=== PATIENT | male | born 1955 | race Caucasian/White ===

== ENCOUNTER 2020-09-06 03:36 | Emergency (ER) | payer OTHER, SELFPAY ==
[2020-09-06 03:37] VITALS: BP 188/88; PULSE 72; RESP 18; TEMP 36.3; O2SAT 100; BMI 34.6
[2020-09-06 03:45] VITALS: BP 188/88; PULSE 64; RESP 15; TEMP 36.3; O2SAT 100
--- NOTE | 2020-09-06 04:11 | ED.DCSUM_ITS ---
- ER Visit Summary Date of Service: 09/06/20 Chief Complaint: Pain and swelling to right index finger History of Present Illness: The patient is a 65 M who presents with pain and swelling to his right index finger that is been getting worse over the past 6 days. Patient was seen at the [facility] urgent care and was given a prescription for Keflex and mupirocin. Patient states that it has gotten worse since he applied the mupirocin. Patient states he has been taking Tylenol and ibuprofen with some improvement. Patient denies any paresthesias or weakness. Patient describes his pain is aching. Patient is unsure of his last tetanus. Physical Examination: Vital signs are stable. Patient is afebrile. Patient is in no acute distress. Skin is warm dry. There is a large vesicle noted over the radial aspect of the distal phalanx of the right index finger along the nail margin. This also extends towards the eponychium. There is no active discharge or drainage. There is tenderness to palpation over the area. Sensation was intact to light touch in all digits. Capillary refill is less than 2 seconds in all digits. Strength is 5/5 in flexion and extension of the DIP, PIP, and MP joints. Emergency Department Course and Treatment: The area was cleaned with chlorhexidine prep. The area was opened with the tip of an 18-gauge needle. Large amount of purulent and bloody drainage was expressed. Patient tolerated the procedure well. Patient was instructed to continue his Keflex and mupirocin. Patient was instructed to follow-up with his primary care physician in 3 to 5 days. Patient understood and was agreeable with the plan. All questions were answered. Disposition: Discharge home Impression: Paronychia right index finger This note was generated with GreenPal dictation software. It may contain incorrect words, spelling, and punctuation that were not noted in review of the chart prior to signing ED Disposition - Plan for ED Patient: Disposition: Home or Assisted Living Diagnosis: Paronychia of right index finger Instructions: ED Paronychia of the Finger or Toe Referrals: Maykel Bee MD [Primary Care Provider] - 3-5 Days
== END 2020-09-06 04:47 | disposition home or self-care (01) ==
LOC: ED 04:41
PROVIDERS: Emergency Provider Emergency Medicine; PCP Internal Medicine
DX: L03.011 Cellulitis of right finger (principal); E11.9 Type 2 diabetes mellitus without complications; I10 Essential (primary) hypertension; Z72.0 Tobacco use
CPT/HCPCS: 10140; 10060; 99282

== ENCOUNTER → 2021-11-09 | Outpatient (CLI) | payer MEDICARE, SELFPAY ==
--- NOTE | 2021-11-09 15:16 | STRESSREP_ITS ---
Stress Test Report Exercise myocardial perfusion stress test. 66-year-old man with a history of chest pain. Stress protocol: Resting KG demonstrates normal sinus rhythm with a rate of 65 bpm T wave inversions noted in lead III and aVF. The patient exercised according to the regular Leroy protocol for total duration of 6 minutes and 30 seconds. The maximum heart rate attained was 133 bpm which was 85% of max impacted heart rate the maximum workload was 8.5 metabolic equivalents. At rest there were no ST or T wave changes noted to suggest ischemia and at peak exercise there was downsloping ST depression noted in leads III and aVF suggestive but not diagnostic of ischemia. The test was terminated due to the target heart rate being achieved. The peak blood pressure was 200/68 mmHg. No clinical angina was noted. Myocardial perfusion protocol. 14.6 mCi of technetium 99m sestamibi was injected at rest. The patient exercised according to regular Leroy protocol for total duration of 6-1/2 minutes and at peak exercise 44.8 mCi of technetium 99m sestamibi was injected stress images were obtained stress and rest images were reconstructed and charmaine red in the short axis vertical long and horizontal long axis. Gated images were also obtained to Perfusion SPECT analysis: Review of the stress images demonstrate normal uptake of tracer noted in all areas of the myocardium. The resting images similarly demonstrate normal uptake of tracer noted in all areas of the myocardium. No reversibility is noted suggest ischemia and no previous infarct is noted. Gated SPECT analysis: The gated ejection fraction is 55%. Conclusion: Normal exercise myocardial perfusion stress test at a high workload. Preserved ejection fraction.
== END | disposition home or self-care (01) ==
PROVIDERS: PCP Internal Medicine; Referring Provider Internal Medicine; Visit Provider Internal Medicine
DX: R94.31 Abnormal electrocardiogram [ECG] [EKG] (principal)
CPT/HCPCS: 78452; 93017; A9500; A4216

== ENCOUNTER 2024-04-16 01:09 | Emergency (ER) | payer MEDICARE, SELFPAY ==
[2024-04-16 01:10] VITALS: BP 166/73; PULSE 73; RESP 18; TEMP 36.5; O2SAT 98; BMI 31.8
--- NOTE | 2024-04-16 01:26 | RAD_ITS ---
STUDY: X-RAY - ABDOMEN/PELVIS REASON FOR EXAM: Male, 68 years old patient with right-sided flank pain. History of kidney stones. TECHNIQUE: Two AP supine views of the abdomen and pelvis. COMPARISON: None. FINDINGS: Normal visualized lung bases. There is an unremarkable bowel gas pattern. There is no obvious organomegaly, mass, dilated bowel or pathologic calcifications. Normal soft tissue structures. There appear to be degenerative changes of the left sacroiliac joint. RAD/Abdomen Single View IMPRESSION: No large radiopaque calculi are visualized. Electronically Signed: Diana Fuchs MD at 2:33 EST ,
--- NOTE | 2024-04-16 01:29 | ED.VIS.GI ---
HPI HPI - GI History of Present Illness Chief Complaint: Flank Pain Informant: patient and spouse/S.O. Narrative Narrative: 68-year-old male started suddenly having moderate-severe pain in his suprapubic area or just to the right of it about an hour or so ago along with some nausea and indigestion. No pain in his back or side. These of the same symptoms that he had a month ago or so when he was in [place] and [place] [facility] [place] and diagnosed with a 4 mm ureteral kidney stone. He was discharged with urine strainers and advised to take Tylenol and ibuprofen as needed for the pain, by the time he got home, he never had the pain again until an hour ago. He states it is the same. He urinated through the strainers but never passed the stone. No history of any abdominal surgeries. No other symptoms recently. [facility] Medical History (Updated 04/16/24 @ 02:[address] Edmund Hsieh MD) Hyperlipidemia Hypertension Type 2 diabetes mellitus Prostate cancer Home Medications ?Medication ?Instructions ?Recorded ?Last Taken ?Type Lisinopril 09/08/13 Unknown History aspirin 81 mg chewable tablet 81 mg PO DAILY@0800 09/08/13 Unknown History atorvastatin 40 mg tablet 40 mg PO QHS 09/08/13 Unknown History metformin 500 mg tablet,extended 1,000 mg PO BID 09/08/13 Unknown History release 24 hr sitagliptin phosphate 25 mg tablet 25 mg PO DAILY 09/08/13 Unknown History (Januvia) ondansetron 8 mg disintegrating 8 mg PO Q8H PRN nausea and 04/16/24 Unknown Rx tablet vomiting #20 tabs oxycodone-acetaminophen 5 mg-325 1 tab PO Q4H PRN Pain 3 days #18 04/16/24 Unknown Rx mg tablet TABLETS Allergy/AdvReac Type Severity Reaction Status Date / Time No Known Allergies Allergy Verified 04/16/24 01:15 Social History Smoking Status: Current some day smoker tobacco type: cigarettes ROS ROS ED Constitutional Constitutional ED: Denies chills or fever(s) Eyes Eyes: Denies change in vision or diplopia ENT ENT ED: Denies rhinorrhea or sore throat Cardiovascular Cardiovascular: Denies chest pain or palpitations Respiratory/Chest Respiratory/Chest: Denies cough or dyspnea Gastrointestinal Gastrointestinal: Reports abdominal pain and nausea; Denies diarrhea or vomiting Genitourinary Genitourinary ED: Denies dysuria or hematuria Musculoskeletal Musculoskeletal: Denies back pain or neck pain Integumentary Denies abscess or rash Neurologic Neurologic: Denies headache(s), paresthesias or weakness Psychiatric Psychiatric: Denies anxiety or suicidal thoughts EXAM Physical Exam Const Vital Signs: 04/16/24 01:10 Temperature 97.7 F L Temperature Source Oral Pulse Rate 73 Respiratory Rate 18 Blood Pressure 166/73 H Blood Pressure Mean 104 Pulse Ox 98 Oxygen Delivery Method Room Air Positive well nourished, well developed and obese General Appearance ED: well developed and NAD Nutritional Appearance: obese HEENT Reports moist mucous membranes normocephalic and atraumatic Eyes PERRL and EOMs intact bilaterally Neck full ROM and supple Resp normal respiratory effort and clear to auscultation bilaterally Cardio regular rate, regular rhythm and no murmurs GI non-tender and non-distended Auscultation: normoactive bowel sounds Palpation: soft Back/Spine no CVA tenderness General Back: other FROM Extremity normal to inspection General Extremety ED: Negative for edema, pulses abnormal or tenderness General Extremity: Negative for edema or pulses abnormal Neuro oriented x3, CN's II-XII intact bilaterally and no sensory deficits noted Sensorium / Orientation: awake and alert Motor Exam: strength 5/5 throughout Skin no rashes or lesions noted and no wounds MDM MDM MDM Narrative Medical decision making narrative: Given the patient's history I do not think we need to repeat a CT scan for this, since he was diagnosed with a kidney stone and he has exact same symptoms. He does not have a pulsatile mass, unequal leg pulses, or Kyler sign to suggest an aortic catastrophe. Furthermore his abdomen is nontender, correlating with a kidney stone and not necessarily appendicitis, he has no pain or tenderness in in or around McBurney's point. Patient was able to produce the results of his CT from the [place] ER visit using [employer] on his phone from [employer], and I reviewed the results as below. He had a nonobstructing right renal 4 mm stone which is probably causing an obstructive uropathy and his symptoms now. He was given symptom control medications and a urinalysis was ordered as well as a KUB. 1 view on my interpretation shows no obvious radiopaque stones, radiology was in agreement. His urinalysis in my opinion/interpretation shows no acute infection. He does have some trace hematuria, he states he has had that before due to his diabetes and the medication he is on. After Toradol 10 mg and morphine and Zofran he is feeling much better. His pain is well-controlled. Given that this is a likely 4 mm UVJ stone, he already has Flomax he is advised to start taking it once a day, but I think expectant management is indicated and reasonable here. Prescribed oxycodone and Zofran to use as needed we discussed reasons to return and reasons to follow-up with urology. Discharged with urine strainers. History & Record Review Additional record(s) reviewed:: Prior outpatient record (CT abdomen/pelvis from [place] in February: 3-4 mm left UVJ stone with hydro, and nonobstructing right renal 4 mm stone) and Other (Clinisync: No records from [place] visit available) Lab Data Attestation: I reviewed the patient's lab results. Labs: Laboratory Results - last 24 hr 04/16/24 01:39 Urine Color Yellow Urine Clarity Clear Urine pH 6.5 Ur Specific [place] 1.015 Urine Protein 15 H Urine Glucose (UA) 1000 H Urine Ketones Negative Urine Occult Blood 25 H Urine Nitrite Negative Urine Bilirubin Negative Urine Urobilinogen 1 H Ur Leukocyte Esterase 25 H Urine RBC 5-10 SEEN Urine WBC 5-10 SEEN Ur Squamous Epith Cells 0-5 SEEN Urine Bacteria 2+ Urine Mucus 0 SEEN Radiography Diagnostic Testing: Clinical Impression(s) from Imaging Studies KUB X-Ray 04/16/24 01:26 IMPRESSION: No large radiopaque calculi are visualized. Electronically Signed: Diana Fuchs MD at 2:33 EST Reading Location ID and State: [facility] / [place] , Service support , Discharge Plan Triage Chief Complaint: Flank Pain ED Provider: Edmund Hsieh Dx/Rx/DC Orders Clinical Impression: Ureteral colic, Urolithiasis Instructions: ED Kidney Stone with Pain Prescriptions: New oxycodone-acetaminophen 5-325 mg tablet 1 tab PO Q4H PRN (Reason: Pain) 3 Days Qty: 18 0RF ondansetron 8 mg tablet,disintegrating 8 mg PO Q8H PRN (Reason: nausea and vomiting) Qty: 20 0RF No Action atorvastatin 40 MG tablet 40 mg PO QHS aspirin 81 MG tablet,chewable 81 mg PO DAILY@0800 metformin 500 MG tablet 1,000 mg PO BID sitagliptin phosphate [Januvia] 25 MG tablet 25 mg PO DAILY Lisinopril Primary Care Provider: Maykel Bee Referrals: Marquise Rivers MD [Med Staff - Active Staff] - 1 Week if not improving Maykel Bee MD [Primary Care Provider] - Activity Restrictions/Additional Instructions: Take your Flomax 1 tablet daily in addition to the prescriptions as needed for pain/nausea, you may add ibuprofen on occasion no more than twice a day to this if you need for pain. Strain all of your urine. If you pass a stone and see it in the strainer, then you may stop taking the Flomax. Print Language: Khmer Disposition Disposition: Home, Self Care
[2024-04-16] MEDS: Ondansetron 4 MG/2 ML Vial IV (01:40)
[2024-04-16] MEDS: Morphine 4 MG/ML Syringe IV (01:41)
[2024-04-16 01:47] LABS: Mucous, Urine 0 SEEN /hpf (<or=2+)
[2024-04-16 01:48] LABS: Color, Urine Yellow (Yellow); Glucose, Dipstick 1000 mg/dl (Normal); Ketone-Dipstick Negative (Negative); Leukocyte Esterase-Dipstick 25 /ul (Negative); Nitrite-Dipstick Negative (Negative); Occult Blood-Urine 25 /ul (Negative); Protein-Dipstick 15 mg/dl (Negative); Specific Gravity, Urine 1.015 (1.002-1.030); Urine Bilirubin Dipstick Negative (Negative); Urine Clarity Clear (Clear); Urine Urobilinogen 1 mg/dl (Normal); Urine pH 6.5 (5.0 - 8.0)
[2024-04-16 01:56] LABS: Bacteria 2+ /hpf (None Seen); Red Blood Cells-Urine 5-10 SEEN /hpf (0-5); Squamous Epithelial Cells - UA 0-5 SEEN /hpf (0-5); White Blood Cells 5-10 SEEN /hpf (0-5)
[2024-04-16 02:49] VITALS: BP 146/75; PULSE 66; RESP 16; TEMP 36.5; O2SAT 97
[2024-04-16] MEDS: HYDROcodone Bitartrate/Apap 5/325 Tablet PO (02:49)
== END 2024-04-16 02:53 | disposition home or self-care (01) ==
PROVIDERS: Emergency Provider Emergency Medicine; PCP Internal Medicine; Visit Provider Emergency Medicine
DX: N20.0 Calculus of kidney (principal); E11.9 Type 2 diabetes mellitus without complications; I10 Essential (primary) hypertension; E78.5 Hyperlipidemia, unspecified; E66.9 Obesity, unspecified; F17.210 Nicotine dependence, cigarettes, uncomplicated; Z85.46 Personal history of malignant neoplasm of prostate; Z79.82 Long term (current) use of aspirin; Z79.84 Long term (current) use of oral hypoglycemic drugs; Z79.899 Other long term (current) drug therapy
CPT/HCPCS: 74018; 81001; 96374; 96375; 99283; A4216; J2405

== ENCOUNTER 2024-04-17 23:35 | Emergency (ER) | payer MEDICARE, SELFPAY ==
[2024-04-17 23:35] VITALS: BP 163/67; PULSE 87; RESP 16; TEMP 36.8; O2SAT 98; BMI 32.1
--- NOTE | 2024-04-18 00:24 | CT_ITS ---
INDICATION: Kidney Stone EXAMINATION: CT Abdomen And Pelvis W/O Contrast Injection TECHNIQUE: Helically acquired images were obtained of the abdomen and pelvis with sagittal and coronal reconstructed images. Individualized dose optimization techniques were used for this CT. IV contrast dosage and agent: None. Oral contrast: None. COMPARISON: None. FINDINGS: VESSELS: No abdominal aortic aneurysm. LIVER: No intrahepatic or extrahepatic biliary duct dilation. GALLBLADDER: No calcified stones. No evidence of cholecystitis. PANCREAS: No evidence of a mass. No evidence of pancreatitis. SPLEEN: Normal. ADRENAL GLANDS: Normal. KIDNEYS AND URETERS: Hyperdense and simple left renal cysts with no follow-up recommended. 1 mm right renal stone. Large amount of right perinephric stranding. Mild left perinephric stranding. Mild right hydronephrosis. 3 mm stone in the distal right ureter. No left ureteral stone. URINARY BLADDER: Unremarkable. BOWEL: Mild diverticulosis with no evidence of diverticulitis. Appendix appears normal. No evidence of bowel obstruction. REPRODUCTIVE ORGANS: Unremarkable. PERITONEUM: No intraabdominal free fluid or free air. LYMPH NODES: No pathologically enlarged mesenteric or retroperitoneal lymph nodes. ABDOMINAL WALL: No abdominal or pelvic wall hernia. BONES: No acute abnormality. LOWER CHEST: Bibasilar atelectasis. CT/Abdomen/Pelvis without Cont IMPRESSION: 3 mm stone in the distal right ureter with mild right hydronephrosis. Electronically Signed: Bobby Ashby DO at 1:20 EST ,
--- NOTE | 2024-04-18 00:36 | EX.ED.DYSGE1 ---
HPI History of Present Illness Chief Complaint: Abd Pain Narrative Narrative: 68-year-old male who denies significant past medical history, no past abdominal surgeries presents with abdominal pain. He relates history that about a month ago he was seen in [place] and was diagnosed by CT with bilateral kidney stones. He was doing well, until Sunday, 4 days ago when he started having pain. He was seen in the emergency department 2 days ago where he states they performed an x-ray, and he was given medication for an assumed kidney stone. He states that he took Tylenol, ibuprofen, and Percocet without relief. He denies any fever or chills, no nausea or vomiting, no bloating feeling but he has not had a bowel movement since Sunday which is unusual for him. He presents with continued lower abdominal pain. [facility] Medical History Hyperlipidemia Hypertension Type 2 diabetes mellitus Prostate cancer Home Medications ?Medication ?Instructions ?Recorded ?Last Taken ?Type aspirin 81 mg chewable tablet 81 mg PO DAILY@0800 09/08/13 Unknown History atorvastatin 40 mg tablet 40 mg PO QHS 09/08/13 Unknown History metformin 500 mg tablet,extended 1,000 mg PO BID 09/08/13 Unknown History release 24 hr ondansetron 8 mg disintegrating 8 mg PO Q8H PRN nausea and 04/16/24 Unknown Rx tablet vomiting #20 tabs oxycodone-acetaminophen 5 mg-325 1 tab PO Q4H PRN Pain 3 days #18 04/16/24 Unknown Rx mg tablet TABLETS dulaglutide 3 mg/0.5 mL 3 mg subcut NIELSEN 04/17/24 Unknown History subcutaneous pen injector (Trulicity) glipizide 5 mg tablet 5 mg PO BID 04/17/24 Unknown History insulin glargine 100 unit/mL (3 45 unit subcut QHS 04/17/24 Unknown History mL) subcutaneous pen (Basaglar KwikPen U-100 Insulin) lisinopril 40 mg tablet 40 mg PO DAILY 04/17/24 Unknown History tamsulosin 0.4 mg capsule 0.4 mg PO DAILY 04/17/24 Unknown History ketorolac 10 mg tablet 10 mg PO TID PRN pain 5 days #15 04/18/24 Unknown Rx tabs Allergy/AdvReac Type Severity Reaction Status Date / Time No Known Allergies Allergy Verified 04/17/24 23:35 Social History Smoking Status: Current some day smoker tobacco type: cigarettes ROS ROS ED ROS Narrative Constitutional: No fever, no chills. HEENT: No sore throat. No neck pain. No loss of vision. No rhinorrhea. Cardiovascular: No chest pain. No palpitations. No pedal edema. Respiratory: No cough, no shortness of breath. Abdominal: Positive lower bilateral abdominal pain. No nausea. No vomiting. No diarrhea. Positive constipation. Genitourinary: No dysuria. No hematuria. Musculoskeletal: No myalgias. No arthralgias. Neurologic: No headaches. No dizziness. No lightheadedness. Skin: No rash. No change in color. EXAM Physical Exam Narrative Exam Narrative: Afebrile. Vital signs noted. Regular rate and rhythm. Lungs clear to auscultation bilaterally. Abdomen soft with questionable distention, hypoactive bowel sounds. No guarding or rebound. Neurological examination nonfocal and nonlateralizing. Ambulatory in emergency department. Const Vital Signs: 04/17/24 23:35 04/18/24 01:35 Temperature 98.2 F Temperature Source Oral Pulse Rate 87 81 Respiratory Rate 16 18 Blood Pressure 163/67 H 130/69 H Blood Pressure Mean 99 89 Pulse Ox 98 97 Oxygen Delivery Method Room Air Room Air MDM MDM MDM Narrative Medical decision making narrative: I reviewed the patient's prior ED visit. He had a urinalysis and x-ray which did not show any ureterolithiasis. In the history and physical at that time, in review of his CT scan in [place], he did have a left UVJ stone that was 3 to 4 mm and a right renal stone. Comprehensive workup will be pursued today including laboratory work in the form of CBC and BMP and repeat urinalysis. I do feel CT imaging without contrast is indicated given his continued pain. I reviewed his laboratory work and he does have a leukocytosis of 15.1 which I think is nonspecific, hemoglobin 14.6, hematocrit 41.7, platelet count normal at 224. Sodium is slightly low at 135 with a BUN of 22 and a creatinine of 1.48, no prior with which to compare. Glucose elevated at 120 with a normal anion gap of 6. Urinalysis is negative for infection. I reviewed the radiology report of the CT of the abdomen and pelvis without contrast. There is a 3 mm stone in the distal ureter causing hydronephrosis. Upon repeat examination, he remains resting comfortably on the cot. He states he has Flomax at home that he takes on a daily basis. Additionally, he has leftover Percocet. I will add Toradol to his pain regimen. He sees Dr. Patricio Leon as his urologist in [place]. At this point in time, I feel he be discharged to follow-up. He is to return with fever, intractable pain, new or worsening symptoms. I do not feel that he requires emergent transfer for procedure as he has an 80% chance of passing this 3 mm stone in the distal ureter on the right. Disposition is discharged home in stable condition. History & Record Review Discussion w/independent historian: Patient Additional record(s) reviewed:: Prior ED visit Lab Data Attestation: I reviewed the patient's lab results. Labs: Laboratory Results - last 24 hr 04/18/24 04/18/24 00:43 01:13 WBC 15.1 H RBC 4.44 L Hgb 14.6 Hct 41.7 MCV 93.9 MCH 32.9 H MCHC 35.0 RDW Std Deviation 42.9 RDW Coeff of Jessica 12.4 Plt Count 224 MPV 7.9 Immature Gran % (Auto) 0.500 Neut % (Auto) 83.8 H Lymph % (Auto) 7.4 L [place] % (Auto) 7.8 Eos % (Auto) 0.2 Baso % (Auto) 0.3 Absolute Neuts (auto) 12.6 H Absolute Lymphs (auto) 1.12 Nucleated RBC % 0 Sodium 135 L Potassium 4.1 Chloride 104 Carbon Dioxide 25.0 Anion Gap 6 BUN 22 H Creatinine 1.48 H Estim Creat Clear Calc 54.39 Est GFR (MDRD) Af Amer 61 Est GFR (MDRD) Non-Af 50 L BUN/Creatinine Ratio 14.9 Glucose 120 H Calcium 8.8 Urine Color Yellow Urine Clarity Clear Urine pH 6.0 Ur Specific [place] 1.020 Urine Protein 15 H Urine Glucose (UA) 1000 H Urine Ketones Negative Urine Occult Blood 150 H Urine Nitrite Negative Urine Bilirubin Negative Urine Urobilinogen Normal Ur Leukocyte Esterase Negative Urine RBC 0 SEEN Urine WBC 0 SEEN Ur Squamous Epith Cells 0 SEEN Urine Bacteria 0 SEEN Urine Mucus 0 SEEN Radiography Diagnostic Testing: Clinical Impression(s) from Imaging Studies Abdomen/Pelvis CT 04/18/24 00:24 IMPRESSION: 3 mm stone in the distal right ureter with mild right hydronephrosis. Electronically Signed: Bobby Ashby DO at 1:20 EST Reading Location ID and State: [facility] / [place] Tel , Service support , Discharge Plan Triage Chief Complaint: Abd Pain ED Provider: Patrick Lester Dx/Rx/DC Orders Clinical Impression: Urolithiasis, Ureteral colic Instructions: ED Kidney Stone with Pain Prescriptions: New ketorolac 10 mg tablet 10 mg PO TID PRN (Reason: pain) 5 Days Qty: 15 0RF No Action atorvastatin 40 MG tablet 40 mg PO QHS aspirin 81 MG tablet,chewable 81 mg PO DAILY@0800 metformin 500 MG tablet 1,000 mg PO BID oxycodone-acetaminophen 5-325 mg tablet 1 tab PO Q4H PRN (Reason: Pain) 3 Days Qty: 18 0RF ondansetron 8 mg tablet,disintegrating 8 mg PO Q8H PRN (Reason: nausea and vomiting) Qty: 20 0RF tamsulosin 0.4 mg capsule 0.4 mg PO DAILY glipizide 5 mg tablet 5 mg PO BID insulin glargine [Basaglar KwikPen U-100 Insulin] 100 unit/mL (3 mL) insulin pen 45 unit subcut QHS Trulicity 3 mg/0.5 mL pen injector 3 mg subcut NIELSEN lisinopril 40 mg tablet 40 mg PO DAILY Primary Care Provider: Maykel Bee Referrals: Patricio Leon MD [Non-Staff] - 3-5 Days Maykel Bee MD [Primary Care Provider] - Activity Restrictions/Additional Instructions: Continue your daily Flomax. Take Toradol as needed for pain. You can continue the Percocet that you have left for breakthrough pain. Follow-up with your urologist in the next 3 to 5 days. Return to the emergency department with fever, intractable pain, new or worsening symptoms. Drink plenty of oral fluids. Print Language: Eritrean Disposition Disposition: Home, Self Care
[2024-04-18 00:49] LABS: Absolute Lymphocyte Count 1.12 X10^3/uL (0.83-4.51); Absolute Neutrophil Count 12.6 X10^3/uL (2.0-7.7); Basophil# 0.04 X10^3/uL; Basophil% 0.3 % (0-1); Eosinophil# 0.03 X10^3/uL; Eosinophils% 0.2 % (0-5); Hematocrit 41.7 % (40-54); Hemoglobin 14.6 g/dL (13.0-16.5); Lymphocyte # 1.12 X10^3/ul (0.83-4.51); Lymphocyte % 7.4 % (19-41); Mean Corpuscular Hgb 32.9 pg (27.0-32.0); Mean Corpuscular Volume 93.9 fL (80-94); Mean Platelet Vol. 7.9 fl (6.2-12.0); Monocyte# 1.17 X10^3/uL; Monocyte% 7.8 % (0-10); NRBC Flagged by Analyzer 0 % (0-5); Neutrophil # 12.64 X10^3/uL (2.7-7.7); Neutrophil % 83.8 % (47-70); Platelet Count 224 K/mm3 (150-450); RBC Distribution Width CV 12.4 % (11.6-14.6); RBC Distribution Width SD 42.9 fl (35.1-43.9); Red Blood Count 4.44 M/mm3 (4.6-6.2); White Blood Count 15.1 K/mm3 (4.4-11.0)
[2024-04-18 01:03] LABS: Anion Gap 6 (5-15); BUN 22 mg/dL (7-18); BUN/Creat Ratio 14.9 RATIO (10-20); Calcium,Total 8.8 mg/dL (8.5-10.1); Chloride 104 mmol/L (98-107); Creatinine, Serum 1.48 mg/dL (0.70-1.30); EST Glomerular Filtration Rate 50 mL/min (>60); Est Glom Filt Rate - Afr Amer 61 mL/min (>60); Estimated Creatinine Clearance 54.39 ml/min; Glucose 120 mg/dL (74-106); Potassium 4.1 mmol/L (3.5-5.1); Sodium Level 135 mmol/L (136-145)
[2024-04-18] MEDS: Ketorolac 30 MG/ML Syringe IV (01:07)
[2024-04-18 01:18] LABS: Bacteria 0 SEEN /hpf (None Seen); Mucous, Urine 0 SEEN /hpf (<or=2+); Red Blood Cells-Urine 0 SEEN /hpf (0-5); Squamous Epithelial Cells - UA 0 SEEN /hpf (0-5); White Blood Cells 0 SEEN /hpf (0-5)
[2024-04-18 01:24] LABS: Color, Urine Yellow (Yellow); Glucose, Dipstick 1000 mg/dl (Normal); Ketone-Dipstick Negative (Negative); Leukocyte Esterase-Dipstick Negative /ul (Negative); Nitrite-Dipstick Negative (Negative); Occult Blood-Urine 150 /ul (Negative); Protein-Dipstick 15 mg/dl (Negative); Urine Bilirubin Dipstick Negative (Negative); Urine Clarity Clear (Clear); Urine Urobilinogen Normal (Normal)
[2024-04-18 01:35] VITALS: BP 130/69; PULSE 81; RESP 18; O2SAT 97
[2024-04-18 01:59] VITALS: BP 119/61; PULSE 82; RESP 14; TEMP 36.7; O2SAT 97
== END 2024-04-18 02:07 | disposition home or self-care (01) ==
LOC: ED 04-18 01:58
PROVIDERS: Emergency Provider Emergency Medicine; PCP Internal Medicine; Visit Provider Emergency Medicine
DX: N13.2 Hydronephrosis with renal and ureteral calculous obstruction (principal); E11.9 Type 2 diabetes mellitus without complications; Z79.4 Long term (current) use of insulin; I10 Essential (primary) hypertension; E78.5 Hyperlipidemia, unspecified; F17.210 Nicotine dependence, cigarettes, uncomplicated; Z85.46 Personal history of malignant neoplasm of prostate; Z79.82 Long term (current) use of aspirin; Z79.84 Long term (current) use of oral hypoglycemic drugs; Z79.899 Other long term (current) drug therapy
CPT/HCPCS: 74176; 80048; 81001; 85025; 87086; 96374; 99283; A4216

== ENCOUNTER 2024-04-20 19:39 | Emergency (ER) | payer MEDICARE, SELFPAY ==
[2024-04-20 19:44] VITALS: BP 148/73; PULSE 89; RESP 18; TEMP 37.1; O2SAT 98; BMI 31.7
[2024-04-20 19:59] VITALS: TEMP 37.7
--- NOTE | 2024-04-20 20:25 | EX.ED.DYSGE1 ---
HPI <SACHA Garcia - Last Filed: 04/20/24 22:03> History of Present Illness Chief Complaint: Fever Narrative Narrative: Patient presenting today with concerns for a fever. He was diagnosed with a right-sided ureteral stone about a month ago in a different state, he did not think that he ever passed the stone and came in on 04/16/2024 due to pain in his right groin, it was presumed he likely had a kidney stone and he was treated with pain medication and Flomax. He then returned on 04/17/2024 due to pain in his abdomen, CT scan of the abdomen and pelvis was obtained and showed a 3 mm right-sided ureteral stone. No acute infection was seen at that time, he was treated with analgesia and Flomax and was encouraged to follow-up with his urologist. He was told to return if he developed a fever. He reports that this evening he began to feel warm, his took his temperature and it was 100.4 ?F. He otherwise feels well. He does report mild right-sided lower abdominal pain/groin pain but reports that his pain is under control. He denies dysuria, nausea, and vomiting. [facility] <SACHA Garcia - Last Filed: 04/20/24 22:03> [facility] Medical History Hyperlipidemia Hypertension Type 2 diabetes mellitus Prostate cancer Home Medications ?Medication ?Instructions ?Recorded ?Last Taken ?Type aspirin 81 mg chewable tablet 81 mg PO DAILY@0800 09/08/13 Unknown History atorvastatin 40 mg tablet 40 mg PO QHS 09/08/13 Unknown History metformin 500 mg tablet,extended 1,000 mg PO BID 09/08/13 Unknown History release 24 hr ondansetron 8 mg disintegrating 8 mg PO Q8H PRN nausea and 04/16/24 Unknown Rx tablet vomiting #20 tabs oxycodone-acetaminophen 5 mg-325 1 tab PO Q4H PRN Pain 3 days #18 04/16/24 Unknown Rx mg tablet TABLETS dulaglutide 3 mg/0.5 mL 3 mg subcut NIELSEN 04/17/24 Unknown History subcutaneous pen injector (Trulicity) glipizide 5 mg tablet 5 mg PO BID 04/17/24 Unknown History insulin glargine 100 unit/mL (3 45 unit subcut QHS 04/17/24 Unknown History mL) subcutaneous pen (Basaglar KwikPen U-100 Insulin) lisinopril 40 mg tablet 40 mg PO DAILY 04/17/24 Unknown History tamsulosin 0.4 mg capsule 0.4 mg PO DAILY 04/17/24 Unknown History ketorolac 10 mg tablet 10 mg PO TID PRN pain 5 days #15 04/18/24 Unknown Rx tabs Allergy/AdvReac Type Severity Reaction Status Date / Time No Known Allergies Allergy Verified 04/20/24 19:44 Social History Smoking Status: Current some day smoker tobacco type: cigarettes ROS <SACHA Garcia - Last Filed: 04/20/24 22:03> ROS ED Constitutional Constitutional ED: Reports fever(s); Denies chills Cardiovascular Cardiovascular: Denies chest pain Respiratory/Chest Respiratory/Chest: Denies cough or dyspnea Gastrointestinal Gastrointestinal: Reports abdominal pain; Denies nausea or vomiting Genitourinary Genitourinary ED: Denies dysuria, hematuria or urinary urgency Musculoskeletal Musculoskeletal: Reports other Details: Mild right-sided flank pain Integumentary Denies rash Neurologic Neurologic: Denies weakness EXAM <SACHA Garcia - Last Filed: 04/20/24 22:03> Physical Exam Const Vital Signs: 04/20/24 19:44 04/20/24 19:58 04/20/24 19:59 Temperature 98.7 F 100 F H Temperature Source Oral Oral Pulse Rate 89 Respiratory Rate 18 Respiratory Effort Normal Non-Labored Respiratory Pattern Normal Blood Pressure 148/73 H Blood Pressure Mean 98 Pulse Ox 98 Oxygen Delivery Method Room Air 04/20/24 21:17 Temperature 100 F H Temperature Source Pulse Rate 78 Respiratory Rate 18 Respiratory Effort Respiratory Pattern Blood Pressure 135/89 H Blood Pressure Mean 104 Pulse Ox 98 Oxygen Delivery Method Positive well nourished, well developed and no apparent distress General Appearance ED: well developed HEENT Reports normocephalic and head/scalp atraumatic Mouth ED: Yes moist mucous membranes normal Eyes PERRL and EOMs intact bilaterally Neck full ROM and supple Chest Wall inspection of chest normal Resp normal respiratory effort and clear to auscultation bilaterally Cardio regular rate and regular rhythm GI soft to palpation, non-tender, non-distended and no masses Back/Spine normal ROM and normal to inspection General Back: Negative for CVA tenderness Extremity normal to inspection and full ROM Neuro oriented x3, CN's II-XII intact bilaterally, moves all extremities, no focal motor deficits and no sensory deficits noted Sensorium / Orientation: awake and alert Psych mental status grossly normal and thought process normal Skin no rashes or lesions noted and no wounds <Dr. Romario Berumen MD - Last Filed: 04/22/24 15:01> Physical Exam Const Vital Signs: 04/20/24 19:44 04/20/24 19:58 04/20/24 19:59 Temperature 98.7 F 100 F H Temperature Source Oral Oral Pulse Rate 89 Respiratory Rate 18 Respiratory Effort Normal Non-Labored Respiratory Pattern Normal Blood Pressure 148/73 H Blood Pressure Mean 98 Pulse Ox 98 Oxygen Delivery Method Room Air 04/20/24 21:17 Temperature 100 F H Temperature Source Pulse Rate 78 Respiratory Rate 18 Respiratory Effort Respiratory Pattern Blood Pressure 135/89 H Blood Pressure Mean 104 Pulse Ox 98 Oxygen Delivery Method MDM <SACHA Garcia - Last Filed: 04/20/24 22:03> [facility] Narrative Medical decision making narrative: Patient presenting today with concerns for fever that started today. He was just here 04/18/2024 and he was diagnosed with a 3 mm stone in the right distal ureter. He has had this ureteral stone for about a month. He was told to return for any fevers. He is nontoxic-appearing and in no acute distress, his temperature here is 100 ?F. He did just take Toradol prior to arrival, I suspect that this will go down. CBC shows a WBC of 12, this is downtrending in comparison to the when it was 15.1. Sodium 133, creatinine 1.54, BUN 29, kidney function is consistent with previous labs. UA is negative for UTI. He did report that he has had nasal congestion and bilateral ear congestion over the last several days. No signs of otitis media or externa on exam. I suspect he could have a viral illness causing his fever. Recommended that he alternate Tylenol and NSAIDs for fever control. I have recommended he follow-up closely with his urologist and PCP. He will be discharged home in stable condition. Return instructions were discussed. Unfortunately, temperature was not rechecked prior to discharge. However, he did administer Toradol just prior to arrival. Suspect his temperature did go down. I have personally performed a face to face assessment of the patient and have reviewed the LIEN Note. I performed a substantive portion of the visit including all aspects of the following. My herring findings include: History is Remarkable for right flank pain. He was seen on April 16. KUB was obtained. There was no large radiopaque calculus visualized. Patient was treated for ureteral stone. He had a CAT scan at outside facility February 2024. At that time he was found to have a left ureteral calculi. Patient returned on April 18 and was noted to have a 3 mm stone distal right ureter with mild right hydronephrosis. He reports temperature of 100.41 to 2 hours prior to presentation. He did take a Toradol. He did not take any antipyretic 6 hours prior to elevated temperature. states he looked pale he was diaphoretic and reason that she took his temperature. He was told to return if he developed a fever. His urologist is Dr. Valle who practices primarily out of the [facility]. His last dose of Percocet was Sunday. Patient complains of intermittent pain right side. He does have history of type 2 diabetes on metformin, hypertension. He also is on Trulicity, glipizide and insulin for his diabetes. Based on medication he also has history of cholesterol elevation Exam is patient's vitals are marked for temperature of 100.0 ?F. He does not appear uncomfortable. HEENT exam is remarkable for injected sclera, which and patient states is normal. He is diaphoretic. Lungs are clear to auscultation. Heart is regular. Rate is normal. Abdomen is slightly prominent with no tenderness. There is no CVA tenderness noted. Medical Decision Making patient's 2 prior visits were reviewed. In light of him having a fever with obstructing stone causing hydronephrosis on the right will obtain urine to assess for infection and appropriate blood work. If there is evidence of infection will call his urologist since he will need an urgent/emergent ureteral stent. Also will treat with antibiotics. Will obtain electrolyte panel to assess glucose, renal function and anion gap. CBC to assess white count differential. There is no indication for reimaging. Other additions or changes: [None] Lab Data Attestation: I reviewed the patient's lab results. Labs: Laboratory Results - last 24 hr 04/20/24 04/20/24 20:19 20:30 WBC 12.0 H RBC 4.11 L Hgb 13.6 Hct 39.3 L MCV 95.6 H MCH 33.1 H MCHC 34.6 RDW Std Deviation 42.4 RDW Coeff of Jessica 12.1 Plt Count 257 MPV 8.0 Immature Gran % (Auto) 0.400 Neut % (Auto) 76.5 H Lymph % (Auto) 12.5 L [place] % (Auto) 9.9 Eos % (Auto) 0.4 Baso % (Auto) 0.3 Absolute Neuts (auto) 9.2 H Absolute Lymphs (auto) 1.50 Nucleated RBC % 0 Sodium 133 L Potassium 4.4 Chloride 101 Carbon Dioxide 28.0 Anion Gap 4 L BUN 29 H Creatinine 1.54 H Estim Creat Clear Calc 51.95 Est GFR (MDRD) Af Amer 58 L Est GFR (MDRD) Non-Af 48 L BUN/Creatinine Ratio 18.8 Glucose 183 H Calcium 8.6 Urine Color Yellow Urine Clarity Clear Urine pH 6.0 Ur Specific [place] 1.010 Urine Protein 15 H Urine Glucose (UA) 1000 H Urine Ketones Negative Urine Occult Blood 150 H Urine Nitrite Negative Urine Bilirubin Negative Urine Urobilinogen 1 H Ur Leukocyte Esterase Negative Urine RBC 0-5 SEEN Urine WBC 0 SEEN Ur Squamous Epith Cells 0-5 SEEN Urine Bacteria 0 SEEN Urine Mucus 0 SEEN <Dr. Romario Berumen MD - Last Filed: 04/22/24 15:01> [facility] Narrative Medical decision making narrative: I have personally performed a face to face assessment of the patient and have reviewed the LIEN Note. I performed a substantive portion of the visit including all aspects of the following. My herring findings include: History is Remarkable for right flank pain. He was seen on April 16. KUB was obtained. There was no large radiopaque calculus visualized. Patient was treated for ureteral stone. He had a CAT scan at outside facility February 2024. At that time he was found to have a left ureteral calculi. Patient returned on April 18 and was noted to have a 3 mm stone distal right ureter with mild right hydronephrosis. He reports temperature of 100.41 to 2 hours prior to presentation. He did take a Toradol. He did not take any antipyretic 6 hours prior to elevated temperature. states he looked pale he was diaphoretic and reason that she took his temperature. He was told to return if he developed a fever. His urologist is Dr. Valle who practices primarily out of the [facility]. His last dose of Percocet was Sunday. Patient complains of intermittent pain right side. He does have history of type 2 diabetes on metformin, hypertension. He also is on Trulicity, glipizide and insulin for his diabetes. Based on medication he also has history of cholesterol elevation Exam is patient's vitals are marked for temperature of 100.0 ?F. He does not appear uncomfortable. HEENT exam is remarkable for injected sclera, which and patient states is normal. He is diaphoretic. Lungs are clear to auscultation. Heart is regular. Rate is normal. Abdomen is slightly prominent with no tenderness. There is no CVA tenderness noted. Medical Decision Making patient's 2 prior visits were reviewed. In light of him having a fever with obstructing stone causing hydronephrosis on the right will obtain urine to assess for infection and appropriate blood work. If there is evidence of infection will call his urologist since he will need an urgent/emergent ureteral stent. Also will treat with antibiotics. Will obtain electrolyte panel to assess glucose, renal function and anion gap. CBC to assess white count differential. There is no indication for reimaging. Other additions or changes: [None] History & Record Review Additional record(s) reviewed:: Prior ED visit (Documented in the MDM narrative.) and Prior labs Lab Data Labs: Laboratory Results - last 24 hr 04/20/24 04/20/24 20:19 20:30 WBC 12.0 H RBC 4.11 L Hgb 13.6 Hct 39.3 L MCV 95.6 H MCH 33.1 H MCHC 34.6 RDW Std Deviation 42.4 RDW Coeff of Jessica 12.1 Plt Count 257 MPV 8.0 Immature Gran % (Auto) 0.400 Neut % (Auto) 76.5 H Lymph % (Auto) 12.5 L [place] % (Auto) 9.9 Eos % (Auto) 0.4 Baso % (Auto) 0.3 Absolute Neuts (auto) 9.2 H Absolute Lymphs (auto) 1.50 Nucleated RBC % 0 Sodium 133 L Potassium 4.4 Chloride 101 Carbon Dioxide 28.0 Anion Gap 4 L BUN 29 H Creatinine 1.54 H Estim Creat Clear Calc 51.95 Est GFR (MDRD) Af Amer 58 L Est GFR (MDRD) Non-Af 48 L BUN/Creatinine Ratio 18.8 Glucose 183 H Calcium 8.6 Urine Color Yellow Urine Clarity Clear Urine pH 6.0 Ur Specific [place] 1.010 Urine Protein 15 H Urine Glucose (UA) 1000 H Urine Ketones Negative Urine Occult Blood 150 H Urine Nitrite Negative Urine Bilirubin Negative Urine Urobilinogen 1 H Ur Leukocyte Esterase Negative Urine RBC 0-5 SEEN Urine WBC 0 SEEN Ur Squamous Epith Cells 0-5 SEEN Urine Bacteria 0 SEEN Urine Mucus 0 SEEN Discharge Plan Triage Chief Complaint: Fever ED Midlevel Provider: Erika Antonio ED Provider: Romario Berumen Dx/Rx/DC Orders Clinical Impression: Urolithiasis, Ureteral colic, Fever Instructions: ED FUO Adult, ED Kidney Stone with Pain Prescriptions: No Action atorvastatin 40 MG tablet 40 mg PO QHS aspirin 81 MG tablet,chewable 81 mg PO DAILY@0800 metformin 500 MG tablet 1,000 mg PO BID oxycodone-acetaminophen 5-325 mg tablet 1 tab PO Q4H PRN (Reason: Pain) 3 Days Qty: 18 0RF ondansetron 8 mg tablet,disintegrating 8 mg PO Q8H PRN (Reason: nausea and vomiting) Qty: 20 0RF tamsulosin 0.4 mg capsule 0.4 mg PO DAILY glipizide 5 mg tablet 5 mg PO BID insulin glargine [Basaglar KwikPen U-100 Insulin] 100 unit/mL (3 mL) insulin pen 45 unit subcut QHS Trulicity 3 mg/0.5 mL pen injector 3 mg subcut NIELSEN lisinopril 40 mg tablet 40 mg PO DAILY ketorolac 10 mg tablet 10 mg PO TID PRN (Reason: pain) 5 Days Qty: 15 0RF Primary Care Provider: Maykel Bee Referrals: Maykel Bee MD [Primary Care Provider] - Activity Restrictions/Additional Instructions: Follow-up with urology, return for any worsening symptoms or other concerns. You can alternate Tylenol and NSAIDs such as Toradol or ibuprofen for your pain as needed. Print Language: Mongolian Disposition Disposition: Home, Self Care Discharge Date/Time: 04/20/24 21:22
[2024-04-20 20:38] LABS: Bacteria 0 SEEN /hpf (None Seen); Mucous, Urine 0 SEEN /hpf (<or=2+); White Blood Cells 0 SEEN /hpf (0-5)
[2024-04-20 20:39] LABS: Color, Urine Yellow (Yellow); Glucose, Dipstick 1000 mg/dl (Normal); Ketone-Dipstick Negative (Negative); Leukocyte Esterase-Dipstick Negative /ul (Negative); Nitrite-Dipstick Negative (Negative); Occult Blood-Urine 150 /ul (Negative); Protein-Dipstick 15 mg/dl (Negative); Urine Bilirubin Dipstick Negative (Negative); Urine Clarity Clear (Clear); Urine Urobilinogen 1 mg/dl (Normal)
[2024-04-20 20:50] LABS: Absolute Neutrophil Count 9.2 X10^3/uL (2.0-7.7); Basophil# 0.03 X10^3/uL; Basophil% 0.3 % (0-1); Eosinophil# 0.05 X10^3/uL; Eosinophils% 0.4 % (0-5); Hematocrit 39.3 % (40-54); Hemoglobin 13.6 g/dL (13.0-16.5); Lymphocyte % 12.5 % (19-41); Mean Corp Hgb Conc 34.6 g/dL (32-36); Mean Corpuscular Hgb 33.1 pg (27.0-32.0); Mean Corpuscular Volume 95.6 fL (80-94); Monocyte# 1.19 X10^3/uL; Monocyte% 9.9 % (0-10); NRBC Flagged by Analyzer 0 % (0-5); Neutrophil # 9.18 X10^3/uL (2.7-7.7); Neutrophil % 76.5 % (47-70); Platelet Count 257 K/mm3 (150-450); RBC Distribution Width CV 12.1 % (11.6-14.6); RBC Distribution Width SD 42.4 fl (35.1-43.9); Red Blood Count 4.11 M/mm3 (4.6-6.2)
[2024-04-20 20:57] LABS: Red Blood Cells-Urine 0-5 SEEN /hpf (0-5); Squamous Epithelial Cells - UA 0-5 SEEN /hpf (0-5)
[2024-04-20 20:58] LABS: Anion Gap 4 (5-15); BUN 29 mg/dL (7-18); BUN/Creat Ratio 18.8 RATIO (10-20); Calcium,Total 8.6 mg/dL (8.5-10.1); Chloride 101 mmol/L (98-107); Creatinine, Serum 1.54 mg/dL (0.70-1.30); EST Glomerular Filtration Rate 48 mL/min (>60); Est Glom Filt Rate - Afr Amer 58 mL/min (>60); Estimated Creatinine Clearance 51.95 ml/min; Glucose 183 mg/dL (74-106); Potassium 4.4 mmol/L (3.5-5.1); Sodium Level 133 mmol/L (136-145)
[2024-04-20 21:17] VITALS: BP 135/89; PULSE 78; RESP 18; TEMP 37.7; O2SAT 98
== END 2024-04-20 21:22 | disposition home or self-care (01) ==
PROVIDERS: Physician Assistant; Emergency Provider Emergency Medicine; PCP Internal Medicine; Referring Provider Emergency Medicine; Visit Provider Emergency Medicine
DX: N13.2 Hydronephrosis with renal and ureteral calculous obstruction (principal); E11.9 Type 2 diabetes mellitus without complications; Z79.4 Long term (current) use of insulin; R50.9 Fever, unspecified; I10 Essential (primary) hypertension; E78.5 Hyperlipidemia, unspecified; F17.210 Nicotine dependence, cigarettes, uncomplicated; Z85.46 Personal history of malignant neoplasm of prostate; Z79.82 Long term (current) use of aspirin; Z79.84 Long term (current) use of oral hypoglycemic drugs; Z79.85 Long-term (current) use of injectable non-insulin antidiabetic drugs; Z79.899 Other long term (current) drug therapy
CPT/HCPCS: 80048; 81001; 85025; 99282; A4216

== ENCOUNTER 2024-07-02 21:29 | Emergency (ER) | payer MEDICARE, SELFPAY ==
[2024-07-02] VITALS (10 sets, daily range): BP systolic 120–147; BP diastolic 56–77; PULSE 80–109; RESP 18–25; TEMP 37.6–39.2; O2SAT 94–96; BMI 31.6
--- NOTE | 2024-07-02 22:00 | EKG12_ITS ---
Test Reason : DYSRHYTHMIA Blood Pressure : */* mmHG Vent. Rate : 94 BPM Atrial Rate : 94 BPM P-R Int : 156 ms QRS Dur : 90 ms QT Int : 362 ms P-R-T Axes : 58 84 33 degrees QTcB Int : 452 ms Normal sinus rhythm Possible Left atrial enlargement Septal infarct , age undetermined Abnormal ECG Confirmed by PAT DICK, DERRICK ([id number]), business editor VARSHA ROJO [id number]) on 07/04/2024 12:59:23 PM Referred By: Shorty Abbott Confirmed By: DERRICK STEWART MD
--- NOTE | 2024-07-02 22:06 | EX.ED.DYSGE1 ---
HPI History of Present Illness Chief Complaint: Fever Informant: patient and spouse/S.O. Onset/Context/Timing Onset: Days Context: Gradual Onset Timing: Continuous Current Severity: Mild Maximum Severity: Mild Narrative Narrative: 68-year-old male history of hypertension, diabetes and prostate cancer. Patiently says he has not felt well since Sunday morning he has had fevers. Denies vomiting or diarrhea. No dysuria but urinary frequency. No hematuria. No back, chest or abdominal pain. No cough. No rash. Says he was tested for he believes COVID and flu and that was negative. Prior similar symptoms: Yes Recent Illness/Hospitalization: No PFSH PFS Medical History Hyperlipidemia Hypertension Type 2 diabetes mellitus Prostate cancer no medical history Home Medications ?Medication ?Instructions ?Recorded ?Last Taken ?Type aspirin 81 mg chewable tablet 81 mg PO DAILY@0800 09/08/13 Unknown History atorvastatin 40 mg tablet 40 mg PO QHS 09/08/13 Unknown History metformin 500 mg tablet,extended 1,000 mg PO BID 09/08/13 Unknown History release 24 hr ondansetron 8 mg disintegrating 8 mg PO Q8H PRN nausea and 04/16/24 Unknown Rx tablet vomiting #20 tabs oxycodone-acetaminophen 5 mg-325 1 tab PO Q4H PRN Pain 3 days #18 04/16/24 Unknown Rx mg tablet TABLETS dulaglutide 3 mg/0.5 mL 3 mg subcut NIELSEN 04/17/24 Unknown History subcutaneous pen injector (Trulicity) glipizide 5 mg tablet 5 mg PO BID 04/17/24 Unknown History insulin glargine 100 unit/mL (3 45 unit subcut QHS 04/17/24 Unknown History mL) subcutaneous pen (Basaglar KwikPen U-100 Insulin) lisinopril 40 mg tablet 40 mg PO DAILY 04/17/24 Unknown History tamsulosin 0.4 mg capsule 0.4 mg PO DAILY 04/17/24 Unknown History ketorolac 10 mg tablet 10 mg PO TID PRN pain 5 days #15 04/18/24 Unknown Rx tabs Allergy/AdvReac Type Severity Reaction Status Date / Time No Known Allergies Allergy Verified 07/02/24 21:34 Social History Smoking Status: Light Smoker (<10/day) ROS ROS ED ROS Narrative Fever. Body aches. Constitutional Constitutional ED: Reports fever(s); Denies chills Eyes Eyes: Denies blurry vision ENT ENT ED: Denies ear pain Cardiovascular Cardiovascular: Denies chest pain Respiratory/Chest Respiratory/Chest: Denies cough, dyspnea or dyspnea on exertion Gastrointestinal Gastrointestinal: Reports nausea; Denies abdominal pain, constipation, diarrhea, melena or vomiting Genitourinary Genitourinary ED: Denies dysuria or hematuria Musculoskeletal Musculoskeletal: Denies arthralgias or back pain Integumentary Denies abscess or Abrasions Neurologic Neurologic: Denies headache(s) Endocrine Endocrinology: Denies cold intolerance Hematologic/Lymphatic Hematologic/Lymphatic: Reports none Allergic/Immunologic Allergic/Immunologic ED: Denies mouth swelling, tongue swelling or urticaria EXAM Physical Exam Narrative Exam Narrative: Well-appearing 68-year-old male. Accompanied by his I believe. Vital signs are stable he does have a fever of 102.5. He does not look septic or toxic. He sitting upright in bed. He is interactive. H EENT exam pupils are round reactive light. Extra motions are intact. Moist mucous membranes. Posterior pharynx unremarkable. Neck nontender no lymphadenopathy. No meningismus. Lungs clear to auscultation bilaterally. Heart tachycardic rate of 105 no murmur. Chest wall ribs nontender. Abdomen soft nontender. No peritoneal signs. Back nontender. Moving all 4 extremities. Nontender. No edema. No rashes. Normal strength. Neurologically is awake and alert no focal motor deficits. Answering questions following commands. Const Vital Signs: 07/02/24 21:31 07/02/24 22:01 07/02/24 22:11 Temperature 102.5 F H Temperature Source Oral Pulse Rate 109 H Respiratory Rate 18 Respiratory Effort Normal Non-Labored Respiratory Pattern Normal Blood Pressure 147/77 H Blood Pressure Mean 100 Pulse Ox 96 Oxygen Delivery Method Room Air Room Air 07/02/24 22:45 Temperature 99.7 F H Temperature Source Oral Pulse Rate 89 Respiratory Rate 25 H Respiratory Effort Respiratory Pattern Blood Pressure 124/66 H Blood Pressure Mean 85 Pulse Ox 95 Oxygen Delivery Method Room Air Positive well nourished and well developed; Negative for cachectic, contractures or unkempt General Appearance ED: well developed and NAD; Negative for unkempt, cachectic, contractures, cyanotic, diaphoretic or pallor Nutritional Appearance: Negative for cachectic HEENT Reports moist mucous membranes Negative for trauma or tenderness Eyes PERRL and EOMs intact bilaterally Neck no lymphadenopathy, supple and no JVD Chest Wall inspection of chest normal and palpation of chest normal Resp normal respiratory effort and clear to auscultation bilaterally Effort and Inspection: Negative for retractions Auscultation: Negative for rales, rhonchi, wheezes or diminished lung sounds Cardio regular rhythm, S1 normal heart sound, S2 normal heart sound and no murmurs; Negative for regular rate Rate: tachycardic GI normal to inspection, nondistended, normoactive bowel sounds, non-tender, non-distended and no masses Auscultation: normoactive bowel sounds Palpation: soft; Negative for tender, guarding or rebound tenderness present Back/Spine no CVA tenderness General Back: Negative for CVA tenderness or other Cervical Spine: Negative for cervical spine tenderness Thoracic Spine / Upper Back: Negative for thoracic spinal tenderness or paraspinal muscle tenderness Lumbar Spine / Lower Back: Negative for lumbar spinal tenderness Extremity normal to inspection General Extremety ED: Negative for edema or tenderness General Extremity: Negative for edema Neuro oriented x3 and CN's II-XII intact bilaterally Sensorium / Orientation: alert; Negative for orientation impaired, lethargic or stuporous Motor Exam: strength 5/5 throughout; Negative for general weakness or strength abnormal Psych mental status grossly normal Appearance: Negative for unkempt Attitude: No agitated Mood & Affect: Negative for depressed, anxious or tearful Skin no rashes or lesions noted and no wounds General Skin Exam: Negative for jaundice or pallor Lesions: No lesion noted Rashes: No rashes noted Trauma: Negative for abrasion Wounds: Negative for wounds noted MDM MDM MDM Narrative Medical decision making narrative: 68-year-old male with fever and bodyaches but no other specific symptoms. He is not coughing or short of breath. He has no abdominal pain or rashes. He will undergo a septic workup because he is had a recent COVID and flu test that was negative but I explained he and his could still be that or another virus. Because he does not look incredibly ill. To be given Tylenol. Labs cultures and x-ray will be obtained. Repeat exam patient is doing well at 10:55 PM. I went over the test results that have returned already with both he and his . Explained him I believe he has a left perihilar upper lobe pneumonia. He will be started on Zithromax Z-Isaac. First dose given here. They are comfortable with him being discharged to home. We are just waiting for a few of his lab test to return. Patient doing well at 11:32 PM. To be discharged to home. History & Record Review Discussion w/independent historian: Patient Additional record(s) reviewed:: Prior outpatient record, Prior ED visit and Prior labs Lab Data Attestation: I reviewed the patient's lab results. Lab results narrative: CBC normal. White count of 10. H&H 14 and 43. Platelets 231. UA shows 250 occult blood. 50-100 red cells. No white cells. 2+ bacteria. No nitrates. PT/INR 13 and 1. PTT 26. Lactic acid is 1.0. Electrolytes show sodium 135. Gap 6. BUN 19 creatinine 0.8. Glucose 161. Liver enzymes unremarkable. Labs: Laboratory Results - last 24 hr 07/02/24 07/02/24 22:05 22:10 WBC 10.5 RBC 4.63 Hgb 14.8 Hct 43.1 MCV 93.1 MCH 32.0 MCHC 34.3 RDW Std Deviation 44.4 H RDW Coeff of Jessica 12.9 Plt Count 231 MPV 8.2 Immature Gran % (Auto) 0.500 Neut % (Auto) 79.9 H Lymph % (Auto) 8.9 L [place] % (Auto) 9.9 Eos % (Auto) 0.3 Baso % (Auto) 0.5 Absolute Neuts (auto) 8.4 H Absolute Lymphs (auto) 0.94 Nucleated RBC % 0 PT 13.3 INR 1.0 APTT 26.1 Sodium 135 L Potassium 3.9 Chloride 101 Carbon Dioxide 28.0 Anion Gap 6 BUN 19 H Creatinine 0.88 Estim Creat Clear Calc 90.76 Est GFR (MDRD) Af Amer 110 Est GFR (MDRD) Non-Af 91 BUN/Creatinine Ratio 21.5 H Glucose 161 H Calcium 9.1 Total Bilirubin 0.80 AST 6 L ALT 16 Alkaline Phosphatase 74 Total Protein 7.6 Albumin 3.3 Globulin 4.3 H Albumin/Globulin Ratio 0.8 L Urine Color Yellow Urine Clarity Clear Urine pH 6.0 Ur Specific Oil Trough 1.010 Urine Protein 30 H Urine Glucose (UA) 1000 H Urine Ketones Negative Urine Occult Blood 250 H Urine Nitrite Negative Urine Bilirubin Negative Urine Urobilinogen 4 H Ur Leukocyte Esterase Negative Urine RBC 50-100 SEEN Urine WBC 0 SEEN Ur Squamous Epith Cells 0-5 SEEN Urine Bacteria 2+ Urine Mucus 0 SEEN Urine Yeast RARE Radiography Chest X-Ray - ED: 2 View Diagnostic Testing: Clinical Impression(s) from Imaging Studies Chest X-Ray 07/02/24 22:23 IMPRESSION: Left suprahilar airspace opacity which may relate to pneumonia. However, continued follow-up is recommended to ensure resolution and to exclude malignancy. Alternatively, CT could be obtained for better evaluation. Reading Location: [facility] Chest x-ray, 2 views, AP and lateral, interpreted both by myself and the radiologist patient looks like the left upper lobe, perihilar infiltrate consistent with a pneumonia. Rhythm Strip Rhythm Strip: Sinus Rhythm Rate: 94 Ectopy: None EKG Initial EKG: Attestation: I personally reviewed and interpreted this EKG as follows: Interpretation: Sinus Rhythm and No Acute Injury Pattern Comments: Sinus rhythm rate of 94 no acute signs of ID nor ischemia nor dysrhythmia. Discharge Plan Triage Chief Complaint: Fever ED Provider: Shorty Abbott Dx/Rx/DC Orders Clinical Impression: Pneumonia, Fever, History of diabetes mellitus Instructions: ED Pneumonia (Adult) Prescriptions: No Action atorvastatin 40 MG tablet 40 mg PO QHS aspirin 81 MG tablet,chewable 81 mg PO DAILY@0800 metformin 500 MG tablet 1,000 mg PO BID oxycodone-acetaminophen 5-325 mg tablet 1 tab PO Q4H PRN (Reason: Pain) 3 Days Qty: 18 0RF ondansetron 8 mg tablet,disintegrating 8 mg PO Q8H PRN (Reason: nausea and vomiting) Qty: 20 0RF tamsulosin 0.4 mg capsule 0.4 mg PO DAILY glipizide 5 mg tablet 5 mg PO BID insulin glargine [Basaglar KwikPen U-100 Insulin] 100 unit/mL (3 mL) insulin pen 45 unit subcut QHS Trulicity 3 mg/0.5 mL pen injector 3 mg subcut NIELSEN lisinopril 40 mg tablet 40 mg PO DAILY ketorolac 10 mg tablet 10 mg PO TID PRN (Reason: pain) 5 Days Qty: 15 0RF Primary Care Provider: Maykel Bee Referrals: Maykel Bee MD [Primary Care Provider] - 3-5 Days Activity Restrictions/Additional Instructions: You have a left upper lobe pneumonia. You will be treated with the antibiotic Zithromax. He will take 1 pill a day starting at lunch tomorrow for the next 4 days. It usually works well. Take it with food on your stomach. Plenty of fluids and rest. Tylenol for the fever. Follow-up with your primary care doctor to ensure you are improving. Return if you feel a lot worse to the emergency department. At this time you do not need to be admitted to the hospital. Print Language: [place] Disposition Disposition: Home, Self Care
--- NOTE | 2024-07-02 22:09 | ED.RN ---
NO OLD EKG
[2024-07-02] MEDS: Acetaminophen 500 MG Tablet 1000 MG PO (22:18)
[2024-07-02 22:20] LABS: Mucous, Urine 0 SEEN /hpf (<or=2+); White Blood Cells 0 SEEN /hpf (0-5)
--- NOTE | 2024-07-02 22:23 | RAD_ITS ---
PROCEDURE: CHEST PA AND LATERAL REASON FOR EXAM: Fever, cough. TECHNIQUE: Frontal and lateral views of the chest. COMPARISON: None. FINDINGS: Cardiac size and pulmonary vasculature are within normal limits. There is a left suprahilar airspace opacity. No pleural effusion or pneumothorax is identified. RAD/Chest PA and Lateral IMPRESSION: Left suprahilar airspace opacity which may relate to pneumonia. However, ruddy nued follow-up is recommended to ensure resolution and to exclude malignancy. Alternatively, CT could be obtained for better eval uation. Reading Location: [facility]
[2024-07-02 22:35] LABS: Color, Urine Yellow (Yellow); Glucose, Dipstick 1000 mg/dl (Normal); Ketone-Dipstick Negative (Negative); Leukocyte Esterase-Dipstick Negative /ul (Negative); Nitrite-Dipstick Negative (Negative); Occult Blood-Urine 250 /ul (Negative); Protein-Dipstick 30 mg/dl (Negative); Urine Bilirubin Dipstick Negative (Negative); Urine Clarity Clear (Clear); Urine Urobilinogen 4 mg/dl (Normal)
[2024-07-02 22:36] LABS: Absolute Lymphocyte Count 0.94 X10^3/uL (0.83-4.51); Absolute Neutrophil Count 8.4 X10^3/uL (2.0-7.7); Basophil# 0.05 X10^3/uL; Basophil% 0.5 % (0-1); Eosinophil# 0.03 X10^3/uL; Eosinophils% 0.3 % (0-5); Hematocrit 43.1 % (40-54); Hemoglobin 14.8 g/dL (13.0-16.5); Lymphocyte # 0.94 X10^3/ul (0.83-4.51); Lymphocyte % 8.9 % (19-41); Mean Corp Hgb Conc 34.3 g/dL (32-36); Mean Corpuscular Volume 93.1 fL (80-94); Mean Platelet Vol. 8.2 fl (6.2-12.0); Monocyte# 1.04 X10^3/uL; Monocyte% 9.9 % (0-10); NRBC Flagged by Analyzer 0 % (0-5); Neutrophil # 8.43 X10^3/uL (2.7-7.7); Neutrophil % 79.9 % (47-70); Platelet Count 231 K/mm3 (150-450); RBC Distribution Width CV 12.9 % (11.6-14.6); RBC Distribution Width SD 44.4 fl (35.1-43.9); Red Blood Count 4.63 M/mm3 (4.6-6.2); White Blood Count 10.5 K/mm3 (4.4-11.0)
[2024-07-02 22:38] LABS: Partial Thromboplast Time 26.1 Seconds (24.1-36.2)
[2024-07-02 22:42] LABS: Prothrombin Time (Protime)PT. 13.3 SECONDS (11.7-14.9)
[2024-07-02 22:48] LABS: Red Blood Cells-Urine 50-100 SEEN /hpf (0-5)
[2024-07-02 22:49] LABS: Bacteria 2+ /hpf (None Seen); Squamous Epithelial Cells - UA 0-5 SEEN /hpf (0-5); Yeast-Urine RARE /hpf (None Seen)
[2024-07-02 22:59] LABS: ALB/GLOB Ratio 0.8 RATIO (0.9-2.4); AST(SGOT) 6 U/L (15-37); Alanine Aminotransfer ALT/SGPT 16 U/L (16-61); Albumin, Serum 3.3 g/dL (3.2-5.0); Alkaline Phosphatase 74 U/L (45-117); Anion Gap 6 (5-15); BUN 19 mg/dL (7-18); BUN/Creat Ratio 21.5 RATIO (10-20); Calcium,Total 9.1 mg/dL (8.5-10.1); Chloride 101 mmol/L (98-107); Creatinine, Serum 0.88 mg/dL (0.70-1.30); EST Glomerular Filtration Rate 91 mL/min (>60); Est Glom Filt Rate - Afr Amer 110 mL/min (>60); Estimated Creatinine Clearance 90.76 ml/min; Globulin 4.3 g/dL (2.2-4.2); Glucose 161 mg/dL (74-106); Potassium 3.9 mmol/L (3.5-5.1); Protein, Total 7.6 g/dL (6.4-8.2); Sodium Level 135 mmol/L (136-145)
[2024-07-02] MEDS: Azithromycin 250 MG Tablet 500 MG PO (23:09)
== END 2024-07-02 23:41 | disposition home or self-care (01) ==
PROVIDERS: Emergency Provider Emergency Medicine; PCP Internal Medicine; Referring Provider Emergency Medicine; Visit Provider Emergency Medicine
DX: J18.9 Pneumonia, unspecified organism (principal); E11.9 Type 2 diabetes mellitus without complications; Z79.4 Long term (current) use of insulin; R50.9 Fever, unspecified; I10 Essential (primary) hypertension; E78.5 Hyperlipidemia, unspecified; F17.200 Nicotine dependence, unspecified, uncomplicated; Z85.46 Personal history of malignant neoplasm of prostate; Z79.82 Long term (current) use of aspirin; Z79.899 Other long term (current) drug therapy; Z79.85 Long-term (current) use of injectable non-insulin antidiabetic drugs; Z79.84 Long term (current) use of oral hypoglycemic drugs
CPT/HCPCS: 71046; 80053; 81001; 83605; 85025; 85610; 85730; 87040; 87086; 87631; 93005; 99285; A4216

== ENCOUNTER 2025-05-16 01:31 | Emergency (ER) | payer MEDICARE, SELFPAY ==
[2025-05-16 01:35] VITALS: BP 170/66; PULSE 89; RESP 16; TEMP 36.6; O2SAT 99; BMI 31.6
[2025-05-16] MEDS: Ketorolac 30 MG/ML Syringe IM (01:57)
--- OUTSIDE RECORDS SUMMARY | 2025-05-16 02:00 | XMS RPT_ITS | CCD ---
Author Organization [facility] Care Team Providers Care Control Clerk Repairs Name Role Phone Rohit DICK, Maykel Anaya Primary Care Provider [phone] APRIL LEON Attending Unavailable ROHIT, MAYKEL Anaya Primary Care Unavailable Rohit DICK, Maykel Anaya Primary Care Provider [phone] Mindy Dean APRN.CNP Unavailable Romario Berumen Referring Unavailable Romario Berumen Attending Unavailable Rohit, Maykel Primary Care Unavailable Patrick Lester Attending Unavailable Rohit, Maykel Primary Care Unavailable Rohit, Maykel Primary Care Unavailable Edmund Hsieh Attending Unavailable Shorty Abbott Referring Unavailable Shorty Abbott Attending Unavailable Maykel Bee Primary Care Unavailable ROHIT, MAYKEL Anaya Referring Unavailable ROHIT, MAYKEL Anaya Primary Care Unavailable APRIL LEON JR Referring Unavaila APRIL Sparrow JR Attending Unavaila ble ROHIT, MAYKEL Anaya Primary Care Unavailable BEE, MAYKEL Anaya Primary Care Unavailable APRIL LEON JR Referring Unavaila ble BEE, MAYKEL Anaya Primary Care Unavailable BEE, MAYKEL Anaya Primary Care Unavailable BEE, MAYKEL Anaya Referring Unavailable APRIL LEON JR Attending Unavaila ble BEE, MAYKEL Anaya Primary Care Unavailable BEE, MAYKEL Anaya Attending Unavailable BEE, MAYKEL Anaya Primary Care Unavailable APRIL LEON JR Referring Unavaila ble BEE, MAYKEL Anaya Primary Care Unavailable APRIL LEON JR Referring Unavaila ble BEE, MAYKEL Anaya Primary Care Unavailable BEE, MAYKEL Anaya Primary Care Unavailable BEE, MAYKEL Anaya Referring Unavailable BEE, MAYKEL Anaya Attending Unavailable BEE, MAYKEL Anaya Primary Care Unavailable BEE, MAYKEL Anaya Primary Care Unavailable APRIL LEON JR Attending Unavaila ble BEE, MAYKEL Anaya Primary Care Unavailable JASVIR THURMAN Attending Unavailable MAYKEL BEE Primary Care Unavailable APRIL LEON JR Referring Unavaila MAYKEL Davis Primary Care Unavailable Allergies Allergy Classification Reported Allergen(s) Allergy Type Date of Onset Reaction(s) Facility (20 sources) enviromental [Other] Propensity to adverse reactions 7 [facility] Work Phone: (20 sources) Seasonal allergy; Translations: [SEASONAL ALLERGIES] Propensity to adverse reactions 4 Intolerance [facility] Medications Current Medications Medication Drug Class(es) Dates Sig (Normalized) Sig (Original) amLODIPine 2.5 mg oral tablet (20 sources) Dihydropyridine Calcium Channel Justine Start: 11-17-2024 take 1 tablet by mouth once daily amLODIPine (NORVASC) 2.5 mg tablet Indications: Essential hypertension Take 1 tablet by mouth once daily. 90 tablet 3 11/17/2024 Active Start: 05-19-2024 End: 11-15-2024 take 1 tablet by mouth once daily amLODIPine (NORVASC) 2.5 mg tablet Indications: Essential hypertension Take 1 tablet by mouth once daily. 90 tablet 1 05/19/2024 11/15/2024 Discontinued Start: 11-16-2023 End: 05-12-2024 take 1 tablet by mouth once daily amLODIPine (NORVASC) 2.5 mg tablet Indications: Essential hypertension Take 1 tablet by mouth once daily. 90 tablet 1 11/16/2023 05/12/2024 Discontinued amoxicillin 875 mg oral tablet (2 sources) Penicillin-class Antibacterial Start: 01-30-2022 End: 02-06-2022 take 1 tablet by mouth twice daily amoxicillin (AMOXIL) 875 mg tablet Take 1 tablet by mouth twice daily for 7 days. 14 tablet 0 01/30/2022 02/06/2022 Active Comment on above: Take 1 tablet by aline th twice daily for 7 days. aspirin 81 mg oral tablet (20 sources) Platelet Aggregation Inhibitor, Nonsteroidal Anti-inflammatory Drug Start: 07-17-2006 ASPIRIN 81 MG TAB Take one(1) tablet daily. 0 07/17/2006 Active Comment on above: Take one(1) tablet d aily. atorvastatin 20 mg oral tablet (20 sources) HMG-CoA Reductase Inhibitor Start: 10-23-2022 End: 10-31-2024 take 1 tablet by mouth once daily atorvastatin (LIPITOR) 20 mg tablet Indications: Hyperlipidemia, unspecified hyperlipidemia type Take 1 tablet by mouth once daily. 90 tablet 3 11/01/2024 Active Start: 10-20-2020 End: 10-20-2022 take 1 tablet by mouth once daily atorvastatin (LIPITOR) 20 mg tablet Indications: Hyperlipidemia, unspecified hyperlipidemia type Take 1 tablet by mouth once daily. 90 tablet 3 10/21/2021 10/20/2022 Discontinued Comment on above: Take 1 tablet by aline once daily. benoxinate hydrochloride 4 mg/ml / fluorescein sodium 2.5 mg/ml ophthalmic solution (2 sources) Diagnostic Dye Start: 02-14-2024 End: 02-14-2024 fluorescein-benoxi marco 0.25-0.4 % 1 Drop (FLURESS) Start: 02-01-2022 End: 02-01-2022 fluorescein-benoxinate 0.25- 0.4 % 1 Drop (FLURESS) Blood-Glucose Meter (FREESTY LE LITE METER) monitoring kit (20 sources) Start: 11-07-2017 Blood-Glucose Meter (FREESTYLE LITE METER) monitoring kit Freestyle LITE Meter Kit - Dx: Type 2 DM - uncontrolled E11.65. Insulin: Yes. 1 Each 11/07/2017 Active Start: 11-07-2017 Blood-Glucose Meter (FREESTYLE LITE METER) monitoring kit Freestyle LITE Meter Kit - Dx: Type 2 DM - uncontrolled E11.65. Insulin: Yes. 1 Each 0 11/07/2017 Active Comment on above: Freestyle LITE Meter Kit - Dx: Type 2 DM - uncontrolled E11.65. Insulin: Yes. clotrimazole 10 mg/ml topical cream (20 sources) Azole Antifungal Start: 024 End: clotrimazole (LOTRIMIN) 1 % cream Apply thin layer to rash on armpits twice a day. Continue for two weeks after rash has resolved 60 g 1 11/24/2024 Active dapagliflozin 10 mg oral tablet (20 sources) Sodium-Glucose Cotransporter 2 Inhibitor Start: 023 End: take 1 tablet by mouth once daily at breakfast dapagliflozin propanediol (FARXIGA) 10 mg tablet Indications: Controlled type 2 diabetes mellitus without complication, with long-term current use of insulin (HCC) Take 1 tablet by mouth daily with breakfast. 90 tablet 3 11/24/2024 Active Start: 01-03-2021 End: 03-03-2023 take 1 tablet by mouth once daily at breakfast dapagliflozin (FARXIGA) 10 mg tablet Indications: Controlled type 2 diabetes mellitus without complication, with long-term current use of insulin (HCC) Take 1 tablet by mouth daily with breakfast. 90 tablet 3 01/13/2022 03/03/2023 Discontinued Comment on above: Take 1 tablet by aline th daily with breakfast. doxycycline monohydrate 100 mg oral tablet (1 source) Tetracycline-class Drug Start: 02-26-20 End: 03-04-20 take 1 tablet by mouth twice daily doxycycline monohydrate 100 mg tablet Indications: Lower resp. tract infection Take 1 tablet by mouth two times a day for 7 days. 14 tablet 02/26/2024 03/04/2024 Active dulaglutide (TRULICITY) 3 mg/0.5 mL pen injector (20 sources) Start: 09-02-19 inject 3 mg by subcutaneous injection every week dulaglutide (TRULICITY) 3 mg/0.5 mL pen injector Indications: Controlled type 2 diabetes mellitus without complication, with long-term current use of insulin (HCC) Inject 3 mg subcutaneously one time a week. 6 mL 3 09/01/2024 Active Start: 07-24-2023 End: 08-31-2024 inject 3 mg by subcutaneous injection every week dulaglutide (TRULICITY) 3 mg/0.5 mL pen injector Indications: Controlled type 2 diabetes mellitus without complication, with long-term current use of insulin (HCC) Inject 3 mg subcutaneously one time a week. 6 mL 3 07/24/2023 08/31/2024 Discontinued Start: 07-24-2023 inject 3 mg by subcu taneous injection every week dulaglutide (TRULICITY) 3 mg/0.5 mL pen injector Indications: Controlled type 2 diabetes mellitus without complication, with long-term current use of insulin (HCC) Inject 3 mg subcutaneously one time a week. 6 mL 3 07/24/2023 Active Start: 12-21-2023 inject 3 mg by subcu taneous injection every week dulaglutide (TRULICITY) 3 mg/0.5 mL pen injector Indications: Controlled type 2 diabetes mellitus without complication, with long-term current use of insulin ([facility]) Inject 3 mg subcutaneously one time a week. 0 05/10/2023 Active Comment on above: Inject 3 mg subcutan eously one time a week. fluconazole 150 mg oral tablet (6 sources) Azole Antifungal Start: 12-06-19 End: 12-28-19 24 take 1 tablet by mouth every week fluconazole (DIFLUCAN) 150 mg tablet Indications: Dermatitis Take 1 tablet by mouth one time a week for 4 doses. 4 tablet 0 12/06/2023 12/28/2023 Active glipiZIDE 5 mg oral tablet (20 sources) Sulfonylurea Start: 01-03-20 End: 11-01-19 25 take 1 tablet by mouth twice daily before mealtime glipiZIDE (GLUCOTROL) 5 mg tablet Indications: Controlled type 2 diabetes mellitus without complication, with long-term current use of insulin ([facility]) Take 1 tablet by mouth two times a day before meals. 180 tablet 3 11/01/2024 Active Start: 02-21-2021 End: 12-29-2022 take 1 tablet by mouth twice daily before mealtime glipiZIDE (GLUCOTROL) 5 mg tablet Indications: Controlled type 2 diabetes mellitus without complication, with long-term current use of insulin ([facility]) Take 1 tablet by mouth twice daily before meals. 180 tablet 3 02/07/2022 12/29/2022 Discontinued Comment on above: Take 1 tablet by aline twice daily before meals. 3 ml insulin glargine 100 unt/ml pen injector (20 sources) Insulin Analog Start: 01-28-2024 End: 09-24-2024 insulin glargine (BASAGLAR KWIKPEN U-100 INSULIN) 100 unit/mL (3 mL) Inject 45 Units subcutaneously daily at bedtime. 15 mL 5 09/24/2024 Active Start: 05-10-2023 End: 01-26-2024 insulin glargine (LANTUS PATRICIA OSTAR U-100 INSULIN) 100 unit/mL (3 mL) Indications: Controlled type 2 diabetes mellitus without complication, with long-term current use of insulin ([facility]) Inject 45 Units subcutaneously daily at bedtime. 45 mL 11/12/2023 01/26/2024 Discontinued Start: 02-07-2022 insulin glargi ne (LANTUS SOLOSTAR U-100 INSULIN) 100 unit/mL (3 mL) Indications: Controlled type 2 diabetes mellitus without complication, with long-term current use of insulin (HCC) Inject 45 Units subcutaneously daily at bedtime. 45 mL 3 02/07/2022 Active Start: 12-01-2020 End: 02-07-2022 insulin glargine (LANTUS PATRICIA OSTAR U-100 INSULIN) 100 unit/mL (3 mL) Indications: Controlled type 2 diabetes mellitus without complication, with long-term current use of insulin (HCC) Inject 45 Units subcutaneously daily at bedtime. 45 mL 3 02/07/2022 Active Comment on above: Inject 45 Units subc utaneously daily at bedtime. iv contrast (will be provided with radiology test) (2 sources) Start: 12-02-2024 End: 12-03-2024 iv contrast (will be provided with radiology test) MRI Prostate Inject, intravenously, once for 1 dose. No IV access, insert saline lock prior to the beginning of sedation, infusion, injection of imaging exam. Discontinue saline lock post exam. If Pt. has a central line or IVAD, may access for administration according to line specific nursing protocol. Once exam is complete flush line and de-access according to line specific nursing protocol in the MR contrast administration guidelines link. 1 each 12/02/2024 12/03/2024 Active Start: 03-30-2022 End: 03-31-2022 iv contrast (will be provide d with radiology test) MRI Prostate Inject, intravenously, once for 1 dose. No IV access, insert saline lock prior to the beginning of sedation, infusion, injection of imaging exam. Discontinue saline lock post exam. If Pt. has a central line or IVAD, may access for administration according to line specific nursing protocol. Once exam is complete flush line and de-access according to line specific nursing protocol in the MR contrast administration guidelines link. 1 Each 0 03/30/2022 03/31/2022 Active Comment on above: MRI Prostate Inject, intravenously, once for 1 dose. No IV access, insert saline lock prior to the beginning of sedation, infusion, injection of imaging exam. Discontinue saline lock post exam. If Pt. has a central line or IVAD, may access for administration according to line specific nursing protocol. Once exam is complete flush line and de-access according to line specific nursing protocol in the MR contrast administration guidelines link. lisinopril 40 mg oral tablet (20 sources) Angiotensin Converting Enzyme Inhibitor Start: take 1 tablet by mouth once daily lisinopril (ZESTRIL) 40 mg tablet Indications: Essential hypertension Take 1 tablet by mouth once daily. 90 tablet 3 09/24/2024 Active Start: 01-02-2023 End: 09-22-2024 take 1 tablet by mouth once daily lisinopril (ZESTRIL) 40 mg tablet Indications: Essential hypertension Take 1 tablet by mouth once daily. 90 tablet 3 09/24/2023 09/22/2024 Discontinued Start: 12-27-2022 End: 12-29-2022 take 1 tablet by mouth once daily lisinopril (ZESTRIL) 40 mg tablet Indications: Essential hypertension Take 1 tablet by mouth once daily. 0 12/27/2022 12/29/2022 Discontinued Start: 10-31-2022 End: 12-27-2022 take 1 tablet by mouth once daily lisinopril (ZESTRIL) 20 mg tablet Indications: Essential hypertension Take 1 tablet by mouth once daily. 90 tablet 3 10/31/2022 12/27/2022 Discontinued Start: 07-25-2021 take 1 tablet by aline th once daily lisinopril (ZESTRIL, PRINIVIL) 20 mg tablet Indications: Essential hypertension Take 1 tablet by mouth once daily. 90 tablet 3 07/25/2021 Active Comment on above: Take 1 tablet by aline th once daily. loratadine 10 mg oral tablet (20 sources) Start: 021 End: 024 take 1 tablet by mouth once daily loratadine (CLARITIN) 10 mg tablet Indications: Allergic rhinoconjunctivitis of both eyes Take 1 tablet by mouth once daily. For allergies. 90 tablet 3 01/20/2021 11/16/2023 Discontinued Comment on above: Take 1 tablet by aline th once daily. For allergies. metFORMIN hydrochloride 500 mg oral tablet (20 sources) Biguanide Start: 023 End: 025 take 2 tablets by mouth twice daily at mealtime metFORMIN (GLUCOPHAGE) 500 mg tablet Indications: Controlled type 2 diabetes mellitus without complication, with long-term current use of insulin (HCC) Take 2 tablets by mouth two times a day with meals. 360 tablet 3 09/01/2024 Active Start: 02-21-2021 End: 02-07-2022 take 2 tablets by mouth twice daily at mealtime metFORMIN (GLUCOPHAGE) 500 mg tablet Indications: Controlled type 2 diabetes mellitus without complication, with long-term current use of insulin (HCC) Take 2 tablets by mouth twice daily with meals. 360 tablet 3 02/07/2022 Active Comment on above: Take 2 tablets by mo [facility] twice daily with meals. nystatin 100 unt/mg topical powder (5 sources) Polyene Antifungal Start: 12-06-2023 End: 12-13-2023 nystatin (MYCOSTATIN) powder Indications: Dermatitis Apply 1 application to affected area four times daily for 7 days. 30 g 0 12/06/2023 12/13/2023 Active phenylephrine hydrochloride 25 mg/ml ophthalmic solution (2 sources) alpha-1 Adrenergic Agonist Start: 02-14-2024 End: 02-14-2024 PHENYLephrine 2.5 % 1 Drop (AK-DILATE, VÍCTOR-SYNEPHRINE) Start: 02-01-2022 End: 02-01-2022 PHENYLephrine 2.5 % 1 Drop ( AK-DILATE, VÍCTOR-SYNEPHRINE) proparacaine hydrochloride 5 mg/ml ophthalmic solution (1 source) Local Anesthetic Start: 02-01-2022 End: 02-01-2022 proparacaine 0.5 % 1 Drop (ALCAINE) sildenafil 50 mg oral tablet (20 sources) Phosphodiesterase 5 Inhibitor Start: 10-30-2022 sildenafil (VIAGRA) 50 mg tablet Indications: Erectile dysfunction, unspecified erectile dysfunction type Take 1 tablet by mouth as needed. 30 tablet 5 10/30/2022 Active Start: 08-12-2020 End: 03-30-2022 sildenafil (VIAGRA) 50 mg ta blet Indications: Erectile dysfunction, unspecified erectile dysfunction type Take 1 tablet by mouth as needed. 30 tablet 5 03/30/2022 Active Comment on above: [facility] triamcinolone acetonide 0.055 mg/actuat metered dose nasal spray (20 sources) Corticosteroid Start: End: take 2 spray(s) by inhalation once daily triamcinolone acetonide (NASACORT) 55 mcg nasal inhaler Indications: Eustachian tube dysfunction, right , Seasonal allergies Use 2 Sprays in the nose once daily. 0 08/07/2022 11/16/2023 Discontinued Comment on above: Use 2 Sprays in the nose once daily. tropicamide 10 mg/ml ophthalmic solution (2 sources) Anticholinergic Start: End: tropicamide 1 % 1 Drop (MYDRIACYL) Start: 02-01-2022 End: 02-01-2022 tropicamide 1 % 1 Drop (MYDR IACYL) Completed/Discontinued Medications Medication Drug Class(es) Dates Sig (Normalized) Sig (Original) 0.5 ml dulaglutide 3 mg/ml auto-injector (20 sources) GLP-1 Receptor Agonist Start: 11-27-2022 dulaglutide (TRULICITY) 1.5 mg/0.5 mL pen injector Indications: Controlled type 2 diabetes mellitus without complication, with long-term current use of insulin (HCC) Inject 1.5 mg subcutaneously one time a week. Inject once per week. Discard Pen After 12 Each 3 11/27/2022 Active Start: 11-27-2022 dulaglutide (T RULICITY) 1.5 mg/0.5 mL pen injector Indications: Controlled type 2 diabetes mellitus without complication, with long-term current use of insulin (HCC) Inject 1.5 mg subcutaneously one time a week. Inject once per week. Discard Pen After 12 Each 3 11/27/2022 Active Start: 07-25-2021 End: 11-08-2022 inject 0.75 mg by subcutaneous injection every week dulaglutide (TRULICITY) 0.75 mg/0.5 mL pen injector Indications: Controlled type 2 diabetes mellitus without complication, with long-term current use of insulin (HCC) Inject 0.75 mg subcutaneously one time a week. Inject dose once per week. Discard Pen After 12 Each 1 08/15/2022 11/08/2022 Discontinued (Dosage adjustment) Comment on above: Inject 0.75 mg subcu taneously one time a week. Inject dose once per week. Discard Pen After Inject 1.5 mg subcut aneously one time a week. Inject once per week. Discard Pen After mometasone furoate 1 mg/ml topical cream (20 sources) Corticosteroid Start: 07-25-2021 End: 01-21-2022 mometasone (ELOCON) 0.1 % cream Indications: Dermatitis Apply to affected area once daily. For 2 weeks, as needed. Leg rash 45 g 1 07/25/2021 Active Comment on above: Apply to affected ar ea once daily. For 2 weeks, as needed. Leg rash sodium fluoride 0.011 mg/mg toothpaste (20 sources) Start: 10-25-2022 End: 10-01-2024 Sodium Fluoride 1.1 % 10/25/2022 10/01/2024 Discontinued Start: 10-25-2022 Sodium Fluorid e 1.1 % BRUSH once daily every evening 10/25/2022 Active Comment on above: BRUSH once daily mukesh ry evening tamsulosin hydrochloride 0.4 mg oral capsule (20 sources) alpha-Adrenergic Justine Start: 04-30-2024 End: 01-28-2026 tamsulosin (FLOMAX) 0.4 mg Take 1 capsule by mouth once daily. 30 minutes after the same meal each day. 90 capsule 3 12/02/2024 01/31/2025 Discontinued Problems Active Problems Problem Classification Problem Date Documented Da te Episodic/Chronic Abdominal pain (1 source) Unspecified abdominal pain; Translations: [Unspecified abdominal pain] Onset: 05-19-2024 Episodic Allergic reactions (1 source) Inflammatory dermatosis; Translations: [Dermatitis, unspecified] 12-06-2023 Episodic Cancer of prostate (20 sources) Malignant tumor of prostate; Translations: [Malignant neoplasm of prostate] Onset: 10-22-2018 10-22-2018 Chronic Cardiac dysrhythmias (1 source) Irregular heart beat; Translations: [Cardiac arrhythmia, unspecified] Chronic Cataract (4 sources) Pseudophakia; Translations: [Presence of intraocular lens] Onset: 02-16-2025 Chronic Diabetes mellitus without complication (20 sources) Type 2 diabetes mellitus without complication; Translations: [Type 2 diabetes mellitus without complications] Onset: 12-04-2012 01-25-2016 Chronic Disorders of lipid metabolism (20 sources) Hyperlipidemia; Translations: [Hyperlipidemia, unspecified] Onset: 09-27-2005 04-08-2015 Chronic Essential hypertension (20 sources) Essential hypertension; Translations: [Essential (primary) hypertension] Onset: 09-27-2005 04-08-2015 Chronic Fever of unknown origin (2 sources) Fever; Translations: [Fever, unspecified] Onset: 07-17-2024 07-03-2024 Episodic Genitourinary symptoms and ill-defined conditions (1 source) Increased frequency of urination; Translations: [Frequency of micturition] 07-03-2024 Episodic Glaucoma (2 sources) Ocular hypertension; Translations: [Ocular hypertension, 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 Hyperplasia of prostate (3 sources) Benign prostatic hypertrophy with outflow obstruction; Translations: [Benign prostatic hyperplasia with lower urinary tract symptoms] Onset: 12-02-2024 12-02-2024 Chronic Mycoses (2 sources) Candidal intertrigo; Translations: [Candidiasis of skin and nail] 12-11-2023 Episodic Other ear and sense organ disorders (1 source) Hearing loss of left ear; Translations: [Impacted cerumen, left ear] Episodic Other ear and sense organ disorders (1 source) Impacted cerumen in left ear; Translations: [Impacted cerumen, left ear] 04-03-2024 Episodic Other eye disorders (1 source) Disorder of lacrimal gland; Translations: [Dry eye syndrome of bilateral lacrimal glands] 02-14-2024 Episodic Other eye disorders (1 source) Dry eye syndrome of bilateral lacrimal glands; Translations: [Dry eye syndrome of bilateral lacrimal glands] Onset: 02-16-2025 Episodic Other lower respiratory disease (1 source) Cough; Translations: [Subacute cough] 02-26-2024 Episodic Other lower respiratory disease (1 source) Lower respiratory tract infection; Translations: [Unspecified acute lower respiratory infection] 02-26-2024 Episodic Other male genital disorders (20 sources) Male erectile dysfunction, unspecified; Translations: [Impotence of organic origin] Onset: 01-14-2018 01-14-2018 Chronic Other nutritional; endocrine; and metabolic disorders (20 sources) Obese class I; Translations: [Obesity, unspecified] Onset: 07-25-2021 07-25-2021 Chronic Other upper respiratory disease (20 sources) Seasonal allergy; Translations: [Other seasonal allergic rhinitis] Onset: 10-12-2020 10-12-2020 Chronic Other upper respiratory infections (1 source) Acute upper respiratory infection; Translations: [Acute upper respiratory infection, unspecified] 06-30-2024 Episodic Otitis media and related conditions (20 sources) Bilateral chronic serous otitis; Translations: [Chronic serous otitis media, bilateral] Onset: 04-22-2024 05-27-2024 Chronic Otitis media and related conditions (3 sources) Acute right otitis media; Translations: [Otitis media, unspecified, right ear] Episodic Unclassified (1 source) Obesity, Class I, BMI 30-34.9; Translations: [Obesity, Class I, BMI 30-34.9] Onset: 07-25-2021 Past or Other Problems Problem Classification Problem Date Documented Date Episodic/Chronic Calculus of urinary tract (20 sources) Ureteric stone; Translations: [Calculus of ureter] Onset: 03-02-2024 03-04-2024 Episodic Diabetes mellitus without complication (20 sources) Impaired fasting glycemia; Translations: [Impaired fasting glucose] Onset: 09-27-2005 Resolved: 06-29-2006 06-29-2006 Episodic Heart valve disorders (5 sources) Heart murmur; Translations: [Cardiac murmur, unspecified] Onset: 11-24-2024 11-24-2024 Episodic Immunizations and screening for infectious disease (5 sources) Needs influenza immunization; Translations: [Encounter for immunization] Onset: 11-24-2024 Episodic Other aftercare (1 source) client partner (current) use of insulin; Translations: [Controlled type 2 diabetes mellitus without complication, with long-term current use of insulin (HCC)] Onset: 01-25-2016 Episodic Other diseases of kidney and ureters (1 source) Other obstructive and reflux uropathy; Translations: [BPH with obstruction/lower urinary tract symptoms] Onset: 12-02-2024 Episodic Other non-traumatic joint disorders (20 sources) Soft tissue lesion of shoulder region; Translations: [Other specified joint disorders, unspecified shoulder] Onset: 12-06-2012 Resolved: 12-03-2014 12-03-2014 Episodic Other screening for suspected conditions (not mental disorders or infectious disease) (20 sources) Patient encounter status; Translations: [Encounter for screening for cardiovascular disorders] Onset: 07-24-2017 Resolved: 11-16-2023 Episodic Other skin disorders (20 sources) History of actinic keratosis; Translations: [Personal history of diseases of the skin and subcutaneous tissue] Onset: 01-24-2017 01-24-2017 Episodic Screening and history of mental health and substance abuse codes (2 sources) Encounter for screening examination for other mental health and behavioral disorders; Translations: [Encounter for screening for depression] Onset: 11-24-2024 Episodic Skin and subcutaneous tissue infections (20 sources) Paronychia of finger; Translations: [Cellulitis of unspecified finger] Onset: 02-01-2022 Resolved: 02-07-2022 02-01-2022 Episodic Results Test Name Value Interpretation [facility] Office Visit (UROCECYD ) LEANDRA EL ([id number]) 1955 M Date Time Provider Department 12/02/24 11:00 AM APRIL LEON JR During your visit today, we recorded the following information about you: Weight Height 93 kg 1.727 m April Leon Jr., MD 12/02/2024 10:46 AM Signed ESTABLISHED PATIENT OFFICE VISIT HPI Leandra El is a 69 year old male who presents for follow up of prostate cancer. Patient had Alamed[place] 6 prostate cancer diagnosed in 2019. PSA has been stable on active surveillance. PSA most recently 5.68 on 01/23/24. Patient was diagnosed with a 4mm L UVJ calculus in 02/2024 in [place]. States that left flank pain has resolved. KUB performed on 04/16 revealed no large radio-opaque calculi. CT imaging on 04/18 at [facility] demonstrated a 3mm right distal ureteral stone. States that he had a temperature of 100.4F. Creatinine was 1.54. No fevers or chills since then. Patient states that pain resolved 4-5 days ago. Denies fevers and chills. 05/27/24 - since last seen no symptoms. Renal us no hydro. Has 4mm r renal calc remaining. No fever. No uti. Luts ok. Stone prevention discussed 07/29/24 Prostate Cancer Consultation Note Mr Leandra El was diagnosed with Clinical Stage(1c) Avril's score 6 (3+3) adenocarcinoma of the prostate with an associated PSA of 9.67 and an estimated prostatic volume of 46. He had 2 of 12 cores positive with disease identified in the 2 portion(s) of the prostate. The patient presents alone and I have discussed his apparent localized prostate cancer at length. Specifically we discussed the Al[place] score, number and percent of cores involved with disease, the wilmer tables risk stratification criteria which are based upon the Avril score, PSA, and clinical T stage. Based upon the clinical features the patient falls into low risk category for 10 year biochemical disease free survival regardless of which therapeutic modality he chooses. He understands that there is a small, but real, chance of occult metastatic disease and the logic of when metastatic workup is appropriate. We discussed various options for management of his disease including watchful waiting, active surveillance, radiation modality and surgical extirpation. The options of watchful waiting or active surveillence were gone over and what these would entail, with selective delayed intervention, hormonal therapy in its various forms. The protocol for periodic PSA tests and repeating his transrectal prostate ultrasound, without or with prostate biopsy was covered. With respect to surgical intervention we compared and contrasted open, laparoscopic and robotic prostatectomy with or without bilateral pelvic lymphadenectomy. We compared these with respect to cancer control, urinary control, and erectile dysfunction. I explained that any patient undergoing treatment for prostate cancer may need additional therapy. The possibility of severe or total loss of urinary control, possibly needed surgery to implant an artificial urinary sphincter is possible after prostate cancer surgery. The possibility of loss of erections, and the possible treatment options was discussed. The other potential downside, including but not limited to urethral stricture, bladder neck contracture. I explained to him that robotic prostatectomy is a major surgical procedure and has possible major complications including, but not limited to bleeding requiring transfusion, rectal injury requiring a temporary colostomy, damage to abdominal structure, infection, myocardial infarction, stroke, deep vein thrombosis/ pulmonary embolism, or open conversion. We discussed the procedure related morbidity, hospitalization, and convalescence period. We have reviewed the recent data, which would show that at least one out of ten patients undergoing radical prostatectomy will have at least one complication whether minor or major, and this could be as high as 25% (one in four). We have discussed that with surgical intervention. We also discussed radiation therapy; external beam, and out-patient brachytherapy as well as the attendant procedure related morbidity as it relates to the low but known risk of long-term urinary frequency, urgency, urgency with bowel movements and risk of urethral radiation injury. We also discussed time commitment for the external beam therapy being once a day, five days a week for 5-7 weeks during which most people can continue normal daily activities. I described the likelihood of flare up of hemorrhoids, and mild decrease in physical stamina during the later portion of the treatments. We discussed the time frame for PSA response that would indicate efficacy of the radiation therapy. A referral to radiation oncology was offered. Additionally, we discussed cryo (more content not included)... Normal [facility] CNOVon 11-24-2024 CNOV Office Visit (INTMWS ) LEANDRA EL ([id number]) 1955 M Date Time Provider Department 11/24/24 12:00 PM AMYKEL BEE INTMWS During your visit today, we recorded the following information about you: Temperature Pulse Respiration Blood pressure 97.7 degrees 80/minute 20/minute 120/62 Weight Height 92.2 kg 1.727 m Maykel Bee MD 11/24/2024 12:52 PM Signed Leandra Mckeonjuandarcie is a 69 year old male here for a Medicare wellness visit. Medicare Health Risk Assessment General Health Very good Exercise: Minutes/Day 20 min Exercise: Days/Week 3 days Alcohol: Daily Use 2-4 times a month Alcohol: Drinks/Day 1 or 2 Alcohol: 6 or more drinks Never Feel off balance No Concerns: Teeth/Dentures Yes Concerns: Sexual function No Troubled by feelings None of the above Frequency: Eating healthy diet Most days. ADLs requiring help None of the above Safety precautions in home/vehicle Yes Smoke, vape, chews tobacco No Difficulty hearing No Difficulty seeing No Current Providers Specialists: I have reviewed specialist-related care of the patient in the medical record. Current care team: Patient Care Team: Maykel Bee MD as PCP - General Mindy Dean APRN.MACHINING MANAGER as Medical Oncologist (Internal Medicine) April Leon Jr. Urology. Jasvir Thurman OD, Ophthalmology. Outside specialists seen: Gera Whitley MD ([facility]) Medical/Family history review Reviewed and updated problem list, medical/surgical/family/soc ial history, medications, and allergies. Opioid use review Opioid Medications (last 90 days) No data to display Anxiety/Depression screening SERVANDO-7 Score: 0. Recommendation: no further intervention at this time Cognitive screening Mini Cog Score: 5 Cognitive screening reviewed and No further action needed (score 3-5). Functional Observation Was the patient's Timed Up AND Go test unsteady or >= 12 seconds? No Advance Care Planning Patient did not wish or was not able to name a surrogate decision maker or provide an advance care plan Measurements BP 120/62 (BP Site: Left Arm, BP Position: Sitting, BP Cuff Size: Large Adult) Pulse 80 Temp 36.5 ?C (97.7 ?F) (Temporal) Resp 20 Ht 172.7 cm (5' 8) Wt 92.2 kg (203 lb 4.2 oz) BMI 30.91 kg/m? Vision Screening: Follows with optometry/ophthalmology Right: 20/40 Left: 20/ 30 Both: 20/40 Assessment/Plan Medicare annual wellness visit, subsequent (Z00.00) - Counseled on healthy diet and regular exercise - Fall avoidance information provided - Personalized prevention plan provided - Vaccines reviewed. - He was encouraged to revisit with [facility] for skin surveillance. Maykel Bee MD 11/24/2024 12:52 PM Signed This note was created using [employer]. Subjective Leandra El is a 69 year old male. His tympanostomy tubes came off spontaneously recently. His hearing was back to normal. His diabetes mellitus, hypertension, and lipids were controlled. Prostate cancer was under surveillance by urology. Review of Systems Constitutional: Negative for fatigue and unexpected weight change. Respiratory: Negative for cough, shortness of breath and wheezing. Cardiovascular: Negative for chest pain, palpitations and leg swelling. Gastrointestinal: Negative for abdominal pain, constipation, diarrhea, nausea and vomiting. Genitourinary: Negative for dysuria. Neurological: Negative for dizziness, numbness and headaches. ACTIVE PROBLEM LIST Essential Hypertension Hyperlipemia Controlled Type 2 Diabetes Mellitus Without Complication, With Long-Term Current Use of Insulin (Hcc) History of Actinic Keratosis Erectile Dysfunction Prostate Cancer (Hcc) Seasonal Allergies Obesity, Class I, Bmi 30-34.9 Ureterolithiasis Chronic Serous Otitis Media of Both Ears Social History Tobacco Use Smoking status: Some Days Types: Cigarettes Smokeless tobacco: Never Tobacco comments: periodic Vaping Use Vaping status: Never Used Substance Use Topics Alcohol use: Yes Alcohol/week: 2.0 standard drinks of alcohol Types: 2 Shots of liquor per week Comment: occasionally Drug use: No Current Outpatient Medications Medication Sig amLODIPine (NORVASC) 2.5 mg tablet Take 1 tablet by mouth once daily. glipiZIDE (GLUCOTROL) 5 mg tablet Take 1 tablet by mouth two times a day before meals. atorvastatin (LIPITOR) 20 mg tablet Take 1 tablet by mouth once daily. lisinopril (ZESTRIL) 40 mg tablet Take 1 tablet by mouth once daily. insulin glargine (BASAGLAR KWIKPEN U-100 INSULIN) 100 unit/mL (3 mL) Inject 45 Units subcutaneously daily at bedtime. metFORMIN (GLUCOPHAGE) 500 mg tablet Take 2 tablets by mouth two times a day with meals. dulaglutide (TRULICITY) 3 mg/0.5 mL pen injector Inject 3 mg subcutaneously one time a week. tamsulosin (FLOMAX) 0.4 (more content not included)... Normal [facility] CBC panel Auto (Bld)on 11-22 Erythrocyte distribution width (RBC) [Ratio] 13.0 % Normal 11.5-15.0 [facility] Comment on above: Order Comment: Speci men Type: BLOOD SPECIMENOrdering Facility: [facility] Address: [address] [place], [place] [address] Performed By: #### 5 8410-2 ####[facility] LABCLIA [id number] [address] [place] Hematocrit (Bld) [Volume fraction] 48.6 % Normal 39.0-51.0 [facility] Comment on above: Order Comment: Speci men Type: BLOOD SPECIMENOrdering Facility: [facility] Address: [address] [place] [address] Performed By: #### 5 8410-2 ####[facility] LABIA [id number] [place] [address] [place] Hemoglobin (Bld) [Mass/Vol] 16.1 g/dL Normal 13.0-17.0 [facility] Comment on above: Order Comment: Speci men Type: BLOOD SPECIMENOrdering Facility: [facility] Address: [address] [place] [address] Performed By: #### 5 8410-2 ####[facility] LABCLIA [id number] [place] [address] [place] MCH (RBC) [Entitic mass] 32.5 pg Normal 26.0-34.0 [facility] Comment on above: Order Comment: Speci men Type: BLOOD SPECIMENOrdering Facility: [facility] Address: [address] [place] [address] Performed By: #### 5 8410-2 ####[facility] LABIA [id number] [place] [address] [place] MCHC (RBC) [Mass/Vol] 33.1 g/dL Normal 30.5-36.0 [facility] Comment on above: Order Comment: Speci men Type: BLOOD SPECIMENOrdering Facility: [facility] Address: [address] [place] [address] Performed By: #### 5 8410-2 ####[facility] LABCLIA [id number] [place] [address] [place] MCV (RBC) [Entitic vol] 98.2 fL Normal 80.0-100.0 [facility] Comment on above: Order Comment: Speci men Type: BLOOD SPECIMENOrdering Facility: [facility] Address: [address] [place] [address] Performed By: #### 5 8410-2 ####[facility] LABCLIA [id number] [place] [address] [place] Nucleated RBC (Bld) [#/Vol] 10*3/uL Normal <0.01 [facility] Comment on above: Order Comment: Speci men Type: BLOOD SPECIMENOrdering Facility: [facility] Address: [address] [place] [address] Performed By: #### 5 8410-2 ####[facility] LABIA [id number] [place] [address] [place] Platelet mean volume (Bld) [Entitic vol] 8.6 fL Low 9.0-12.7 [facility] Comment on above: Order Comment: Speci men Type: BLOOD SPECIMENOrdering Facility: [facility] Address: [address] [place] [address] Performed By: #### 5 8410-2 ####[facility] LABIA [id number] [place] [address] [place] Platelets (Bld) [#/Vol] 252 10*3/uL Normal 150-400 [facility] Comment on above: Order Comment: Speci men Type: BLOOD SPECIMENOrdering Facility: [facility] Address: [address] [place] [address] Performed By: #### 5 8410-2 ####[facility] LABIA [id number] [place] [address] [place] RBC (Bld) [#/Vol] 4.95 10*6/uL Normal 4.20-6.00 [facility] Comment on above: Order Comment: Speci men Type: BLOOD SPECIMENOrdering Facility: [facility] Address: [address] [place] [address] Performed By: #### 5 8410-2 ####[facility] LABCLIA [id number] [facility] [address] [place] [address] [place] WBC (Bld) [#/Vol] 7.78 10*3/uL Normal 3.70-11.00 [facility] Comment on above: Order Comment: Speci men Type: BLOOD SPECIMENOrdering Facility: [facility] Address: [address] [place] [address] Performed By: #### 5 8410-2 ####[facility] LABCLIA [id number] [place] [id number] [place] [facility] Comprehensive metabolic 2000 panelon 11-22-2024 Albumin [Mass/Vol] 4.2 g/dL Normal 3.9-4.9 [facility] Comment on above: Order Comment: Speci men Type: BLOOD SPECIMENOrdering Facility: [facility] Address: [address] [place] [address] Performed By: #### 2 4323-8, 38587-9 ####[facility] LABCLIA [id number] [place] [address] [place] ALP [Catalytic activity/Vol] 69 U/L Normal 38-113 [facility] Comment on above: Order Comment: Speci men Type: BLOOD SPECIMENOrdering Facility: [facility] Address: [address] [place] [address] Performed By: #### 2 4323-8, 35193-6 ####[facility] LABCLIA [id number] [facility] [address] [place] [address] [place] ALT [Catalytic activity/Vol] 13 U/L Normal 10-54 [facility] Comment on above: Order Comment: Speci men Type: BLOOD SPECIMENOrdering Facility: [facility] Address: [address] [place] [address] Performed By: #### 2 4323-8, 37898-9 ####[facility] LABCLIA [id number] [address] [place] [address] [place] Anion gap [Moles/Vol] 13 mmol/L Normal 8-15 [facility] Comment on above: Order Comment: Speci men Type: BLOOD SPECIMENOrdering Facility: [facility] Address: [address] [place] [address] Performed By: #### 2 4323-8, 81304-4 ####[facility] LABCLIA [id number] [address], [place] [address] [place] AST [Catalytic activity/Vol] 12 U/L Low 14-40 [facility] Comment on above: Order Comment: Speci men Type: BLOOD SPECIMENOrdering Facility: [facility] Address: [address] [place] [address] Performed By: #### 2 4323-8, 40722-7 ####[facility] LABCLIA [id number] [place] [address] [place] Bilirubin [Mass/Vol] 0.5 mg/dL Normal 0.2-1.3 [facility] Comment on above: Order Comment: Speci men Type: BLOOD SPECIMENOrdering Facility: [facility] Address: [address] [place] [address] Performed By: #### 2 4323-8, 05483-4 ####[facility] LABCLIA [id number] [address], [place] [address] [place] Calcium [Mass/Vol] 9.9 mg/dL Normal 8.5-10.2 [facility] Comment on above: Order Comment: Speci men Type: BLOOD SPECIMENOrdering Facility: [facility] Address: [address] [place] [address] Performed By: #### 2 4323-8, 30368-8 ####[facility] LABCLIA [id number] [place] [id number] [place] Chloride [Moles/Vol] 102 mmol/L Normal 98-107 [facility] Comment on above: Order Comment: Speci men Type: BLOOD SPECIMENOrdering Facility: [facility] Address: [address] [place] [address] Performed By: #### 2 4323-8, 58719-3 ####[facility] LABCLIA [id number] [place] [id number] [place] CO2 [Moles/Vol] 25 mmol/L Normal 22-30 [facility] Comment on above: Order Comment: Speci men Type: BLOOD SPECIMENOrdering Facility: [facility] Address: [address] [place] [address] Performed By: #### 2 4323-8, 22535-3 ####[facility] LABIA [id number] [address] [place] [facility] Creatinine [Mass/Vol] 0.91 mg/dL Normal 0.73-1.22 [facility] Comment on above: Order Comment: Speci men Type: BLOOD SPECIMENOrdering Facility: [facility] Address: [address] [place] [address] Performed By: #### 2 4323-8, 89161-6 ####[facility] LABIA [id number] [address] Creatinine and Glomerular filtration rate.predicted panel (S/P/Bld) 92 mL/min/1.73m??? Normal >=60 [facility] Comment on above: Order Comment: Speci men Type: BLOOD SPECIMENOrdering Facility: [facility] Address: [address] [place] [address] Result Comment: Racheal mated Glomerular Filtration Rate (eGFR) is calculated using the 2020 CKD-EPI creatinine equation. This equation utilizes serum creatinine, sex, and age as parameters. The creatinine assay has traceable calibration to isotope dilution-mass spectrometry. Refer to KDIGO guidelines for clinical interpretation. In patients with unstable renal function, e.g. those with acute kidney injury, the eGFR may not accurately reflect actual GFR. Performed By: #### 2 4323-8, 98689-0 ####[facility] LABCLIA [id number] [address] [address] [place] Glucose [Mass/Vol] 112 mg/dL High 74-99 [facility] Comment on above: Order Comment: Speci men Type: BLOOD SPECIMENOrdering Facility: [facility] Address: [address] [place] [address] Result Comment: The [place] Diabetes Association (ADA) provides guidance for cutoff values for fasting glucose and random glucose. The ADA defines fasting as no caloric intake for at least 8 hours. Fasting plasma glucose results between 100 to 125 mg/dL indicate increased risk for diabetes (prediabetes). Fasting plasma glucose results greater than or equal to 126 mg/dL meet the criteria for diagnosis of diabetes. In the absence of unequivocal hyperglycemia, results should be confirmed by repeat testing. In a patient with classic symptoms of hyperglycemia or hyperglycemic crisis, random plasma glucose results greater than or equal to 200 mg/dL meet the criteria for diagnosis of diabetes. Reference: Standards of Medical Care in Diabetes 2016, [place] Diabetes Association. Diabetes Care. 2016.39(Suppl 1). Performed By: #### 2 4323-8, 00540-0 ####[facility] LABIA [id number] [place] [id number] [place] Potassium [Moles/Vol] 4.3 mmol/L Normal 3.7-5.1 [facility] Comment on above: Order Comment: Speci men Type: BLOOD SPECIMENOrdering Facility: [facility] Address: [address] [place] [address] Performed By: #### 2 4323-8, 11038-2 ####[facility] LABIA [id number] [address] [address] [place] Protein [Mass/Vol] 6.7 g/dL Normal 6.3-8.0 [facility] Comment on above: Order Comment: Speci men Type: BLOOD SPECIMENOrdering Facility: [facility] Address: [address] [place], [place] [address] Performed By: #### 2 4323-8, 53456-2 ####[facility] LABCLIA [id number] [address] [place] [address] [place] Sodium [Moles/Vol] 140 mmol/L Normal 136-144 [facility] Comment on above: Order Comment: Speci men Type: BLOOD SPECIMENOrdering Facility: [facility] Address: [address] [place] [address] Performed By: #### 2 4323-8, 29330-8 ####[facility] LABIA [id number] [address] [address] [place] Urea nitrogen [Mass/Vol] 19 mg/dL Normal 9-24 [facility] Comment on above: Order Comment: Speci men Type: BLOOD SPECIMENOrdering Facility: [facility] Address: [address] [place] [address] Performed By: #### 2 4323-8, 30440-1 ####[facility] LABIA [id number] [place] [address] [place] HbA1c (Bld)on 11-22-2024 Average glucose Estimated from glycated hemoglobin (Bld) [Mass/Vol] 131 mg/dL Normal [facility] Comment on above: Order Comment: Speci men Type: BLOOD SPECIMENOrdering Facility: [facility] Address: [address] [place] [address] Result Comment: eAG: (Estimated average glucose) is a calculated value from HgbA1c and is key account representative of the average blood glucose level in the last 2-3 month period. Performed By: #### 5 5454-3 ####[facility] LABIA [id number] [address] [address] [place] HbA1c (Bld) [Mass fraction] 6.2 % High 4.3-5.6 [facility] Comment on above: Order Comment: Speci men Type: BLOOD SPECIMENOrdering Facility: [facility] Address: [address] [place] [address] Result Comment: [place] Diabetes Association guidelines indicate that patients with HgbA1c in the range 5.7-6.4% are at increased risk for development of diabetes, and intervention by lifestyle modification may be beneficial. HgbA1c greater or equal to 6.5% is considered diagnostic of diabetes. Performed By: #### 5 5454-3 ####[facility] LABCLIA [id number] [facility] [address] [address] [place] Lipid 1996 panelon 5 Cholesterol [Mass/Vol] 138 mg/dL Normal <200 [facility] Comment on above: Order Comment: Speci men Type: BLOOD SPECIMENOrdering Facility: [facility] Address: [address] [place] [address] Result Comment: <200 mg/dL, Desirable 200-239 mg/dL, Borderline high >239 mg/dL, High Performed By: #### 2 4323-8, 12195-3 ####[facility] LABCLIA [id number] [place] [id number] [place] Cholesterol in HDL [Mass/Vol] 35 mg/dL Low >39 [facility] Comment on above: Order Comment: Speci men Type: BLOOD SPECIMENOrdering Facility: [facility] Address: [address] [place] [address] Result Comment: 40-5 9 mg/dL, Acceptable >59 mg/dL, High: Negative risk factor for coronary heart disease <40 mg/dL, Low: Positive risk factor for coronary heart disease Performed By: #### 2 4323-8, 94223-0 ####[facility] LABCLIA [id number] [address] [address] [place] Cholesterol in LDL [Mass/Vol] 79 mg/dL Normal <100 [facility] Comment on above: Order Comment: Speci men Type: BLOOD SPECIMENOrdering Facility: [facility] Address: [address] [place] [address] Result Comment: <100 mg/dL, Optimal 100-129 mg/dL, Near optimal/above optimal 130-159 mg/dL, Borderline high 160-189 mg/dL, High >189 mg/dL, Very high Secondary prevention optimal LDL Cholesterol levels are recommended to be <70 mg/dL LDL cholesterol is calculated using the Fitzgerald-NIH equation. Performed By: #### 2 4323-8, 50604-3 ####[facility] LABIA [id number] [address] [address] [place] [place] Cholesterol in LDL/Cholesterol in HDL [Mass ratio] 2.26 {ratio} Normal <2.54 [facility] Comment on above: Order Comment: Speci men Type: BLOOD SPECIMENOrdering Facility: [facility] Address: [address] [place] [address] Result Comment: Refe rence: 1. National Cholesterol Education Program ATP III Guideline At-A-Glance Quick Desk Reference: National Heart, Lung, and Blood [place]. National Institutes of Health. 2001: NIH Publication No. 01-3305. 2. An International Atherosclerosis Society position paper: global recommendations for the management of dyslipidemia: executive summary, Atherosclerosis. 2014: 232(2):410-413. Performed By: #### 2 4323-8, 59683-7 ####[facility] [id number] [address] [address] [place] Cholesterol in VLDL [Mass/Vol] 20 mg/dL Normal <30 [facility] Comment on above: Order Comment: Karlos lacy Type: BLOOD SPECIMENOrdering Facility: [facility] Address: [address] [place] [address] Performed By: #### 2 4323-8, 66644-9 ####[facility] LABIA [id number] [address] [address] [place] Cholesterol non HDL [Mass/Vol] 103 mg/dL Normal <130 [facility] Comment on above: Order Comment: Nathaliei men Type: BLOOD SPECIMENOrdering Facility: [facility] Address: [address] [place] [address] Result Comment: <130 mg/dL, Optimal 130-159 mg/dL, Near optimal/above optimal 160-189 mg/dL, Borderline high 190-219 mg/dL, High >219 mg/dL, Very high Secondary prevention optimal non HDL Cholesterol levels are recommended to be <100 mg/dL Performed By: #### 2 4323-8, 18238-6 ####[facility] LABCLIA [id number] [address] [address] [place] Cholesterol.total/C holesterol in HDL [Mass ratio] 3.94 {ratio} Normal <5.10 [facility] Comment on above: Order Comment: Speci men Type: BLOOD SPECIMENOrdering Facility: [facility] Address: [address] [place] [address] Performed By: #### 2 4323-8, 95114-9 ####[facility] LABCLIA [id number] [place] [address] [place] FASTING TIME 10 hrs Normal [facility] Comment on above: Order Comment: Speci men Type: BLOOD SPECIMENOrdering Facility: [facility] Address: [address] [place] [address] Performed By: #### 2 4323-8, 57617-3 ####[facility] LABCLIA [id number] [place] [address] [place] Triglyceride [Mass/Vol] 132 mg/dL Normal <150 [facility] Comment on above: Order Comment: Speci men Type: BLOOD SPECIMENOrdering Facility: [facility] Address: [address] [place] [address] Result Comment: <150 mg/dL, Normal 150-199 mg/dL, Borderline high 200-499 mg/dL, High >499 mg/dL, Very high Performed By: #### 2 4323-8, 53845-0 ####[facility] LABCL[facility] [id number] [address] [address] [place] [facility] Prostate specific Ag [Mass/Vol] 7.03 ng/mL High <2.60 [facility] Comment on above: Order Comment: Speci men Type: BLOOD SPECIMENOrdering Facility: [facility] Address: [address] [place] [address] Result Comment: Tota l PSA test methodology used is the Electrochemiluminescence Immunoassay by [employer]. Total PSA values by differing methodologies cannot be interchanged. For an individual patient, the significance of a PSA level should be interpreted in a broad clinical context, including age, race, family history, digital rectal exam, prostate size, results of prior testing (prostate biopsy, free PSA, PCA3), and use of 5-alpha reductase inhibitors. Considering the high incidence of asymptomatic cancer in the general population that may not pose an ultimate risk to a patient, the decision to recommend urological evaluation or prostate biopsy should be individualized after consideration of all these factors. REFERENCE: Rama Carl M.D., M.P.H., Sameer Núñez M.D., Ph.D., Jeramy Vyas M.D., Delfina Ruiz, M.P.H., Thuy Gonzalez, Sc.D. Effect of Verification Bias on Screening for Prostate Cancer by Measurement of Prostatic Specific Antigen. N Engl J Med 2003,349:335-42. Performed By: #### 2 857-1 ####[facility]CL[facility] [id number] [place] [address] [place] PSA SerPl-mCncon 10-30-2024 Prostate specific Ag [Mass/Vol] 6.41 ng/mL High <2.60 [facility] Comment on above: Order Comment: Speci men Type: BLOOD SPECIMENOrdering Facility: [facility] Address: [address] [place] [address] Result Comment: Tota l PSA test methodology used is the Electrochemiluminescence Immunoassay by [employer]. Total PSA values by differing methodologies cannot be interchanged. For an individual patient, the significance of a PSA level should be interpreted in a broad clinical context, including age, race, family history, digital rectal exam, prostate size, results of prior testing (prostate biopsy, free PSA, PCA3), and use of 5-alpha reductase inhibitors. Considering the high incidence of asymptomatic cancer in the general population that may not pose an ultimate risk to a patient, the decision to recommend urological evaluation or prostate biopsy should be individualized after consideration of all these factors. REFERENCE: Rama Carl M.D., M.P.H., Sameer Núñez M.D., Ph.D., Jeramy Vyas M.D., Delfina Ruiz M.P.H., Thuy Gonzalez Sc.D. Effect of Verification Bias on Screening for Prostate Cancer by Measurement of Prostatic Specific Antigen. N Engl J Med 2003,349:335-42. Performed By: #### 2 857-1 ####[facility] [id number] [address] CNOVon 07-29-2024 CNOV Office Visit (UROLMD ) LEANDRA EL ([id number]) 1955 M Date Time Provider Department 07/29/24 9:00 AM APRIL LEON JR During your visit today, we recorded the following information about you: Weight Height 90.7 kg 1.727 m April Leon Jr., MD 07/29/2024 9:02 AM Signed ESTABLISHED PATIENT OFFICE VISIT HPI Leandra El is a 69 year old male who presents for follow up of prostate cancer. Patient had Alameda 6 prostate cancer diagnosed in 2019. PSA has been stable on active surveillance. PSA most recently 5.68 on 01/23/24. Patient was diagnosed with a 4mm L UVJ calculus in 02/2024 in [place]. States that left flank pain has resolved. KUB performed on 04/16 revealed no large radio-opaque calculi. CT imaging on 04/18 at [facility] demonstrated a 3mm right distal ureteral stone. States that he had a temperature of 100.4F. Creatinine was 1.54. No fevers or chills since then. Patient states that pain resolved 4-5 days ago. Denies fevers and chills. 05/27/24 - since last seen no symptoms. Renal us no hydro. Has 4mm r renal calc remaining. No fever. No uti. Luts ok. Stone prevention discussed 07/29/24 Prostate Cancer Consultation Note Mr Leandra El was diagnosed with Clinical Stage(1c) Alameda's score 6 (3+3) adenocarcinoma of the prostate with an associated PSA of 9.67 and an estimated prostatic volume of 46. He had 2 of 12 cores positive with disease identified in the 2 portion(s) of the prostate. The patient presents alone and I have discussed his apparent localized prostate cancer at length. Specifically we discussed the Avril score, number and percent of cores involved with disease, the wilmer tables risk stratification criteria which are based upon the Alameda score, PSA, and clinical T stage. Based upon the clinical features the patient falls into low risk category for 10 year biochemical disease free survival regardless of which therapeutic modality he chooses. He understands that there is a small, but real, chance of occult metastatic disease and the logic of when metastatic workup is appropriate. We discussed various options for management of his disease including watchful waiting, active surveillance, radiation modality and surgical extirpation. The options of watchful waiting or active surveillence were gone over and what these would entail, with selective delayed intervention, hormonal therapy in its various forms. The protocol for periodic PSA tests and repeating his transrectal prostate ultrasound, without or with prostate biopsy was covered. With respect to surgical intervention we compared and contrasted open, laparoscopic and robotic prostatectomy with or without bilateral pelvic lymphadenectomy. We compared these with respect to cancer control, urinary control, and erectile dysfunction. I explained that any patient undergoing treatment for prostate cancer may need additional therapy. The possibility of severe or total loss of urinary control, possibly needed surgery to implant an artificial urinary sphincter is possible after prostate cancer surgery. The possibility of loss of erections, and the possible treatment options was discussed. The other potential downside, including but not limited to urethral stricture, bladder neck contracture. I explained to him that robotic prostatectomy is a major surgical procedure and has possible major complications including, but not limited to bleeding requiring transfusion, rectal injury requiring a temporary colostomy, damage to abdominal structure, infection, myocardial infarction, stroke, deep vein thrombosis/ pulmonary embolism, or open conversion. We discussed the procedure related morbidity, hospitalization, and convalescence period. We have reviewed the recent data, which would show that at least one out of ten patients undergoing radical prostatectomy will have at least one complication whether minor or major, and this could be as high as 25% (one in four). We have discussed that with surgical intervention. We also discussed radiation therapy; external beam, and out-patient brachytherapy as well as the attendant procedure related morbidity as it relates to the low but known risk of health informatics specialist urinary frequency, urgency, urgency with bowel movements and risk of urethral radiation injury. We also discussed time commitment for the external beam therapy being once a day, five days a week for 5-7 weeks during which most people can continue normal daily activities. I described the likelihood of flare up of hemorrhoids, and mild decrease in physical stamina during the later portion of the treatments. We discussed the time frame for PSA response that would indicate efficacy of the radiation therapy. A referral to radiation oncology was offered. Additionally, we discussed cryo (more content not included)... Normal [facility] PSA SerPl-mCncon 07-29-2024 Prostate specific Ag [Mass/Vol] 7.94 ng/mL High <2.60 [facility] Comment on above: Order Comment: Speci men Type: BLOOD SPECIMENOrdering Facility: [facility] Address: [facility] [place] [address] Result Comment: Hernando olivier PSA test methodology used is the Electrochemiluminescence Immunoassay by [employer]. Total PSA values by differing methodologies cannot be interchanged. For an individual patient, the significance of a PSA level should be interpreted in a broad clinical context, including age, race, family history, digital rectal exam, prostate size, results of prior testing (prostate biopsy, free PSA, PCA3), and use of 5-alpha reductase inhibitors. Considering the high incidence of asymptomatic cancer in the general population that may not pose an ultimate risk to a patient, the decision to recommend urological evaluation or prostate biopsy should be individualized after consideration of all these factors. REFERENCE: Rama Carl M.D., M.P.H., Sameer Núñez M.D., Ph.D., Jeramy Vyas M.D., Delfina Ruiz, M.P.H., Thuy Gonzalez Sc.D. Effect of Verification Bias on Screening for Prostate Cancer by Measurement of Prostatic Specific Antigen. N Engl J Med 2003,349:335-42. Performed By: #### 2 857-1 ####[facility] LABCL[facility] [id number] [place] [address] [place] UA DIP, URINE (POC)on 2024 BILIRUBIN UA (POCT) Negative Negative [facility] CLARITY UA (POCT) Clear [facility] COLOR UA (POCT) Yellow [facility] GLUCOSE UA (POCT) >=1000 Abnormal Negative mg/dL [facility] Hemoglobin Ql (U) Trace-intact Abnormal Negative [facility] Interpretation and review of laboratory results Abnormal [facility] KETONE UA (POCT) Negative Negative mg/dL [facility] LEUKOCYTES UA (POCT) Negative Negative [facility] NITRITE UA (POCT) Negative Negative [facility] PH UA (POCT) 6 4.5 - 8.0 [facility] Protein Ql (U) Negative Negative mg/dL [facility] SPECIFIC GRAVITY UA (POCT) 1.02 1.005 - 1.030 [facility] UROBILINOGEN UA (POCT) 0.2 Normal E.U./dL [facility] Location:[address], [id number] [place] [address] POINT OF CARE [facility] PSA/PROSTATE SPECIFIC ANTIGE N SCREENINGon 07-18-2024 Prostate specific Ag [Mass/Vol] 9.67 ng/mL High <2.60 [facility] Comment on above: Order Comment: Speci men Type: BLOOD SPECIMENOrdering Facility: [facility] Address: [address] [place] [address] Result Comment: Hernando olivier PSA test methodology used is the Electrochemiluminescence Immunoassay by [employer]. Total PSA values by differing methodologies cannot be interchanged. For an individual patient, the significance of a PSA level should be interpreted in a broad clinical context, including age, race, family history, digital rectal exam, prostate size, results of prior testing (prostate biopsy, free PSA, PCA3), and use of 5-alpha reductase inhibitors. Considering the high incidence of asymptomatic cancer in the general population that may not pose an ultimate risk to a patient, the decision to recommend urological evaluation or prostate biopsy should be individualized after consideration of all these factors. REFERENCE: Rama Carl M.D., M.P.H., Sameer Núñez M.D., Ph.D., Jeramy Vyas M.D., Delfina Ruiz M.P.H., Thuy Gonzalez Sc.D. Effect of Verification Bias on Screening for Prostate Cancer by Measurement of Prostatic Specific Antigen. N Engl J Med 2003,349:335-42. Performed By: #### P SAS1 ####[facility] LABORATORYCLIA [id number] [place] [address] [place] Culture, Blood (WB)on 2024 CUB Blood cultures x2, f rom two different sites No growth in 5 days. Normal [facility] Comment on above: Performed By: #### L 500.4050, M200.1000, L300.3900, L503.6005, L300.4310, L100.0100 ####[facility] [address] [place], [address] Urine Cultureon 07-03-2024 URC Culture exhibits no growth. Normal [facility] Comment on above: Performed By: #### M 100.678, M100.2200, L400.0001 ####[facility] [address] [facility] [place], [address] 12 Lead EKGon 07-02-2024 12 Lead EKG [facility] Cardi[facility] Services [address] [place] [address] 12 Lead EKG 07/02/24 2212 MR#: [id number] Acct: [id number] Name: LEANDRA EL Rep #: [id number] : 1955 68 From: Karri Cabrera MD Attending Dr: Status: DEP ER Ordering Dr: Shorty Abbott MD Date: 07/02/24 Location: ED Sex: M C Admitted: Test Reason : DYSRHYTHMIA Blood Pressure : */* mmHG Vent. Rate : 94 BPM Atrial Rate : 94 BPM P-R Int : 156 ms QRS Dur : 90 ms QT Int : 362 ms P-R-T Axes : 58 84 33 degrees QTcB Int : 452 ms Normal sinus rhythm Possible Left atrial enlargement Septal infarct , age undetermined Abnormal ECG Confirmed by PAT DICK, DERRICK ([id number]), editorial specialist LEDY ROJO ([id number]) on 07/04/2024 12:59:23 PM Referred By: Shorty Abbott Confirmed By: DERRICK CABRERA MD 07/04/24 1259 Date Karri Cabrera MD CC: Dr. Shorty Abbott MD; Dr. Maykel Bee MD Signed Normal [facility] CBC W/Diff, Automatedon 06-21 Absolute Lymph 0.94 X10 3/uL Normal 0.83-4.51 [facility] Comment on above: Performed By: #### L 500.4050, M200.1000, L300.3900, L503.6005, L300.4310, L100.0100 #### [facility] [address] [place], [address] Absolute Neut 8.4 X10 3/uL High 2.0-7.7 [facility] Comment on above: Performed By: #### L 500.4050, M200.1000, L300.3900, L503.6005, L300.4310, L100.0100 #### [facility] [address] [place], [address] Basophils/100 WBC (Bld) 0.5 % Normal 0- [facility] Comment on above: Performed By: #### L 500.4050, M200.1000, L300.3900, L503.6005, L300.4310, L100.0100 #### [facility] [address] [place], [address] Eosinophils/100 WBC (Bld) 0.3 % Normal 0-5 [facility] Comment on above: Performed By: #### L 500.4050, M200.1000, L300.3900, L503.6005, L300.4310, L100.0100 #### [facility] [address] [facility] [place], [address] Erythrocyte distribution width (RBC) [Ratio] 12.9 % Normal 11.6-14.6 [facility] Comment on above: Performed By: #### L 500.4050, M200.1000, L300.3900, L503.6005, L300.4310, L100.0100 #### [facility] [address] [place], [address] Hematocrit (Bld) [Volume fraction] 43.1 % Normal 40-54 [facility] Comment on above: Performed By: #### L 500.4050, M200.1000, L300.3900, L503.6005, L300.4310, L100.0100 #### [facility] [address] [facility] [place], [address] Hemoglobin (Bld) [Mass/Vol] 14.8 g/dL Normal 13.0-16.5 [facility] Comment on above: Performed By: #### L 500.4050, M200.1000, L300.3900, L503.6005, L300.4310, L100.0100 #### [facility] [address] [place], [address] IG% 0.500 Normal 0.0-0.9 [facility] Comment on above: Result Comment: IG% - Immature Granulocytes (promyelocytes, myelocytes and metamyelocytes) > 1% indicates that a LEFT SHIFT is Present. Performed By: #### L 500.4050, M200.1000, L300.3900, L503.6005, L300.4310, L100.0100 #### [facility] [address] [place], [address] Lymphocytes/100 WBC (Bld) 8.9 % Low 19-41 [facility] Comment on above: Performed By: #### L 500.4050, M200.1000, L300.3900, L503.6005, L300.4310, L100.0100 #### [facility] [address] [place], [address] MCH (RBC) [Entitic mass] 32.0 pg Normal 27.0-32.0 [facility] Comment on above: Performed By: #### L 500.4050, M200.1000, L300.3900, L503.6005, L300.4310, L100.0100 #### [facility] [address] [place], [address] MCHC (RBC) [Mass/Vol] 34.3 g/dL Normal 32-36 [facility] Comment on above: Performed By: #### L 500.4050, M200.1000, L300.3900, L503.6005, L300.4310, L100.0100 #### [facility] [address] [place], [address] MCV (RBC) [Entitic vol] 93.1 fL Normal 80-94 [facility] Comment on above: Performed By: #### L 500.4050, M200.1000, L300.3900, L503.6005, L300.4310, L100.0100 #### [facility] [address] [place], [address] Monocytes/100 WBC (Bld) 9.9 % Normal 0-10 [facility] Comment on above: Performed By: #### L 500.4050, M200.1000, L300.3900, L503.6005, L300.4310, L100.0100 #### [facility] [address] [place], [address] Neutrophils/100 WBC (Bld) 79.9 % High 47-70 [facility] Comment on above: Performed By: #### L 500.4050, M200.1000, L300.3900, L503.6005, L300.4310, L100.0100 #### [facility] [address] [place], [address] Nucleated RBC (Bld) [#/Vol] 0 10*3/uL Normal 0-5 [facility] Comment on above: Performed By: #### L 500.4050, M200.1000, L300.3900, L503.6005, L300.4310, L100.0100 #### [facility] [address] [place], [address] Platelet mean volume (Bld) [Entitic vol] 8.2 fL Normal 6.2-12.0 [facility] Comment on above: Performed By: #### L 500.4050, M200.1000, L300.3900, L503.6005, L300.4310, L100.0100 #### [facility] [address] [place], [address] Platelets (Bld) [#/Vol] 231 10*3/uL Normal 150-450 [facility] Comment on above: Performed By: #### L 500.4050, M200.1000, L300.3900, L503.6005, L300.4310, L100.0100 #### [facility] [address] [place], [address] RBC (Bld) [#/Vol] 4.63 10*6/uL Normal 4.6-6.2 [facility] Comment on above: Performed By: #### L 500.4050, M200.1000, L300.3900, L503.6005, L300.4310, L100.0100 #### [facility] [address] [place], [address] RDW SD 44.4 fl High 35.1-43.9 [facility] Comment on above: Performed By: #### L 500.4050, M200.1000, L300.3900, L503.6005, L300.4310, L100.0100 #### [facility] [address] [place], [address] WBC (Bld) [#/Vol] 10.5 10*3/uL Normal 4.4-11.0 [facility] Comment on above: Performed By: #### L 500.4050, M200.1000, L300.3900, L503.6005, L300.4310, L100.0100 #### [facility] [address] [facility] [place], [address] Chest PA and Lateralon 07-02 Chest PA and Lateral [facility] Imaging Services [address] [address] [place] [address] Chest PA and Lateral MR#: [id number] Acct: [id number] Name: LEANDRA EL Rep #: [id number] : 1955 M 68 From: [facility] PCP: Dr. Maykel Bee MD Status: [facility] ER Study: Chest PA and Lateral Date of Exam: 07/02/24 Exam# [id number] Ordering Dr: Shorty Abbott MD PROCEDURE: CHEST PA AND LATERAL REASON FOR EXAM: Fever, cough. TECHNIQUE: Frontal and lateral views of the chest. COMPARISON: None. FINDINGS: Cardiac size and pulmonary vasculature are within normal limits. There is a left suprahilar airspace opacity. No pleural effusion or pneumothorax is identified. RAD/Chest PA and Lateral IMPRESSION: Left suprahilar airspace opacity which may relate to pneumonia. However, continued follow-up is recommended to ensure resolution and to exclude malignancy. Alternatively, CT could be obtained for better evaluation. Reading Location: [facility] CC: Dr. Shorty Abbott MD; Dr. Maykel Bee MD Drug Discovery Informatics Specialist: Signed Normal [facility] Comprehensive Metabolic Prof ilon 07-02-2024 Albumin [Mass/Vol] 3.3 g/dL Normal 3.2-5.0 [facility] Comment on above: Performed By: #### L 500.4050, M200.1000, L300.3900, L503.6005, L300.4310, L100.0100 #### [facility] [address] [place], [address] Albumin/Globulin [Mass ratio] 0.8 {ratio} Low 0.9-2.4 [facility] Comment on above: Performed By: #### L 500.4050, M200.1000, L300.3900, L503.6005, L300.4310, L100.0100 #### [facility] [address] [place], [address] ALK P 74 U/L Normal 45-117 [facility] Comment on above: Performed By: #### L 500.4050, M200.1000, L300.3900, L503.6005, L300.4310, L100.0100 #### [facility] [address] [place], [address] ALT [Catalytic activity/Vol] 16 U/L Normal 16-61 [facility] Comment on above: Performed By: #### L 500.4050, M200.1000, L300.3900, L503.6005, L300.4310, L100.0100 #### [facility] [address] [place], [address] AST [Catalytic activity/Vol] 6 U/L Low 15-37 [facility] Comment on above: Performed By: #### L 500.4050, M200.1000, L300.3900, L503.6005, L300.4310, L100.0100 #### [facility] [address] [place], [address] Bilirubin [Mass/Vol] 0.80 mg/dL Normal 0.20-1.00 [facility] Comment on above: Result Comment: For patients on eltrombopag therapy, use of Dimension [place] TBIL is not recommended. Performed By: #### L 500.4050, M200.1000, L300.3900, L503.6005, L300.4310, L100.0100 #### [facility] [address] [place], [address] BUN/CRE 21.5 RATIO High 10-20 [facility] Comment on above: Performed By: #### L 500.4050, M200.1000, L300.3900, L503.6005, L300.4310, L100.0100 #### [facility] [address] [place], [address] CA,Total 9.1 mg/dL Normal 8.5-10.1 [facility] Comment on above: Performed By: #### L 500.4050, M200.1000, L300.3900, L503.6005, L300.4310, L100.0100 #### [facility] [address] [place], [address] Chloride [Moles/Vol] 101 mmol/L Normal 98-107 [facility] Comment on above: Performed By: #### L 500.4050, M200.1000, L300.3900, L503.6005, L300.4310, L100.0100 #### [facility] [address] [place], [address] CO2 [Moles/Vol] 28.0 mmol/L Normal 21.0-32.0 [facility] Comment on above: Performed By: #### L 500.4050, M200.1000, L300.3900, L503.6005, L300.4310, L100.0100 #### [facility] [address] [place], [address] Creatinine [Mass/Vol] 0.88 mg/dL Normal 0.70-1.30 [facility] Comment on above: Result Comment: The validity of the calculated GFR GFRAA in patients over 70 years has not been determined. Clinical correlation is essential. Performed By: #### L 500.4050, M200.1000, L300.3900, L503.6005, L300.4310, L100.0100 #### [facility] [address] [place], [address] ECRCL 90.76 ml/min Normal [facility] Comment on above: Performed By: #### L 500.4050, M200.1000, L300.3900, L503.6005, L300.4310, L100.0100 #### [facility] [address] [place], [address] EST GFR - AA 110 mL/min Normal >60 [facility] Comment on above: Result Comment: Afri can Bahraini GFR Calc Performed By: #### L 500.4050, M200.1000, L300.3900, L503.6005, L300.4310, L100.0100 #### [facility] [address] [place], [address] GAP 6 Normal 5-15 [facility] Comment on above: Performed By: #### L 500.4050, M200.1000, L300.3900, L503.6005, L300.4310, L100.0100 #### [facility] [address] [place], [address] GFR/1.73 sq M.predicted among non-blacks MDRD (S/P/Bld) [Vol rate/Area] 91 mL/min/{1.73_m2} Normal >60 [facility] Comment on above: Result Comment: Non- GFR Calc Performed By: #### L 500.4050, M200.1000, L300.3900, L503.6005, L300.4310, L100.0100 #### [facility] [address] [place], [address] Globulin (S) [Mass/Vol] 4.3 g/dL High 2.2-4.2 [facility] Comment on above: Performed By: #### L 500.4050, M200.1000, L300.3900, L503.6005, L300.4310, L100.0100 #### [facility] [address] [place], [address] Glucose [Mass/Vol] 161 mg/dL High 74-106 [facility] Comment on above: Result Comment: Fast ing Glucose result greater than or equal to 126 mg/dL suggests DIABETES MELLITUS per A.D.A. criteria. Performed By: #### L 500.4050, M200.1000, L300.3900, L503.6005, L300.4310, L100.0100 #### [facility] [address] [place], [address] Potassium [Moles/Vol] 3.9 mmol/L Normal 3.5-5.1 [facility] Comment on above: Performed By: #### L 500.4050, M200.1000, L300.3900, L503.6005, L300.4310, L100.0100 #### [facility] [address] [place], [address] Sodium [Moles/Vol] 135 mmol/L Low 136-145 [facility] Comment on above: Performed By: #### L 500.4050, M200.1000, L300.3900, L503.6005, L300.4310, L100.0100 #### [facility] [address] [place], [address] T PROT 7.6 g/dL Normal 6.4-8.2 [facility] Comment on above: Performed By: #### L 500.4050, M200.1000, L300.3900, L503.6005, L300.4310, L100.0100 #### [facility] [address] [place], [address] Urea nitrogen [Mass/Vol] 19 mg/dL High 7-18 [facility] Comment on above: Performed By: #### L 500.4050, M200.1000, L300.3900, L503.6005, L300.4310, L100.0100 #### [facility] [address] [place], [address] Emergency Department Summary on 07-02-2024 Emergency Department Summary [facility] Medical Records Department [address] [place] [address] Emergency Department Summary 07/02/24 MR#: [id number] Acct: [id number] Name: LEANDRA EL Rep #: [id number] : 1955 68 From: Shorty Abbott MD PCP: Dr. Maykel Bee MD Status:[facility] ER Location: ED ADDENDUM by Dr. Shorty Abbott MD on 07/03/24 at 0128 Patient was discharged treated as pneumonia. His COVID, flu and RSV returned and were all negative. 07/03/24 0128 Cosigner Signature (if applicable): cc: Dr. Maykel Bee MD * Signed HPI History of Present Illness Chief Complaint: Fever Informant: patient and spouse/S.O. Onset/Context/Timing Onset: Days Context: Gradual Onset Timing: Continuous Current Severity: Mild Maximum Severity: Mild Narrative Narrative: 68-year-old male history of hypertension, diabetes and prostate cancer. Patiently says he has not felt well since Sunday morning he has had fevers. Denies vomiting or diarrhea. No dysuria but urinary frequency. No hematuria. No back, chest or abdominal pain. No cough. No rash. Says he was tested for he believes COVID and flu and that was negative. Prior similar symptoms: Yes Recent Illness/Hospitalization: No PFSH [facility] Medical History Hyperlipidemia Hypertension Type 2 diabetes mellitus Prostate cancer no medical history Home Medications ???Medication ???Instructions ???Recorded ???Last Taken ???Type aspirin 81 mg chewable tablet 81 mg PO DAILY@0800 09/08/13 Unkno wn History atorvastatin 40 mg tablet 40 mg PO QHS 09/08/13 Unknown Hist ory metformin 500 mg tablet,extended 1,000 mg PO BID 09/08/13 Unknown H istory release 24 hr ondansetron 8 mg disintegrating 8 mg PO Q8H PRN nausea and 4 Unknown Rx tablet vomiting #20 tabs oxycodone-acetaminophen 5 mg-325 1 tab PO Q4H PRN Pain 3 days #18 1 06/16/23 Unknown Rx mg tablet TABLETS dulaglutide 3 mg/0.5 mL 3 mg subcut NIELSEN 04/17/24 Unknown Hi story subcutaneous pen injector (Trulicity) glipizide 5 mg tablet 5 mg PO BID 04/17/24 Unknown Histo ry insulin glargine 100 unit/mL (3 45 unit subcut QHS 04/17/24 Unknow n History mL) subcutaneous pen (Basaglar KwikPen U-100 Insulin) lisinopril 40 mg tablet 40 mg PO DAILY 04/17/24 Unknown Hi story tamsulosin 0.4 mg capsule 0.4 mg PO DAILY 04/17/24 Unknown H istory ketorolac 10 mg tablet 10 mg PO TID PRN pain 5 days #15 1 06/18/23 Unknown Rx tabs Allergy/AdvReac Type Severity Reaction Status Date / Time No Known Allergies Allergy Verified 07/02/24 21:34 Social History Smoking Status: Light Smoker (<10/day) ROS ROS ED ROS Narrative Fever. Body aches. Constitutional Constitutional ED: Reports fever(s); Denies chills Eyes Eyes: Denies blurry vision ENT ENT ED: Denies ear pain Cardiovascular Cardiovascular: Denies chest pain Respiratory/Chest Respiratory/Chest: Denies cough, dyspnea or dyspnea on exertion Gastrointestinal Gastrointestinal: Reports nausea; Denies abdominal pain, constipation, diarrhea, melena or vomiting Genitourinary Genitourinary ED: Denies dysuria or hematuria Musculoskeletal Musculoskeletal: Denies arthralgias or back pain Integumentary Denies abscess or Abrasions Neurologic Neurologic: Denies headache(s) Endocrine Endocrinology: Denies cold intolerance Hematologic/Lymphatic Hematologic/Lymphatic: Reports none Allergic/Immunologic Allergic/Immunologic ED: Denies mouth swelling, tongue swelling or urticaria EXAM Physical Exam Narrative Exam Narrative: Well-appearing 68-year-old male. Accompanied by his I believe. Vital signs are stable he does have a fever of 102.5. He does not look septic or toxic. He sitting upright in bed. He is interactive. H EENT exam pupils are round reactive light. Extra motions are intact. Moist mucous membranes. Posterior pharynx unremarkable. Neck nontender no lymphadenopathy. No meningismus. Lungs clear to auscultation bilaterally. Heart tachycardic rate of 105 no murmur. Chest wall ribs nontender. Abdomen soft nontender. No peritoneal signs. Back nontender. Moving all 4 extremities. Nontender. No edema. No rashes. Normal strength. Neurologically is awake and alert no focal motor deficits. Answering questions following commands. Const Vital Signs: 07/02/24 21:31 07/02/24 22:01 07/02/24 22:11 Temperature 102.5 F H Temperature Source Oral Pulse Rate 109 H Respiratory Rate 18 Respiratory Effort Normal Non-Labored Respiratory Pattern Normal Blood Pressure 147/77 H Blood Pressure Mean 100 Pulse Ox 96 Oxygen Delivery Method Room Air Room Air 07/02/24 22:45 Temperature 99.7 F H (more content not included)... Normal [facility] Lactic Acidon 07-02-2024 Lactate [Moles/Vol] 1.0 mmol/L Normal 0.4-1.9 [facility] Comment on above: Order Comment: Y Performed By: #### L 500.4050, M200.1000, L300.3900, L503.6005, L300.4310, L100.0100 ####[facility] [address] [place], [address] M100.678on 07-02-2024 M100.678 SARS-CoV-2 (COVID 19 ) Negative INFLUENZA A Negative INFLUENZA B Negative RSV PCR Negative Normal [facility] Comment on above: Performed By: #### M 100.678, M100.2200, L400.0001 ####[facility] [address] [place], [address] Partial Thromboplast Timeon 07-02-2024 aPTT Coag (Bld) [Time] 26.1 s Normal 24.1-36.2 [facility] Comment on above: Performed By: #### L 500.4050, M200.1000, L300.3900, L503.6005, L300.4310, L100.0100 #### [facility] [address] [place], [address] Prothrombin Time w/INRon INR Coag (PPP) [Relative time] 1.0 {INR} Normal [facility] Comment on above: Performed By: #### L 500.4050, M200.1000, L300.3900, L503.6005, L300.4310, L100.0100 #### [facility] [address] [place], [address] PT Coag (PPP) [Time] 13.3 s Normal 11.7-14.9 [facility] Comment on above: Performed By: #### L 500.4050, M200.1000, L300.3900, L503.6005, L300.4310, L100.0100 #### [facility] [address] [place], [address] Urinalysis, Completeon 07-02 BACTERIA 2+ /hpf Normal None Seen [facility] Comment on above: Order Comment: CLEAN CATCH Performed By: #### M 100.678, M100.2200, L400.0001 ####[facility] [address] [place], [address] EPI,SQUAMOUS 0-5 SEEN Normal 0-5 [facility] Comment on above: Order Comment: CLEAN CATCH Performed By: #### M 100.678, M100.2200, L400.0001 ####[facility] [address] [place], [address] YEAST RARE Normal None Seen [facility] Comment on above: Order Comment: CLEAN CATCH Performed By: #### M 100.678, M100.2200, L400.0001 ####[facility] [address] [place], [address] RBC 50-100 SEEN Normal 0-5 [facility] Comment on above: Order Comment: CLEAN CATCH Performed By: #### M 100.678, M100.2200, L400.0001 ####[facility] [address] [place], [address] BILIRUBIN URINE Negative Normal Negative [facility] Comment on above: Order Comment: CLEAN CATCH Performed By: #### M 100.678, M100.2200, L400.0001 ####[facility] [address] [place], [address] Clarity (U) Clear Normal Clear [facility] Comment on above: Order Comment: CLEAN CATCH Performed By: #### M 100.678, M100.2200, L400.0001 ####[facility] [address] [place], [address] Color (U) Yellow Normal Yellow [facility] Comment on above: Order Comment: CLEAN CATCH Performed By: #### M 100.678, M100.2200, L400.0001 ####[facility] [address] [place], [address] GLUCOSE, UR 1000 mg/dl Abnormal Normal [facility] Comment on above: Order Comment: CLEAN CATCH Performed By: #### M 100.678, M100.2200, L400.0001 ####[facility] [address] [place], [address] KETONE UR Negative Normal Negative [facility] Comment on above: Order Comment: CLEAN CATCH Performed By: #### M 100.678, M100.2200, L400.0001 ####[facility] [address] [place], [address] LEUK ESTERASE Negative Normal Negative [facility] Comment on above: Order Comment: CLEAN CATCH Performed By: #### M 100.678, M100.2200, L400.0001 ####[facility] [address] [place], [address] Nitrite Ql (U) Negative Normal Negative [facility] Comment on above: Order Comment: CLEAN CATCH Performed By: #### M 100.678, M100.2200, L400.0001 ####[facility] [address] [place], [address] OCCULT BLOOD-UR 250 /ul Abnormal Negative [facility] Comment on above: Order Comment: CLEAN CATCH Performed By: #### M 100.678, M100.2200, L400.0001 ####[facility] [address] [place], [address] pH UR 6.0 Normal 5.0 - 8.0 [facility] Comment on above: Order Comment: CLEAN CATCH Performed By: #### M 100.678, M100.2200, L400.0001 ####[facility] [address] [place], [address] PROT DIPSTX 30 mg/dl Abnormal Negative [facility] Comment on above: Order Comment: CLEAN CATCH Performed By: #### M 100.678, M100.2200, L400.0001 ####[facility] [address] [place], [address] SP.GR. DIPSTX 1.010 Normal 1.002-1.030 [facility] Comment on above: Order Comment: CLEAN CATCH Performed By: #### M 100.678, M100.2200, L400.0001 ####[facility] [address] [place], [address] UROBILI 4 mg/dl Abnormal Normal [facility] Comment on above: Order Comment: CLEAN CATCH Performed By: #### M 100.678, M100.2200, L400.0001 ####[facility] [address] [place], [address] Mucus Ql (Urine sed) 0 SEEN Normal [facility] Comment on above: Order Comment: CLEAN CATCH Performed By: #### M 100.678, M100.2200, L400.0001 ####[facility] [address] [place], [address] WBC 0 SEEN Normal 0-5 [facility] Comment on above: Order Comment: CLEAN CATCH Performed By: #### M 100.678, M100.2200, L400.0001 ####[facility] [address] [place], [address] CNOVon 06-30-2024 [facility] LEANDRA EL ([id number]) 1955 M Date Time Provider Department 06/30/24 5:00 PM [facility] During your visit today, we recorded the following information about you: Temperature Pulse Respiration Blood pressure 99.6 degrees 103/minute 21/minute 110/70 Weight 94.4 kg Kaleigh Kimball PA 06/30/2024 4:21 PM Signed This note was created using NoteWriter. Subjective Leandra El is a 68 year old male. HPI 68-year-old male presents for congestion, fever, sinus pressure x 2 days. Patient states Sunday afternoon started getting a fever. He has had bodyaches, chills, sinus pressure. No cough. No vomiting or diarrhea. He has taken Tylenol/Motrin for fever. No other complaint. PAST MEDICAL HISTORY Diagnosis Date Benign neoplasm of colon 2009 HYPERPLASTIC Chronic serous otitis media of both ears 04/22/2024 Dr. Kylie Whitley, ENT DIABETES MELLITUS TYPE II-UNCOMPL 06/27/2006 Elevated prostate specific antigen (PSA) 07/24/2017 History of actinic keratosis 01/24/[address] [facility]ryn [facility]. HYPERLIPIDEMIA NEC/NOS 09/27/2005 HYPERTENSION NOS 09/27/2005 Impaired fasting glucose 09/27/2005 Internal hemorrhoids without mention of complication Paronychia of finger 02/01/2022 Prostate cancer (HCC) 10/22/2018 PSA elevation 07/24/2017 Type II or unspecified type diabetes mellitus without mention of complication, uncontrolled 12/04/2012 Ureterolithiasis 03/02/2024 Left UVJ 3-4 mm PAST SURGICAL HISTORY Procedure Laterality Date CATARACT EXTRACTION W/ INTRAOCULAR LENS IMPLANT HX 2014 COLONOSCOPY FLX DX W/COLLJ SPEC WHEN PFRMD 03/08/2015 Colonoscopy COLONOSCOPY FLX DX W/COLLJ SPEC WHEN PFRMD 04/19/2020 Colonoscopy repeat in 5 years COLONOSCOPY W/BIOPSY SINGLE/MULTIPLE 05/31/2009 PROSTATE BIOPSY W/TRANSRECTAL US 10/09/2018 PROSTATE BIOPSY WITH MR FUSION 07/19/2022 SKIN BIOPSY HX TONSILLECTOMY HX 1967 ALLERGIES Seasonal Allergies MEDICATIONS insulin glargine (LANTUS SOLOSTAR U-100 INSULIN) 100 unit/mL (3 mL) Inject 45 Units subcutaneously daily at bedtime. Note for next refill: Plan changed to BASAGLAR FAINA. amLODIPine (NORVASC) 2.5 mg tablet Take 1 tablet by mouth once daily. tamsulosin (FLOMAX) 0.4 mg Take 1 capsule by mouth once daily for 14 days. 30 minutes after the same meal each day. dapagliflozin propanediol (FARXIGA) 10 mg tablet Take 1 tablet by mouth daily with breakfast. clotrimazole (LOTRIMIN) 1 % cream Apply thin layer to rash on armpits twice a day. Continue for two weeks after rash has resolved metFORMIN (GLUCOPHAGE) 500 mg tablet Take 2 tablets by mouth two times a day with meals. atorvastatin (LIPITOR) 20 mg tablet Take 1 tablet by mouth once daily. insulin needles, DISPOSABLE, (PEN NEEDLE) 31 gauge x 5/16 Use 1 pen needle once daily for insulin injection. Dx: E11.65 glipiZIDE (GLUCOTROL) 5 mg tablet Take 1 tablet (5 mg) by mouth two times a day before meals. lisinopril (ZESTRIL) 40 mg tablet Take 1 tablet by mouth once daily. dulaglutide (TRULICITY) 3 mg/0.5 mL pen injector Inject 3 mg subcutaneously one time a week. Sodium Fluoride 1.1 % sildenafil (VIAGRA) 50 mg tablet Take 1 tablet by mouth as needed. Blood-Glucose Meter (FREESTYLE LITE METER) monitoring kit Freestyle LITE Meter Kit - Dx: Type 2 DM - uncontrolled .. Insulin: Yes. blood sugar diagnostic test strip Test blood sugar(s) 3 times daily. Dx: Type 2 DM - unontrolled . Insulin: Yes. [employer]. ASPIRIN 81 MG TAB Take one(1) tablet daily. FAMILY HISTORY Problem Relation Age of Onset Diabetes Father Hypertension Father Prostate Cancer Father Blood Disease Father Immune thrombocytopenia, splenectomy Cervical Cancer Mother Vulvar SCCa with mets other (Obesity) Sister Gastric bypass Colon Cancer Paternal Uncle Macular Degen No Family History Glaucoma No Family History Social History Tobacco Use Smoking status: Some Days Types: Cigarettes Smokeless tobacco: Never Tobacco comments: periodic Vaping Use Vaping status: Never Used Substance Use Topics Alcohol use: Yes Alcohol/week: 2.0 standard drinks of alcohol Types: 2 Shots of liquor per week Comment: occasionally Drug use: No Review of Systems Constitutional: Positive for chills, fatigue and fever. HENT: Positive for congestion. Negative for sore throat. Respiratory: Negative for cough and shortness of breath. Gastrointestinal: Negative for diarrhea and vomiting. Objective BP 110/70 Pulse 103 Temp 37.6 ?C (99.6 ?F) Resp 21 Wt 94.4 kg (208 lb 1.8 oz) SpO2 98% BMI 31.64 kg/m? Physical Exam Vitals and nursing note reviewed. Constitutional: General: He is not in acute distress. Appearance: Normal appearance. He is not toxic-appearing. HENT: Right Ear: Tympanic membrane and ear canal (more content not included)... Normal [facility] CNOVon 05-27-2024 CNOV Office Visit ([facility] ) LEANDRA EL ([id number]) 1955 M Date Time Provider Department 05/27/24 1:15 PM APRIL LEON [facility] During your visit today, we recorded the following information about you: Weight Height 92.5 kg 1.727 m April Leon Jr., MD 05/27/2024 12:57 PM Signed ESTABLISHED PATIENT OFFICE VISIT HPI Leandra El is a 68 year old male who presents for follow up of prostate cancer. Patient had [place] 6 prostate cancer diagnosed in 2019. PSA has been stable on active surveillance. PSA most recently 5.68 on 01/23/24. Patient was diagnosed with a 4mm L UVJ calculus in 02/2024 in [place]. States that left flank pain has resolved. KUB performed on 04/16 revealed no large radio-opaque calculi. CT imaging on 04/18 at [facility] demonstrated a 3mm right distal ureteral stone. States that he had a temperature of 100.4F. Creatinine was 1.54. No fevers or chills since then. Patient states that pain resolved 4-5 days ago. Denies fevers and chills. 05/27/24 - since last seen no symptoms. Renal us no hydro. Has 4mm r renal calc remaining. No fever. No uti. Luts ok. Stone prevention discussed LAB: Creatinine Date Value Ref Range Status 05/19/2024 0.82 0.73 - 1.22 mg/dL Final PSA (ng/mL) Date Value 01/23/2024 5.68 07/16/2023 5.93 01/18/2023 5.74 03/30/2022 5.54 12/27/2021 4.70 06/30/2021 4.92 02/09/2021 4.12 11/27/2020 4.47 07/31/2020 3.92 05/18/2020 4.01 01/29/2020 4.22 10/22/2019 4.64 07/24/2019 3.65 01/03/2019 3.02 10/04/2018 3.36 PSA Screening (ng/mL) Date Value 07/14/2022 5.81 Glucose, Urine (mg/dL) Date Value 07/24/2017 >=500 Bilirubin, Urine (no units) Date Value 07/24/2017 Negative Ketones, Urine (no units) Date Value 07/24/2017 Negative Specific [place], Ur (no units) Date Value 07/24/2017 1.033 Hemoglobin/Blood,Ur ( ) Date Value 07/24/2017 Negative pH, Urine (no units) Date Value 07/24/2017 5.0 Protein, Urine (mg/dL) Date Value 07/24/2017 Negative Nitrites (no units) Date Value 07/24/2017 Negative WBC, Urine (/HPF) Date Value 07/24/2017 0-5 MEDICATIONS: insulin glargine (LANTUS SOLOSTAR U-100 INSULIN) 100 unit/mL (3 mL) Inject 45 Units subcutaneously daily at bedtime. Note for next refill: Plan changed to ANYI EISENBERG. amLODIPine (NORVASC) 2.5 mg tablet Take 1 tablet by mouth once daily. tamsulosin (FLOMAX) 0.4 mg Take 1 capsule by mouth once daily for 14 days. 30 minutes after the same meal each day. dapagliflozin propanediol (FARXIGA) 10 mg tablet Take 1 tablet by mouth daily with breakfast. clotrimazole (LOTRIMIN) 1 % cream Apply thin layer to rash on armpits twice a day. Continue for two weeks after rash has resolved metFORMIN (GLUCOPHAGE) 500 mg tablet Take 2 tablets by mouth two times a day with meals. atorvastatin (LIPITOR) 20 mg tablet Take 1 tablet by mouth once daily. insulin needles, DISPOSABLE, (PEN NEEDLE) 31 gauge x 5/16 Use 1 pen needle once daily for insulin injection. Dx: E11.65 glipiZIDE (GLUCOTROL) 5 mg tablet Take 1 tablet (5 mg) by mouth two times a day before meals. lisinopril (ZESTRIL) 40 mg tablet Take 1 tablet by mouth once daily. dulaglutide (TRULICITY) 3 mg/0.5 mL pen injector Inject 3 mg subcutaneously one time a week. Sodium Fluoride 1.1 % sildenafil (VIAGRA) 50 mg tablet Take 1 tablet by mouth as needed. Blood-Glucose Meter (FREESTYLE LITE METER) monitoring kit Freestyle LITE Meter Kit - Dx: Type 2 DM - uncontrolled E11.65. Insulin: Yes. blood sugar diagnostic test strip Test blood sugar(s) 3 times daily. Dx: Type 2 DM - unontrolled E11.65. Insulin: Yes. [employer]. ASPIRIN 81 MG TAB Take one(1) tablet daily. REVIEW OF SYSTEMS Review of Systems Constitutional: Negative. Respiratory: Negative. Cardiovascular: Negative. Gastrointestinal: Negative. Genitourinary: Negative. Skin: Negative. Neurological: Negative. Psychiatric/Behavioral: Negative. HISTORIES PAST MEDICAL HISTORY Diagnosis Date Benign neoplasm of colon 2009 HYPERPLASTIC Chronic serous otitis media of both ears 04/22/2024 Dr. Kylie Whitley, ENT DIABETES MELLITUS TYPE II-UNCOMPL 06/27/2006 Elevated prostate specific antigen (PSA) 07/24/2017 History of actinic keratosis 01/24/[address] [facility] Dermatology annually. HYPERLIPIDEMIA NEC/NOS 09/27/2005 HYPERTENSION NOS 09/27/2005 Impaired fasting glucose 09/27/2005 Internal hemorrhoids without mention of complication Paronychia of finger 02/01/2022 Prostate cancer (HCC) 10/22/2018 PSA elevation 07/24/2017 Type II or unspecified type diabetes mellitus without mention of complication, uncontrolled 12/04/2012 Ureterolithiasis 03/02/2024 Left UVJ 3-4 mm FAMILY HISTORY Problem Relation Age of Onset Diabetes Father Hypertension Father Prostate Cancer Fathe (more content not included)... Normal [facility] CNOV Office Visit (INTMWS ) LEANDRA EL ([id number]) 1955 Date Time Provider Department 05/27/24 8:40 AM MAYKEL BEE INTMWS During your visit today, we recorded the following information about you: Temperature Pulse Respiration Blood pressure 97.5 degrees 92/minute 18/minute 128/74 Weight 90.9 kg Maykel Bee MD 05/27/2024 9:55 AM Signed This note was created using [employer]. Subjective Leandra El is a 68 year old male. He had a history of kidney stones that have passed. He sees urology for follow up regularly for prostate cancer. He had hearing loss from eustachian tube dysfunction and bilateral serous otitis media that improved with tympanostomy tubes by Dr. Whitley. His hypertension, diabetes mellitus, and lipids were controlled. He was losing weight with lifestyle changes and medications. Insurance switched his Lantus to Basaglar few months ago. Review of Systems Constitutional: Negative for fatigue and fever. HENT: Negative for congestion. Respiratory: Negative for cough and shortness of breath. Cardiovascular: Negative for chest pain, palpitations and leg swelling. Gastrointestinal: Negative for diarrhea, nausea and vomiting. ACTIVE PROBLEM LIST Essential Hypertension Hyperlipemia Controlled Type 2 Diabetes Mellitus Without Complication, With Long-Term Current Use of Insulin (Hcc) History of Actinic Keratosis Erectile Dysfunction Prostate Cancer ([facility]ly [facility]) Seasonal Allergies Obesity, Class I, Bmi 30-34.9 Ureterolithiasis Chronic Serous Otitis Media of Both Ears Social History Tobacco Use Smoking status: Some Days Types: Cigarettes Smokeless tobacco: Never Tobacco comments: periodic Vaping Use Vaping status: Never Used Substance Use Topics Alcohol use: Yes Alcohol/week: 2.0 standard drinks of alcohol Types: 2 Shots of liquor per week Comment: occasionally Drug use: No Current Outpatient Medications Medication Sig amLODIPine (NORVASC) 2.5 mg tablet Take 1 tablet by mouth once daily. tamsulosin (FLOMAX) 0.4 mg Take 1 capsule by mouth once daily for 14 days. 30 minutes after the same meal each day. dapagliflozin propanediol (FARXIGA) 10 mg tablet Take 1 tablet by mouth daily with breakfast. insulin glargine (LANTUS SOLOSTAR U-100 INSULIN) 100 unit/mL (3 mL) Inject 45 Units subcutaneously daily at bedtime. clotrimazole (LOTRIMIN) 1 % cream Apply thin layer to rash on armpits twice a day. Continue for two weeks after rash has resolved metFORMIN (GLUCOPHAGE) 500 mg tablet Take 2 tablets by mouth two times a day with meals. atorvastatin (LIPITOR) 20 mg tablet Take 1 tablet by mouth once daily. insulin needles, DISPOSABLE, (PEN NEEDLE) 31 gauge x 5/16 Use 1 pen needle once daily for insulin injection. Dx: E11.65 glipiZIDE (GLUCOTROL) 5 mg tablet Take 1 tablet (5 mg) by mouth two times a day before meals. lisinopril (ZESTRIL) 40 mg tablet Take 1 tablet by mouth once daily. dulaglutide (TRULICITY) 3 mg/0.5 mL pen injector Inject 3 mg subcutaneously one time a week. sildenafil (VIAGRA) 50 mg tablet Take 1 tablet by mouth as needed. Blood-Glucose Meter (FREESTYLE LITE METER) monitoring kit Freestyle LITE Meter Kit - Dx: Type 2 DM - uncontrolled E11.65. Insulin: Yes. blood sugar diagnostic test strip Test blood sugar(s) 3 times daily. Dx: Type 2 DM - unontrolled E11.65. Insulin: Yes. [employer]. ASPIRIN 81 MG TAB Take one(1) tablet daily. Sodium Fluoride 1.1 % BRUSH once daily every evening (Patient not taking: Reported on 02/26/2024) No current facility-administered medications for this visit. Objective BP 128/74 (BP Site: Left Arm, BP Position: Sitting, BP Cuff Size: Large Adult) Pulse 92 Temp 36.4 ?C (97.5 ?F) (Temporal) Resp 18 Wt 90.9 kg (200 lb 6.4 oz) BMI 30.47 kg/m? Physical Exam Constitutional: General: He is not in acute distress. HENT: Right Ear: No drainage. Tympanic membrane is not erythematous. Left Ear: No drainage. Tympanic membrane is not erythematous. Ears: Comments: TM with tubes bilaterally. Cardiovascular: Rate and Rhythm: Normal rate and regular rhythm. Heart sounds: S1 normal and S2 normal. No murmur heard. No gallop. Pulmonary: Breath sounds: Normal breath sounds. Abdominal: Tenderness: There is no abdominal tenderness. Musculoskeletal: Right lower leg: No edema. Left lower leg: No edema. Neurological: Mental Status: He is alert. Feet:Shoes and socks removed, No deformities, ulcers, calluses, normal distal pulses, and sensitive to 10 gm monofilament Latest Ref Rng 05/19/2024 Glucose 74 - 99 mg/dL 70 (L) BUN 9 - 24 mg/dL 15 Creatinine 0.73 - 1.22 mg/dL 0.82 Sodium 136 - 144 mmol/L 140 Potassium 3.7 - 5.1 mmol/L 3.4 (L) Chloride 98 - 107 mmol/L 102 CO2 22 - 30 mmol/L 29 Anion Gap 8 - 15 mmol/L 9 Calcium 8.5 - 10.2 mg/dL 9.5 eGFR >=60 mL/min (more content not included)... Normal [facility] ALBUMIN/CREATININE RATIO, UR INEon 05-19-2024 Albumin DL <= 20 mg/L (U) [Mass/Vol] 38.4 mg/L Normal [facility] Comment on above: Order Comment: Speci men Type: URINE SPECIMENOrdering Facility: [facility] Address: [address] [place] [address] Performed By: #### U ACR ####[facility] LABCLIA [id number] [place] [address] [place] Albumin/Creatinine (U) [Mass ratio] 29 mg/g Normal <30 [facility] Comment on above: Order Comment: Speci men Type: URINE SPECIMENOrdering Facility: [facility] Address: [address] [place] [address] Result Comment: Adul t Male and Female Nephrotic Criteria: <30 mg/g is considered normal to mildly increased 30-300 mg/g is considered moderately increased >300 mg/g is considered severely increased KDIGO. (2013). KDIGO 2012 Clinical Practice Guideline for the Evaluation and Management of Chronic Kidney Disease. Official Journal of the International Society of Nephrology, 3(1), 1-150. Performed By: #### U ACR ####[facility] LABCLIA [id number] [place] [address] [place] Creatinine (U) [Mass/Vol] 134.4 mg/dL Normal 20.0-300.0 [facility] Comment on above: Order Comment: Speci men Type: URINE SPECIMENOrdering Facility: [facility] Address: [address] [place] [address] Performed By: #### U ACR ####[facility] LABCLIA [id number] [facility] [id number] [address] [place] Basic metabolic 2000 panelon 05-19-2024 Anion gap [Moles/Vol] 9 mmol/L Normal 8-15 [facility] Comment on above: Order Comment: Speci men Type: BLOOD SPECIMENOrdering Facility: [facility] Address: [address] [place] [address] Performed By: #### 2 4321-2 ####[facility] [id number] [place] [address] [place] Calcium [Mass/Vol] 9.5 mg/dL Normal 8.5-10.2 [facility] Comment on above: Order Comment: Speci men Type: BLOOD SPECIMENOrdering Facility: [facility] Address: [address] [place] [address] Performed By: #### 2 4321-2 ####[facility] [id number] [place] [address] [place] Chloride [Moles/Vol] 102 mmol/L Normal 98-107 [facility] Comment on above: Order Comment: Speci men Type: BLOOD SPECIMENOrdering Facility: [facility] Address: [address] [place] [address] Performed By: #### 2 4321-2 ####[facility] [id number] [place] [address] [place] CO2 [Moles/Vol] 29 mmol/L Normal 22-30 [facility] Comment on above: Order Comment: Speci men Type: BLOOD SPECIMENOrdering Facility: [facility] Address: [address] [place] [address] Performed By: #### 2 4321-2 ####[facility] [id number] [place] [address] [place] Creatinine [Mass/Vol] 0.82 mg/dL Normal 0.73-1.22 [facility] Comment on above: Order Comment: Karlos lacy Type: BLOOD SPECIMENOrdering Facility: [facility] Address: [address] [place] [address] Performed By: #### 2 4321-2 ####[facility] [id number] [address] [place] Creatinine and Glomerular filtration rate.predicted panel (S/P/Bld) 96 mL/min/1.73m??? Normal >=60 [facility] Comment on above: Order Comment: Karlos lacy Type: BLOOD SPECIMENOrdering Facility: [facility] Address: [address] [place] [address] Result Comment: Racheal mated Glomerular Filtration Rate (eGFR) is calculated using the 2020 CKD-EPI creatinine equation. This equation utilizes serum creatinine, sex, and age as parameters. The creatinine assay has traceable calibration to isotope dilution-mass spectrometry. Refer to KDIGO guidelines for clinical interpretation. In patients with unstable renal function, e.g. those with acute kidney injury, the eGFR may not accurately reflect actual GFR. Performed By: #### 2 4321-2 ####[facility] [id number] [place] [address] [place] Glucose [Mass/Vol] 70 mg/dL Low 74-99 [facility] Comment on above: Order Comment: Karlos lacy Type: BLOOD SPECIMENOrdering Facility: [facility] Address: [address] [place] [address] Result Comment: The [place] Diabetes Association (ADA) provides guidance for cutoff values for fasting glucose and random glucose. The ADA defines fasting as no caloric intake for at least 8 hours. Fasting plasma glucose results between 100 to 125 mg/dL indicate increased risk for diabetes (prediabetes). Fasting plasma glucose results greater than or equal to 126 mg/dL meet the criteria for diagnosis of diabetes. In the absence of unequivocal hyperglycemia, results should be confirmed by repeat testing. In a patient with classic symptoms of hyperglycemia or hyperglycemic crisis, random plasma glucose results greater than or equal to 200 mg/dL meet the criteria for diagnosis of diabetes. Reference: Standards of Medical Care in Diabetes 2016, [place] Diabetes Association. Diabetes Care. 2016.39(Suppl 1). Performed By: #### 2 4321-2 ####[facility] [id number] [place] [address] [place] Potassium [Moles/Vol] 3.4 mmol/L Low 3.7-5.1 [facility] Comment on above: Order Comment: Karlos lacy Type: BLOOD SPECIMENOrdering Facility: [facility] Address: [address] [place] [address] Performed By: #### 2 4321-2 ####[facility] [id number] [place] [address] [place] Sodium [Moles/Vol] 140 mmol/L Normal 136-144 [facility] Comment on above: Order Comment: Karlos lacy Type: BLOOD SPECIMENOrdering Facility: [facility] Address: [address] [place] [address] Performed By: #### 2 4321-2 ####[facility] [id number] [place] [address] [place] Urea nitrogen [Mass/Vol] 15 mg/dL Normal 9-24 [facility] Comment on above: Order Comment: Karlos lacy Type: BLOOD SPECIMENOrdering Facility: [facility] Address: [address] [place] [address] Performed By: #### 2 4321-2 ####[facility] [id number] [place] [address] [place] HbA1c (Bld)on 05-19-2024 Average glucose Estimated from glycated hemoglobin (Bld) [Mass/Vol] 123 mg/dL Normal [facility] Comment on above: Order Comment: Speci men Type: BLOOD SPECIMENOrdering Facility: [facility] Address: [address] [place] [address] Result Comment: eAG: (Estimated average glucose) is a calculated value from HgbA1c and is key account representative of the average blood glucose level in the last 2-3 month period. Performed By: #### 5 5454-3 ####[facility] LABCLIA [id number] [place] [address] [place] HbA1c (Bld) [Mass fraction] 5.9 % High 4.3-5.6 [facility] Comment on above: Order Comment: Speci men Type: BLOOD SPECIMENOrdering Facility: [facility] Address: [address] [place] [address] Result Comment: [place] Diabetes Association guidelines indicate that patients with HgbA1c in the range 5.7-6.4% are at increased risk for development of diabetes, and intervention by lifestyle modification may be beneficial. HgbA1c greater or equal to 6.5% is considered diagnostic of diabetes. Performed By: #### 5 5454-3 ####[facility] LABCLIA [id number] [place] [address] [place] US KIDNEY/BLADDERon 05-19-20 US KIDNEY/BLADDER * * *Final Report* * * DATE OF EXAM: May 19 2024 9:10AM U 1055 - US KIDNEY/BLADDER / PROCEDURE REASON: Kidney stone * * * * Physician Interpretation * * * * EXAMINATION: RENAL ULTRASOUND CLINICAL HISTORY: Kidney stone TECHNIQUE: Sonography of the kidneys and urinary bladder was performed. Images were obtained and stored in a permanent archive. MQ: UR_1 COMPARISON: None RESULT: Right Kidney: -Renal length: 12.7 -Parenchyma: Normal parenchymal echogenicity. Normal parenchymal thickness. -Collecting system: No hydronephrosis. -Calculus: No echogenic, shadowing calculus. -Lesion: Multiseptated, avascular 1.8 x 2.3 x 2.4 cm upper pole renal sinus cyst. 1.8 cm lower pole simple renal cortical cyst.. Left Kidney: -Renal length: 13.0 cm -Parenchyma: Normal parenchymal echogenicity. Normal parenchymal thickness. -Collecting system: No hydronephrosis. -Calculus: No echogenic, shadowing calculus. -Lesion: Several simple renal cortical cysts largest measuring 1.9 cm.. Bladder: Normal contour. Incompletely distended: Volume = 40 mL. IMPRESSION: No hydronephrosis. No sonographic findings for urolithiasis. Bilateral renal cysts. Drug Discovery Informatics Specialist: PSCB Transcribe Date/Time: May 21 2024 12:30P Dictated by : BALDEMAR MASSEY MD This examination was interpreted and the report reviewed and electronically signed by: BALDEMAR MASSEY MD on May 21 2024 12:32PM EST [id number] Normal [facility] CNOVon 04-30-2024 CNOV Office Visit (AKURFL ) LEANDRA EL ([id number]) 1955 M Date Time Provider Department 04/30/24 12:45 PM APRIL LEON JR During your visit today, we recorded the following information about you: Pulse Blood pressure 90/minute 136/80 April Leon Jr., MD 04/30/2024 1:12 PM Signed ESTABLISHED PATIENT OFFICE VISIT HPI Leandra El is a 68 year old male who presents for follow up of prostate cancer. Patient had Avril 6 prostate cancer diagnosed in 2019. PSA has been stable on active surveillance. PSA most recently 5.68 on 01/23/24. Patient was diagnosed with a 4mm L UVJ calculus in 02/2024 in [place]. States that left flank pain has resolved. KUB performed on 04/16 revealed no large radio-opaque calculi. CT imaging on 04/18 at [facility] demonstrated a 3mm right distal ureteral stone. States that he had a temperature of 100.4F. Creatinine was 1.54. No fevers or chills since then. Patient states that pain resolved 4-5 days ago. Denies fevers and chills. MEDICATIONS: tamsulosin (FLOMAX) 0.4 mg take 1 capsule by mouth 30 MINUTES after THE SAME MEAL EACH DAY dapagliflozin propanediol (FARXIGA) 10 mg tablet Take 1 tablet by mouth daily with breakfast. insulin glargine (LANTUS SOLOSTAR U-100 INSULIN) 100 unit/mL (3 mL) Inject 45 Units subcutaneously daily at bedtime. metFORMIN (GLUCOPHAGE) 500 mg tablet Take 2 tablets by mouth two times a day with meals. amLODIPine (NORVASC) 2.5 mg tablet Take 1 tablet by mouth once daily. atorvastatin (LIPITOR) 20 mg tablet Take 1 tablet by mouth once daily. insulin needles, DISPOSABLE, (PEN NEEDLE) 31 gauge x 5/16 Use 1 pen needle once daily for insulin injection. Dx: E11.65 glipiZIDE (GLUCOTROL) 5 mg tablet Take 1 tablet (5 mg) by mouth two times a day before meals. lisinopril (ZESTRIL) 40 mg tablet Take 1 tablet by mouth once daily. dulaglutide (TRULICITY) 3 mg/0.5 mL pen injector Inject 3 mg subcutaneously one time a week. sildenafil (VIAGRA) 50 mg tablet Take 1 tablet by mouth as needed. Blood-Glucose Meter (FREESTYLE LITE METER) monitoring kit Freestyle LITE Meter Kit - Dx: Type 2 DM - uncontrolled E11.65. Insulin: Yes. blood sugar diagnostic test strip Test blood sugar(s) 3 times daily. Dx: Type 2 DM - unontrolled E11.65. Insulin: Yes. [employer]. ASPIRIN 81 MG TAB Take one(1) tablet daily. clotrimazole (LOTRIMIN) 1 % cream Apply thin layer to rash on armpits twice a day. Continue for two weeks after rash has resolved (Patient not taking: Reported on 02/26/2024) Sodium Fluoride 1.1 % BRUSH once daily every evening (Patient not taking: Reported on 02/26/2024) Review of Systems Constitutional: Negative. Respiratory: Negative. Cardiovascular: Negative. Gastrointestinal: Negative. Genitourinary: Negative. Skin: Negative. Neurological: Negative. Psychiatric/Behavioral: Negative. HISTORIES PAST MEDICAL HISTORY Diagnosis Date Benign neoplasm of colon 2009 HYPERPLASTIC DIABETES MELLITUS TYPE II-UNCOMPL 06/27/2006 Elevated prostate specific antigen (PSA) 07/24/2017 History of actinic keratosis 01/24/[address] [facility]ryn [facility]. HYPERLIPIDEMIA NEC/NOS 09/27/2005 HYPERTENSION NOS 09/27/2005 Impaired fasting glucose 09/27/2005 Internal hemorrhoids without mention of complication Paronychia of finger 02/01/2022 Prostate cancer (HCC) 10/22/2018 PSA elevation 07/24/2017 Type II or unspecified type diabetes mellitus without mention of complication, uncontrolled 12/04/2012 Ureterolithiasis 03/02/2024 Left UVJ 3-4 mm FAMILY HISTORY Problem Relation Age of Onset Diabetes Father Hypertension Father Prostate Cancer Father Blood Disease Father Immune thrombocytopenia, splenectomy Cervical Cancer Mother Vulvar SCCa with mets other (Obesity) Sister Gastric bypass Colon Cancer Paternal Uncle Macular Degen No Family History Glaucoma No Family History SOCIAL HISTORY Social History Tobacco Use Smoking status: Some Days Types: Cigarettes Smokeless tobacco: Never Tobacco comments: periodic Vaping Use Vaping status: Never Used Substance Use Topics Alcohol use: Yes Alcohol/week: 2.0 standard drinks of alcohol Types: 2 Shots of liquor per week Comment: occasionally Drug use: No PHYSICAL EXAMINATION There were no vitals taken for this visit. General appearance: well appearing CV: no cyanosis Respiratory: no increased work of breathing : no flank TTP bilaterally Physical Exam ASSESSMENT 68 year old gentleman with prostate cancer on active surveillance who presents for follow up of 3mm distal right ureteral calculus. PLAN UA demonstrates trace blood. Recommend 2 weeks Flomax. Check SHOLA prior to follow up. Discussed repeat CT A/P and possible surgical intervention if SHOLA concerning for persistent u (more content not included)... Normal [facility] UA DIP, URINE (POC)on 2023 BILIRUBIN UA (POCT) Negative Negative [facility]ev[facility] CLARITY UA (POCT) Clear [facility] COLOR UA (POCT) Yellow [facility] GLUCOSE UA (POCT) >=1000 Abnormal Negative mg/dL [facility] Hemoglobin Ql (U) Trace-intact Abnormal Negative Jev[facility] Interpretation and review of laboratory results Abnormal [facility] KETONE UA (POCT) Negative Negative mg/dL [facility] LEUKOCYTES UA (POCT) Negative Negative [facility] NITRITE UA (POCT) Negative Negative [facility] PH UA (POCT) 5.5 4.5 - 8.0 [facility] Protein Ql (U) Negative Negative mg/dL [facility] SPECIFIC GRAVITY UA (POCT) 1.020 1.005 - 1.030 [facility] UROBILINOGEN UA (POCT) 0.2 Normal E.U./dL [facility] Location:[facility], [address] [place] [address], [address] [place] [address] POINT OF CARE [facility] Basic Metabolic Profile (BMP )on 04-20-2024 BUN/CRE 18.8 RATIO Normal 10-20 [facility] Comment on above: Performed By: #### L 500.2500, L100.0100 ####[facility] [address] [place], [address] CA,Total 8.6 mg/dL Normal 8.5-10.1 [facility] Comment on above: Performed By: #### L 500.2500, L100.0100 ####[facility] [address] [place], [address] Chloride [Moles/Vol] 101 mmol/L Normal 98-107 [facility] Comment on above: Performed By: #### L 500.2500, L100.0100 ####[facility] [address] [place], [address] CO2 [Moles/Vol] 28.0 mmol/L Normal 21.0-32.0 [facility] Comment on above: Performed By: #### L 500.2500, L100.0100 ####[facility] [address] [place], [address] Creatinine [Mass/Vol] 1.54 mg/dL High 0.70-1.30 [facility] Comment on above: Result Comment: The validity of the calculated GFR GFRAA in patients over 70 years has not been determined. Clinical correlation is essential. Performed By: #### L 500.2500, L100.0100 ####[facility] [address] [place], [address] ECRCL 51.95 ml/min Normal [facility] Comment on above: Performed By: #### L 500.2500, L100.0100 ####[facility] [address] [place], [address] EST GFR - AA 58 mL/min Low >60 [facility] Comment on above: Result Comment: Afri can [place] GFR Calc Performed By: #### L 500.2500, L100.0100 ####[facility] [address] [place], [address] GAP 4 Low 5-15 [facility] Comment on above: Performed By: #### L 500.2500, L100.0100 ####[facility] [address] [place], [address] GFR/1.73 sq M.predicted among non-blacks MDRD (S/P/Bld) [Vol rate/Area] 48 mL/min/{1.73_m2} Low >60 [facility] Comment on above: Result Comment: Non- GFR Calc Performed By: #### L 500.2500, L100.0100 ####[facility] [address] [place], [address] Glucose [Mass/Vol] 183 mg/dL High 74-106 [facility] Comment on above: Result Comment: Fast ing Glucose result greater than or equal to 126 mg/dL suggests DIABETES MELLITUS per A.D.A. criteria. Performed By: #### L 500.2500, L100.0100 ####[facility] [address] [place], [address] Potassium [Moles/Vol] 4.4 mmol/L Normal 3.5-5.1 [facility] Comment on above: Performed By: #### L 500.2500, L100.0100 ####[facility] [address] [place], [address] Sodium [Moles/Vol] 133 mmol/L Low 136-145 [facility] Comment on above: Performed By: #### L 500.2500, L100.0100 ####[facility] [address] [place], [address] Urea nitrogen [Mass/Vol] 29 mg/dL High 7-18 [facility] Comment on above: Performed By: #### L 500.2500, L100.0100 ####[facility] [address] [place], [address] CBC W/Diff, Automatedon 12-0 -2023 Absolute Lymph 1.50 X10 3/uL Normal 0.83-4.51 [facility] Comment on above: Performed By: #### L 500.2500, L100.0100 ####[facility] [address] [place], [address] Absolute Neut 9.2 X10 3/uL High 2.0-7.7 [facility] Comment on above: Performed By: #### L 500.2500, L100.0100 ####[facility] [address] [place], [address] Basophils/100 WBC (Bld) 0.3 % Normal 0-1 [facility] Comment on above: Performed By: #### L 500.2500, L100.0100 ####[facility] [address] [place], [address] Eosinophils/100 WBC (Bld) 0.4 % Normal 0-5 [facility] Comment on above: Performed By: #### L 500.2500, L100.0100 ####[facility] [address] [place], [address] Erythrocyte distribution width (RBC) [Ratio] 12.1 % Normal 11.6-14.6 [facility] Comment on above: Performed By: #### L 500.2500, L100.0100 ####[facility] [address] [place], [address] Hematocrit (Bld) [Volume fraction] 39.3 % Low 40-54 [facility] Comment on above: Performed By: #### L 500.2500, L100.0100 ####[facility] [address] [place], [address] Hemoglobin (Bld) [Mass/Vol] 13.6 g/dL Normal 13.0-16.5 [facility] Comment on above: Performed By: #### L 500.2500, L100.0100 ####[facility] [address] [place], [address] IG% 0.400 Normal 0.0-0.9 [facility] Comment on above: Result Comment: IG% - Immature Granulocytes (promyelocytes, myelocytes and metamyelocytes) > 1% indicates that a LEFT SHIFT is Present. Performed By: #### L 500.2500, L100.0100 ####[facility] [address] [place], [address] Lymphocytes/100 WBC (Bld) 12.5 % Low 19-41 [facility] Comment on above: Performed By: #### L 500.2500, L100.0100 ####[facility] [address] [place], [address] MCH (RBC) [Entitic mass] 33.1 pg High 27.0-32.0 [facility] Comment on above: Performed By: #### L 500.2500, L100.0100 ####[facility] [address] [place], [address] MCHC (RBC) [Mass/Vol] 34.6 g/dL Normal 32-36 [facility] Comment on above: Performed By: #### L 500.2500, L100.0100 ####[facility] [address] [place], [address] MCV (RBC) [Entitic vol] 95.6 fL High 80-94 [facility] Comment on above: Performed By: #### L 500.2500, L100.0100 ####[facility] [address] [place], [address] Monocytes/100 WBC (Bld) 9.9 % Normal 0-10 [facility] Comment on above: Performed By: #### L 500.2500, L100.0100 ####[facility] [address] [place], [address] Neutrophils/100 WBC (Bld) 76.5 % High 47-70 [facility] Comment on above: Performed By: #### L 500.2500, L100.0100 ####[facility] [address] [place], [address] Nucleated RBC (Bld) [#/Vol] 0 10*3/uL Normal 0-5 [facility] Comment on above: Performed By: #### L 500.2500, L100.0100 ####[facility] [address] [place], [address] Platelet mean volume (Bld) [Entitic vol] 8.0 fL Normal 6.2-12.0 [facility] Comment on above: Performed By: #### L 500.2500, L100.0100 ####[facility] [address] [place], [address] Platelets (Bld) [#/Vol] 257 10*3/uL Normal 150-450 [facility] Comment on above: Performed By: #### L 500.2500, L100.0100 ####[facility] [address] [place], [address] RBC (Bld) [#/Vol] 4.11 10*6/uL Low 4.6-6.2 [facility] Comment on above: Performed By: #### L 500.2500, L100.0100 ####[facility] [address] [place], [address] RDW SD 42.4 fl Normal 35.1-43.9 [facility] Comment on above: Performed By: #### L 500.2500, L100.0100 ####[facility] [address] [place], [address] WBC (Bld) [#/Vol] 12.0 10*3/uL High 4.4-11.0 [facility] Comment on above: Performed By: #### L 500.2500, L100.0100 ####[facility] [address] [place], [address] Emergency Department Summary on 04-20-2024 Emergency Department Summary [facility] Medical Records Department [address] [place] [address] Emergency Department Summary 04/20/24 MR#: [id number] Acct: [id number] Name: LEANDRA EL Rep #: [id number] : 1955 68 From: Erika GONCALVES PCP: Dr. Maykel Bee MD Status:DEP ER Location: ED HPI History of Present Illness Chief Complaint: Fever Narrative Narrative: Patient presenting today with concerns for a fever. He was diagnosed with a right-sided ureteral stone about a month ago [place] a [place] state, he did not think that he ever passed the stone and came in on 04/16/2024 due to pain in his right groin, it was presumed he likely had a kidney stone and he was treated with pain medication and Flomax. He then returned on 04/17/2024 due to pain in his abdomen, CT scan of the abdomen and pelvis was obtained and showed a 3 mm right-sided ureteral stone. No acute infection was seen at that time, he was treated with analgesia and Flomax and was encouraged to follow-up with his urologist. He was told to return if he developed a fever. He reports that this evening he began to feel warm, his took his temperature and it was 100.4 ???F. He otherwise feels well. He does report mild right-sided lower abdominal pain/groin pain but reports that his pain is under control. He denies dysuria, nausea, and vomiting. [facility] Medical History Hyperlipidemia Hypertension Type 2 diabetes mellitus Prostate cancer Home Medications ???Medication ???Instructions ???Recorded ???Last Taken ???Type aspirin 81 mg chewable tablet 81 mg PO DAILY@0800 09/08/13 Unknown History atorvastatin 40 mg tablet 40 mg PO QHS 09/08/13 Unknown History metformin 500 mg tablet,extended 1,000 mg PO BID 09/08/13 Unknown History release 24 hr ondansetron 8 mg disintegrating 8 mg PO Q8H PRN nausea and 04/16/24 Unknown Rx tablet vomiting #20 tabs oxycodone-acetaminophen 5 mg-325 1 tab PO Q4H PRN Pain 3 days #18 04/16/24 Unknown Rx mg tablet TABLETS dulaglutide 3 mg/0.5 mL 3 mg subcut NIELSEN 04/17/24 Unknown History subcutaneous pen injector (Trulicity) glipizide 5 mg tablet 5 mg PO BID 04/17/24 Unknown History insulin glargine 100 unit/mL (3 45 unit subcut QHS 04/17/24 Unknown History mL) subcutaneous pen (Basaglar KwikPen U-100 Insulin) lisinopril 40 mg tablet 40 mg PO DAILY 04/17/24 Unknown History tamsulosin 0.4 mg capsule 0.4 mg PO DAILY 04/17/24 Unknown History ketorolac 10 mg tablet 10 mg PO TID PRN pain 5 days #15 04/18/24 Unknown Rx tabs Allergy/AdvReac Type Severity Reaction Status Date / Time No Known Allergies Allergy Verified 04/20/24 19:44 Social History Smoking Status: Current some day smoker tobacco type: cigarettes ROS ROS ED Constitutional Constitutional ED: Reports fever(s); Denies chills Cardiovascular Cardiovascular: Denies chest pain Respiratory/Chest Respiratory/Chest: Denies cough or dyspnea Gastrointestinal Gastrointestinal: Reports abdominal pain; Denies nausea or vomiting Genitourinary Genitourinary ED: Denies dysuria, hematuria or urinary urgency Musculoskeletal Musculoskeletal: Reports other Details: Mild right-sided flank pain Integumentary Denies rash Neurologic Neurologic: Denies weakness EXAM Physical Exam Const Vital Signs: 04/20/24 19:44 04/20/24 19:58 04/20/24 19:59 Temperature 98.7 F 100 F H Temperature Source Oral Oral Pulse Rate 89 Respiratory Rate 18 Respiratory Effort Normal Non-Labored Respiratory Pattern Normal Blood Pressure 148/73 H Blood Pressure Mean 98 Pulse Ox 98 Oxygen Delivery Method Room Air 04/20/24 21:17 Temperature 100 F H Temperature Source Pulse Rate 78 Respiratory Rate 18 Respiratory Effort Respiratory Pattern Blood Pressure 135/89 H Blood Pressure Mean 104 Pulse Ox 98 Oxygen Delivery Method Positive well nourished, well developed and no apparent distress General Appearance ED: well developed HEENT Reports normocephalic and head/scalp atraumatic Mouth ED: Yes moist mucous membranes normal Eyes PERRL and EOMs intact bilaterally Neck full ROM and supple Chest Wall inspection of chest normal Resp normal respiratory effort and clear to auscultation bilaterally Cardio regular rate and regular rhythm GI soft to palpation, non-tender, non-distended and no masses Back/Spine normal ROM and normal to inspection General Back: Negative for CVA tenderness Extremity normal to inspection and full ROM Neuro oriented x3, CN's II-XII intact bilaterally, moves all extremities, no focal motor deficits and no sensory deficits noted Sensorium / Orientati (more content not included)... Normal [facility] Urinalysis, Completeon 04-20 EPI,SQUAMOUS 0-5 SEEN Normal 0-5 [facility] Comment on above: Order Comment: NACHO CTOR TO SPECIFY Performed By: #### L 400.0001 #### [facility] [address] [facility] [place], [place], [id number] RBC 0-5 SEEN Normal 0-5 [facility] Comment on above: Order Comment: NACHO CTOR TO SPECIFY Performed By: #### L 400.0001 #### [facility] [address] [place], [place], [id number] BACTERIA 0 SEEN Normal None Seen [facility] Comment on above: Order Comment: NACHO CTOR TO SPECIFY Performed By: #### L 400.0001 #### [facility] [address] [facility] [facility] [address] Mucus Ql (Urine sed) 0 SEEN Normal [facility] Comment on above: Order Comment: COLLE CTOR TO SPECIFY Performed By: #### L 400.0001 #### [facility] [address] [place], [address] WBC 0 SEEN Normal 0-5 [facility] Comment on above: Order Comment: COLLE CTOR TO SPECIFY Performed By: #### L 400.0001 #### [facility] [address] [place], [address] Urine Cultureon 04-19-2024 URC Culture exhibits no growth. Normal [facility] Comment on above: Performed By: #### L 400.0001 #### [facility] [address] [place], [address] Abdomen/Pelvis without Conto n 04-18-2024 Abdomen/Pelvis without Cont [facility] [address] [place] [address] Abdomen/Pelvis without Cont MR#: [id number] Acct: [id number] Name: LEANDRA EL Rep #: [id number] : 1955 M 68 From: Bobby Ashby MD PCP: Dr. Maykel Bee MD Status: PRE ER Study: Abdomen/Pelvis without Cont Date of Exam: 03/22 02/11 Exam# [id number] Ordering Dr: Patrick Lester MD [id number] INDICATION: Kidney Stone EXAMINATION: CT Abdomen And Pelvis W/O Contrast Injection TECHNIQUE: Helically acquired images were obtained of the abdomen and pelvis with sagittal and coronal reconstructed images. Individualized dose optimization techniques were used for this CT. IV contrast dosage and agent: None. Oral contrast: None. COMPARISON: None. FINDINGS: VESSELS: No abdominal aortic aneurysm. LIVER: No intrahepatic or extrahepatic biliary duct dilation. GALLBLADDER: No calcified stones. No evidence of cholecystitis. PANCREAS: No evidence of a mass. No evidence of pancreatitis. SPLEEN: Normal. ADRENAL GLANDS: Normal. KIDNEYS AND URETERS: Hyperdense and simple left renal cysts with no follow-up recommended. 1 mm right renal stone. Large amount of right perinephric stranding. Mild left perinephric stranding. Mild right hydronephrosis. 3 mm stone in the distal right ureter. No left ureteral stone. URINARY BLADDER: Unremarkable. BOWEL: Mild diverticulosis with no evidence of diverticulitis. Appendix appears normal. No evidence of bowel obstruction. REPRODUCTIVE ORGANS: Unremarkable. PERITONEUM: No intraabdominal free fluid or free air. LYMPH NODES: No pathologically enlarged mesenteric or retroperitoneal lymph nodes. ABDOMINAL WALL: No abdominal or pelvic wall hernia. BONES: No acute abnormality. LOWER CHEST: Bibasilar atelectasis. CT/Abdomen/Pelvis without Cont IMPRESSION: 3 mm stone in the distal right ureter with mild right hydronephrosis. Electronically Signed: Bobby Ashby DO at 1:20 EST , CC: Dr. Patrick Lester MD; Dr. Maykel Bee MD Drug [employer] Informatics Specialist: Signed Normal [facility] Basic Metabolic Profile (BMP )on 04-18-2024 BUN/CRE 14.9 RATIO Normal - [facility] Comment on above: Performed By: #### L 500.2500, L100.0100 #### [facility] [address] [place], [address] CA,Total 8.8 mg/dL Normal 8.5-10.1 [facility] Comment on above: Performed By: #### L 500.2500, L100.0100 #### [facility] [address] [place], [address] Chloride [Moles/Vol] 104 mmol/L Normal 98-107 [facility] Comment on above: Performed By: #### L 500.2500, L100.0100 #### [facility] [address] [place], [address] CO2 [Moles/Vol] 25.0 mmol/L Normal 21.0-32.0 [facility] Comment on above: Performed By: #### L 500.2500, L100.0100 #### [facility] [address] [place], [address] Creatinine [Mass/Vol] 1.48 mg/dL High 0.70-1.30 [facility] Comment on above: Result Comment: The validity of the calculated GFR GFRAA in patients over 70 years has not been determined. Clinical correlation is essential. Performed By: #### L 500.2500, L100.0100 #### [facility] [address] [place], [address] ECRCL 54.39 ml/min Normal [facility] Comment on above: Performed By: #### L 500.2500, L100.0100 #### [facility] [address] [place], [address] EST GFR - AA 61 mL/min Normal >60 [facility] Comment on above: Result Comment: Afri can Bahraini GFR Calc Performed By: #### L 500.2500, L100.0100 #### [facility] [address] [place], [address] GAP 6 Normal 5-15 [facility] Comment on above: Performed By: #### L 500.2500, L100.0100 #### [facility] [address] [place], [address] GFR/1.73 sq M.predicted among non-blacks MDRD (S/P/Bld) [Vol rate/Area] 50 mL/min/{1.73_m2} Low >60 [facility] Comment on above: Result Comment: Non- GFR Calc Performed By: #### L 500.2500, L100.0100 #### [facility] [address] [place], [address] Glucose [Mass/Vol] 120 mg/dL High 74-106 [facility] Comment on above: Result Comment: Fast ing Glucose result from 100 to 125 mg/dL suggests IMPAIRED HOMEOSTASIS per A.D.A. criteria. Performed By: #### L 500.2500, L100.0100 #### [facility] [address] [place], [address] Potassium [Moles/Vol] 4.1 mmol/L Normal 3.5-5.1 [facility] Comment on above: Performed By: #### L 500.2500, L100.0100 #### [facility] [address] [place], [address] Sodium [Moles/Vol] 135 mmol/L Low 136-145 [facility] Comment on above: Performed By: #### L 500.2500, L100.0100 #### [facility] [address] [place], [address] Urea nitrogen [Mass/Vol] 22 mg/dL High 7-18 [facility] Comment on above: Performed By: #### L 500.2500, L100.0100 #### [facility] [address] [place], [address] CBC W/Diff, Automatedon 11-2 Absolute Lymph 1.12 X10 3/uL Normal 0.83-4.51 [facility] Comment on above: Performed By: #### L 500.2500, L100.0100 #### [facility] [address] [place], [address] Absolute Neut 12.6 X10 3/uL High 2.0-7.7 [facility] Comment on above: Performed By: #### L 500.2500, L100.0100 #### [facility] [address] [place], [address] Basophils/100 WBC (Bld) 0.3 % Normal 0-1 [facility] Comment on above: Performed By: #### L 500.2500, L100.0100 #### [facility] [address] [place], [address] Eosinophils/100 WBC (Bld) 0.2 % Normal 0-5 [facility] Comment on above: Performed By: #### L 500.2500, L100.0100 #### [facility] [address], [address] Erythrocyte distribution width (RBC) [Ratio] 12.4 % Normal 11.6-14.6 [facility] Comment on above: Performed By: #### L 500.2500, L100.0100 #### [facility] [address] [place], [address] Hematocrit (Bld) [Volume fraction] 41.7 % Normal 40-54 [facility] Comment on above: Performed By: #### L 500.2500, L100.0100 #### [facility] [address] [place], [address] Hemoglobin (Bld) [Mass/Vol] 14.6 g/dL Normal 13.0-16.5 [facility] Comment on above: Performed By: #### L 500.2500, L100.0100 #### [facility] [address] [place], [address] IG% 0.500 Normal 0.0-0.9 [facility] Comment on above: Result Comment: IG% - Immature Granulocytes (promyelocytes, myelocytes and metamyelocytes) > 1% indicates that a LEFT SHIFT is Present. Performed By: #### L 500.2500, L100.0100 #### [facility] [address] [place], [address] Lymphocytes/100 WBC (Bld) 7.4 % Low 19-41 [facility] Comment on above: Performed By: #### L 500.2500, L100.0100 #### [facility] [address] [place], [address] MCH (RBC) [Entitic mass] 32.9 pg High 27.0-32.0 [facility] Comment on above: Performed By: #### L 500.2500, L100.0100 #### [facility] [address] [place], [address] MCHC (RBC) [Mass/Vol] 35.0 g/dL Normal 32-36 [facility] Comment on above: Performed By: #### L 500.2500, L100.0100 #### [facility] [address] [place], [address] MCV (RBC) [Entitic vol] 93.9 fL Normal 80-94 [facility] Comment on above: Performed By: #### L 500.2500, L100.0100 #### [facility] [address] [place], [address] Monocytes/100 WBC (Bld) 7.8 % Normal 0-10 [facility] Comment on above: Performed By: #### L 500.2500, L100.0100 #### [facility] [address] [place], [address] Neutrophils/100 WBC (Bld) 83.8 % High 47-70 [facility] Comment on above: Performed By: #### L 500.2500, L100.0100 #### [facility] [address] [place], [address] Nucleated RBC (Bld) [#/Vol] 0 10*3/uL Normal 0-5 [facility] Comment on above: Performed By: #### L 500.2500, L100.0100 #### [facility] [address] [place], [address] Platelet mean volume (Bld) [Entitic vol] 7.9 fL Normal 6.2-12.0 [facility] Comment on above: Performed By: #### L 500.2500, L100.0100 #### [facility] [address] [place], [address] Platelets (Bld) [#/Vol] 224 10*3/uL Normal 150-450 [facility] Comment on above: Performed By: #### L 500.2500, L100.0100 #### [facility] [address] [place], [address] RBC (Bld) [#/Vol] 4.44 10*6/uL Low 4.6-6.2 [facility] Comment on above: Performed By: #### L 500.2500, L100.0100 #### [facility] [address] [place], [address] RDW SD 42.9 fl Normal 35.1-43.9 [facility] Comment on above: Performed By: #### L 500.2500, L100.0100 #### [facility] [address] [place], [address] WBC (Bld) [#/Vol] 15.1 10*3/uL High 4.4-11.0 [facility] Comment on above: Performed By: #### L 500.2500, L100.0100 #### [facility] [address] [place], [address] Emergency Department Summary on 04-18-2024 Emergency Department Summary [facility] Medical Records Department [address] [place] [address] Emergency Department Summary 04/18/24 MR#: [id number] Acct: [id number] Name: LEANDRA EL Rep #: [id number] : 1955 68 From: Patrick Lester MD PCP: Dr. Maykel Bee MD Status:REG ER Location: ED HPI History of Present Illness Chief Complaint: Abd Pain Narrative Narrative: 68-year-old male who denies significant past medical history, no past abdominal surgeries presents with abdominal pain. He relates history that about a month ago he was seen in [place] and was diagnosed by CT with bilateral kidney stones. He was doing well, until Sunday, 4 days ago when he started having pain. He was seen in the emergency department 2 days ago where he states they performed an x-ray, and he was given medication for an assumed kidney stone. He states that he took Tylenol, ibuprofen, and Percocet without relief. He denies any fever or chills, no nausea or vomiting, no bloating feeling but he has not had a bowel movement since Sunday which is unusual for him. He presents with continued lower abdominal pain. [facility] Medical History Hyperlipidemia Hypertension Type 2 diabetes mellitus Prostate cancer Home Medications ???Medication ???Instructions ???Recorded ???Last Taken ???Type aspirin 81 mg chewable tablet 81 mg PO DAILY@0800 09/08/13 Unknown History atorvastatin 40 mg tablet 40 mg PO QHS 09/08/13 Unknown History metformin 500 mg tablet,extended 1,000 mg PO BID 09/08/13 Unknown History release 24 hr ondansetron 8 mg disintegrating 8 mg PO Q8H PRN nausea and 04/16/24 Unknown Rx tablet vomiting #20 tabs oxycodone-acetaminophen 5 mg-325 1 tab PO Q4H PRN Pain 3 days #18 04/16/24 Unknown Rx mg tablet TABLETS dulaglutide 3 mg/0.5 mL 3 mg subcut NIELSEN 04/17/24 Unknown History subcutaneous pen injector (Trulicity) glipizide 5 mg tablet 5 mg PO BID 04/17/24 Unknown History insulin glargine 100 unit/mL (3 45 unit subcut QHS 04/17/24 Unknown History mL) subcutaneous pen (Basaglar KwikPen U-100 Insulin) lisinopril 40 mg tablet 40 mg PO DAILY 04/17/24 Unknown History tamsulosin 0.4 mg capsule 0.4 mg PO DAILY 04/17/24 Unknown History ketorolac 10 mg tablet 10 mg PO TID PRN pain 5 days #15 04/18/24 Unknown Rx tabs Allergy/AdvReac Type Severity Reaction Status Date / Time No Known Allergies Allergy Verified 04/17/24 23:35 Social History Smoking Status: Current some day smoker tobacco type: cigarettes ROS ROS ED ROS Narrative Constitutional: No fever, no chills. HEENT: No sore throat. No neck pain. No loss of vision. No rhinorrhea. Cardiovascular: No chest pain. No palpitations. No pedal edema. Respiratory: No cough, no shortness of breath. Abdominal: Positive lower bilateral abdominal pain. No nausea. No vomiting. No diarrhea. Positive constipation. Genitourinary: No dysuria. No hematuria. Musculoskeletal: No myalgias. No arthralgias. Neurologic: No headaches. No dizziness. No lightheadedness. Skin: No rash. No change in color. EXAM Physical Exam Narrative Exam Narrative: Afebrile. Vital signs noted. Regular rate and rhythm. Lungs clear to auscultation bilaterally. Abdomen soft with questionable distention, hypoactive bowel sounds. No guarding or rebound. Neurological examination nonfocal and nonlateralizing. Ambulatory in emergency department. Const Vital Signs: 04/17/24 23:35 04/18/24 01:35 Temperature 98.2 F Temperature Source Oral Pulse Rate 87 81 Respiratory Rate 16 18 Blood Pressure 163/67 H 130/69 H Blood Pressure Mean 99 89 Pulse Ox 98 97 Oxygen Delivery Method Room Air Room Air MDM MDM MDM Narrative Medical decision making narrative: I reviewed the patient's prior ED visit. He had a urinalysis and x-ray which did not show any ureterolithiasis. In the history and physical at that time, in review of his CT scan in [place], he did have a left UVJ stone that was 3 to 4 mm and a right renal stone. Comprehensive workup will be pursued today including laboratory work in the form of CBC and BMP and repeat urinalysis. I do feel CT imaging without contrast is indicated given his continued pain. I reviewed his laboratory work and he does have a leukocytosis of 15.1 which I think is nonspecific, hemoglobin 14.6, hematocrit 41.7, platelet count normal at 224. Sodium is slightly low at 135 with a BUN of 22 and a creatinine of 1.48, no prior with which to compare. Glucose elevated at 120 with a normal anion gap of 6. Urinalysis is negative for infection. I reviewed the radiology report of the CT of the abdomen and pelvis without contrast. There is a 3 mm stone in the distal uret (more content not included)... Normal [facility] Urinalysis, Completeon 04-18 BACTERIA 0 SEEN Normal None Seen [facility] Comment on above: Order Comment: CLEAN CATCH Performed By: #### L [id number] ####[facility] [address] [place], [address] EPI,SQUAMOUS 0 SEEN Normal 0-5 [facility] Comment on above: Order Comment: CLEAN CATCH Performed By: #### L [id number] ####[facility] [address] [place], [address] Mucus Ql (Urine sed) 0 SEEN Normal [facility] Comment on above: Order Comment: CLEAN CATCH Performed By: #### L [id number] ####[facility] [address] [place], [address] RBC 0 SEEN Normal 0-5 [facility] Comment on above: Order Comment: CLEAN CATCH Performed By: #### L [id number] ####[facility] [address] [place], [address] WBC 0 SEEN Normal 0-5 [facility] Comment on above: Order Comment: CLEAN CATCH Performed By: #### L [id number] ####[facility] [address] [place], [address] Abdomen Single Viewon 2023 Abdomen Single View [facility] Imaging Services [address] [place] [address] Abdomen Single View MR#: [id number] Acct: [id number] Name: GOODRIGHTLEANDRA Rep #: [id number] : 1955 M 68 From: Diana Fuchs MD PCP: Dr. Maykel Bee MD Status: REG ER Study: Abdomen Single View Date of Exam: 04/16/24 Exam# [id number] Ordering Dr: Edmund Hsieh MD [id number] STUDY: X-RAY - ABDOMEN/PELVIS REASON FOR EXAM: Male, 68 years old patient with right-sided flank pain. History of kidney stones. TECHNIQUE: Two AP supine views of the abdomen and pelvis. COMPARISON: None. FINDINGS: Normal visualized lung bases. There is an unremarkable bowel gas pattern. There is no obvious organomegaly, mass, dilated bowel or pathologic calcifications. Normal soft tissue structures. There appear to be degenerative changes of the left sacroiliac joint. RAD/Abdomen Single View IMPRESSION: No large radiopaque calculi are visualized. Electronically Signed: Diana Fuchs MD at 2:33 EST , CC: Dr. Edmund Hsieh MD; Dr. Maykel Bee MD Drug Discovery Informatics Specialist: Signed Normal [facility] Emergency Department Summary on 04-16-2024 Emergency Department Summary [facility] Medical Records Department [address] [place] [id number] Emergency Department Summary 04/16/24 MR#: [id number] Acct: [id number] Name: LEANDRA EL Rep #: [id number] : 1955 68 From: Edmund Hsieh MD PCP: Dr. Maykel Bee MD Status:REG ER Location: ED HPI HPI - GI History of Present Illness Chief Complaint: Flank Pain Informant: patient and spouse/S.O. Narrative Narrative: 68-year-old male started suddenly having moderate-severe pain in his suprapubic area or just to the right of it about an hour or so ago along with some nausea and indigestion. No pain in his back or side. These of the same symptoms that he had a month ago or so when he was in [place] and was seen in [place] [facility] [place] and diagnosed with a 4 mm ureteral kidney stone. He was discharged with urine strainers and advised to take Tylenol and ibuprofen as needed for the pain, by the time he got home, he never had the pain again until an hour ago. He states it is the same. He urinated through the strainers but never passed the stone. No history of any abdominal surgeries. No other symptoms recently. [facility] Medical History (Updated 04/16/24 @ 02:[address] Edmund Hsieh MD) Hyperlipidemia Hypertension Type 2 diabetes mellitus Prostate cancer Home Medications ???Medication ???Instructions ???Recorded ???Last Taken ???Type Lisinopril 09/08/13 Unknown History aspirin 81 mg chewable tablet 81 mg PO DAILY@0800 09/08/13 Unknown History atorvastatin 40 mg tablet 40 mg PO QHS 09/08/13 Unknown History metformin 500 mg tablet,extended 1,000 mg PO BID 09/08/13 Unknown History release 24 hr sitagliptin phosphate 25 mg tablet 25 mg PO DAILY 09/08/13 Unknown History (Juan Carlosuvcaden) ondansetron 8 mg disintegrating 8 mg PO Q8H PRN nausea and 04/16/24 Unknown Rx tablet vomiting #20 tabs oxycodone-acetaminophen 5 mg-325 1 tab PO Q4H PRN Pain 3 days #18 04/16/24 Unknown Rx mg tablet TABLETS Allergy/AdvReac Type Severity Reaction Status Date / Time No Known Allergies Allergy Verified 04/16/24 01:15 Social History Smoking Status: Current some day smoker tobacco type: cigarettes ROS ROS ED Constitutional Constitutional ED: Denies chills or fever(s) Eyes Eyes: Denies change in vision or diplopia ENT ENT ED: Denies rhinorrhea or sore throat Cardiovascular Cardiovascular: Denies chest pain or palpitations Respiratory/Chest Respiratory/Chest: Denies cough or dyspnea Gastrointestinal Gastrointestinal: Reports abdominal pain and nausea; Denies diarrhea or vomiting Genitourinary Genitourinary ED: Denies dysuria or hematuria Musculoskeletal Musculoskeletal: Denies back pain or neck pain Integumentary Denies abscess or rash Neurologic Neurologic: Denies headache(s), paresthesias or weakness Psychiatric Psychiatric: Denies anxiety or suicidal thoughts EXAM Physical Exam Const Vital Signs: 04/16/24 01:10 Temperature 97.7 F L Temperature Source Oral Pulse Rate 73 Respiratory Rate 18 Blood Pressure 166/73 H Blood Pressure Mean 104 Pulse Ox 98 Oxygen Delivery Method Room Air Positive well nourished, well developed and obese General Appearance ED: well developed and NAD Nutritional Appearance: obese HEENT Reports moist mucous membranes normocephalic and atraumatic Eyes PERRL and EOMs intact bilaterally Neck full ROM and supple Resp normal respiratory effort and clear to auscultation bilaterally Cardio regular rate, regular rhythm and no murmurs GI non-tender and non-distended Auscultation: normoactive bowel sounds Palpation: soft Back/Spine no CVA tenderness General Back: other FROM Extremity normal to inspection General Extremety ED: Negative for edema, pulses abnormal or tenderness General Extremity: Negative for edema or pulses abnormal Neuro oriented x3, CN's II-XII intact bilaterally and no sensory deficits noted Sensorium / Orientation: awake and alert Motor Exam: strength 5/5 throughout Skin no rashes or lesions noted and no wounds MDM MDM MDM Narrative Medical decision making narrative: Given the patient's history I do not think we need to repeat a CT scan for this, since he was diagnosed with a kidney stone and he has exact same symptoms. He does not have a pulsatile mass, unequal leg pulses, or Kyler sign to suggest an aortic catastrophe. Furthermore his abdomen is nontender, correlating with a kidney stone and not necessarily appendicitis, he has no pain or tenderness in in or around McBurney's point. Patient was able to produce the results of his CT from the [place] ER visit using [employer] on his phone from [employer], and I reviewed the results as below. He had a nono (more content not included)... Normal [facility] Urinalysis, Completeon 04-16 BACTERIA 2+ /hpf Normal None Seen [facility] Comment on above: Order Comment: CLEAN CATCH Performed By: #### L [id number] #### [facility] [address] [place], [address] EPI,SQUAMOUS 0-5 SEEN Normal 0-5 [facility] Comment on above: Order Comment: CLEAN CATCH Performed By: #### L [id number] #### [facility] [address] [place], [address] RBC 5-10 SEEN Normal 0-5 [facility] Comment on above: Order Comment: CLEAN CATCH Performed By: #### L [id number] #### [facility] [address] [place], [address] WBC 5-10 SEEN Normal 0-5 [facility] Comment on above: Order Comment: CLEAN CATCH Performed By: #### L [id number] #### [facility] [address] [place], [address] Mucus Ql (Urine sed) 0 SEEN Normal [facility] Comment on above: Order Comment: CLEAN CATCH Performed By: #### L [id number] #### [facility] [address] [place], [address] CNOVon 04-03-2024 CNOV Office Visit (WSTR ) LEANDRA EL ([id number]) 1955 M Date Time Provider Department 04/03/24 3:30 PM [facility] During your visit today, we recorded the following information about you: Temperature Pulse Respiration Blood pressure 98.1 degrees 101/minute 18/minute 159/82 Weight 94.9 kg Kaleigh Kimball PA 04/03/2024 3:53 PM Signed This note was created using NoteWriter. Subjective Leandra El is a 68 year old male. HPI 68-year-old male presents for bilateral ears feeling clogged. Patient states he has had cough and congestion a few weeks ago. He states that his ears feel clogged and he has muffled hearing. No pain in the ears. No fevers. Cough and congestion has improved. He has not taken anything for his ears. No other complaint. PAST MEDICAL HISTORY Diagnosis Date Benign neoplasm of colon 2009 HYPERPLASTIC DIABETES MELLITUS TYPE II-UNCOMPL 06/27/2006 Elevated prostate specific antigen (PSA) 07/24/2017 History of actinic keratosis 01/24/[address] Cathryn [facility]. HYPERLIPIDEMIA NEC/NOS 09/27/2005 HYPERTENSION NOS 09/27/2005 Impaired fasting glucose 09/27/2005 Internal hemorrhoids without mention of complication Paronychia of finger 02/01/2022 Prostate cancer (HCC) 10/22/2018 PSA elevation 07/24/2017 Type II or unspecified type diabetes mellitus without mention of complication, uncontrolled 12/04/2012 Ureterolithiasis 03/02/2024 Left UVJ 3-4 mm PAST SURGICAL HISTORY Procedure Laterality Date CATARACT EXTRACTION W/ INTRAOCULAR LENS IMPLANT HX 2014 COLONOSCOPY FLX DX W/COLLJ SPEC WHEN PFRMD 03/08/2015 Colonoscopy COLONOSCOPY FLX DX W/COLLJ SPEC WHEN PFRMD 04/19/2020 Colonoscopy repeat in 5 years COLONOSCOPY W/BIOPSY SINGLE/MULTIPLE 05/31/2009 PROSTATE BIOPSY W/TRANSRECTAL US 10/09/2018 PROSTATE BIOPSY WITH MR FUSION 07/19/2022 SKIN BIOPSY HX TONSILLECTOMY HX 1968 ALLERGIES Seasonal Allergies MEDICATIONS tamsulosin (FLOMAX) 0.4 mg take 1 capsule by mouth 30 MINUTES after THE SAME MEAL EACH DAY dapagliflozin propanediol (FARXIGA) 10 mg tablet Take 1 tablet by mouth daily with breakfast. insulin glargine (LANTUS SOLOSTAR U-100 INSULIN) 100 unit/mL (3 mL) Inject 45 Units subcutaneously daily at bedtime. metFORMIN (GLUCOPHAGE) 500 mg tablet Take 2 tablets by mouth two times a day with meals. amLODIPine (NORVASC) 2.5 mg tablet Take 1 tablet by mouth once daily. atorvastatin (LIPITOR) 20 mg tablet Take 1 tablet by mouth once daily. insulin needles, DISPOSABLE, (PEN NEEDLE) 31 gauge x 5/16 Use 1 pen needle once daily for insulin injection. Dx: E11.65 glipiZIDE (GLUCOTROL) 5 mg tablet Take 1 tablet (5 mg) by mouth two times a day before meals. lisinopril (ZESTRIL) 40 mg tablet Take 1 tablet by mouth once daily. dulaglutide (TRULICITY) 3 mg/0.5 mL pen injector Inject 3 mg subcutaneously one time a week. sildenafil (VIAGRA) 50 mg tablet Take 1 tablet by mouth as needed. Blood-Glucose Meter (FREESTYLE LITE METER) monitoring kit Freestyle LITE Meter Kit - Dx: Type 2 DM - uncontrolled E11.65. Insulin: Yes. blood sugar diagnostic test strip Test blood sugar(s) 3 times daily. Dx: Type 2 DM - unontrolled E11.65. Insulin: Yes. [employer]. ASPIRIN 81 MG TAB Take one(1) tablet daily. clotrimazole (LOTRIMIN) 1 % cream Apply thin layer to rash on armpits twice a day. Continue for two weeks after rash has resolved (Patient not taking: Reported on 02/26/2024) Sodium Fluoride 1.1 % BRUSH once daily every evening (Patient not taking: Reported on 02/26/2024) FAMILY HISTORY Problem Relation Age of Onset Diabetes Father Hypertension Father Prostate Cancer Father Blood Disease Father Immune thrombocytopenia, splenectomy Cervical Cancer Mother Vulvar SCCa with mets other (Obesity) Sister Gastric bypass Colon Cancer Paternal Uncle Macular Degen No Family History Glaucoma No Family History Social History Tobacco Use Smoking status: Some Days Types: Cigarettes Smokeless tobacco: Never Tobacco comments: periodic Vaping Use Vaping status: Never Used Substance Use Topics Alcohol use: Yes Alcohol/week: 2.0 standard drinks of alcohol Types: 2 Shots of liquor per week Comment: occasionally Drug use: No Review of Systems Constitutional: Negative for chills and fever. HENT: Positive for hearing loss. Negative for congestion, ear discharge, ear pain and sore throat. Respiratory: Negative for cough and shortness of breath. Gastrointestinal: Negative for diarrhea and vomiting. Objective BP 159/82 Pulse 101 Temp 36.7 ?C (98.1 ?F) Resp 18 Wt 94.9 kg (209 lb 3.5 oz) SpO2 98% BMI 31.81 kg/m? Physical Exam Vitals and nursing note reviewed. Constitutional: General: He is not in acute distress. Appearance: Normal appearance. He is not toxic-appearing. H (more content not included)... Normal [facility] XR Chest PA and Lateralon IMPRESSION: Right infrahilar parenchymal changes suggestive of bronchitis. A follow-up exam is recommended. Drug Discovery Informatics Specialist: VIRIDIANA Transcribe Date/Time: Feb 26 2024 11:59A Dictated by : PATRICE CANADA MD This examination was interpreted and the report reviewed and electronically signed by: PATRICE CANADA MD on Feb 26 2024 12:00PM [facility] * * *Final Report* * * DATE OF EXAM: Feb 26 2024 11:49AM WOX [id number] - XR CHEST 2V FRONTAL/LAT / PROCEDURE REASON: Subacute cough * * * * Physician Interpretation * * * * EXAMINATION: CHEST RADIOGRAPH (2 VIEW FRONTAL & LATERAL) CLINICAL HISTORY: Subacute cough MQ: XC2_6 EXAM DATE/TIME: 02/26/2024 11:49 AM COMPARISON: 06/01/2014. RESULT: Lines, tubes, and devices: None. Lungs and pleura: There are increased bronchovascular markings in the right infrahilar region suggestive of bronchitis. No consolidation. No lung mass. No pleural effusion. No pneumothorax. Cardiomediastinal silhouette: Normal cardiomediastinal silhouette. Bones and soft tissues: Unremarkable. DIVISION OF RADIOLOGY Provider, [facility] - 02/26/2024 * * *Final Report* * * DATE OF EXAM: Feb 26 2024 11:49AM WOX [id number] - XR CHEST 2V FRONTAL/LAT / PROCEDURE REASON: Subacute cough * * * * Physician Interpretation * * * * EXAMINATION: CHEST RADIOGRAPH (2 VIEW FRONTAL & LATERAL) CLINICAL HISTORY: Subacute cough MQ: XC2_6 EXAM DATE/TIME: 02/26/2024 11:49 AM COMPARISON: 06/01/2014. RESULT: Lines, tubes, and devices: None. Lungs and pleura: There are increased bronchovascular markings in the right infrahilar region suggestive of bronchitis. No consolidation. No lung mass. No pleural effusion. No pneumothorax. Cardiomediastinal silhouette: Normal cardiomediastinal silhouette. Bones and soft tissues: Unremarkable. IMPRESSION IMPRESSION: Right infrahilar parenchymal changes suggestive of bronchitis. A follow-up exam is recommended. Drug Discovery Informatics Specialist: PSCB Transcribe Date/Time: Feb 26 2024 11:59A Dictated by : PATRICE CANADA MD This examination was interpreted and the report reviewed and electronically signed by: PATRICE CANADA MD on Feb 26 2024 12:00PM EST [facility] Radiology Study observation (narrative) [facility] XR Chest PA and LateralOrder ed By: [facility] Provider on 02-26-2024 [facility] OCT OPTIC NERVE CIRRUS OU (B OTH EYES)on 02-14-2024 [facility] Radiology Study observation (narrative) [facility] CNPNon 01-24-2024 LUKEN Telephone (AKURFL) LEANDRA EL ([id number]) 1955 M Date Time Provider Department 01/24/24 APRIL LEON JR During your visit today, we recorded the following information about you: Ledy Yusuf MA 01/24/2024 9:36 AM Signed Phoned patient and notified of message below regarding results per provider. Patient acknowledged understanding of instructions and has no further questions. Ledy Yusuf MA Per April Leon Jr., MD Psa is 5.68 Allergies As of Date: 01/24/2024 (No Known Allergies) Date Reviewed: 01/18/2024 Reviewed by: Mindy Dean, TEAM FACILITATOR.MACHINING MANAGER - Fully Assessed Reason for Visit: Results [95] Prescriptions as of 01/24/2024 - clotrimazole (LOTRIMIN) 1 % cream Apply thin layer to rash on armpits twice a day. Continue for two weeks after rash has resolved - metFORMIN (GLUCOPHAGE) 500 mg tablet Take 2 tablets by mouth two times a day with meals. - amLODIPine (NORVASC) 2.5 mg tablet Take 1 tablet by mouth once daily. - insulin glargine (LANTUS SOLOSTAR U-100 INSULIN) 100 unit/mL (3 mL) Inject 45 Units subcutaneously daily at bedtime. - atorvastatin (LIPITOR) 20 mg tablet Take 1 tablet by mouth once daily. - insulin needles, DISPOSABLE, (PEN NEEDLE) 31 gauge x 16 Use 1 pen needle once daily for insulin injection. Dx: E11.65 - glipiZIDE (GLUCOTROL) 5 mg tablet Take 1 tablet (5 mg) by mouth two times a day before meals. - lisinopril (ZESTRIL) 40 mg tablet Take 1 tablet by mouth once daily. - dulaglutide (TRULICITY) 3 mg/0.5 mL pen injector Inject 3 mg subcutaneously one time a week. - dapagliflozin propanediol (FARXIGA) 10 mg tablet Take 1 tablet by mouth daily with breakfast. - Sodium Fluoride 1.1 % BRUSH once daily every evening - sildenafil (VIAGRA) 50 mg tablet Take 1 tablet by mouth as needed. - Blood-Glucose Meter (FREESTYLE LITE METER) monitoring kit Freestyle LITE Meter Kit - Dx: Type 2 DM - uncontrolled E11.65. Insulin: Yes. - blood sugar diagnostic test strip Test blood sugar(s) 3 times daily. Dx: Type 2 DM - unontrolled E11.65. Insulin: Yes. [employer]. - ASPIRIN 81 MG TAB Take one(1) tablet daily. Problem List As Of Date 01/24/2024 Noted Resolved Essential hypertension [I10] 09/27/2005 Hyperlipemia [E78.5] 09/27/2005 IMPAIRED FASTING GLUCOSE [R73.01] 09/27/2005 06/29/2006 Controlled type 2 diabetes mellitus without com*12/04/2012 Other affections of shoulder region, not elsewh*12/06/2012 12/03/2014 History of actinic keratosis [Z87.2] 01/24/2017 Elevated prostate specific antigen (PSA) [R97.2*07/24/2017 11/16/2023 Erectile dysfunction [N52.9] 01/14/2018 Prostate cancer (HCC) [C61] 10/22/2018 Seasonal allergies [J30.2] 10/12/2020 Obesity, Class I, BMI 30-34.9 [E66.9] 07/25/2021 Paronychia of finger [L03.019] 02/01/2022 02/07/2022 Encounter Status:Closed by LEDY YUSUF on 01/24/24 Normal [facility] US SCREENING FOR AAAon 01-02 [facility] ECG COMPLETEon 10-26-2021 Atrial Rate 94 BPM [facility] Calculated P Forsan 66 degrees [facility] Calculated R Forsan 83 degrees [facility] Calculated T Forsan 22 degrees [facility] P-R Interval 174 ms [facility] QRS Duration 90 ms [facility] QT Interval 388 ms [facility] QTC Calculation (Bazett) 485 ms [facility] Ventricular Rate 94 BPM [facility] HEMOGLOBIN A1C (POC)on 10-26 HbA1c (Bld) [Mass fraction] 7.1 % Abnormal 4.2 - 5.6 % [facility] Pathology Miscellaneouson Pathology Miscellaneous Test performed at [place] [address] NAME: LEANDRA EL REQUESTING: WILFRID HOLLIDAY DO DIAGNOSIS: OncoType: See complete report from [facility] [employer] SPECIMEN: TISSUE FOR SEND-OUT, Oncotype EXTERNAL CONSULT, PATHOLOGIST (Electronic signature on file) Signed out: 11/01/2018 08:39 PRINTED: 11/01/2018 Page 1 of 1 Normal [facility] Comment on above: Performed By: #### M ISC #### [place] [address] Surgical Tissue Examon 10-09 Surgical Tissue Exam Test performed at [place] [address] NAME: LEANDRA EL REQUESTING: WILFRID HOLLIDAY DO COPY TO: TUMOR REGISTRY; 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 B) PROSTATE, RIGHT MID, CORE BIOPSY - Benign prostatic tissue. C) PROSTATE, RIGHT APEX, CORE BIOPSY - Benign prostatic tissue. D) PROSTATE, RIGHT BASE LATERAL, CORE BIOPSY - Benign prostatic tissue. E) PROSTATE, RIGHT MID LATERAL, CORE BIOPSY - Benign prostatic tissue. F) PROSTATE, RIGHT APEX LATERAL, CORE BIOPSY - Benign prostatic tissue. G) PROSTATE, LEFT BASE, CORE BIOPSY - Benign prostatic tissue. H) PROSTATE, LEFT MID, CORE BIOPSY - PROSTATIC ACINAR ADENOCARCINOMA, AVRIL GRADE 3+3= SCORE OF 6 (GRADE GROUP 1) INVOLVING 10% OF ONE TISSUE CORE (SEE NOTE). I) PROSTATE, LEFT APEX, CORE BIOPSY - Benign prostatic tissue. J) PROSTATE, LEFT BASE LATERAL, CORE BIOPSY - Benign prostatic tissue. K) PROSTATE, LEFT MID LATERAL, CORE BIOPSY - Benign prostatic tissue. L) PROSTATE, LEFT APEX LATERAL, CORE BIOPSY - Benign prostatic tissue. 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 Dr. Cody Treviño has reviewed part H of the case and agrees with the diagnosis for that part. Laboratory Developed Test (LDT) Disclaimer: Positive and negative controls stain appropriately. Performance characteristics of immunohistochemical tests have been determined by [facility]'s Department of Pathology and Laboratory Medicine in a manner consistent with CLIA requirements. One or more of these tests have not been cleared or approved by the FDA. [facility] is regulated under CLIA as qualified to perform high-complexity testing. These tests are useful for clinical purposes. They should not be regarded as investigational or for research. OPERATIVE PROCEDURE: Prostate biopsy CLINICAL INFORMATION: Elevated PSA GROSS DESCRIPTION: A) Right base Received in formalin labeled right base is a cylindrical white soft segment of tissue measuring 1.8 x 0.1 x 0.1 cm. The specimen is totally submitted in formalin in one cassette. B) Right mid Received in formalin labeled right mid is a cylindrical white soft segment of tissue measuring 1.6 x 0.1 x 0.1 cm. The specimen is totally submitted in formalin in one cassette. C) Right apex Received in formalin labeled right apex is a cylindrical white soft segment of tissue measuring 1.3 x 0.1 x 0.1 cm. The specimen is totally submitted in formalin in one cassette. D) Right lateral base Received in formalin labeled right lateral base is a cylindrical white soft segment of tissue measuring 1.4 x 0.1 x 0.1 cm. The specimen is totally submitted in formalin in one cassette. E) Right lateral mid Received in formalin labeled right lateral mid is a cylindrical white soft segment of tissue measuring 1.7 x 0.1 x 0.1 cm. The specimen is totally submitted in formalin in one cassette. F) Right lateral apex Received in formalin labeled right lateral apex is a cylindrical white soft segment of tissue measuring 1.8 x 0.1 x 0.1 cm. The specimen is totally submitted in formalin in one cassette. G) Left base Received in formalin labeled left base is a cylindrical white soft segment of tissue measuring 2.0 x 0.1 x 0.1 cm. The specimen is totally submitted in formalin in one cassette. H) Left mid Received in formalin labeled left mid is a cylindrical white soft segment of tissue measuring 1.4 x 0.1 x 0.1 cm. The specimen is totally submitted in formalin in one cassette. I) Left apex Received in formalin labeled left apex is a cylindrical white soft segment of tissue measuring 1.7 x 0.1 x 0.1 cm. The specimen is totally submitted in formalin in one cassette. J) Left lateral base Received in formalin labeled left lateral base is a cylindrical white soft segment of tissue measuring 2.0 x 0.1 x 0.1 cm. The specimen is totally submitted in formalin in one cassette. K) Left lateral mid Received in formalin labeled left lateral mid is a cylindrical white soft segment of tissue measuring 1.6 x 0.1 x 0.1 cm. The specimen is totally submitted in formalin in one cassette. L) Left lateral apex Received in formalin labeled left lateral apex is a cylindrical white soft segment of tissue measuring 1.8 x 0.1 x 0.1 cm. The specimen is totally submitted in formalin in one cassette. KVB:yaritza KAMARA M.D.,PATHOLOGIST (Electronic signature on file) Signed out: 10/15/2018 12:05 PRINTED: 10/15/2018 Page 1 of 1 Normal [facility] Comment on above: Performed By: #### S URG #### [place] [address] OCT OPTIC NERVE CIRRUS OU (B OTH EYES) [facility] Vital Signs Date Time Vital Sign Value Performing Clinician Facility 12-02-2024 10:32-0400 Body height 172.7 cm April Leon Jr., MD Work Phone: [facility] 12-02-2024 10:32-0400 Body mass index (BMI) [Ratio] 31.17 kg/m2 April Leon Jr., MD Work Phone: [facility] 12-02-2024 10:32-0400 Body weight 92.99 kg April Leon Jr., MD Work Phone: [facility] 11-24-2024 12:03-0400 Body height 172.7 cm Maykel Bee MD Work Phone: [facility] 11-24-2024 12:03-0400 Body mass index (BMI) [Ratio] 30.91 kg/m2 Maykel Bee MD Work Phone: [facility] 11-24-2024 12:03-0400 Body temperature 97.7 [degF] Maykel Bee MD Work Phone: [facility] 11-24-2024 12:03-0400 Body weight 92.2 kg Maykel Bee MD Work Phone: [facility] 11-24-2024 12:03-0400 Diastolic blood pressure 62 mm[Hg] Maykel Bee MD Work Phone: [facility] 11-24-2024 12:03-0400 Heart rate 80 /min Maykel Bee MD Work Phone: [facility] 11-24-2024 12:03-0400 Respiratory rate 20 /min Maykel Bee MD Work Phone: [facility] 11-24-2024 12:03-0400 Systolic blood pressure 120 mm[Hg] Maykel Bee MD Work Phone: [facility] 07-29-2024 08:34-0400 Body height 172.7 cm April Leon Jr., MD Work Phone: [facility] 07-29-2024 08:34-0400 Body mass index (BMI) [Ratio] 30.41 kg/m2 April Leon Jr., MD Work Phone: [facility] 07-29-2024 08:34-0400 Body weight 90.72 kg April Leon Jr., MD Work Phone: [facility] 06-30-2024 16:13-0500 Body mass index (BMI) [Ratio] 31.64 kg/m2 Krislyn Aberegg PA Work Phone: [facility] 06-30-2024 16:13-0500 Body temperature 99.61 [degF] Krislyn Aberegg PA Work Phone: [facility] 06-30-2024 16:13-0500 Body weight 94.4 kg Krislyn Aberegg PA Work Phone: [facility] 06-30-2024 16:13-0500 Diastolic blood pressure 70 mm[Hg] Krislyn Aberegg PA Work Phone: [facility] 06-30-2024 16:13-0500 Heart rate 103 /min Krislyn Aberegg PA Work Phone: [facility] 06-30-2024 16:13-0500 Respiratory rate 21 /min Krislyn Aberegg PA Work Phone: [facility] 06-30-2024 16:13-0500 SaO2% (BldA) [Mass fraction] 98 % Krislyn Aberegg PA Work Phone: [facility] 06-30-2024 16:13-0500 Systolic blood pressure 110 mm[Hg] Krislyn Aberegg PA Work Phone: [facility] 05-27-2024 12:49-0500 Body height 172.7 cm April Leon Jr., MD Work Phone: [facility] 05-27-2024 12:49-0500 Body mass index (BMI) [Ratio] 31.02 kg/m2 April Leon Jr., MD Work Phone: [facility] 05-27-2024 12:49-0500 Body weight 92.53 kg April Leon Jr., MD Work Phone: [facility] 05-27-2024 08:52-0500 Body mass index (BMI) [Ratio] 30.47 kg/m2 Maykel Bee MD Work Phone: [facility] 05-27-2024 08:52-0500 Body temperature 97.5 [degF] Maykel Bee MD Work Phone: [facility] 05-27-2024 08:52-0500 Body weight 90.9 kg Maykel Bee MD Work Phone: [facility] 05-27-2024 08:52-0500 Diastolic blood pressure 74 mm[Hg] Maykel Bee MD Work Phone: [facility] 05-27-2024 08:52-0500 Heart rate 92 /min Maykel Bee MD Work Phone: [facility] 05-27-2024 08:52-0500 Respiratory rate 18 /min Maykel Bee MD Work Phone: [facility] 05-27-2024 08:52-0500 Systolic blood pressure 128 mm[Hg] Maykel Bee MD Work Phone: [facility] 04-30-2024 12:31-0500 Diastolic blood pressure 80 mm[Hg] April Leon Jr., MD Work Phone: [facility] 04-30-2024 12:31-0500 Heart rate 90 /min April Leon Jr., MD Work Phone: [facility] 04-30-2024 12:31-0500 SaO2% (BldA) [Mass fraction] 99 % April Leon Jr., MD Work Phone: [facility] 04-30-2024 12:31-0500 Systolic blood pressure 136 mm[Hg] April Leon Jr., MD Work Phone: [facility] 04-03-2024 15:32-0500 Body mass index (BMI) [Ratio] 31.81 kg/m2 Kaleigh GONCALVES Work Phone: [facility] 04-03-2024 15:32-0500 Body temperature 98.1 [degF] Krislyn Aberegg PA Work Phone: [facility] 04-03-2024 15:32-0500 Body weight 94.9 kg Krislyn Aberegg PA Work Phone: [facility] 04-03-2024 15:32-0500 Diastolic blood pressure 82 mm[Hg] Krislyn Aberegg PA Work Phone: [facility] 04-03-2024 15:32-0500 Heart rate 101 /min Krislyn Aberegg PA Work Phone: [facility] 04-03-2024 15:32-0500 Respiratory rate 18 /min Krislyn Aberegg PA Work Phone: [facility] 04-03-2024 15:32-0500 SaO2% (BldA) [Mass fraction] 98 % Krislyn Aberegg PA Work Phone: [facility] 04-03-2024 15:32-0500 Systolic blood pressure 159 mm[Hg] Krislyn Aberegg PA Work Phone: [facility] 02-26-2024 11:25-0400 Body mass index (BMI) [Ratio] 31.84 kg/m2 Lev Menchaca TEAM FACILITATOR.MACHINING MANAGER Work Phone: [facility] 02-26-2024 11:25-0400 Body temperature 97.7 [degF] Lev Menchaca TEAM FACILITATOR.MACHINING MANAGER Work Phone: [facility] 02-26-2024 11:25-0400 Body weight 95 kg Lev Menchaca TEAM FACILITATOR.MACHINING MANAGER Work Phone: [facility] 02-26-2024 11:25-0400 Diastolic blood pressure 80 mm[Hg] Lev Menchaca TEAM FACILITATOR.MACHINING MANAGER Work Phone: [facility] 02-26-2024 11:25-0400 Heart rate 102 /min Lev Menchaca TEAM FACILITATOR.MACHINING MANAGER Work Phone: [facility] 02-26-2024 11:25-0400 Respiratory rate 16 /min Lev Nikolai TEAM FACILITATOR.MACHINING MANAGER Work Phone: [facility] 02-26-2024 11:25-0400 SaO2% (BldA) [Mass fraction] 97 % Lev Menchaca TEAM FACILITATOR.MACHINING MANAGER Work Phone: [facility] 02-26-2024 11:25-0400 Systolic blood pressure 122 mm[Hg] Lev Nikolai TEAM FACILITATOR.MACHINING MANAGER Work Phone: [facility] 01-18-2024 07:47-0400 Diastolic blood pressure 78 mm[Hg] Mindy Dianne TEAM FACILITATOR.MACHINING MANAGER Work Phone: [facility] 01-18-2024 07:47-0400 Systolic blood pressure 130 mm[Hg] Mindy Dianne TEAM FACILITATOR.MACHINING MANAGER Work Phone: [facility] 01-18-2024 07:31-0400 Body mass index (BMI) [Ratio] 31.95 kg/m2 Mindy Dianne TEAM FACILITATOR.MACHINING MANAGER Work Phone: [facility] 01-18-2024 07:31-0400 Body weight 95.3 kg Mindy Dianne TEAM FACILITATOR.MACHINING MANAGER Work Phone: [facility] 01-18-2024 07:31-0400 Heart rate 80 /min Mindy Dianne TEAM FACILITATOR.MACHINING MANAGER Work Phone: [facility] 01-18-2024 07:31-0400 Respiratory rate 18 /min Mindy Dianne TEAM FACILITATOR.MACHINING MANAGER Work Phone: [facility] 01-18-2024 07:31-0400 SaO2% (BldA) [Mass fraction] 97 % Mindy Dianne TEAM FACILITATOR.MACHINING MANAGER Work Phone: [facility] 12-11-2023 10:31-0400 Body mass index (BMI) [Ratio] 32.23 kg/m2 Mindy Dianne TEAM FACILITATOR.MACHINING MANAGER Work Phone: [facility] 12-11-2023 10:31-0400 Body weight 96.16 kg Mindy Dianne TEAM FACILITATOR.MACHINING MANAGER Work Phone: [facility] 12-11-2023 10:31-0400 Diastolic blood pressure 86 mm[Hg] Mindy Dianne TEAM FACILITATOR.MACHINING MANAGER Work Phone: [facility] 12-11-2023 10:31-0400 Heart rate 95 /min Mindy Dianne TEAM FACILITATOR.MACHINING MANAGER Work Phone: [facility] 12-11-2023 10:31-0400 Respiratory rate 18 /min Mindy Dianne TEAM FACILITATOR.MACHINING MANAGER Work Phone: [facility] 12-11-2023 10:31-0400 SaO2% (BldA) [Mass fraction] 96 % Mindy Dianne TEAM FACILITATOR.MACHINING MANAGER Work Phone: [facility] 12-11-2023 10:31-0400 Systolic blood pressure 164 mm[Hg] Mindy Dianne TEAM FACILITATOR.MACHINING MANAGER Work Phone: [facility] 12-06-2023 17:03-0400 Body mass index (BMI) [Ratio] 32.72 kg/m2 Magaly Sherman TEAM FACILITATOR.MACHINING MANAGER Work Phone: [facility] 12-06-2023 17:03-0400 Body temperature 97.5 [degF] Magaly Sherman TEAM FACILITATOR.MACHINING MANAGER Work Phone: [facility] 12-06-2023 17:03-0400 Body weight 97.6 kg Magaly Sherman TEAM FACILITATOR.MACHINING MANAGER Work Phone: [facility] 12-06-2023 17:03-0400 Diastolic blood pressure 74 mm[Hg] Magaly Sherman TEAM FACILITATOR.MACHINING MANAGER Work Phone: [facility] 12-06-2023 17:03-0400 Heart rate 85 /min Magaly Sherman TEAM FACILITATOR.MACHINING MANAGER Work Phone: [facility] 12-06-2023 17:03-0400 Respiratory rate 21 /min Magaly Sherman TEAM FACILITATOR.MACHINING MANAGER Work Phone: [facility] 12-06-2023 17:03-0400 SaO2% (BldA) [Mass fraction] 98 % Magaly Sherman TEAM FACILITATOR.MACHINING MANAGER Work Phone: [facility] 12-06-2023 17:03-0400 Systolic blood pressure 138 mm[Hg] Magaly Sherman TEAM FACILITATOR.MACHINING MANAGER Work Phone: [facility] 11-16-2023 08:37-0400 Diastolic blood pressure 77 mm[Hg] Maykel Bee MD Work Phone: [facility] Comment on above: BP true 11-16-2023 08:37-0400 Heart rate 62 /min Maykel Bee MD Work Phone: [facility] 11-16-2023 08:37-0400 Systolic blood pressure 142 mm[Hg] Maykel Bee MD Work Phone: [facility] Comment on above: BP true 11-16-2023 07:51-0400 Body height 172.7 cm Maykel Bee MD Work Phone: [facility] 11-16-2023 07:51-0400 Body mass index (BMI) [Ratio] 31.93 kg/m2 Maykel Bee MD Work Phone: [facility] 11-16-2023 07:51-0400 Body weight 95.25 kg Maykel Bee MD Work Phone: [facility] 11-16-2023 07:51-0400 Respiratory rate 16 /min Maykel Bee MD Work Phone: [facility] 02-07-2023 08:09-0400 Diastolic blood pressure 79 mm[Hg] Mindy Older TEAM FACILITATOR.MACHINING MANAGER Work Phone: [facility] 02-07-2023 08:09-0400 Heart rate 78 /min Mindy Older TEAM FACILITATOR.MACHINING MANAGER Work Phone: [facility] 02-07-2023 08:09-0400 Systolic blood pressure 141 mm[Hg] Mindy Older TEAM FACILITATOR.MACHINING MANAGER Work Phone: [facility] 01-16-2023 15:09-0400 Body height 172.7 cm April Leon Jr., MD Work Phone: [facility] 01-16-2023 15:09-0400 Body weight 97.98 kg April Leon Jr., MD Work Phone: [facility] 01-16-2023 15:09-0400 Respiratory rate 20 /min April Leon Jr., MD Work Phone: [facility] 11-08-2022 13:47-0400 Diastolic blood pressure 82 mm[Hg] Maykel Bee MD Work Phone: [facility] 11-08-2022 13:47-0400 Heart rate 77 /min Maykel Bee MD Work Phone: [facility] 11-08-2022 13:47-0400 Systolic blood pressure 148 mm[Hg] Maykel Bee MD Work Phone: [facility] 11-08-2022 13:38-0400 Body height 172.7 cm Maykel Bee MD Work Phone: [facility] 11-08-2022 13:38-0400 Body weight 97.07 kg Maykel Bee MD Work Phone: [facility] 11-08-2022 13:38-0400 Respiratory rate 18 /min Maykel Bee MD Work Phone: [facility] 08-07-2022 13:43-0400 Diastolic blood pressure 79 mm[Hg] Maykel Bee MD Work Phone: [facility] 08-07-2022 13:43-0400 Heart rate 97 /min Maykel Bee MD Work Phone: [facility] 08-07-2022 13:43-0400 Systolic blood pressure 133 mm[Hg] Maykel Bee MD Work Phone: [facility] 08-07-2022 13:34-0400 Body weight 98.43 kg Maykel Bee MD Work Phone: [facility] 08-07-2022 13:34-0400 Respiratory rate 16 /min Maykel Bee MD Work Phone: [facility] 08-02-2022 16:31-0400 Body height 172.7 cm Jayram Mg DO Work Phone: [facility] 08-02-2022 16:31-0400 Body weight 95.71 kg Jayram Mg DO Work Phone: [facility] 08-02-2022 16:31-0400 Diastolic blood pressure 76 mm[Hg] Jayram Mg DO Work Phone: [facility] 08-02-2022 16:31-0400 Systolic blood pressure 132 mm[Hg] Jayram Mg DO Work Phone: [facility] 06-19-2022 09:43-0500 Body height 172.7 cm Jeb Gutierrez MD Work Phone: [facility] 06-19-2022 09:43-0500 Body weight 99.79 kg Jeb Gutierrez MD Work Phone: [facility] 06-19-2022 09:43-0500 Diastolic blood pressure 80 mm[Hg] Jeb Gutierrez MD Work Phone: [facility] 06-19-2022 09:43-0500 Systolic blood pressure 132 mm[Hg] Jeb Gutierrez MD Work Phone: [facility] 03-30-2022 13:17-0500 Body height 172.7 cm Jayram Mg DO Work Phone: [facility] 03-30-2022 13:17-0500 Body weight 99.79 kg Jayram Mg DO Work Phone: [facility] 02-07-2022 13:01-0400 Body temperature 97.11 [degF] Mindy Older TEAM FACILITATOR.MACHINING MANAGER Work Phone: [facility] 02-07-2022 13:01-0400 Body weight 99.79 kg Mindy Older TEAM FACILITATOR.MACHINING MANAGER Work Phone: [facility] 02-07-2022 13:01-0400 Diastolic blood pressure 78 mm[Hg] Mindy Older TEAM FACILITATOR.MACHINING MANAGER Work Phone: [facility] 02-07-2022 13:01-0400 Heart rate 96 /min Mindy Older TEAM FACILITATOR.MACHINING MANAGER Work Phone: [facility] 02-07-2022 13:01-0400 Respiratory rate 16 /min Mindy Older TEAM FACILITATOR.MACHINING MANAGER Work Phone: [facility] 02-07-2022 13:01-0400 Systolic blood pressure 130 mm[Hg] Mindy Older TEAM FACILITATOR.MACHINING MANAGER Work Phone: [facility] 01-30-2022 16:12-0400 Body temperature 98.2 [degF] [facility] TEAM FACILITATOR.MACHINING MANAGER Work Phone: [facility] 01-30-2022 16:12-0400 Body weight 100.25 kg [facility] TEAM FACILITATOR.MACHINING MANAGER Work Phone: [facility] 01-30-2022 16:12-0400 Diastolic blood pressure 64 mm[Hg] [facility] TEAM FACILITATOR.MACHINING MANAGER Work Phone: [facility] 01-30-2022 16:12-0400 Heart rate 102 /min [facility] TEAM FACILITATOR.MACHINING MANAGER Work Phone: [facility] 01-30-2022 16:12-0400 Respiratory rate 16 /min [facility] TEAM FACILITATOR.MACHINING MANAGER Work Phone: [facility] 01-30-2022 16:12-0400 SaO2% (BldA) [Mass fraction] 98 % [facility] TEAM FACILITATOR.MACHINING MANAGER Work Phone: [facility] 01-30-2022 16:12-0400 Systolic blood pressure 112 mm[Hg] [facility] TEAM FACILITATOR.MACHINING MANAGER Work Phone: [facility] 10-26-2021 13:58-0400 Diastolic blood pressure 76 mm[Hg] Maykel Bee MD Work Phone: [facility] 10-26-2021 13:58-0400 Heart rate 101 /min Maykel Bee MD Work Phone: [facility] 10-26-2021 13:58-0400 Systolic blood pressure 130 mm[Hg] Maykel Bee MD Work Phone: [facility] 10-26-2021 13:46-0400 Body height 172.1 cm Maykel Bee MD Work Phone: [facility] 10-26-2021 13:46-0400 Body temperature 97.39 [degF] Maykel Bee MD Work Phone: [facility] 10-26-2021 13:46-0400 Body weight 97.07 kg Maykel Bee MD Work Phone: [facility] 10-26-2021 13:46-0400 Respiratory rate 18 /min Maykel Bee MD Work Phone: [facility] Encounters Encounter Date Encounter Type Care Provider Facility Start: 02-16-2025 End: 02-16-2025 ambulatory MAYKEL BEE Facility:[facility] Start: 01-31-2025 End: 02-02-2025 Refill April Leon MD Work Phone: Urology Comment on above: Refill Request Start: 12-02-2024 End: 12-02-2024 Patient encounter procedure April Leon MD Work Phone: Urology Comment on above: Prostate cancer (HCC ) (Primary Dx); BPH with obstruction/lower urinary tract symptoms Start: 12-02-2024 End: 12-02-2024 ambulatory MAYKEL BEE Facility:[facility] Start: 11-24-2024 End: 11-24-2024 ambulatory MAYKEL BEE Facility:[facility] Start: 11-24-2024 End: 11-24-2024 Patient encounter procedure Maykel Bee MD Work Phone: [facility] [place] Comment on above: Medicare annual well ness visit, initial (Primary Dx); Encounter for immunization; Encounter for screening examination for other mental health and behavioral disorders; Screening for depression; Controlled type 2 diabetes mellitus without complication, with long-term current use of insulin (HCC); Essential hypertension; Hyperlipidemia, unspecified hyperlipidemia type; Obesity, Class I, BMI 30-34.9; Heart murmur Start: 11-22-2024 End: 11-22-2024 ambulatory MAYKEL BEE Facility:[facility] Start: 11-20-2024 ambulatory MAYKEL BEE Faci lity:[facility] Start: 11-15-2024 End: 11-17-2024 Refill Mindyangela Dean TEAM FACILITATOR.MACHINING MANAGER Work Phone: [facility] [place] Comment on above: Refill Request Start: 10-31-2024 End: 11-01-2024 Refill Mindy Dean TEAM FACILITATOR.MACHINING MANAGER Work Phone: [facility] [place] Comment on above: Refill Request Start: 10-30-2024 End: 10-30-2024 ambulatory APRIL LEON JR Facility:[facility] Start: 10-01-2024 End: 10-01-2024 ambulatory Maykel Bee MD Work Phone: [facility] [place] Comment on above: Medication Start: 09-22-2024 End: 09-24-2024 Refill Mindy Dean TEAM FACILITATOR.MACHINING MANAGER Work Phone: [facility] [place] Comment on above: Refill Request Start: 09-01-2024 End: 09-01-2024 Refill Mindyangela VelozDianne TEAM FACILITATOR.MACHINING MANAGER Work Phone: [facility] [place] Comment on above: Refill Request Start: 08-31-2024 End: 09-01-2024 Refill Mindy M Dianne TEAM FACILITATOR.MACHINING MANAGER Work Phone: [facility] [place] Comment on above: Refill Request Start: 07-30-2024 End: 07-30-2024 Follow-up encounter April Leon MD Work Phone: [facility] Comment on above: Prostate cancer (HCC ) (Primary Dx) Start: 07-29-2024 End: 07-29-2024 ambulatory APRIL LEON JR Facility:[facility] Start: 07-29-2024 End: 07-29-2024 Patient encounter procedure April Leon MD Work Phone: Urology Comment on above: Prostate cancer (HCC ) (Primary Dx) Start: 07-18-2024 End: 07-18-2024 ambulatory APRIL LEON JR Facility:[facility] Start: 07-15-2024 End: 07-15-2024 ambulatory April Leon MD Work Phone: Urology Comment on above: PSA Start: 07-02-2024 End: 07-02-2024 Emergency department patient visit Shorty Abbott Facility:[facility] Start: 07-02-2024 End: 07-03-2024 ambulatory Maykel Bee MD Work Phone: [facility] [place] Comment on above: Fever Start: 07-01-2024 End: 08-31-2024 Follow-up encounter Sujey Reyes APRN.CNP Work Phone: [facility] Start: 06-30-2024 End: 06-30-2024 Patient encounter procedure Kaleigh GONCALVES Work Phone: [facility] Comment on above: URI, acute (Primary Dx) Start: 06-30-2024 End: 06-30-2024 ambulatory MAYKEL BEE Facility:[facility] Start: 05-27-2024 End: 05-27-2024 Patient encounter procedure April Leon MD Work Phone: Urology Comment on above: Kidney stone (Primar y Dx); Prostate cancer (HCC) Start: 05-27-2024 End: 05-27-2024 ambulatory APRIL LEON JR Facility:[facility] Start: 05-27-2024 End: 05-27-2024 ambulatory MAYKEL BEE Facility:[facility] Start: 05-27-2024 End: 05-27-2024 Office outpatient visit 25 minutes Maykel Bee MD Work Phone: [facility] [place] Comment on above: Need for influenza v accination (Primary Dx); Encounter for immunization; Essential hypertension; Controlled type 2 diabetes mellitus without complication, with long-term current use of insulin (HCC); Hyperlipidemia, unspecified hyperlipidemia type; Chronic serous otitis media of both ears Start: 05-19-2024 End: 05-19-2024 ambulatory APRIL LEON JR Facility:[facility] Start: 05-19-2024 End: 05-19-2024 ambulatory MAYKEL BEE Facility:[facility] Start: 05-19-2024 End: 05-19-2024 Subsequent hospital visit by physician [facility] Work Phone: Radiology Comment on above: Kidney stone [N20.0] Start: 05-12-2024 End: 05-19-2024 Refill Maykel Bee MD Work Phone: [facility] [place] Comment on above: Refill Request Start: 04-30-2024 End: 04-30-2024 Patient encounter procedure April Leon MD Work Phone: [facility] Comment on above: Kidney stone (Primar y Dx); Prostate cancer (HCC) Start: 04-30-2024 End: 04-30-2024 ambulatory APRIL LEON Facility:[facility] Start: 04-20-2024 End: 04-20-2024 Emergency department patient visit Romario Berumen Facility:[facility] Start: 04-17-2024 End: 04-18-2024 Emergency department patient visit Patrick Lester Facility:[facility] Start: 04-16-2024 End: 04-16-2024 Emergency department patient visit Maykel Bee Facility:[facility] Start: 04-03-2024 End: 04-03-2024 ambulatory MAYKEL BEE Facility:[facility] Start: 04-03-2024 End: 04-03-2024 Patient encounter procedure Kaleigh GONCALVES Work Phone: [facility] Comment on above: Impacted cerumen of left ear (Primary Dx); Eustachian tube dysfunction, bilateral Start: 02-26-2024 End: 02-26-2024 Subsequent hospital visit by physician Shailesh [facility] [place] Work Phone: Radiology Comment on above: Subacute cough [R05. 2] Start: 02-26-2024 End: 02-26-2024 Patient encounter procedure Lev Menchaca APRN.MACHINING MANAGER Work Phone: [facility] Comment on above: Lower resp. tract in fection (Primary Dx); Subacute cough Start: 02-14-2024 End: 02-14-2024 Patient encounter procedure Jasvirnikolay Thurman OD Work Phone: Ophthalmology Comment on above: Type 2 diabetes jocelyn itus without retinopathy (HCC) (Primary Dx); Ocular hypertension, bilateral; Pseudophakia; Dry eye syndrome of bilateral lacrimal glands Start: 01-30-2024 End: 01-30-2024 Refill Mindy Dean APRN.MACHINING MANAGER Work Phone: [facility] [place] Comment on above: Refill Request Start: 01-26-2024 End: 01-28-2024 Refill Mindy Dean APRN.MACHINING MANAGER Work Phone: [facility] [place] Comment on above: Refill Request Start: 01-24-2024 End: 01-24-2024 Telephone encounter April Leon MD Work Phone: [facility] [facility] Comment on above: Results Start: 01-18-2024 End: 01-18-2024 Patient encounter procedure Mindy Dean APRN.MACHINING MANAGER Work Phone: [facility] [place] Comment on above: Essential hypertensi on (Primary Dx); Candidal intertrigo Start: 12-25-2023 Refill Mindy dean APRN.MACHINING MANAGER Work Phone: [facility] [place] Comment on above: Refill Request Start: 12-11-2023 End: 12-11-2023 Refill Maykel Bee MD Work Phone: [facility] [place] Comment on above: Refill Request Appointment Request Candidal intertrigo (Primary Dx) Start: 12-09-2023 ambulatory Maykel ferrari MD Work Phone: [facility] [place] Comment on above: Arm pit Yeast infect ion Start: 12-06-2023 End: 12-06-2023 Office outpatient visit 25 minutes Magaly Sherman TEAM FACILITATOR.MACHINING MANAGER Work Phone: [facility] Comment on above: Dermatitis (Primary Dx) Start: 12-04-2023 Refill Mindy Kayla Hershber jermaine TEAM FACILITATOR.MACHINING MANAGER Work Phone: [facility] [place] Comment on above: Refill Request Start: 11-16-2023 End: 11-16-2023 Patient encounter procedure Maykel Bee MD Work Phone: [facility] [place] Comment on above: Medicare annual well ness visit, initial (Primary Dx); Essential hypertension; Controlled type 2 diabetes mellitus without complication, with long-term current use of insulin (HCC); Hyperlipidemia, unspecified hyperlipidemia type; Need for COVID-19 vaccine Start: 11-12-2023 Refill Maykel ferrari MD Work Phone: [facility] [place] Comment on above: Refill Request Start: 10-21-2023 Refill Mindy M Hershber jermaine TEAM FACILITATOR.MACHINING MANAGER Work Phone: [facility] [place] Comment on above: Refill Request Start: 09-23-2023 Refill Mindy M Hershber jermaine TEAM FACILITATOR.MACHINING MANAGER Work Phone: [facility] [place] Comment on above: Refill Request Start: 07-11-2023 Refill Mindy Kayla Hershber jermaine TEAM FACILITATOR.MACHINING MANAGER Work Phone: [facility] [place] Comment on above: Refill Request Start: 07-10-2023 Refill Anna Marie Mariee PSS [facility] Comment on above: Refill Request (open ed in error) Start: 07-08-2023 ambulatory Maykel ferrari MD Work Phone: [facility] [place] Comment on above: New prescription car d Start: 03-03-2023 Refill Mindy Walker TEAM FACILITATOR .MACHINING MANAGER Work Phone: [facility] [place] Comment on above: Refill Request Start: 02-07-2023 End: 02-07-2023 Patient encounter procedure Mindy Older TEAM FACILITATOR.MACHINING MANAGER Work Phone: [facility] [place] Comment on above: Need for influenza v accination (Primary Dx) Start: 01-16-2023 End: 01-16-2023 Patient encounter procedure April Leon MD Work Phone: Urology Comment on above: Prostate cancer (HCC ) (Primary Dx) Start: 12-29-2022 Refill Mindy Older TEAM FACILITATOR .MACHINING MANAGER Work Phone: [facility] [place] Comment on above: Refill Request Start: 12-27-2022 Telephone encounter Mindy Older TEAM FACILITATOR.MACHINING MANAGER Work Phone: [facility] [place] Comment on above: BP Check Start: 12-27-2022 End: 12-27-2022 Patient encounter procedure Mindy Older TEAM FACILITATOR.MACHINING MANAGER Work Phone: [facility] [place] Comment on above: Essential hypertensi on (Primary Dx) Start: 11-08-2022 End: 11-08-2022 Patient encounter procedure Maykel Bee MD Work Phone: [facility] [place] Comment on above: Medicare annual well ness visit, initial (Primary Dx); Controlled type 2 diabetes mellitus without complication, with long-term current use of insulin (HCC); Essential hypertension; Hyperlipidemia, unspecified hyperlipidemia type; Irregular heart beat Start: 11-03-2022 Refill Maykel ferrari MD Work Phone: [facility] [place] Comment on above: Refill Request Start: 10-20-2022 Refill Mindy Older TEAM FACILITATOR .MACHINING MANAGER Work Phone: [facility] [place] Comment on above: Refill Request Start: 09-29-2022 Telephone encounter April Leon MD Work Phone: [facility] Comment on above: Appointment Start: 09-26-2022 ambulatory Wilfrid fletcher DO Work Phone: [facility] Comment on above: Test Result Question Start: 05-01-2023 ambulatory Wilfrid fletcher DO Work Phone: [facility] [address] Start: 09-18-2022 Follow-up encounter Wilfrid car DO Work Phone: [facility] Comment on above: Visit Follow Up Geo dudley Start: 08-15-2022 Refill Maykel ferrari MD Work Phone: [facility] [place] Comment on above: Refill Request Start: 08-11-2022 Telephone encounter Wilfrid car DO Work Phone: [facility] Comment on above: Orders Start: 08-07-2022 End: 08-07-2022 Patient encounter procedure Maykel Bee MD Work Phone: [facility] [place] Comment on above: Controlled type 2 di abetes mellitus without complication, with long-term current use of insulin (HCC) (Primary Dx); Essential hypertension; Hyperlipidemia, unspecified hyperlipidemia type; Eustachian tube dysfunction, right; Seasonal allergies Start: 08-02-2022 End: 08-02-2022 Patient encounter procedure Wilfrid Holliday DO Work Phone: [facility] Comment on above: Prostate cancer (HCC ) (Primary Dx) Start: 07-14-2022 Telephone encounter Jeb Gutierrez MD Work Phone: [facility] Comment on above: Surgery Scheduled Start: 07-12-2022 Telephone encounter Maykel carlson MD Work Phone: [facility] [place] Comment on above: Update lab orders Start: 06-19-2022 End: 06-19-2022 Patient encounter procedure Jeb Gutierrez MD Work Phone: [facility] Comment on above: Prostate cancer (HCC ) (Primary Dx); Elevated prostate specific antigen (PSA) Start: 06-01-2022 Telephone encounter Wilfrid cra DO Work Phone: Urology Comment on above: Results Start: 05-31-2022 End: 05-31-2022 Subsequent hospital visit by physician Mri [facility] (I-Stat/Lg Bore/3t) [facility] Comment on above: Erectile dysfunction , unspecified erectile dysfunction type [N52.9] Start: 03-30-2022 End: 03-30-2022 Patient encounter procedure Wilfrid Holliday DO Work Phone: Urology Comment on above: Prostate cancer (HCC ) (Primary Dx); Erectile dysfunction, unspecified erectile dysfunction type Start: 03-15-2022 Refill Mary Ann Hung TEAM FACILITATOR.MACHINING MANAGER Work Phone: Urology Comment on above: Refill Request Start: 03-06-2022 Refill Maykel ferrari MD Work Phone: [facility] [place] Comment on above: Refill Request Start: 02-07-2022 End: 02-07-2022 Patient encounter procedure Mindy Walker TEAM FACILITATOR.MACHINING MANAGER Work Phone: [facility] [place] Comment on above: Controlled type 2 di abetes mellitus without complication, with long-term current use of insulin (HCC) (Primary Dx); Essential hypertension; Need for influenza vaccination; Hyperlipidemia, unspecified hyperlipidemia type; Obesity, Class I, BMI 30-34.9 Start: 02-01-2022 End: 02-01-2022 Patient encounter procedure Norm Jackson MD Work Phone: Ophthalmology Comment on above: Type 2 diabetes jocelyn itus without retinopathy (HCC) (Primary Dx); Controlled type 2 diabetes mellitus without complication, with long-term current use of insulin (HCC); Ocular hypertension, bilateral; Pseudophakia; Bilateral posterior capsular opacification Start: 01-30-2022 End: 01-30-2022 Patient encounter procedure Bobby Enriquez TEAM FACILITATOR.MACHINING MANAGER Work Phone: [facility] Comment on above: Acute otitis media, right (Primary Dx); Hearing loss due to cerumen impaction, left Start: 01-19-2022 ambulatory Amalia (Pss) [facility] Comment on above: Population Health Na vigation Outreach ([employer] Gaps) Start: 01-12-2022 Refill Maykel ferrari MD Work Phone: [facility] [place] Comment on above: Refill Request Start: 01-09-2022 Telephone encounter Wilfrid car DO Work Phone: [facility] Comment on above: Results Start: 01-02-2022 End: 01-02-2022 Subsequent hospital visit by physician [facility] Work Phone: Radiology Comment on above: Screening for AAA (a bdominal aortic aneurysm) [Z13.6] Start: 11-20-2021 ambulatory Maykel ferrari MD Work Phone: [facility] [place] Comment on above: Test Result Question Start: 10-27-2021 ambulatory Maykel ferrari MD Work Phone: [facility] [place] Start: 10-27-2021 Follow-up encounter Maykel carlson MD Work Phone: [facility] [place] Comment on above: Visit Follow Up Ques tion Start: 10-26-2021 Telephone encounter Maykel carlson MD Work Phone: [facility] [place] Comment on above: Order for Stress Hemalatha t Start: 10-26-2021 End: 10-26-2021 Patient encounter procedure Maykel Bee MD Work Phone: [facility] [place] Comment on above: Welcome to Medicare preventive visit (Primary Dx); Controlled type 2 diabetes mellitus without complication, with long-term current use of insulin (HCC); Screening for AAA (abdominal aortic aneurysm); Abnormal EKG; Essential hypertension; Encounter for screening for cardiovascular disorders Start: 10-26-2021 End: 10-26-2021 Patient encounter status Maykel Bee MD Work Phone: [facility] [place] Start: 10-20-2021 Refill Maykel ferrari MD Work Phone: [facility] [place] Comment on above: Refill Request Start: 09-05-2021 Refill Mary Ann Hung TEAM FACILITATOR.MACHINING MANAGER Work Phone: Urology Comment on above: Refill Request Start: 08-29-2021 Refill Mindy Older TEAM FACILITATOR .MACHINING MANAGER Work Phone: [facility] [place] Comment on above: Refill Request Procedures Date Procedure Procedure Detail Performing Clinician Start: 11-24-2024 PFIZER-BIONTECH COVI D-19 VACCINE AGE 12+ YR ([facility]) Maykel Bee MD Work Phone: Start: 11-24-2024 Adult depression scr eening assessment Maykel Bee MD Work Phone: Start: 07-29-2024 Urnls dip stick/tabl et rgnt auto w/o microscopy April Leon MD Work Phone: Start: 05-27-2024 PFIZER-BIONTECH COVI D-19 VACCINE AGE 12+ YR ([facility]) Maykel Bee MD Work Phone: Start: 04-30-2024 Urnls dip stick/tabl et rgnt auto w/o microscopy April Leon MD Work Phone: Start: 02-26-2024 Radiologic exam ches t 2 views Lev Nikolai TEAM FACILITATOR.MACHINING MANAGER Work Phone: Start: 02-14-2024 Computerized ophthal sil imaging optic nerve Jasvir Thurman OD Work Phone: Start: 11-16-2023 PFIZER-BIONTECH COVI D-19 VACCINE (2022- [facility]) AGE 12+ YR Maykel Bee MD Work Phone: Start: 11-16-2023 Adult depression scr eening assessment Mindyangela Dean TEAM FACILITATOR.MACHINING MANAGER Work Phone: Start: 02-07-2023 INFLUENZA VACCINE, P RSV FREE, AGE 65+ YR, HIGH DOSE, QUADRIVALENT (FLUZONE HIGH-DOSE) Mindy Older TEAM FACILITATOR.MACHINING MANAGER Work Phone: Start: 11-08-2022 Ecg routine ecg w/le ast 12 lds i&r only [facility] Provider Start: 02-07-2022 INFLUENZA SEASONAL QUADRIVALENT HIGH DOSE AGE 65+ Mindy Older TEAM FACILITATOR.MACHINING MANAGER Work Phone: Start: 02-01-2022 Computerized ophthal sil imaging optic nerve Norm Jackson MD Work Phone: Start: 01-02-2022 Us abdominal aorta r eal time screen study aaa Maykel Bee MD Work Phone: Start: 10-26-2021 Hemoglobin A1c/Hemoglobin.total in Blood Maykel Bee MD Work Phone: Start: 10-26-2021 Adult depression scr eening assessment Maykel Bee MD Work Phone: Start: 08-10-2020 Adult depression scr eening assessment Mindy Older TEAM FACILITATOR.MACHINING MANAGER Work Phone: Start: 04-19-2020 Colonoscopy Mindy Older TEAM FACILITATOR.MACHINING MANAGER Work Phone: Plan of Treatment Date Care Activity Detail Author Start: 11-22-2029 Prostate specific antigen measurement Prostate Cancer Screening Discussion [facility] Start: 10-30-2029 Prostate specific antigen measurement Prostate Cancer Screening Discussion [facility] Start: 07-29-2029 Prostate specific antigen measurement Prostate Cancer Screening Discussion [facility] Start: 07-18-2029 Prostate specific antigen measurement Prostate Cancer Screening Discussion [facility] Start: 01-31-2029 Urine microalbumin profile [facility] Start: 01-22-2029 Prostate specific antigen measurement Prostate Cancer Screening Discussion [facility] Start: 07-16-2028 Prostate specific antigen measurement Prostate Cancer Screening Discussion [facility] Start: 01-19-2028 Prostate Cancer Screening Discussion Prostate Cancer Screening Discussion [facility] Start: 01-19-2028 Prostate specific antigen measurement Prostate Cancer Screening Discussion [facility] Start: 07-14-2027 PROSTATE CANCER SCREENING DISCUSSION PROSTATE CANCER SCREENING DISCUSSION [facility] Start: 03-30-2027 PROSTATE CANCER SCREENING DISCUSSION PROSTATE CANCER SCREENING DISCUSSION [facility] Start: 12-27-2026 PROSTATE CANCER SCREENING DISCUSSION PROSTATE CANCER SCREENING DISCUSSION [facility] Start: 06-30-2026 PROSTATE CANCER SCREENING DISCUSSION PROSTATE CANCER SCREENING DISCUSSION [facility] Start: 11-24-2025 Annual PCP Team Chronic Disease Visit Annual PCP Team Chronic Disease Visit [facility] Start: 11-24-2025 Anxiety Screening Anxiety Screening [facility] Start: 11-24-2025 Depression Screening Depression Screening [facility] Start: 11-24-2025 Diabetic foot examination Diabetic Foot Exam [facility] Start: 11-22-2025 Hepatitis B surface antibody level LDL Cholesterol [facility] Start: 06-30-2025 BP Controlled (<130/80) BP Controlled (<130/80) [facility] Start: 06-09-2025 End: 06-09-2025 Patient encounter procedure 06/09/2025 9:15 AM EST Office Visit Urology [address] [address] April Leon Jr., MD [address] [place] [address] follow up scan Urology Comment on above: follow up scan Start: 06-05-2025 End: 06-05-2025 Patient encounter procedure 06/05/2025 9:00 AM EST Appointment [facility] [address] [place], [place] [id number] Prostate cancer (HCC) [C61] [facility] Comment on above: Prostate cancer (HCC) [C61] Start: 06-04-2025 End: 09-03-2025 Prostate specific Ag [Mass/volume] in Serum or Plasma PROSTATE-SPECIFIC ANTIGEN DIAGNOSTIC Lab Routine Prostate cancer (HCC) Expected: 06/04/2025, Expires: 09/03/2025 [facility] Comment on above: Expected: 06/04/2025, Expires: Start: 05-27-2025 Annual PCP Team Chronic Disease Visit Annual PCP Team Chronic Disease Visit [facility] Start: 05-27-2025 BP Controlled (<130/80) BP Controlled (<130/80) [facility] Start: 05-27-2025 Diabetic foot examination Diabetic Foot Exam [facility] Start: 05-27-2025 End: 05-27-2025 Patient encounter procedure 05/27/2025 10:00 AM EST Office Visit [facility] [place] [address] [place] [address] Maykel Bee MD [address] [place] [address] 6 month follow-up [facility] [place] Comment on above: 6 month follow-up Start: 05-25-2025 Hemoglobin A1c measurement HbA1C [facility] Start: 05-19-2025 Hepatitis B screening Urine Albumin:Creatinine Ratio [facility] Start: 05-18-2025 End: 08-17-2025 Basic metabolic 2000 panel - Serum or Plasma BASIC METABOLIC PANEL Lab Routine Controlled type 2 diabetes mellitus without complication, with long-term current use of insulin (HCC) Expected: 05/18/2025, Expires: 08/17/2025 [facility] Work Phone: Comment on above: Expected: 05/18/2025, Expires: Start: 05-18-2025 End: 08-17-2025 Hemoglobin A1c in Blood HEMOGLOBIN A1C Lab Routine Controlled type 2 diabetes mellitus without complication, with long-term current use of insulin (HCC) Expected: 05/18/2025, Expires: 08/17/2025 [facility] Comment on above: Expected: 05/18/2025, Expires: Start: 05-18-2025 End: 08-17-2025 Microalbumin/Creatinine [Mass Ratio] in Urine ALBUMIN/CREATININE RATIO, URINE Lab Routine Controlled type 2 diabetes mellitus without complication, with long-term current use of insulin (HCC) Expected: 05/18/2025, Expires: 08/17/2025 [facility] Comment on above: Expected: 05/18/2025, Expires: Start: 05-18-2025 End: 05-18-2025 ambulatory 05/18/2025 7:30 AM EST Results Only [facility] [address] [place] [address] [facility] Start: 04-19-2025 Colonoscopy COLONOSCOPY [facility] Start: 04-19-2025 COLORECTAL CANCER SCREENING COLORECTAL CANCER SCREENING [facility] Start: 04-19-2025 Screening for malignant neoplasm of colon [facility] Start: 02-16-2025 End: 02-16-2025 Patient encounter procedure 02/16/2025 8:00 AM EDT Office Visit [facility] Ophthalmology [address] [place] [address] Jasvir Thurman, OD [address] [place] [address] 1 year diabetic eye exam Ophthalmology Comment on above: 1 year diabetic eye exam Start: 02-13-2025 Glaucoma screening Dilated Retinal Exam [facility] Start: 01-19-2025 Influenza vaccination Influenza Vaccine (#1) [facility]ott[facility] Toni espino Start: 01-17-2025 Annual PCP Team Chronic Disease Visit Annual PCP Team Chronic Disease Visit [facility] Start: 12-10-2024 Annual PCP Team Chronic Disease Visit Annual PCP Team Chronic Disease Visit [facility] Start: 12-02-2024 End: 12-02-2024 Patient encounter procedure 12/02/2024 11:00 AM EDT Office Visit Urology [address] [address] April Leon Jr., MD [address] [place] [address] 6 month follow up Urology Comment on above: 6 month follow up Start: 11-24-2024 End: 02-23-2025 CBC panel - Blood by Automated count COMPLETE BLOOD COUNT Lab Routine Essential hypertension Expected: 11/24/2024, Expires: 02/23/2025 [facility] Comment on above: Expected: 11/24/2024, Expires: Start: 11-24-2024 End: 02-23-2025 Comprehensive metabolic 2000 panel - Serum or Plasma COMPREHENSIVE METABOLIC PANEL Lab Routine Hyperlipidemia, unspecified hyperlipidemia type Expected: 11/24/2024, Expires: 02/23/2025 [facility] Work Phone: Comment on above: Expected: 11/24/2024, Expires: Start: 11-24-2024 Covid-19 Vaccine ( season) Covid-19 Vaccine () [facility] Start: 11-24-2024 End: 02-23-2025 Hemoglobin A1c in Blood HEMOGLOBIN A1C Lab Routine Controlled type 2 diabetes mellitus without complication, with long-term current use of insulin (HCC) Expected: 11/24/2024, Expires: 02/23/2025 [facility] Comment on above: Expected: 11/24/2024, Expires: Start: 11-24-2024 End: 02-23-2025 Lipid 1996 panel - Serum or Plasma LIPID PANEL BASIC Lab Routine Hyperlipidemia, unspecified hyperlipidemia type Expected: 11/24/2024, Expires: 02/23/2025 [facility] Comment on above: Expected: 11/24/2024, Expires: Start: 11-24-2024 End: 11-24-2024 Follow-up encounter 11/24/2024 12:00 PM EDT [facility] [place] [address] [place] [address] Maykel Bee MD [address] [place] [address] Annual Medicare Wellness w/6 month follow-up [facility] [place] Comment on above: Annual Medicare Wellness w/6 month follo w-up Start: 11-24-2024 End: 11-24-2024 ambulatory 11/24/2024 7:00 AM EDT Results Only [facility] Draw Station [address] [place] [address] [facility] Start: 11-17-2024 Hemoglobin A1c measurement HbA1C [facility] Start: 11-15-2024 Annual PCP Team Chronic Disease Visit Annual PCP Team Chronic Disease Visit [facility] Start: 11-15-2024 Anxiety Screening Anxiety Screening [facility] Start: 11-15-2024 Depression Screening Depression Screening [facility] Start: 11-11-2024 Hepatitis B surface antibody level LDL Cholesterol [facility] Start: 10-30-2024 End: 01-29-2025 Prostate specific Ag [Mass/volume] in Serum or Plasma PROSTATE-SPECIFIC ANTIGEN DIAGNOSTIC Lab Routine Prostate cancer (HCC) Expected: 10/30/2024, Expires: 01/29/2025 [facility] Work Phone: Comment on above: Expected: 10/30/2024, Expires: Start: 10-30-2024 End: 10-30-2024 ambulatory 10/30/2024 7:15 AM EDT Results Only [facility] [address] [place] [address] [facility] Start: 08-25-2024 End: 11-24-2024 Prostate specific Ag [Mass/volume] in Serum or Plasma PROSTATE-SPECIFIC ANTIGEN DIAGNOSTIC Lab Routine Prostate cancer (HCC) Expected: 08/25/2024, Expires: 11/24/2024 [facility] Work Phone: Comment on above: Expected: 08/25/2024, Expires: Start: 07-29-2024 End: 10-28-2024 Prostate specific Ag [Mass/volume] in Serum or Plasma [facility] Work Phone: Comment on above: Expected: 07/29/2024, Expires: Start: 07-29-2024 End: 07-29-2024 Patient encounter procedure 07/29/2024 9:00 AM EDT Office Visit Urology [address] [place] [address] April Leon Jr., MD [address] [place] [address] follow up 1 yr Urology Comment on above: follow up 1 yr Start: 07-18-2024 End: 07-18-2024 ambulatory 07/18/2024 9:00 AM EST Results Only [facility] [address] [place] [address] [facility] Draw Station Start: 07-15-2024 End: 10-14-2024 PSA/PROSTATE SPECIFIC ANTIGEN SCREENING PSA/PROSTATE SPECIFIC ANTIGEN SCREENING Lab Routine Prostate cancer screening Expected: 07/15/2024, Expires: 10/14/2024 [facility] Work Phone: Comment on above: Expected: 07/15/2024, Expires: Start: 07-03-2024 End: 10-02-2024 Urinalysis complete panel - Urine URINALYSIS (WITH MICROSCOPIC) WITH CULTURE IF INDICATED Lab Routine Urinary frequency Fever, unspecified fever cause Expected: 07/03/2024, Expires: 10/02/2024 [facility] Work Phone: Comment on above: Expected: 07/03/2024, Expires: Start: 05-27-2024 End: 05-27-2024 Patient encounter procedure 05/27/2024 1:15 PM EST Office Visit Urology [address] [address] April Leon Jr., MD [address] [place] [address] follow up, renal us prior Urology Comment on above: follow up, renal us prior Start: 05-27-2024 End: 05-27-2024 Patient encounter procedure 05/27/2024 8:40 AM EST Office Visit [facility] [place] [address] [place] [address] Maykel Bee MD [address] [facility] [place] [address] 6 month follow up [facility] [place] Comment on above: 6 month follow up Start: 05-21-2024 Advance Directive Discussion Advance Directive Discussion [facility] Start: 05-21-2024 Medicare Advantage Annual Wellness Visit Medicare Advantage Annual Wellness Visit [facility] Start: 05-19-2024 End: 05-19-2024 Patient encounter procedure 05/19/2024 9:15 AM EST Appointment Radiology [address] [place] [address] Kidney stone [N20.0] Radiology Comment on above: Kidney stone [N20.0] Start: 05-19-2024 End: 05-19-2024 ambulatory 05/19/2024 7:00 AM EST Results Only [facility] [address] [place] [address] [facility] Start: 05-17-2024 End: 08-16-2024 Basic metabolic 2000 panel - Serum or Plasma BASIC METABOLIC PANEL Lab Routine Controlled type 2 diabetes mellitus without complication, with long-term current use of insulin (HCC) Expected: 05/17/2024, Expires: 08/16/2024 [facility] Work Phone: Comment on above: Expected: 05/17/2024, Expires: Start: 05-17-2024 End: 08-16-2024 Hemoglobin A1c in Blood HEMOGLOBIN A1C Lab Routine Controlled type 2 diabetes mellitus without complication, with long-term current use of insulin (HCC) Expected: 05/17/2024, Expires: 08/16/2024 [facility] Comment on above: Expected: 05/17/2024, Expires: Start: 05-17-2024 End: 08-16-2024 Microalbumin/Creatinine [Mass Ratio] in Urine ALBUMIN/CREATININE RATIO, URINE Lab Routine Controlled type 2 diabetes mellitus without complication, with long-term current use of insulin (HCC) Expected: 05/17/2024, Expires: 08/16/2024 [facility] Comment on above: Expected: 05/17/2024, Expires: Start: 05-14-2024 End: 05-30-2025 US Kidney - bilateral and Urinary bladder US KIDNEY/BLADDER Radiology Routine Kidney stone Expected: 05/14/2024, Expires: 05/30/2025 [facility] Work Phone: Comment on above: Expected: 05/14/2024, Expires: Start: 05-13-2024 Hemoglobin A1c measurement HbA1C [facility] Start: 05-10-2024 Annual PCP Team Chronic Disease Visit Annual PCP Team Chronic Disease Visit [facility] Start: 05-10-2024 BP Controlled (<130/80) BP Controlled (<130/80) [facility] in Start: 05-10-2024 Diabetic foot examination Diabetic Foot Exam [facility] Start: 04-30-2024 Hepatitis B screening Urine Albumin:Creatinine Ratio [facility] Start: 03-12-2024 End: 03-12-2024 Patient encounter procedure 03/12/2024 2:20 PM EDT Office Visit Internal Medicine [place] [address] [place] [address] Maykel Bee MD [address] [place] [address] ec follow up Internal Medicine [place] Comment on above: ec follow up Start: 02-14-2024 Glaucoma screening Dilated Retinal Exam [facility] Start: 02-14-2024 Hepatitis C antibody, confirmatory test Dilated Retinal Exam [facility] Start: 02-14-2024 End: 02-14-2024 Patient encounter procedure Ophthalmology Comment on above: diabetic eye exam. 1 year for diabetic eye exam and OCT nerve Start: 02-08-2024 Annual PCP Team Chronic Disease Visit Annual PCP Team Chronic Disease Visit [facility] Start: 01-24-2024 End: 01-24-2024 ambulatory 01/24/2024 7:15 AM EDT Results Only [facility] [address] [place] [address] [facility] Start: 01-20-2024 Covid-19 Vaccine ( season) Covid-19 Vaccine () [facility] Start: 01-20-2024 Influenza vaccination Influenza Vaccine (#1) [facility] Start: 01-18-2024 End: 01-18-2024 Patient encounter procedure 01/18/2024 7:40 AM EDT Office Visit Internal Medicine [place] [address] [place] [address] Mindy Dean, TEAM FACILITATOR.MACHINING MANAGER [address] [place] [address] 2 month follow up BP [facility] [place] Comment on above: 2 month follow up BP Start: 12-28-2023 ANNUAL PCP TEAM CHRONIC DISEASE VISIT ANNUAL PCP TEAM CHRONIC DISEASE VISIT [facility] Start: 11-16-2023 End: 11-16-2023 Patient encounter procedure 11/16/2023 8:00 AM EDT Office Visit Internal Medicine [place] [address] [place] [address] Maykel Bee MD [address] [place] [address] Medicare Wellness w/6 month follow-up [facility] [place] Comment on above: Medicare Wellness w/6 month follow-up Start: 11-09-2023 ANNUAL PCP TEAM CHRONIC DISEASE VISIT ANNUAL PCP TEAM CHRONIC DISEASE VISIT [facility] Start: 11-01-2023 Hepatitis B surface antibody level LDL CHOLESTEROL [facility] Start: 10-30-2023 Hemoglobin A1c measurement HbA1C [facility] Start: 08-28-2023 Covid-19 Vaccine () Covid-19 Vaccine () [facility] Start: 08-08-2023 ANNUAL PCP TEAM CHRONIC DISEASE VISIT ANNUAL PCP TEAM CHRONIC DISEASE VISIT [facility] Start: 07-14-2023 Hepatitis B screening URINE ALBUMIN:CREATININE RATIO [facility] Start: 07-14-2023 Hepatitis B surface antibody level LDL CHOLESTEROL [facility] Start: 05-21-2023 Advance Directive Discussion Advance Directive Discussion [facility] Start: 05-21-2023 Behavioral Health Screening Behavioral Health Screening [facility] Start: 05-21-2023 Depression Assessment Depression Assessment [facility] Start: 05-10-2023 End: 07-10-2023 ALBUMIN/CREAT RATIO RND UR ALBUMIN/CREAT RATIO RND UR Lab Routine Controlled type 2 diabetes mellitus without complication, with long-term current use of insulin (HCC) Expected: 05/10/2023, Expires: 07/10/2023 [facility] Work Phone: Comment on above: Expected: 05/10/2023, Expires: 4 Start: 05-10-2023 End: 07-10-2023 Basic metabolic 2000 panel - Serum or Plasma BASIC METABOLIC PNL Lab Routine Controlled type 2 diabetes mellitus without complication, with long-term current use of insulin (HCC) Expected: 05/10/2023, Expires: 07/10/2023 [facility] Work Phone: Comment on above: Expected: 05/10/2023, Expires: 4 Start: 05-10-2023 End: 07-10-2023 Hemoglobin A1c in Blood HGB A1C Lab Routine Controlled type 2 diabetes mellitus without complication, with long-term current use of insulin (HCC) Expected: 05/10/2023, Expires: 07/10/2023 [facility] Work Phone: Comment on above: Expected: 05/10/2023, Expires: 4 Start: 05-02-2023 Hemoglobin A1c/Hemoglobin.total in Blood HBA1C [facility] Start: 02-07-2023 3 comp foot exam completed DIABETIC FOOT EXAM [facility] Start: 02-07-2023 ANNUAL PCP TEAM CHRONIC DISEASE VISIT ANNUAL PCP TEAM CHRONIC DISEASE VISIT [facility] Start: 02-07-2023 SHINGRIX VACCINE (1 of 2) SHINGRIX VACCINE (1 of 2) [facility] Comment on above: Postponed from 2006 (Declined at t his time) Start: 02-03-2023 Hepatitis B surface antibody level LDL CHOLESTEROL [facility] Start: 02-01-2023 Hepatitis C antibody, confirmatory test DILATED RETINAL EXAM [facility] Start: 01-30-2023 BP CONTROLLED (<130/80) BP CONTROLLED (<130/80) [facility] Start: 01-19-2023 Covid-19 Vaccine ( season) Covid-19 Vaccine ( season) [facility] Start: 01-19-2023 Influenza vaccination INFLUENZA (#1) [facility] Start: 01-16-2023 End: 03-18-2023 Prostate specific Ag [Mass/volume] in Serum or Plasma PSA/PROSTSPECAG DIAG Lab Routine Prostate cancer (HCC) Expected: 01/16/2023, Expires: 03/18/2023 [facility] Work Phone: Comment on above: Expected: 01/16/2023, Expires: 3 Start: 01-11-2023 Hemoglobin A1c/Hemoglobin.total in Blood HBA1C [facility] Start: 11-07-2022 End: 01-07-2023 Comprehensive metabolic 2000 panel - Serum or Plasma COMP METABOLIC PANEL Lab Routine Controlled type 2 diabetes mellitus without complication, with long-term current use of insulin (HCC) Expected: 11/07/2022, Expires: 01/07/2023 [facility] Work Phone: Comment on above: Expected: 11/07/2022, Expires: 3 Start: 11-07-2022 End: 01-07-2023 Hemoglobin A1c in Blood HGB A1C Lab Routine Controlled type 2 diabetes mellitus without complication, with long-term current use of insulin (HCC) Expected: 11/07/2022, Expires: 01/07/2023 [facility] Work Phone: Comment on above: Expected: 11/07/2022, Expires: Start: 11-07-2022 End: 01-07-2023 Lipid 1996 panel - Serum or Plasma LIPID PANEL BASIC Lab Routine Hyperlipidemia, unspecified hyperlipidemia type Expected: 11/07/2022, Expires: 01/07/2023 [facility] Work Phone: Comment on above: Expected: 11/07/2022, Expires: Start: 10-26-2022 Adult depression screening assessment DEPRESSION SCREENING [facility] Start: 10-26-2022 ANNUAL PCP TEAM CHRONIC DISEASE VISIT ANNUAL PCP TEAM CHRONIC DISEASE VISIT [facility] Start: 08-13-2022 COVID-19 VACCINE (6 - Pfizer series) COVID-19 VACCINE (6 - Pfizer series) [facility] Start: 08-03-2022 Hemoglobin A1c/Hemoglobin.total in Blood HBA1C [facility] Start: 07-25-2022 ANNUAL PCP TEAM CHRONIC DISEASE VISIT ANNUAL PCP TEAM CHRONIC DISEASE VISIT [facility] Start: 07-25-2022 BP CONTROLLED (<130/80) BP CONTROLLED (<130/80) [facility] Start: 07-18-2022 Hepatitis B screening URINE ALBUMIN:CREATININE RATIO [facility] Start: 07-18-2022 Hepatitis B surface antibody level LDL CHOLESTEROL [facility] Start: 07-12-2022 End: 09-11-2022 ALBUMIN/CREAT RATIO RND UR ALBUMIN/CREAT RATIO RND UR Lab Routine Controlled type 2 diabetes mellitus without complication, with long-term current use of insulin (HCC) Expected: 07/12/2022, Expires: 09/11/2022 [facility] Work Phone: Comment on above: Expected: 07/12/2022, Expires: Start: 07-12-2022 End: 09-11-2022 CBC panel - Blood by Automated count CBC Lab Routine Controlled type 2 diabetes mellitus without complication, with long-term current use of insulin ([facility]) Expected: 07/12/2022, Expires: 09/11/2022 [facility] Work Phone: Comment on above: Expected: 07/12/2022, Expires: 3 Start: 07-12-2022 End: 09-11-2022 Hemoglobin A1c in Blood HGB A1C Lab Routine Controlled type 2 diabetes mellitus without complication, with long-term current use of insulin ([facility]) Expected: 07/12/2022, Expires: 09/11/2022 [facility] Work Phone: Comment on above: Expected: 07/12/2022, Expires: 3 Start: 07-12-2022 End: 09-11-2022 Lipid 1996 panel - Serum or Plasma LIPID PANEL BASIC Lab Routine Hyperlipidemia, unspecified hyperlipidemia type Expected: 07/12/2022, Expires: 09/11/2022 [facility] Work Phone: Comment on above: Expected: 07/12/2022, Expires: 3 Start: 07-12-2022 End: 09-11-2022 PSA/PROSTSPECAG SCRN PSA/PROSTSPECAG SCRN Lab Routine Prostate cancer ([facility]) Expected: 07/12/2022, Expires: 09/11/2022 [facility] Work Phone: Comment on above: Expected: 07/12/2022, Expires: 3 Start: 05-21-2022 ADVANCE DIRECTIVE DISCUSSION ADVANCE DIRECTIVE DISCUSSION [facility] Start: 05-21-2022 DEPRESSION ASSESSMENT DEPRESSION ASSESSMENT [facility] Start: 04-27-2022 Hemoglobin A1c/Hemoglobin.total in Blood HBA1C [facility] Start: 02-21-2022 3 comp foot exam completed DIABETIC FOOT EXAM [facility] Start: 01-26-2022 End: 03-28-2022 Comprehensive metabolic 2000 panel - Serum or Plasma COMP METABOLIC PANEL Lab Routine Controlled type 2 diabetes mellitus without complication, with long-term current use of insulin ([facility]) Expected: 01/26/2022, Expires: 03/28/2022 [facility] Work Phone: Comment on above: Expected: 01/26/2022, Expires: 2 Start: 01-26-2022 End: 03-28-2022 Hemoglobin A1c/Hemoglobin.total in Blood HGB A1C Lab Routine Controlled type 2 diabetes mellitus without complication, with long-term current use of insulin ([facility]) Expected: 01/26/2022, Expires: 03/28/2022 [facility] Work Phone: Comment on above: Expected: 01/26/2022, Expires: 2 Start: 01-26-2022 End: 03-28-2022 LIPID PANEL BASIC LIPID PANEL BASIC Lab Routine Controlled type 2 diabetes mellitus without complication, with long-term current use of insulin ([facility]) Expected: 01/26/2022, Expires: 03/28/2022 [facility] Work Phone: Comment on above: Expected: 01/26/2022, Expires: 2 Start: 01-19-2022 Hepatitis C antibody, confirmatory test DILATED RETINAL EXAM [facility] Start: 01-19-2022 Influenza vaccination INFLUENZA (#1) [facility] Start: 01-15-2022 Hemoglobin A1c/Hemoglobin.total in Blood HBA1C [facility] Start: 12-13-2021 PNEUMOCOCCAL: 65+ (3 - PPSV23 or PCV20) PNEUMOCOCCAL: 65+ (3 - PPSV23 or PCV20) [facility] Start: 12-13-2021 PNEUMOCOCCAL: 65+ (4 - PPSV23 or PCV20) PNEUMOCOCCAL: 65+ (4 - PPSV23 or PCV20) [facility] Start: 11-29-2021 COVID-19 VACCINE (5 - Booster for Pfizer series) COVID-19 VACCINE (5 - Booster for Pfizer series) [facility] Start: 11-02-2021 End: 11-25-2022 NM CARDIAC PERF STRESS/EXERCISE [facility] Work Phone: Comment on above: Expected: 11/02/2021, Expires: 3 Start: 08-10-2021 Adult depression screening assessment DEPRESSION SCREENING [facility] Start: 07-16-2021 COVID-19 VACCINE (4 - Booster for Pfizer series) COVID-19 VACCINE (4 - Booster for Pfizer series) [facility] Start: 2021 ADVANCE DIRECTIVE DISCUSSION ADVANCE DIRECTIVE DISCUSSION [facility] Start: 2021 PNEUMOVAX AGE 65 AND OVER WITH 5YR LOOKBACK (#1) PNEUMOVAX AGE 65 AND OVER WITH 5YR LOOKBACK (#1) [facility] Start: 05-21-2021 DEPRESSION ASSESSMENT DEPRESSION ASSESSMENT [facility] Start: 10-23-2019 BP CONTROLLED (<130/80) BP CONTROLLED (<130/80) [facility] Start: 2016 Hepatitis B Vaccine (1 of 3 - Risk 3-dose series) Hepatitis B Vaccine (1 of 3 - Risk 3-dose series) [facility] Start: 2016 RSV Vaccine (1 - 1-dose 60+ series) RSV Vaccine (1 - 1-dose 60+ series) [facility] Start: 2016 RSV Vaccine (1 - Risk 60-74 years 1-dose series) RSV Vaccine (1 - Risk 60-74 years 1-dose series) [facility] Start: 2006 SHINGRIX VACCINE (1 of 2) SHINGRIX VACCINE (1 of 2) [facility] Start: 2001 COLOGUARD (FIT-DNA) COLOGUARD (FIT-DNA) [facility] Start: [address] COLONOGRAPHY [facility] Start: 2001 FECAL OCCULT BLOOD FECAL OCCULT BLOOD [facility] Start: 2001 Screening for malignant neoplasm of colon [facility] Start: 2001 SIGMOIDOSCOPY SIGMOIDOSCOPY [facility] Start: 1975 SHINGRIX VACCINE (1 of 2) SHINGRIX VACCINE (1 of 2) [facility] Start: 1956 ABDOMINAL AORTIC ANEURYSM SCREENING ABDOMINAL AORTIC ANEURYSM SCREENING [facility] COVID & INFLUENZA A/ B & RSV PCR, ROUTINE COVID & INFLUENZA A/B & RSV PCR, ROUTINE Microbiology Routine URI, acute Ordered: 06/30/2024 [facility] Work Phone: Comment on above: Ordered: 06/30/2024 End: 11-09-2023 ECG COMPLETE ECG COMPLETE ECG Routine Irregular heart beat 1 Occurrences starting 11/08/2022 until 11/09/2023 [facility] Work Phone: Comment on above: 1 Occurrences starting 11/08/2022 until 11/09/2023 ECG COMPLETE ECG COMPLETE ECG 11/08/2022 2:18 PM EDT [facility] End: 01-01-2026 MR Prostate WO and W contrast IV MRI PROSTATE WO/W IVCON Radiology Routine Prostate cancer (HCC) 1 Occurrences starting 12/02/2024 until 01/01/2026 [facility] Work Phone: Comment on above: 1 Occurrences starting 12/02/2024 until 01/01/2026 End: 04-29-2023 Mri pelvis w/o & w/contrast material MRI PROSTATE WO/W IVCON Radiology Routine Erectile dysfunction, unspecified erectile dysfunction type Prostate cancer (HCC) 1 Occurrences starting 03/30/2022 until 04/29/2023 [facility] Work Phone: Comment on above: 1 Occurrences starting 03/30/2022 until 04/29/2023 End: 05-31-2022 Mri pelvis w/o & w/contrast material [facility] Work Phone: Comment on above: 1 Occurrences starting 05/31/2022 until 05/31/2022 Removal impacted cer umen instrumentation unilat REMOVAL OF IMPACTED CERUMEN - INSTRUMENTATION Procedures Routine Impacted cerumen of left ear Ordered: 04/03/2024 [facility] Work Phone: Comment on above: Ordered: 04/03/2024 End: 11-25-2022 Us abdominal aorta real time screen study aaa US SCREENING FOR AAA Radiology Routine Screening for AAA (abdominal aortic aneurysm) 1 Occurrences starting 10/26/2021 until 11/25/2022 [facility] Work Phone: Comment on above: 1 Occurrences starting 10/26/2021 until 11/25/2022 US Kidney - bilatera l and Urinary bladder US KIDNEY/BLADDER Radiology Routine Kidney stone 05/19/2024 9:10 AM EST [facility] Work Phone: [facility] Immunizations Immunization Date Immunization Notes Care Provider Fa smiley 11-24-2024 COVID-19 vaccine, ag e 12+ yr (PFIZER-BIONTECH COMIRNATY) Maykel Bee MD Work Phone: [facility] 05-27-2024 COVID-19 vaccine, ag e 12+ yr (PFIZER-BIONTECH COMIRNATY) Maykel Bee MD Work Phone: [facility] 05-27-2024 influenza, high dose seasonal, preservative-free Maykel Bee MD Work Phone: [facility] 05-27-2024 influenza virus vaccine, unspecified formulation Maykel Bee MD Work Phone: [facility] 11-16-2023 COVID-19 vaccine, ag e 12+ yr, season (PFIZER-BIONTECH) Maykel Bee MD Work Phone: [facility] 02-07-2023 influenza (HD-IIV4) vaccine, age 65+ yr, high dose, quadrivalent, PF (FLUZONE HIGH-DOSE) Mindy Older TEAM FACILITATOR.MACHINING MANAGER Work Phone: [facility] Work Phone: 02-07-2023 influenza virus vaccine, unspecified formulation Mindy Dianne TEAM FACILITATOR.MACHINING MANAGER Work Phone: [facility] 02-07-2022 influenza, high-dose , quadrivalent vaccine (FLUZONE HIGH DOSE QUADRIVALENT) Mindy Older TEAM FACILITATOR.MACHINING MANAGER Work Phone: [facility] Work Phone: 02-21-2021 influenza, injectabl e, quadrivalent, contains preservative Mindy Older TEAM FACILITATOR.MACHINING MANAGER Work Phone: [facility] Work Phone: 12-13-2020 pneumococcal conjuga te vaccine, 13 valent Mindy Older TEAM FACILITATOR.[facility] Work Phone: [facility] Work Phone: 08-25-2020 COVID-19 vaccine, ag e 12+ yr (PFIZER-BIONTECH - [facility]) Mindy Older TEAM FACILITATOR.[facility] Work Phone: [facility] Work Phone: 08-04-2020 COVID-19 vaccine, ag e 12+ yr (PFIZER-BIONTECH - [facility]) Mindy Older TEAM FACILITATOR.[facility] Work Phone: [facility] Work Phone: 02-05-2020 influenza, injectabl e, quadrivalent, contains preservative Mindy Older TEAM FACILITATOR.[facility] Work Phone: [facility] Work Phone: 01-31-2019 influenza, injectabl e, quadrivalent, contains preservative Mindy Older TEAM FACILITATOR.[facility] Work Phone: [facility] Work Phone: 01-31-2019 tetanus and diphther ia toxoids, adsorbed, preservative free, for adult use (5 Lf of tetanus toxoid and 2 Lf of diphtheria toxoid) Mindy Older TEAM FACILITATOR.[facility] Work Phone: [facility] Work Phone: 01-25-2018 influenza, injectabl e, quadrivalent, contains preservative Mindy Older TEAM FACILITATOR.MACHINING MANAGER Work Phone: [facility] 01-24-2017 influenza, injectabl e, quadrivalent, contains preservative Mindy Older TEAM FACILITATOR.MACHINING MANAGER Work Phone: [facility] 04-08-2015 influenza, injectabl e, quadrivalent, contains preservative Mindy Older TEAM FACILITATOR.MACHINING MANAGER Work Phone: [facility] 04-08-2015 influenza, seasonal, injectable Mindy Older TEAM FACILITATOR.MACHINING MANAGER Work Phone: [facility] Work Phone: 03-02-2014 influenza, seasonal, injectable Mindy Older TEAM FACILITATOR.MACHINING MANAGER Work Phone: [facility] 11-25-2013 pneumococcal polysaccharide vaccine, 23 valent Mindy Older TEAM FACILITATOR.MACHINING MANAGER Work Phone: [facility] 06-19-2013 influenza virus vaccine, unspecified formulation Mindy Older TEAM FACILITATOR.MACHINING MANAGER Work Phone: [facility] 04-03-2012 influenza virus vaccine, unspecified formulation Mindy Older TEAM FACILITATOR.MACHINING MANAGER Work Phone: [facility] Work Phone: 08-20-2007 tetanus toxoid, redu kaylah diphtheria toxoid, and acellular pertussis vaccine, adsorbed Mindy Older TEAM FACILITATOR.[facility] Work Phone: [facility] Work Phone: 07-17-2006 pneumococcal polysaccharide vaccine, 23 valent Mindy Older TEAM FACILITATOR.[facility] Work Phone: [facility] Work Phone: Payers Date Payer Category Payer Self-pay 2021 Medicare AETNA MEDICARE A ETNA MEDICARE PPO [id number] 2021-Present [phone] [address] [place] [address] [facility] [id number] 2021 Medicare AETNA MEDICARE A ETNA MEDICARE PPO [id number] 2021-Present [phone] [address] [place] [address] PP [id number] 2021 Medicare (Managed Care) [employer] [place] [id number] 2021 Medicare [id number] Unknown [id number] Unknown [id number] Unknown [id number] Unknown [id number] Social History Date Type Detail Facility Start: 03-08-2015 End: 01-18-2024 Tobacco smoking status NHIS Occasional tobacco smoker [facility] History of tobacco use Cigarette Smoker C [facility] Start: 03-08-2015 End: 01-18-2024 Tobacco use and exposure Smokeless tobacco non-user [facility] Start: 07-25-2021 End: 12-02-2024 Alcohol intake Current drinker of alcohol (finding) [facility] Start: 07-25-2021 End: 11-08-2022 Alcohol intake [facility] Start: 08-10-2020 End: 11-08-2022 History SDOH Alcohol Frequency 3 [facility] Start: 08-10-2020 End: 08-02-2022 History SDOH Alcohol Std Drinks 1 [facility] Start: 03-08-2015 History SDOH Alcohol Comment occasionally [facility] Start: 08-10-2020 End: 08-02-2022 History SDOH Social Connections Phone 5 [facility] Start: 08-10-2020 History SDOH Social Connections Get Together 98 [facility] Start: 08-10-2020 End: 08-02-2022 History SDOH Social Connections Meetings 2 [facility] Start: 08-10-2020 Education 18 [facility] Start: 01-24-2017 End: 01-30-2022 Tobacco Comment periodic [facility] Start: 1955 Sex Assigned At Male [facility] Start: 10-26-2021 End: 11-08-2022 History SDOH Physical Activity DPW 4 [facility] Start: 10-16-2021 End: 02-07-2022 Exposure to SARS-CoV-2 (event) Not sure [facility] Work Phone: Start: 08-02-2022 End: 11-08-2022 Social connection and isolation panel [facility] Do you belong to any clubs or organizations such as mormon groups, unions, fraternal or athletic groups, or school groups? Yes [facility] Are you now , , , , never or living with a partner? [facility] How often to you hav e a drink containing alcohol? 2-4 times a month [facility] How many standard dr inks containing alcohol do you have on a typical day? 1 or 2 [facility] How often do you hav e 6 or more drinks on 1 occasion? Less than monthly [facility] Start: 04-21-2012 How hard is it for you to pay for the very basics like food, housing, medical care, and heating Not hard at all [facility] Do you feel stress - tense, restless, nervous, or anxious, or unable to sleep at night because your mind is troubled all the time - these days [OSQ] Not at all [facility] (I/We) worried wheth er (my/our) food would run out before (I/we) got money to buy more. Never true [facility] In the past 12 month s, was there a time when you were not able to pay the mortgage or rent on time? No [facility] Start: 12-13-2020 Gender identity Identifies as male gender (finding) [facility] How often do you hav e 6 or more drinks on 1 occasion? Never [facility] Medical Equipment Procedure Code Equipment Code Equipment Original Text Equipment Identifier Dates [id number], [id number], [id number] Start: 11-05-2017 End: 11-24-2024 Comment on above: Test blood sugar(s) 3 times daily. Dx: Type 2 DM - unontrolled E11.65. Insulin: Yes. [employer]. Use 1 pen needle onc e daily for insulin injection. Dx: E11.65 Functional Status Date Assessment Result Facility 07-24-2016 Are you deaf, or do you have serious difficulty hearing No 07/24/2016 8:35 AM Maykel Dorman MD No [facility] 07-24-2016 Are you blind, or do you have serious difficulty seeing, even when wearing glasses No 07/24/2016 8:35 AM Maykel Dorman MD No [facility] 07-24-2016 Do you have serious difficulty walking or climbing stairs No 07/24/2016 8:35 AM Maykel Dorman MD No [facility] 07-24-2016 Do you have difficul ty dressing or bathing No 07/24/2016 8:35 AM Maykel Dorman MD No [facility] 07-24-2016 Because of a physica l, mental, or emotional condition, do you have difficulty doing errands alone such as visiting a physician's office or shopping No 07/24/2016 8:35 AM Maykel Dorman MD [facility] Mental Status Date Assessment Result Facility 07-24-2016 Because of a physica l, mental, or emotional condition, do you have serious difficulty concentrating, remembering, or making decisions No 07/24/2016 8:35 AM Maykel Dorman MD [facility] Clinical Notes 07-24-2017 to 03-27-2025 Telephone Encounter - Alysa Almodovar MA - 02/02/2025 7:33 AM EDTTelephone Encounter - Alysa Almodovar MA - 02/02/2025 7:33 AM April Espinosa Jr., MD - 12/02/2024 10:38 AM EDTPatient Instructions Note Date & Type Note Facility 03-27-2025 Note HNO ID: [id number] Author: ?, ?, ? Service: ? Author Type: ? Type: Progress Notes Filed: 03/27/2025 15:49 Note Text: POPULATION HEALTH NAVIGATION OUTREACH Action/FYI Pt scheduled for UACR labs 05/18/25 Reason for Outreach Deep Dive Chart Review only Navigation Signature: Tanna Limon March 27, 2025 3:48 PM [facility] 03-27-2025 Note Patient Outreach (MELBA MALIK) LEANDRA EL ([id number]) 1955 M Date Time Provider Department 03/27/25 MAYKEL BEE During your visit today, we recorded the following information about you: Tanna Limon 03/27/2025 3:49 PM Signed POPULATION HEALTH NAVIGATION OUTREACH Action/FYI Pt scheduled for UACR labs 05/18/25 Reason for Outreach Deep Dive Chart Review only Navigation Signature: Tanna Limon March 27, 2025 3:48 PM Allergies As of Date: 03/27/2025 Noted Allergy Reaction SEASONAL ALLERGIES 02/26/2024 5 - Intolerance Date Reviewed: 02/16/2025 Reviewed by: Jasvir Thurman OD - Fully Assessed Reason for Visit: Population Health Navigation Outreach [3910] Cmt: [employer] Deep Dive - KED Prescriptions as of 03/27/2025 - tamsulosin (FLOMAX) 0.4 mg Take 1 capsule by mouth once daily. 30 minutes after the same meal each day. - clotrimazole (LOTRIMIN) 1 % cream Apply thin layer to rash on armpits twice a day. Continue for two weeks after rash has resolved - dapagliflozin propanediol (FARXIGA) 10 mg tablet Take 1 tablet by mouth daily with breakfast. - insulin needles, DISPOSABLE, (PEN NEEDLE) 31 gauge x 5/16 Use 1 pen needle once daily for insulin injection. Dx: E11.65 - amLODIPine (NORVASC) 2.5 mg tablet Take 1 tablet by mouth once daily. - glipiZIDE (GLUCOTROL) 5 mg tablet Take 1 tablet by mouth two times a day before meals. - atorvastatin (LIPITOR) 20 mg tablet Take 1 tablet by mouth once daily. - lisinopril (ZESTRIL) 40 mg tablet Take 1 tablet by mouth once daily. - insulin glargine (BASAGLAR KWIKPEN U-100 INSULIN) 100 unit/mL (3 mL) Inject 45 Units subcutaneously daily at bedtime. - metFORMIN (GLUCOPHAGE) 500 mg tablet Take 2 tablets by mouth two times a day with meals. - dulaglutide (TRULICITY) 3 mg/0.5 mL pen injector Inject 3 mg subcutaneously one time a week. - sildenafil (VIAGRA) 50 mg tablet Take 1 tablet by mouth as needed. - Blood-Glucose Meter (FREESTYLE LITE METER) monitoring kit Freestyle LITE Meter Kit - Dx: Type 2 DM - uncontrolled E11.65. Insulin: Yes. - blood sugar diagnostic test strip Test blood sugar(s) 3 times daily. Dx: Type 2 DM - unontrolled E11.65. Insulin: Yes. [employer]. - ASPIRIN 81 MG TAB Take one(1) tablet daily. Problem List As Of Date 03/27/2025 Noted Resolved Essential hypertension [I10] 09/27/2005 Hyperlipemia [E78.5] 09/27/2005 IMPAIRED FASTING GLUCOSE [R73.01] 09/27/2005 06/29/2006 Controlled type 2 diabetes mellitus without com*12/04/2012 Other affections of shoulder region, not elsewh*12/06/2012 12/03/2014 History of actinic keratosis [Z87.2] 01/24/2017 Elevated prostate specific antigen (PSA) [R97.2*07/24/2017 11/16/2023 Erectile dysfunction [N52.9] 01/14/2018 Prostate cancer (HCC) [C61] 10/22/2018 Seasonal allergies [J30.2] 10/12/2020 Obesity, Class I, BMI 30-34.9 [E66.811] 07/25/2021 Paronychia of finger [L03.019] 02/01/2022 02/07/2022 Ureterolithiasis [N20.1] 03/02/2024 Chronic serous otitis media of both ears [H65.2*04/22/2024 Heart murmur [R01.1] 11/24/2024 Encounter Status:Closed by TANNA LIMON on 03/27/25 [facility] 02-16-2025 Note HNO ID: [id number] Author: JASVIR THURMAN OD Service: ? Author Type: Foam Rubber Curer Type: Progress Notes Filed: 02/16/2025 08:43 Note Text: 1. Type 2 diabetes mellitus without retinopathy (HCC) (Primary) HbA1c reviewed Educated patient to continue care and current treatment regimen with primary care doctor and/or director fundraising to maintain optimum levels as they are important to avoid ocular complications Encouraged patient to call the office immediately with any changes to vision or visual concerns 2. Pseudophakia Continue with OTC readers 3. Dry eye syndrome of bilateral lacrimal glands Advised to use Pataday and Systane pro PF as needed Follow-up in 1 year for diabetic eye exam or sooner as needed I have confirmed and edited as necessary the relevant HPI, ophthalmic history, ROS, and the neuro exam findings as obtained by others. I have seen and examined Leandra El. I have discussed the case and the management of this patient's care with the Resident/Fellow, if applicable. I also have reviewed and agree with the assessment and plan as stated above and agree with all of its relevant components. Jasvir Thurman, OD February 16, 2025 8:41 AM [facility] 02-02-2025 Telephone encounter Note Patient MyChart message requesting the following refill. Requested Prescriptions Pending Prescriptions Disp Refills tamsulosin (FLOMAX) 0.4 mg 90 capsule 0 Sig: Take 1 capsule by mouth once daily. 30 minutes after the same meal each day. Patient last appointment: 12/02/2024 Patient Phone numbers: [phone] (home) Request is for script(s) to be escript to pharmacy. Alysa Almodovar MA [facility] 02-02-2025 Miscellaneous Notes Patient MyChart message requesting the following refill. Requested Prescriptions Pending Prescriptions Disp Refills tamsulosin (FLOMAX) 0.4 mg 90 capsule 0 Sig: Take 1 capsule by mouth once daily. 30 minutes after the same meal each day. Patient last appointment: 12/02/2024 Patient Phone numbers: [phone] (home) Request is for script(s) to be escript to pharmacy. Alysa Almodovar MA documented in this encounter [facility] 12-02-2024 Note HNO ID: [id number] Author: APRIL LEON JR, MD Service: ? Author Type: Physician Type: Progress Notes Filed: 12/02/2024 10:46 Note Text: ESTABLISHED PATIENT OFFICE VISIT HPI Leandra El is a 69 year old male who presents for follow up of prostate cancer. Patient had Alameda 6 prostate cancer diagnosed in 2019. PSA has been stable on active surveillance. PSA most recently 5.68 on 01/23/24. Patient was diagnosed with a 4mm L UVJ calculus in 02/2024 in [place]. States that left flank pain has resolved. KUB performed on 04/16 revealed no large radio-opaque calculi. CT imaging on 04/18 at [facility] demonstrated a 3mm right distal ureteral stone. States that he had a temperature of 100.4F. Creatinine was 1.54. No fevers or chills since then. Patient states that pain resolved 4-5 days ago. Denies fevers and chills. 05/27/24 - since last seen no symptoms. Renal us no hydro. Has 4mm r renal calc remaining. No fever. No uti. Luts ok. Stone prevention discussed 07/29/24 Prostate Cancer Consultation Note Mr Leandra El was diagnosed with Clinical Stage(1c) Alameda's score 6 (3+3) adenocarcinoma of the prostate with an associated PSA of 9.67 and an estimated prostatic volume of 46. He had 2 of 12 cores positive with disease identified in the 2 portion(s) of the prostate. The patient presents alone and I have discussed his apparent localized prostate cancer at length. Specifically we discussed the Avril score, number and percent of cores involved with disease, the wilmer tables risk stratification criteria which are based upon the Avril score, PSA, and clinical T stage. Based upon the clinical features the patient falls into low risk category for 10 year biochemical disease free survival regardless of which therapeutic modality he chooses. He understands that there is a small, but real, chance of occult metastatic disease and the logic of when metastatic workup is appropriate. We discussed various options for management of his disease including watchful waiting, active surveillance, radiation modality and surgical extirpation. The options of watchful waiting or active surveillence were gone over and what these would entail, with selective delayed intervention, hormonal therapy in its various forms. The protocol for periodic PSA tests and repeating his transrectal prostate ultrasound, without or with prostate biopsy was covered. With respect to surgical intervention we compared and contrasted open, laparoscopic and robotic prostatectomy with or without bilateral pelvic lymphadenectomy. We compared these with respect to cancer control, urinary control, and erectile dysfunction. I explained that any patient undergoing treatment for prostate cancer may need additional therapy. The possibility of severe or total loss of urinary control, possibly needed surgery to implant an artificial urinary sphincter is possible after prostate cancer surgery. The possibility of loss of erections, and the possible treatment options was discussed. The other potential downside, including but not limited to urethral stricture, bladder neck contracture. I explained to him that robotic prostatectomy is a major surgical procedure and has possible major complications including, but not limited to bleeding requiring transfusion, rectal injury requiring a temporary colostomy, damage to abdominal structure, infection, myocardial infarction, stroke, deep vein thrombosis/ pulmonary embolism, or open conversion. We discussed the procedure related morbidity, hospitalization, and convalescence period. We have reviewed the recent data, which would show that at least one out of ten patients undergoing radical prostatectomy will have at least one complication whether minor or major, and this could be as high as 25% (one in four). We have discussed that with surgical intervention. We also discussed radiation therapy; external beam, and out-patient brachytherapy as well as the attendant procedure related morbidity as it relates to the low but known risk of long-term urinary frequency, urgency, urgency with bowel movements and risk of urethral radiation injury. We also discussed time commitment for the external beam therapy being once a day, five days a week for 5-7 weeks during which most people can continue normal daily activities. I described the likelihood of flare up of hemorrhoids, and mild decrease in physical stamina during the later portion of the treatments. We discussed the time frame for PSA response that would indicate efficacy of the radiation therapy. A referral to radiation oncology was offered. Additionally, we discussed cryosurgical ablation of the prostate (with without nerve sparing). Specifically, we discussed the procedure related morbidity, risk of rectal injury, urinary incontinence, post cryo urinary frequency and urgency, and risk of impotence. We als (more content not included)... [facility] 12-02-2024 History of Presen t illness Narrative ESTABLISHED PATIENT OFFICE VISIT HPI Leandra El is a 69 year old male who presents for follow up of prostate cancer. Patient had Avril 6 prostate cancer diagnosed in 2019. PSA has been stable on active surveillance. PSA most recently 5.68 on 01/23/24. Patient was diagnosed with a 4mm L UVJ calculus in 02/2024 in [place]. States that left flank pain has resolved. KUB performed on 04/16 revealed no large radio-opaque calculi. CT imaging on 04/18 at [facility] demonstrated a 3mm right distal ureteral stone. States that he had a temperature of 100.4F. Creatinine was 1.54. No fevers or chills since then. Patient states that pain resolved 4-5 days ago. Denies fevers and chills. 05/27/24 - since last seen no symptoms. Renal us no hydro. Has 4mm r renal calc remaining. No fever. No uti. Luts ok. Stone prevention discussed 07/29/24 Prostate Cancer Consultation Note Mr Leandra El was diagnosed with Clinical Stage(1c) Avril's score 6 (3+3) adenocarcinoma of the prostate with an associated PSA of 9.67 and an estimated prostatic volume of 46. He had 2 of 12 cores positive with disease identified in the 2 portion(s) of the prostate. The patient presents alone and I have discussed his apparent localized prostate cancer at length. Specifically we discussed the Avril score, number and percent of cores involved with disease, the wilmer tables risk stratification criteria which are based upon the Alameda score, PSA, and clinical T stage. Based upon the clinical features the patient falls into low risk category for 10 year biochemical disease free survival regardless of which therapeutic modality he chooses. He understands that there is a small, but real, chance of occult metastatic disease and the logic of when metastatic workup is appropriate. We discussed various options for management of his disease including watchful waiting, active surveillance, radiation modality and surgical extirpation. The options of watchful waiting or active surveillence were gone over and what these would entail, with selective delayed intervention, hormonal therapy in its various forms. The protocol for periodic PSA tests and repeating his transrectal prostate ultrasound, without or with prostate biopsy was covered. With respect to surgical intervention we compared and contrasted open, laparoscopic and robotic prostatectomy with or without bilateral pelvic lymphadenectomy. We compared these with respect to cancer control, urinary control, and erectile dysfunction. I explained that any patient undergoing treatment for prostate cancer may need additional therapy. The possibility of severe or total loss of urinary control, possibly needed surgery to implant an artificial urinary sphincter is possible after prostate cancer surgery. The possibility of loss of erections, and the possible treatment options was discussed. The other potential downside, including but not limited to urethral stricture, bladder neck contracture. I explained to him that robotic prostatectomy is a major surgical procedure and has possible major complications including, but not limited to bleeding requiring transfusion, rectal injury requiring a temporary colostomy, damage to abdominal structure, infection, myocardial infarction, stroke, deep vein thrombosis/ pulmonary embolism, or open conversion. We discussed the procedure related morbidity, hospitalization, and convalescence period. We have reviewed the recent data, which would show that at least one out of ten patients undergoing radical prostatectomy will have at least one complication whether minor or major, and this could be as high as 25% (one in four). We have discussed that with surgical intervention. We also discussed radiation therapy; external beam, and out-patient brachytherapy as well as the attendant procedure related morbidity as it relates to the low but known risk of health informatics specialist urinary frequency, urgency, urgency with bowel movements and risk of urethral radiation injury. We also discussed time commitment for the external beam therapy being once a day, five days a week for 5-7 weeks during which most people can continue normal daily activities. I described the likelihood of flare up of hemorrhoids, and mild decrease in physical stamina during the later portion of the treatments. We discussed the time frame for PSA response that would indicate efficacy of the radiation therapy. A referral to radiation oncology was offered. Additionally, we discussed cryosurgical ablation of the prostate (with without nerve sparing). Specifically, we discussed the procedure related morbidity, risk of rectal injury, urinary incontinence, post cryo urinary frequency and urgency, and risk of impotence. We also discussed the outpatient nature of the procedure, minimal need for pain medication and the need for a urinary catheter for 2-weeks following the procedure and the time frame of PSA response that would reflect the efficacy of the cryosurgical procedure and the follow up that would be involved. Finally, with respect to the cryosurgical procedure we discussed that to date we do not have long-term (10-year) outcomes data, however, the published data do compare favorably to other treatment modalities and there have been no data that indicate any superiority of one prostate cancer treatment modality over another. I answered all of his questions today and encouraged him to call me if any other questions come to mind. He expressed understanding today's conversation. Total oxug-tu-msff discussion >30 min; and >50% of that time was spent in counseling. No ab surgeries Healthy L NSS + amniox 12/02/24 - doing well since last seen. Recheck psa down to 6.41 then up to 7.09. options rediscussed. Last mri prostate 06/12. Would like to continue with active surveillance. Luts controlled on flomax LAB: Creatinine Date Value Ref Range Status 11/22/2024 0.91 0.73 - 1.22 mg/dL Final PSA (ng/mL) Date Value 11/22/2024 7.03 10/30/2024 6.41 07/29/2024 7.94 01/23/2024 5.68 07/16/2023 5.93 01/18/2023 5.74 03/30/2022 5.54 12/27/2021 4.70 06/30/2021 4.92 02/09/2021 4.12 11/27/2020 4.47 07/31/2020 3.92 05/18/2020 4.01 01/29/2020 4.22 10/22/2019 4.64 07/24/2019 3.65 01/03/2019 3.02 10/04/2018 3.36 PSA Screening (ng/mL) Date Value 07/18/2024 9.67 07/14/2022 5.81 Glucose, Urine (mg/dL) Date Value 07/24/2017 >=500 Bilirubin, Urine (no units) Date Value 07/24/2017 Negative Ketones, Urine (no units) Date Value 07/24/2017 Negative Specific [place], Ur (no units) Date Value 07/24/2017 1.033 Hemoglobin/Blood,Ur ( ) Date Value 07/24/2017 Negative pH, Urine (no units) Date Value 07/24/2017 5.0 Protein, Urine (mg/dL) Date Value 07/24/2017 Negative Nitrites (no units) Date Value 07/24/2017 Negative WBC, Urine (/HPF) Date Value 07/24/2017 0-5 MEDICATIONS: clotrimazole (LOTRIMIN) 1 % cream Apply thin layer to rash on armpits twice a day. Continue for two weeks after rash has resolved dapagliflozin propanediol (FARXIGA) 10 mg tablet Take 1 tablet by mouth daily with breakfast. insulin needles, DISPOSABLE, (PEN NEEDLE) 31 gauge x 5/16 Use 1 pen needle once daily for insulin injection. Dx: E11.65 amLODIPine (NORVASC) 2.5 mg tablet Take 1 tablet by mouth once daily. glipiZIDE (GLUCOTROL) 5 mg tablet Take 1 tablet by mouth two times a day before meals. atorvastatin (LIPITOR) 20 mg tablet Take 1 tablet by mouth once daily. lisinopril (ZESTRIL) 40 mg tablet Take 1 tablet by mouth once daily. insulin glargine (BASAGLAR KWIKPEN U-100 INSULIN) 100 unit/mL (3 mL) Inject 45 Units subcutaneously daily at bedtime. metFORMIN (GLUCOPHAGE) 500 mg tablet Take 2 tablets by mouth two times a day with meals. dulaglutide (TRULICITY) 3 mg/0.5 mL pen injector Inject 3 mg subcutaneously one time a week. sildenafil (VIAGRA) 50 mg tablet Take 1 tablet by mouth as needed. Blood-Glucose Meter (FREESTYLE LITE METER) monitoring kit Freestyle LITE Meter Kit - Dx: Type 2 DM - uncontrolled E11.65. Insulin: Yes. blood sugar diagnostic test strip Test blood sugar(s) 3 times daily. Dx: Type 2 DM - unontrolled E11.65. Insulin: Yes. [employer]. ASPIRIN 81 MG TAB Take one(1) tablet daily. iv contrast (will be provided with radiology test) MRI Prostate Inject, intravenously, once for 1 dose. No IV access, insert saline lock prior to the beginning of sedation, infusion, injection of imaging exam. Discontinue saline lock post exam. If Pt. has a central line or IVAD, may access for administration according to line specific nursing protocol. Once exam is complete flush line and de-access according to line specific nursing protocol in the MR contrast administration guidelines link. tamsulosin (FLOMAX) 0.4 mg Take 1 capsule by mouth once daily. 30 minutes after the same meal each day. REVIEW OF SYSTEMS Review of Systems Constitutional: Negative. Respiratory: Negative. Cardiovascular: Negative. Gastrointestinal: Negative. Genitourinary: Negative. Skin: Negative. Neurological: Negative. Psychiatric/Behavioral: Negative. HISTORIES PAST MEDICAL HISTORY Diagnosis Date Benign neoplasm of colon 2009 HYPERPLASTIC Chronic serous otitis media of both ears 04/22/2024 Dr. Kylie Whitley, ENT DIABETES MELLITUS TYPE II-UNCOMPL 06/27/2006 Elevated prostate specific antigen (PSA) 07/24/2017 History of actinic keratosis 01/24/[address] Cathryn [facility]. HYPERLIPIDEMIA NEC/NOS 09/27/2005 HYPERTENSION NOS 09/27/2005 Impaired fasting glucose 09/27/2005 Internal hemorrhoids without mention of complication Paronychia of finger 02/01/2022 Prostate cancer (HCC) 10/22/2018 PSA elevation 07/24/2017 Type II or unspecified type diabetes mellitus without mention of complication, uncontrolled 12/04/2012 Ureterolithiasis 03/02/2024 Left UVJ 3-4 mm FAMILY HISTORY Problem Relation Age of Onset Diabetes Father Hypertension Father Prostate Cancer Father Blood Disease Father Immune thrombocytopenia, splenectomy Cervical Cancer Mother Vulvar SCCa with mets other (Obesity) Sister Gastric bypass Colon Cancer Paternal Uncle Macular Degen No Family History Glaucoma No Family History SOCIAL HISTORY Social History Tobacco Use Smoking status: Some Days Types: Cigarettes Smokeless tobacco: Never Tobacco comments: periodic Vaping Use Vaping status: Never Used Substance Use Topics Alcohol use: Yes Alcohol/week: 2.0 standard drinks of alcohol Types: 2 Shots of liquor per week Comment: occasionally Drug use: No PHYSICAL EXAMINATION General appearance: Well appearing, alert, in no acute distress, and well-hydrated, well nourished Skin: Skin color, texture, turgor normal, no suspicious rashes or lesions Respiratory:+ effort Cardiovascular: Not examined GI: Normal abdominal exam, Abdomen soft, non-tender. No masses, organomegaly Musculoskeletal: Negative Neuro: Negative Genitourinary: not examined Impression: (C61) Prostate cancer (HCC) (primary encounter diagnosis) (N40.1, N13.8) BPH with obstruction/lower urinary tract symptoms Plan: 6 months Psa prior Mri prostate prior flomax April Leon Jr, MD 12/02/2024 documented in this encounter [facility] 11-24-2024 Instructions Maykel Bee MD - 11/24/2024 12:37 PM EDT Screening schedule The following prevention plan is recommended: Shingrix Vaccine(1 of 2) Never done RSV Vaccine(1 - Risk 60-74 years 1-dose series) Never done Advance Directive Discussion due on 05/21/2024 Medicare Advantage Annual Wellness Visit due on 05/21/2024 Covid-19 Vaccine( season) due on 11/24/2024 Depression Screening due on 11/15/2024 Anxiety Screening due on 11/15/2024 WHAT YOU CAN DO TO PREVENT FALLS Many falls can be prevented. By making some changes, you can lower your chances of falling. Four things YOU can do to prevent falls for you* and your caregiver 1. Begin a regular exercise program Exercise is one of the most important ways to lower your chances of falling. It makes you stronger and helps you feel better. Exercises that improve balance and coordination (like Rigo Chi) are the most helpful. Lack of exercise leads to weakness and increases your chances of falling. Ask your doctor or health care provider about the best type of exercise program for you. 2. Have your health care provider review your medicines Have your doctor or pharmacist review all the medicines you take, even [id number] medicines. As you get older, the way medicines work in your body can change. Some medicines, or combinations of medicines, can make you sleepy or dizzy and can cause you to fall. 3. Have your vision checked Have your eyes checked by an eye doctor at least once a year. You may be wearing the wrong glasses or have a condition like glaucoma or cataracts that limits your vision. Poor vision can increase your chances of falling. 4. Make your home safer About half of all falls happen at home. To make your home safer: Remove things you can trip over (like papers, books, clothes, and shoes) from stairs and places where you walk. Remove small throw rugs or use double-sided tape to keep the rugs from slipping. Keep items you use often in cabinets you can reach easily without using a step stool. Have grab bars put in next to your toilet and in the tub or shower. Use non-slip mats in the bathtub and on shower floors. Improve the lighting in your home. As you get older, you need brighter lights to see well. Hang light-weight curtains or shades to reduce glare. Have handrails and lights put in on all staircases. Wear shoes both inside and outside the house. Avoid going barefoot or wearing slippers. For more information, contact: Centers for Disease Control and Prevention www.cdc.gov/injury * This information may not apply if you have certain medical conditions. documented in this encounter [facility] 11-24-2024 Note HNO ID: [id number] Author: MAYKEL BEE MD Service: ? Author Type: Physician Type: Progress Notes Filed: 11/24/2024 12:52 Note Text: This note was created using [employer]. Subjective Leandra El is a 69 year old male. His tympanostomy tubes came off spontaneously recently. His hearing was back to normal. His diabetes mellitus, hypertension, and lipids were controlled. Prostate cancer was under surveillance by urology. Review of Systems Constitutional: Negative for fatigue and unexpected weight change. Respiratory: Negative for cough, shortness of breath and wheezing. Cardiovascular: Negative for chest pain, palpitations and leg swelling. Gastrointestinal: Negative for abdominal pain, constipation, diarrhea, nausea and vomiting. Genitourinary: Negative for dysuria. Neurological: Negative for dizziness, numbness and headaches. ACTIVE PROBLEM LIST Essential Hypertension Hyperlipemia Controlled Type 2 Diabetes Mellitus Without Complication, With Long-Term Current Use of Insulin (Hcc) History of Actinic Keratosis Erectile Dysfunction Prostate Cancer (Hcc) Seasonal Allergies Obesity, Class I, Bmi 30-34.9 Ureterolithiasis Chronic Serous Otitis Media of Both Ears Social History Tobacco Use Smoking status: Some Days Types: Cigarettes Smokeless tobacco: Never Tobacco comments: periodic Vaping Use Vaping status: Never Used Substance Use Topics Alcohol use: Yes Alcohol/week: 2.0 standard drinks of alcohol Types: 2 Shots of liquor per week Comment: occasionally Drug use: No Current Outpatient Medications Medication Sig amLODIPine (NORVASC) 2.5 mg tablet Take 1 tablet by mouth once daily. glipiZIDE (GLUCOTROL) 5 mg tablet Take 1 tablet by mouth two times a day before meals. atorvastatin (LIPITOR) 20 mg tablet Take 1 tablet by mouth once daily. lisinopril (ZESTRIL) 40 mg tablet Take 1 tablet by mouth once daily. insulin glargine (BASAGLAR KWIKPEN U-100 INSULIN) 100 unit/mL (3 mL) Inject 45 Units subcutaneously daily at bedtime. metFORMIN (GLUCOPHAGE) 500 mg tablet Take 2 tablets by mouth two times a day with meals. dulaglutide (TRULICITY) 3 mg/0.5 mL pen injector Inject 3 mg subcutaneously one time a week. tamsulosin (FLOMAX) 0.4 mg Take 1 capsule by mouth once daily for 14 days. 30 minutes after the same meal each day. sildenafil (VIAGRA) 50 mg tablet Take 1 tablet by mouth as needed. Blood-Glucose Meter (FREESTYLE LITE METER) monitoring kit Freestyle LITE Meter Kit - Dx: Type 2 DM - uncontrolled E11.65. Insulin: Yes. blood sugar diagnostic test strip Test blood sugar(s) 3 times daily. Dx: Type 2 DM - unontrolled E11.65. Insulin: Yes. [employer]. ASPIRIN 81 MG TAB Take one(1) tablet daily. clotrimazole (LOTRIMIN) 1 % cream Apply thin layer to rash on armpits twice a day. Continue for two weeks after rash has resolved dapagliflozin propanediol (FARXIGA) 10 mg tablet Take 1 tablet by mouth daily with breakfast. insulin needles, DISPOSABLE, (PEN NEEDLE) 31 gauge x 5/16 Use 1 pen needle once daily for insulin injection. Dx: E11.65 No current facility-administered medications for this visit. Objective BP 120/62 (BP Site: Left Arm, BP Position: Sitting, BP Cuff Size: Large Adult) Pulse 80 Temp 36.5 ?C (97.7 ?F) (Temporal) Resp 20 Ht 172.7 cm (5' 8) Wt 92.2 kg (203 lb 4.2 oz) BMI 30.91 kg/m? Physical Exam Constitutional: General: He is not in acute distress. HENT: Head: Normocephalic. Eyes: Conjunctiva/sclera: Conjunctivae normal. Cardiovascular: Rate and Rhythm: Normal rate and regular rhythm. Pulses: Normal pulses. Heart sounds: S1 normal and S2 normal. Murmur (Faint GILSON at the base.) heard. Pulmonary: Breath sounds: Normal breath sounds. Abdominal: Palpations: Abdomen is soft. Tenderness: There is no abdominal tenderness. Musculoskeletal: Right lower leg: No edema. Left lower leg: No edema. Skin: Comments: Seborrheic lesion left parietal scalp, irregular, chronic. Cyst of right neck, chronic. Neurological: Mental Status: He is alert. Gait: Gait normal. Feet:Shoes and socks removed, No deformities, ulcers, calluses, normal distal pulses, and sensitive to 10 gm monofilament. Latest Ref Rng 11/22/2024 Protein, Total 6.3 - 8.0 g/dL 6.7 Albumin 3.9 - 4.9 g/dL 4.2 Calcium 8.5 - 10.2 mg/dL 9.9 Bilirubin, Total 0.2 - 1.3 mg/dL 0.5 Alkaline Phosphatase 38 - 113 U/L 69 AST 14 - 40 U/L 12 (L) ALT 10 - 54 U/L 13 Glucose 74 - 99 mg/dL 112 (H) BUN 9 - 24 mg/dL 19 Creatinine 0.73 - 1.22 mg/dL 0.91 Sodium 136 - 144 mmol/L 140 Potassium 3.7 - 5.1 mmol/L 4.3 Chloride 98 - 107 mmol/L 102 CO2 22 - 30 mmol/L 25 Anion Gap 8 - 15 mmol/L 13 eGFR >=60 mL/min/1.73m? 92 WBC 3.70 - 11.00 k/uL 7.78 RBC 4.20 - 6.00 m/uL 4.95 Hemoglobin 13.0 - 17.0 g/dL 16.1 Hematocrit 39.0 - 51.0 % 48.6 MCV 80.0 - 100.0 fL 98.2 MCH 26.0 - 34.0 pg 32.5 MCHC 30.5 - 36.0 g/dL 33.1 RDW (more content not included)... [facility] 11-24-2024 History of Presen t illness Narrative This note was created using [employer]. Subjective Leandra El is a 69 year old male. His tympanostomy tubes came off spontaneously recently. His hearing was back to normal. His diabetes mellitus, hypertension, and lipids were controlled. Prostate cancer was under surveillance by urology. Review of Systems Constitutional: Negative for fatigue and unexpected weight change. Respiratory: Negative for cough, shortness of breath and wheezing. Cardiovascular: Negative for chest pain, palpitations and leg swelling. Gastrointestinal: Negative for abdominal pain, constipation, diarrhea, nausea and vomiting. Genitourinary: Negative for dysuria. Neurological: Negative for dizziness, numbness and headaches. ACTIVE PROBLEM LIST Essential Hypertension Hyperlipemia Controlled Type 2 Diabetes Mellitus Without Complication, With Long-Term Current Use of Insulin (Hcc) History of Actinic Keratosis Erectile Dysfunction Prostate Cancer ([facility]) Seasonal Allergies Obesity, Class I, Bmi 30-34.9 Ureterolithiasis Chronic Serous Otitis Media of Both Ears Social History Tobacco Use Smoking status: Some Days Types: Cigarettes Smokeless tobacco: Never Tobacco comments: periodic Vaping Use Vaping status: Never Used Substance Use Topics Alcohol use: Yes Alcohol/week: 2.0 standard drinks of alcohol Types: 2 Shots of liquor per week Comment: occasionally Drug use: No Current Outpatient Medications Medication Sig amLODIPine (NORVASC) 2.5 mg tablet Take 1 tablet by mouth once daily. glipiZIDE (GLUCOTROL) 5 mg tablet Take 1 tablet by mouth two times a day before meals. atorvastatin (LIPITOR) 20 mg tablet Take 1 tablet by mouth once daily. lisinopril (ZESTRIL) 40 mg tablet Take 1 tablet by mouth once daily. insulin glargine (BASAGLAR KWIKPEN U-100 INSULIN) 100 unit/mL (3 mL) Inject 45 Units subcutaneously daily at bedtime. metFORMIN (GLUCOPHAGE) 500 mg tablet Take 2 tablets by mouth two times a day with meals. dulaglutide (TRULICITY) 3 mg/0.5 mL pen injector Inject 3 mg subcutaneously one time a week. tamsulosin (FLOMAX) 0.4 mg Take 1 capsule by mouth once daily for 14 days. 30 minutes after the same meal each day. sildenafil (VIAGRA) 50 mg tablet Take 1 tablet by mouth as needed. Blood-Glucose Meter (FREESTYLE LITE METER) monitoring kit Freestyle LITE Meter Kit - Dx: Type 2 DM - uncontrolled E11.65. Insulin: Yes. blood sugar diagnostic test strip Test blood sugar(s) 3 times daily. Dx: Type 2 DM - unontrolled E11.65. Insulin: Yes. [employer]. ASPIRIN 81 MG TAB Take one(1) tablet daily. clotrimazole (LOTRIMIN) 1 % cream Apply thin layer to rash on armpits twice a day. Continue for two weeks after rash has resolved dapagliflozin propanediol (FARXIGA) 10 mg tablet Take 1 tablet by mouth daily with breakfast. insulin needles, DISPOSABLE, (PEN NEEDLE) 31 gauge x 5/16 Use 1 pen needle once daily for insulin injection. Dx: E11.65 No current facility-administered medications for this visit. Objective BP 120/62 (BP Site: Left Arm, BP Position: Sitting, BP Cuff Size: Large Adult) Pulse 80 Temp 36.5 C (97.7 F) (Temporal) Resp 20 Ht 172.7 cm (5' 8) Wt 92.2 kg (203 lb 4.2 oz) BMI 30.91 kg/m Physical Exam Constitutional: General: He is not in acute distress. HENT: Head: Normocephalic. Eyes: Conjunctiva/sclera: Conjunctivae normal. Cardiovascular: Rate and Rhythm: Normal rate and regular rhythm. Pulses: Normal pulses. Heart sounds: S1 normal and S2 normal. Murmur (Faint GILSON at the base.) heard. Pulmonary: Breath sounds: Normal breath sounds. Abdominal: Palpations: Abdomen is soft. Tenderness: There is no abdominal tenderness. Musculoskeletal: Right lower leg: No edema. Left lower leg: No edema. Skin: Comments: Seborrheic lesion left parietal scalp, irregular, chronic. Cyst of right neck, chronic. Neurological: Mental Status: He is alert. Gait: Gait normal. Feet:Shoes and socks removed, No deformities, ulcers, calluses, normal distal pulses, and sensitive to 10 gm monofilament. Latest Ref Rng 11/22/2024 Protein, Total 6.3 - 8.0 g/dL 6.7 Albumin 3.9 - 4.9 g/dL 4.2 Calcium 8.5 - 10.2 mg/dL 9.9 Bilirubin, Total 0.2 - 1.3 mg/dL 0.5 Alkaline Phosphatase 38 - 113 U/L 69 AST 14 - 40 U/L 12 (L) ALT 10 - 54 U/L 13 Glucose 74 - 99 mg/dL 112 (H) BUN 9 - 24 mg/dL 19 Creatinine 0.73 - 1.22 mg/dL 0.91 Sodium 136 - 144 mmol/L 140 Potassium 3.7 - 5.1 mmol/L 4.3 Chloride 98 - 107 mmol/L 102 CO2 22 - 30 mmol/L 25 Anion Gap 8 - 15 mmol/L 13 eGFR >=60 mL/min/1.73m 92 WBC 3.70 - 11.00 k/uL 7.78 RBC 4.20 - 6.00 m/uL 4.95 Hemoglobin 13.0 - 17.0 g/dL 16.1 Hematocrit 39.0 - 51.0 % 48.6 MCV 80.0 - 100.0 fL 98.2 MCH 26.0 - 34.0 pg 32.5 MCHC 30.5 - 36.0 g/dL 33.1 RDW-CV 11.5 - 15.0 % 13.0 Platelet Count 150 - 400 k/uL 252 MPV 9.0 - 12.7 fL 8.6 (L) Absolute nRBC <0.01 k/uL <0.01 Cholesterol, Total <200 mg/dL 138 Triglyceride <150 mg/dL 132 HDL Cholesterol >39 mg/dL 35 (L) LDL Cholesterol, Calculated <100 mg/dL 79 Non HDL Cholesterol <130 mg/dL 103 VLDL Cholesterol <30 mg/dL 20 TC:HDL Ratio <5.10 3.94 LDL:HDL Ratio <2.54 2.26 Fasting Time hrs 10 Hemoglobin A1C 4.3 - 5.6 % 6.2 (H) Estimated Average Glucose mg/dL 131 PSA <2.60 ng/mL 7.03 (H) Legend: (L) Low (H) High Assessment and Plan 1. Medicare annual wellness visit, initial - ICD9: V70.0, ICD10: Z00.00 (primary diagnosis) - See wellness. - ADVANCE CARE PLAN DISCUSSION 2. Encounter for immunization - ICD9: V03.89, ICD10: Z23 - PFIZER-BIONTECH COVID-19 VACCINE AGE 12+ YR (COMIRNATY) 3. Encounter for screening examination for other mental health and behavioral disorders - ICD9: V79.8, ICD10: Z13.39 - ANXIETY SCREENING 4. Screening for depression - ICD9: V79.0, ICD10: Z13.31 - DEPRESSION SCREENING 5. Controlled type 2 diabetes mellitus without complication, with long-term current use of insulin (HCC) - ICD9: 250.00, V58.67, ICD10: E11.9, Z79.4 - Controlled - Continue current medications - Discussed need for and benefit of weight loss. BMI 30.91 kg/(m^2) - DAPAGLIFLOZIN PROPANEDIOL 10 MG TABLET - PEN NEEDLE, DIABETIC 31 GAUGE X 5/16 - BASIC METABOLIC PANEL - HEMOGLOBIN A1C - ALBUMIN/CREATININE RATIO, URINE 6. Essential hypertension - ICD9: 401.9, ICD10: I10 - Controlled - Continue current medications 7. Hyperlipidemia, unspecified hyperlipidemia type - ICD9: 272.4, ICD10: E78.5 - Controlled - Continue current medications - Counseled on healthy diet and regular exercise 8. Obesity, Class I, BMI 30-34.9 - ICD9: 278.00, ICD10: E66.811 Stable - Behavioral intervention 9. Heart murmur - ICD9: 785.2, ICD10: R01.1 - Faint. He seemed to recall this was noted in the past. We will monitor only for now. Maykel Bee MD Images from the original note were not included. Leandra El is a 69 year old male here for a Medicare wellness visit. Medicare Health Risk Assessment General Health Very good Exercise: Minutes/Day 20 min Exercise: Days/Week 3 days Alcohol: Daily Use 2-4 times a month Alcohol: Drinks/Day 1 or 2 Alcohol: 6 or more drinks Never Feel off balance No Concerns: Teeth/Dentures Yes Concerns: Sexual function No Troubled by feelings None of the above Frequency: Eating healthy diet Most days. ADLs requiring help None of the above Safety precautions in home/vehicle Yes Smoke, vape, chews tobacco No Difficulty hearing No Difficulty seeing No Current Providers Specialists: I have reviewed specialist-related care of the patient in the medical record. Current care team: Patient Care Team: Maykel Bee MD as PCP - General Mindy Dean, TEAM [email or web address].LUKE as Medical Oncologist (Internal Medicine) pAril Leon Jr. Urology. Jasvir Thurman OD, Ophthalmology. Outside specialists seen: Gera Whitley MD ([facility]) Medical/Family history review Reviewed and updated problem list, medical/surgical/family/social history, medications, and allergies. Opioid use review Opioid Medications (last 90 days) No data to display Anxiety/Depression screening SERVANDO-7 Score: 0. Recommendation: no further intervention at this time Cognitive screening Mini Cog Score: 5 Cognitive screening reviewed and No further action needed (score 3-5). Functional Observation Was the patient's Timed Up & Go test unsteady or >= 12 seconds? No Advance Care Planning Patient did not wish or was not able to name a surrogate decision maker or provide an advance care plan Measurements BP 120/62 (BP Site: Left Arm, BP Position: Sitting, BP Cuff Size: Large Adult) Pulse 80 Temp 36.5 C (97.7 F) (Temporal) Resp 20 Ht 172.7 cm (5' 8) Wt 92.2 kg (203 lb 4.2 oz) BMI 30.91 kg/m Vision Screening: Follows with optometry/ophthalmology Right: 20/40 Left: 20/ 30 Both: 20/40 Assessment/Plan Medicare annual wellness visit, subsequent (Z00.00) - Counseled on healthy diet and regular exercise - Fall avoidance information provided - Personalized prevention plan provided - Vaccines reviewed. - He was encouraged to [facility] with [facility] for [facility] surveillance. documented in this encounter [facility] 11-24-2024 Note HNO ID: [id number] Author: MAYKEL BEE MD Service: ? Author Type: Physician Type: Progress Notes Filed: 11/24/2024 12:52 Note Text: Leandra El is a 69 year old male here for a Medicare wellness visit. Medicare Health Risk Assessment General Health Very good Exercise: Minutes/Day 20 min Exercise: Days/Week 3 days Alcohol: Daily Use 2-4 times a month Alcohol: Drinks/Day 1 or 2 Alcohol: 6 or more drinks Never Feel off balance No Concerns: Teeth/Dentures Yes Concerns: Sexual function No Troubled by feelings None of the above Frequency: Eating healthy diet Most days. ADLs requiring help None of the above Safety precautions in home/vehicle Yes Smoke, vape, chews tobacco No Difficulty hearing No Difficulty seeing No Current Providers Specialists: I have reviewed specialist-related care of the patient in the medical record. Current care team: Patient Care Team: Maykel Bee MD as PCP - General Mindy Dean APRN.MACHINING MANAGER as Medical Oncologist (Internal Medicine) April Leon Jr. [facility]rology. Jasvir Thurman OD, Ophthalmology. Outside specialists seen: Gera Whitley MD ([facility]) Medical/Family history review Reviewed and updated problem list, medical/surgical/family/social history, medications, and allergies. Opioid use review Opioid Medications (last 90 days) No data to display Anxiety/Depression screening SERVANDO-7 Score: 0. Recommendation: no further intervention at this time Cognitive screening Mini Cog Score: 5 Cognitive screening reviewed and No further action needed (score 3-5). Functional Observation Was the patient's Timed Up AND Go test unsteady or >= 12 seconds? No Advance Care Planning Patient did not wish or was not able to name a surrogate decision maker or provide an advance care plan Measurements BP 120/62 (BP Site: Left Arm, BP Position: Sitting, BP Cuff Size: Large Adult) Pulse 80 Temp 36.5 ?C (97.7 ?F) (Temporal) Resp 20 Ht 172.7 cm (5' 8) Wt 92.2 kg (203 lb 4.2 oz) BMI 30.91 kg/m? Vision Screening: Follows with optometry/ophthalmology Right: 20/40 Left: 20/ 30 Both: 20/40 Assessment/Plan Medicare annual wellness visit, subsequent (Z00.00) - Counseled on healthy diet and regular exercise - Fall avoidance information provided - Personalized prevention plan provided - Vaccines reviewed. - He was encouraged to revisit with [facility] for [facility] surveillance. [facility] 11-17-2024 Telephone encounter Note Patient has been identified by name and date of : Yes Patient phones for refill(s): Requested Prescriptions Pending Prescriptions Disp Refills amLODIPine (NORVASC) 2.5 mg tablet 90 tablet 1 Sig: Take 1 tablet by mouth once daily. Date of last office visit in primary care: 05/27/2024 Date of next office visit in primary care: 11/24/2024 Please advise. Thank you. Helen Hermosillo LPN. [facility] 11-17-2024 Miscellaneous Notes Patient has been identified by name and date of : Yes Patient phones for refill(s): Requested Prescriptions Pending Prescriptions Disp Refills amLODIPine (NORVASC) 2.5 mg tablet 90 tablet 1 Sig: Take 1 tablet by mouth once daily. Date of last office visit in primary care: 05/27/2024 Date of next office visit in primary care: 11/24/2024 Please advise. Thank you. Helen Hermosillo LPN. documented in this encounter [facility] 10-31-2024 Telephone encounter Note Prescription Refill Information The patient has been identified by name and date of : Yes Caregiver verified no other encounters exist for this prescription request: Yes Caregiver confirmed with patient/requestor that no other refills are due, in the near future, with this provider at this time: Yes The last office visit in the department: 05/27/24 Does the patient have a future office visit with this provider/department: Yes Requested Prescriptions Pending Prescriptions Disp Refills atorvastatin (LIPITOR) 20 mg tablet 90 tablet 3 Sig: Take 1 tablet by mouth once daily. Shawna Pacheco LPN October 31, 2024 4:52 PM [facility] 10-31-2024 Miscellaneous Notes Prescription Refill Information The patient has been identified by name and date of : Yes Caregiver verified no other encounters exist for this prescription request: Yes Caregiver confirmed with patient/requestor that no other refills are due, in the near future, with this provider at this time: Yes The last office visit in the department: 05/27/24 Does the patient have a future office visit with this provider/department: Yes Requested Prescriptions Pending Prescriptions Disp Refills atorvastatin (LIPITOR) 20 mg tablet 90 tablet 3 Sig: Take 1 tablet by mouth once daily. Shawna Pacheco LPN October 31, 2024 4:52 PM documented in this encounter [facility] 10-31-2024 Telephone encounter Note Prescription Refill Information The patient has been identified by name and date of : Yes Caregiver verified no other encounters exist for this prescription request: Yes Caregiver confirmed with patient/requestor that no other refills are due, in the near future, with this provider at this time: Yes The last office visit in the department: 05/27/24 Does the patient have a future office visit with this provider/department: Yes Requested Prescriptions Pending Prescriptions Disp Refills glipiZIDE (GLUCOTROL) 5 mg tablet 180 tablet 3 Sig: Take 1 tablet by mouth two times a day before meals. Shawna Pacheco LPN October 31, 2024 3:12 PM [facility] 10-31-2024 Miscellaneous Notes Prescription Refill Information The patient has been identified by name and date of : Yes Caregiver verified no other encounters exist for this prescription request: Yes Caregiver confirmed with patient/requestor that no other refills are due, in the near future, with this provider at this time: Yes The last office visit in the department: 05/27/24 Does the patient have a future office visit with this provider/department: Yes Requested Prescriptions Pending Prescriptions Disp Refills glipiZIDE (GLUCOTROL) 5 mg tablet 180 tablet 3 Sig: Take 1 tablet by mouth two times a day before meals. Shawna Pacheco LPN October 31, 2024 3:12 PM documented in this encounter [facility] 09-24-2024 Telephone encounter Note Insurance does not cover lantus and pahramcy been dispensing baslagar note was added to rx on file but provider did med update instead of resending other brand . I d/c lantus of viktor Alejandro MA [facility] 09-24-2024 Miscellaneous Notes Insurance does not cover lantus and pahramcy been dispensing baslagar note was added to rx on file but provider did med update instead of resending other brand . I d/c lantus of list Marlene Alejandro MA Last prescription refill was for Lantus, are we switching to Basaglar? Mindy Dean APRN.CNP Patient has been identified by name and date of : yes Patient phones for refill(s): Requested Prescriptions Pending Prescriptions Disp Refills insulin glargine (BASAGLAR KWIKPEN U-100 INSULIN) 100 unit/mL (3 mL) 15 mL 5 Sig: Inject 45 Units subcutaneously daily at bedtime. Date of last office visit in primary care: 05/27/2024 Date of next office visit in primary care:11/24/24 Please advise. Thank you. Marlene Alejandro MA. documented in this encounter [facility] 09-24-2024 Telephone encounter Note Last prescription refill was for Lantus, are we switching to Basaglar? Mindy Dean APRN.MACHINING MANAGER [facility] 09-23-2024 Telephone encounter Note Patient has been identified by name and date of : yes Patient phones for refill(s): Requested Prescriptions Pending Prescriptions Disp Refills insulin glargine (BASAGLAR KWIKPEN U-100 INSULIN) 100 unit/mL (3 mL) 15 mL 5 Sig: Inject 45 Units subcutaneously daily at bedtime. Date of last office visit in primary care: 05/27/2024 Date of next office visit in primary care:11/24/24 Please advise. Thank you. Marlene Alejandro MA. [facility] 09-23-2024 Telephone encounter Note Patient Acquisiohart message requesting the following refill Refill(s) Requested: Requested Prescriptions Pending Prescriptions Disp Refills lisinopril (ZESTRIL) 40 mg tablet 90 tablet 3 Sig: Take 1 tablet by mouth once daily. ALLERGIES Allergen Reactions Seasonal Allergies Intolerance (home) [phone] (cell) Last Office Visit Date: 05/27/2024 Last Distance Health Visit: Visit date not found Future Appointment: 11/24/2024 The patients preferred pharmacy has been captured for this encounter? yes Request is for script(s) to be escript to pharmacy. Charissa Bagley LPN [facility] 09-23-2024 Miscellaneous Notes Patient Pick a Student message requesting the following refill Refill(s) Requested: Requested Prescriptions Pending Prescriptions Disp Refills lisinopril (ZESTRIL) 40 mg tablet 90 tablet 3 Sig: Take 1 tablet by mouth once daily. ALLERGIES Allergen Reactions Seasonal Allergies Intolerance (home) [phone] (cell) Last Office Visit Date: 05/27/2024 Last Distance Health Visit: Visit date not found Future Appointment: 11/24/2024 The patients preferred pharmacy has been captured for this encounter? yes Request is for script(s) to be escript to pharmacy. Charissa Bagley LPN documented in this encounter [facility] 09-01-2024 Telephone encounter Note Spoke to Shaqiulle, Patient just got a tx from pharmacy, RX for Metformin was ready for pickup. Helen Hermosillo LPN [facility] 09-01-2024 Miscellaneous Notes Spoke to Shaquille, Patient just got a tx from pharmacy, RX for Metformin was ready for pickup. Helen Hermosillo LPN documented in this encounter [facility] [facility] 09-01-2024 Telephone encounter Note Prescription Refill Information The patient has been identified by name and date of : Yes Caregiver verified no other encounters exist for this prescription request: Yes Caregiver confirmed with patient/requestor that no other refills are due, in the near future, with this provider at this time: Yes The last office visit in the department: 05/27/24 Does the patient have a future office visit with this provider/department: Yes 11/24/24 Requested Prescriptions Pending Prescriptions Disp Refills metFORMIN (GLUCOPHAGE) 500 mg tablet 360 tablet 3 Sig: Take 2 tablets by mouth two times a day with meals. Dinorah Paz LPN September 01, 2024 1:12 PM [facility] 09-01-2024 Miscellaneous Notes Prescription Refill Information The patient has been identified by name and date of : Yes Caregiver verified no other encounters exist for this prescription request: Yes Caregiver confirmed with patient/requestor that no other refills are due, in the near future, with this provider at this time: Yes The last office visit in the department: 05/27/24 Does the patient have a future office visit with this provider/department: Yes 11/24/24 Requested Prescriptions Pending Prescriptions Disp Refills metFORMIN (GLUCOPHAGE) 500 mg tablet 360 tablet 3 Sig: Take 2 tablets by mouth two times a day with meals. Dinorah Paz LPN September 01, 2024 1:12 PM documented in this encounter [facility] 09-01-2024 Telephone encounter Note Prescription Refill Information The patient has been identified by name and date of : Yes Caregiver verified no other encounters exist for this prescription request: Yes Caregiver confirmed with patient/requestor that no other refills are due, in the near future, with this provider at this time: Yes The last office visit in the department: 05/27/24 Does the patient have a future office visit with this provider/department: Yes Requested Prescriptions Pending Prescriptions Disp Refills dulaglutide (TRULICITY) 3 mg/0.5 mL pen injector 6 mL 3 Sig: Inject 3 mg subcutaneously one time a week. Dinorah Paz LPN September 01, 2024 12:41 PM [facility] 09-01-2024 Miscellaneous Notes Prescription Refill Information The patient has been identified by name and date of : Yes Caregiver verified no other encounters exist for this prescription request: Yes Caregiver confirmed with patient/requestor that no other refills are due, in the near future, with this provider at this time: Yes The last office visit in the department: 05/27/24 Does the patient have a future office visit with this provider/department: Yes Requested Prescriptions Pending Prescriptions Disp Refills dulaglutide (TRULICITY) 3 mg/0.5 mL pen injector 6 mL 3 Sig: Inject 3 mg subcutaneously one time a week. Dinorah Paz LPN September 01, 2024 12:41 PM documented in this encounter [facility] 07-29-2024 Note HNO ID: [id number] Author: APRIL LEON JR, MD Service: ? Author Type: Physician Type: Progress Notes Filed: 07/29/2024 09:02 Note Text: ESTABLISHED PATIENT OFFICE VISIT HPI Leandra El is a 69 year old male who presents for follow up of prostate cancer. Patient had Alameda 6 prostate cancer diagnosed in 2019. PSA has been stable on active surveillance. PSA most recently 5.68 on 9/4/24. Patient was diagnosed with a 4mm L UVJ calculus in 02/2024 in [place]. States that left flank pain has resolved. KUB performed on 04/16 revealed no large radio-opaque calculi. CT imaging on 04/18 at [facility] demonstrated a 3mm right distal ureteral stone. States that he had a temperature of 100.4F. Creatinine was 1.54. No fevers or chills since then. Patient states that pain resolved 4-5 days ago. Denies fevers and chills. 05/27/24 - since last seen no symptoms. Renal us no hydro. Has 4mm r renal calc remaining. No fever. No uti. Luts ok. Stone prevention discussed 07/29/24 Prostate Cancer Consultation Note Mr Leandra El was diagnosed with Clinical Stage(1c) Avril's score 6 (3+3) adenocarcinoma of the prostate with an associated PSA of 9.67 and an estimated prostatic volume of 46. He had 2 of 12 cores positive with disease identified in the 2 portion(s) of the prostate. The patient presents alone and I have discussed his apparent localized prostate cancer at length. Specifically we discussed the Alameda score, number and percent of cores involved with disease, the wilmer tables risk stratification criteria which are based upon the Avril score, PSA, and clinical T stage. Based upon the clinical features the patient falls into low risk category for 10 year biochemical disease free survival regardless of which therapeutic modality he chooses. He understands that there is a small, but real, chance of occult metastatic disease and the logic of when metastatic workup is appropriate. We discussed various options for management of his disease including watchful waiting, active surveillance, radiation modality and surgical extirpation. The options of watchful waiting or active surveillence were gone over and what these would entail, with selective delayed intervention, hormonal therapy in its various forms. The protocol for periodic PSA tests and repeating his transrectal prostate ultrasound, without or with prostate biopsy was covered. With respect to surgical intervention we compared and contrasted open, laparoscopic and robotic prostatectomy with or without bilateral pelvic lymphadenectomy. We compared these with respect to cancer control, urinary control, and erectile dysfunction. I explained that any patient undergoing treatment for prostate cancer may need additional therapy. The possibility of severe or total loss of urinary control, possibly needed surgery to implant an artificial urinary sphincter is possible after prostate cancer surgery. The possibility of loss of erections, and the possible treatment options was discussed. The other potential downside, including but not limited to urethral stricture, bladder neck contracture. I explained to him that robotic prostatectomy is a major surgical procedure and has possible major complications including, but not limited to bleeding requiring transfusion, rectal injury requiring a temporary colostomy, damage to abdominal structure, infection, myocardial infarction, stroke, deep vein thrombosis/ pulmonary embolism, or open conversion. We discussed the procedure related morbidity, hospitalization, and convalescence period. We have reviewed the recent data, which would show that at least one out of ten patients undergoing radical prostatectomy will have at least one complication whether minor or major, and this could be as high as 25% (one in four). We have discussed that with surgical intervention. We also discussed radiation therapy; external beam, and out-patient brachytherapy as well as the attendant procedure related morbidity as it relates to the low but known risk of health informatics specialist urinary frequency, urgency, urgency with bowel movements and risk of urethral radiation injury. We also discussed time commitment for the external beam therapy being once a day, five days a week for 5-7 weeks during which most people can continue normal daily activities. I described the likelihood of flare up of hemorrhoids, and mild decrease in physical stamina during the later portion of the treatments. We discussed the time frame for PSA response that would indicate efficacy of the radiation therapy. A referral to radiation oncology was offered. Additionally, we discussed cryosurgical ablation of the prostate (with without nerve sparing). Specifically, we discussed the procedure related morbidity, risk of rectal injury, urinary incontinence, post cryo urinary frequency and urgency, and risk of impotence. We als (more content not included)... [facility] 07-29-2024 History of Presen t illness Narrative ESTABLISHED PATIENT OFFICE VISIT HPI Leandra El is a 69 year old male who presents for follow up of prostate cancer. Patient had Avril 6 prostate cancer diagnosed in 2019. PSA has been stable on active surveillance. PSA most recently 5.68 on 01/23/24. Patient was diagnosed with a 4mm L UVJ calculus in 02/2024 in [place]. States that left flank pain has resolved. KUB performed on 04/16 revealed no large radio-opaque calculi. CT imaging on 04/18 at [facility] demonstrated a 3mm right distal ureteral stone. States that he had a temperature of 100.4F. Creatinine was 1.54. No fevers or chills since then. Patient states that pain resolved 4-5 days ago. Denies fevers and chills. 05/27/24 - since last seen no symptoms. Renal us no hydro. Has 4mm r renal calc remaining. No fever. No uti. Luts ok. Stone prevention discussed 07/29/24 Prostate Cancer Consultation Note Mr Leandra El was diagnosed with Clinical Stage(1c) Alameda's score 6 (3+3) adenocarcinoma of the prostate with an associated PSA of 9.67 and an estimated prostatic volume of 46. He had 2 of 12 cores positive with disease identified in the 2 portion(s) of the prostate. The patient presents alone and I have discussed his apparent localized prostate cancer at length. Specifically we discussed the Avril score, number and percent of cores involved with disease, the wilmer tables risk stratification criteria which are based upon the [place] score, PSA, and clinical T stage. Based upon the clinical features the patient falls into low risk category for 10 year biochemical disease free survival regardless of which therapeutic modality he chooses. He understands that there is a small, but real, chance of occult metastatic disease and the logic of when metastatic workup is appropriate. We discussed various options for management of his disease including watchful waiting, active surveillance, radiation modality and surgical extirpation. The options of watchful waiting or active surveillence were gone over and what these would entail, with selective delayed intervention, hormonal therapy in its various forms. The protocol for periodic PSA tests and repeating his transrectal prostate ultrasound, without or with prostate biopsy was covered. With respect to surgical intervention we compared and contrasted open, laparoscopic and robotic prostatectomy with or without bilateral pelvic lymphadenectomy. We compared these with respect to cancer control, urinary control, and erectile dysfunction. I explained that any patient undergoing treatment for prostate cancer may need additional therapy. The possibility of severe or total loss of urinary control, possibly needed surgery to implant an artificial urinary sphincter is possible after prostate cancer surgery. The possibility of loss of erections, and the possible treatment options was discussed. The other potential downside, including but not limited to urethral stricture, bladder neck contracture. I explained to him that robotic prostatectomy is a major surgical procedure and has possible major complications including, but not limited to bleeding requiring transfusion, rectal injury requiring a temporary colostomy, damage to abdominal structure, infection, myocardial infarction, stroke, deep vein thrombosis/ pulmonary embolism, or open conversion. We discussed the procedure related morbidity, hospitalization, and convalescence period. We have reviewed the recent data, which would show that at least one out of ten patients undergoing radical prostatectomy will have at least one complication whether minor or major, and this could be as high as 25% (one in four). We have discussed that with surgical intervention. We also discussed radiation therapy; external beam, and out-patient brachytherapy as well as the attendant procedure related morbidity as it relates to the low but known risk of health informatics specialist urinary frequency, urgency, urgency with bowel movements and risk of urethral radiation injury. We also discussed time commitment for the external beam therapy being once a day, five days a week for 5-7 weeks during which most people can continue normal daily activities. I described the likelihood of flare up of hemorrhoids, and mild decrease in physical stamina during the later portion of the treatments. We discussed the time frame for PSA response that would indicate efficacy of the radiation therapy. A referral to radiation oncology was offered. Additionally, we discussed cryosurgical ablation of the prostate (with without nerve sparing). Specifically, we discussed the procedure related morbidity, risk of rectal injury, urinary incontinence, post cryo urinary frequency and urgency, and risk of impotence. We also discussed the outpatient nature of the procedure, minimal need for pain medication and the need for a urinary catheter for 2-weeks following the procedure and the time frame of PSA response that would reflect the efficacy of the cryosurgical procedure and the follow up that would be involved. Finally, with respect to the cryosurgical procedure we discussed that to date we do not have health informatics specialist (10-year) outcomes data, however, the published data do compare favorably to other treatment modalities and there have been no data that indicate any superiority of one prostate cancer treatment modality over another. I answered all of his questions today and encouraged him to call me if any other questions come to mind. He expressed understanding today's conversation. Total [id number] discussion >30 min; and >50% of that time was spent in counseling. No ab surgeries Healthy L NSS + amniox LAB: Creatinine Date Value Ref Range Status 05/19/2024 0.82 0.73 - 1.22 mg/dL Final PSA (ng/mL) Date Value 01/23/2024 5.68 07/16/2023 5.93 01/18/2023 5.74 03/30/2022 5.54 12/27/2021 4.70 06/30/2021 4.92 02/09/2021 4.12 11/27/2020 4.47 07/31/2020 3.92 05/18/2020 4.01 01/29/2020 4.22 10/22/2019 4.64 07/24/2019 3.65 01/03/2019 3.02 10/04/2018 3.36 PSA Screening (ng/mL) Date Value 07/18/2024 9.67 07/14/2022 5.81 Glucose, Urine (mg/dL) Date Value 07/24/2017 >=500 Bilirubin, Urine (no units) Date Value 07/24/2017 Negative Ketones, Urine (no units) Date Value 07/24/2017 Negative Specific [place], Ur (no units) Date Value 07/24/2017 1.033 Hemoglobin/Blood,Ur ( ) Date Value 07/24/2017 Negative pH, Urine (no units) Date Value 07/24/2017 5.0 Protein, Urine (mg/dL) Date Value 07/24/2017 Negative Nitrites (no units) Date Value 07/24/2017 Negative WBC, Urine (/HPF) Date Value 07/24/2017 0-5 MEDICATIONS: insulin glargine (LANTUS SOLOSTAR U-100 INSULIN) 100 unit/mL (3 mL) Inject 45 Units subcutaneously daily at bedtime. Note for next refill: Plan changed to ANYI EISENBERG. amLODIPine (NORVASC) 2.5 mg tablet Take 1 tablet by mouth once daily. dapagliflozin propanediol (FARXIGA) 10 mg tablet Take 1 tablet by mouth daily with breakfast. clotrimazole (LOTRIMIN) 1 % cream Apply thin layer to rash on armpits twice a day. Continue for two weeks after rash has resolved metFORMIN (GLUCOPHAGE) 500 mg tablet Take 2 tablets by mouth two times a day with meals. atorvastatin (LIPITOR) 20 mg tablet Take 1 tablet by mouth once daily. insulin needles, DISPOSABLE, (PEN NEEDLE) 31 gauge x 5/16 Use 1 pen needle once daily for insulin injection. Dx: E11.65 glipiZIDE (GLUCOTROL) 5 mg tablet Take 1 tablet (5 mg) by mouth two times a day before meals. lisinopril (ZESTRIL) 40 mg tablet Take 1 tablet by mouth once daily. dulaglutide (TRULICITY) 3 mg/0.5 mL pen injector Inject 3 mg subcutaneously one time a week. sildenafil (VIAGRA) 50 mg tablet Take 1 tablet by mouth as needed. Blood-Glucose Meter (FREESTYLE LITE METER) monitoring kit Freestyle LITE Meter Kit - Dx: Type 2 DM - uncontrolled E11.65. Insulin: Yes. blood sugar diagnostic test strip Test blood sugar(s) 3 times daily. Dx: Type 2 DM - unontrolled E11.65. Insulin: Yes. [employer]. ASPIRIN 81 MG TAB Take one(1) tablet daily. tamsulosin (FLOMAX) 0.4 mg Take 1 capsule by mouth once daily for 14 days. 30 minutes after the same meal each day. Sodium Fluoride 1.1 % REVIEW OF SYSTEMS Review of Systems Constitutional: Negative. Respiratory: Negative. Cardiovascular: Negative. Gastrointestinal: Negative. Genitourinary: Negative. Skin: Negative. Neurological: Negative. Psychiatric/Behavioral: Negative. HISTORIES PAST MEDICAL HISTORY Diagnosis Date Benign neoplasm of colon 2009 HYPERPLASTIC Chronic serous otitis media of both ears 04/22/2024 Dr. Kylie Whitley, ENT DIABETES MELLITUS TYPE II-UNCOMPL 06/27/2006 Elevated prostate specific antigen (PSA) 07/24/2017 History of actinic keratosis 01/24/[address] [facility]ryn [facility]. HYPERLIPIDEMIA NEC/NOS 09/27/2005 HYPERTENSION NOS 09/27/2005 Impaired fasting glucose 09/27/2005 Internal hemorrhoids without mention of complication Paronychia of finger 02/01/2022 Prostate cancer (HCC) 10/22/2018 PSA elevation 07/24/2017 Type II or unspecified type diabetes mellitus without mention of complication, uncontrolled 12/04/2012 Ureterolithiasis 03/02/2024 Left UVJ 3-4 mm FAMILY HISTORY Problem Relation Age of Onset Diabetes Father Hypertension Father Prostate Cancer Father Blood Disease Father Immune thrombocytopenia, splenectomy Cervical Cancer Mother Vulvar SCCa with mets other (Obesity) Sister Gastric bypass Colon Cancer Paternal Uncle Macular Degen No Family History Glaucoma No Family History SOCIAL HISTORY Social History Tobacco Use Smoking status: Some Days Types: Cigarettes Smokeless tobacco: Never Tobacco comments: periodic Vaping Use Vaping status: Never Used Substance Use Topics Alcohol use: Yes Alcohol/week: 2.0 standard drinks of alcohol Types: 2 Shots of liquor per week Comment: occasionally Drug use: No PHYSICAL EXAMINATION General appearance: Well appearing, alert, in no acute distress, and well-hydrated, well nourished Skin: Skin color, texture, turgor normal, no suspicious rashes or lesions Respiratory:+ effort Cardiovascular: Not examined GI: Normal abdominal exam, Abdomen soft, non-tender. No masses, organomegaly Musculoskeletal: Negative Neuro: Negative Genitourinary: not examined Impression: (C61) Prostate cancer (HCC) (primary encounter diagnosis) Plan: Robotic assisted laparoscopic radical prostatectomy with bilateral pelvic lymph node dissection Psa up to 9 this check Will recheck If stays high proceed with surgery If down then continue as April Leon Jr, MD 07/29/2024 documented in this encounter [facility] 06-30-2024 Note SARS-COV-2 (AGENT OF COVID-19) RNA: Not detected INFLUENZA A RNA: Not detected INFLUENZA B RNA: Not detected RESPIRATORY SYNCYTIAL VIRUS (RSV) RNA: Not detected [facility] Comment on above: Performed By: #### [id number] ####[facility]CL[facility] [id number] [place] [address] [place] 06-30-2024 Note HNO ID: [id number] Author: KALEIGH KIMBALL PA Service: ? Author Type: Physician Curing Press Maintainer Type: Progress Notes Filed: 06/30/2024 16:21 Note Text: This note was created using NoteWriter. Subjective Leandra El is a 68 year old male. HPI 68-year-old male presents for congestion, fever, sinus pressure x 2 days. Patient states Sunday afternoon started getting a fever. He has had bodyaches, chills, sinus pressure. No cough. No vomiting or diarrhea. He has taken Tylenol/Motrin for fever. No other complaint. PAST MEDICAL HISTORY Diagnosis Date Benign neoplasm of colon 2009 HYPERPLASTIC Chronic serous otitis media of both ears 04/22/2024 Dr. Kylie Whitley, ENT DIABETES MELLITUS TYPE II-UNCOMPL 06/27/2006 Elevated prostate specific antigen (PSA) 07/24/2017 History of actinic keratosis 01/24/[address] Cathryn [facility]. HYPERLIPIDEMIA NEC/NOS 09/27/2005 HYPERTENSION NOS 09/27/2005 Impaired fasting glucose 09/27/2005 Internal hemorrhoids without mention of complication Paronychia of finger 02/01/2022 Prostate cancer (HCC) 10/22/2018 PSA elevation 07/24/2017 Type II or unspecified type diabetes mellitus without mention of complication, uncontrolled 12/04/2012 Ureterolithiasis 03/02/2024 Left UVJ 3-4 mm PAST SURGICAL HISTORY Procedure Laterality Date CATARACT EXTRACTION W/ INTRAOCULAR LENS IMPLANT HX 2014 COLONOSCOPY FLX DX W/COLLJ SPEC WHEN PFRMD 03/08/2015 Colonoscopy COLONOSCOPY FLX DX W/COLLJ SPEC WHEN PFRMD 04/19/2020 Colonoscopy repeat in 5 years COLONOSCOPY W/BIOPSY SINGLE/MULTIPLE 05/31/2009 PROSTATE BIOPSY W/TRANSRECTAL US 10/09/2018 PROSTATE BIOPSY WITH MR FUSION 07/19/2022 SKIN BIOPSY HX TONSILLECTOMY HX 1967 ALLERGIES Seasonal Allergies MEDICATIONS insulin glargine (LANTUS SOLOSTAR U-100 INSULIN) 100 unit/mL (3 mL) Inject 45 Units subcutaneously daily at bedtime. Note for next refill: Plan changed to ANYI EISENBERG. amLODIPine (NORVASC) 2.5 mg tablet Take 1 tablet by mouth once daily. tamsulosin (FLOMAX) 0.4 mg Take 1 capsule by mouth once daily for 14 days. 30 minutes after the same meal each day. dapagliflozin propanediol (FARXIGA) 10 mg tablet Take 1 tablet by mouth daily with breakfast. clotrimazole (LOTRIMIN) 1 % cream Apply thin layer to rash on armpits twice a day. Continue for two weeks after rash has resolved metFORMIN (GLUCOPHAGE) 500 mg tablet Take 2 tablets by mouth two times a day with meals. atorvastatin (LIPITOR) 20 mg tablet Take 1 tablet by mouth once daily. insulin needles, DISPOSABLE, (PEN NEEDLE) 31 gauge x 5/16 Use 1 pen needle once daily for insulin injection. Dx: E11.65 glipiZIDE (GLUCOTROL) 5 mg tablet Take 1 tablet (5 mg) by mouth two times a day before meals. lisinopril (ZESTRIL) 40 mg tablet Take 1 tablet by mouth once daily. dulaglutide (TRULICITY) 3 mg/0.5 mL pen injector Inject 3 mg subcutaneously one time a week. Sodium Fluoride 1.1 % sildenafil (VIAGRA) 50 mg tablet Take 1 tablet by mouth as needed. Blood-Glucose Meter (FREESTYLE LITE METER) monitoring kit Freestyle LITE Meter Kit - Dx: Type 2 DM - uncontrolled E11.65. Insulin: Yes. blood sugar diagnostic test strip Test blood sugar(s) 3 times daily. Dx: Type 2 DM - unontrolled E11.65. Insulin: Yes. [employer]. ASPIRIN 81 MG TAB Take one(1) tablet daily. FAMILY HISTORY Problem Relation Age of Onset Diabetes Father Hypertension Father Prostate Cancer Father Blood Disease Father Immune thrombocytopenia, splenectomy Cervical Cancer Mother Vulvar SCCa with mets other (Obesity) Sister Gastric bypass Colon Cancer Paternal Uncle Macular Degen No Family History Glaucoma No Family History Social History Tobacco Use Smoking status: Some Days Types: Cigarettes Smokeless tobacco: Never Tobacco comments: periodic Vaping Use Vaping status: Never Used Substance Use Topics Alcohol use: Yes Alcohol/week: 2.0 standard drinks of alcohol Types: 2 Shots of liquor per week Comment: occasionally Drug use: No Review of Systems Constitutional: Positive for chills, fatigue and fever. HENT: Positive for congestion. Negative for sore throat. Respiratory: Negative for cough and shortness of breath. Gastrointestinal: Negative for diarrhea and vomiting. Objective BP 110/70 Pulse 103 Temp 37.6 ?C (99.6 ?F) Resp 21 Wt 94.4 kg (208 lb 1.8 oz) SpO2 98% BMI 31.64 kg/m? Physical Exam Vitals and nursing note reviewed. Constitutional: General: He is not in acute distress. Appearance: Normal appearance. He is not toxic-appearing. HENT: Right Ear: Tympanic membrane and ear canal normal. Left Ear: Tympanic membrane and ear canal normal. Nose: Nose normal. Mouth/Throat: Mouth: Mucous membranes are moist. Eyes: Conjunctiva/sclera: Conjunctivae normal. Cardiovascular: Rate and Rhythm: Normal rate and regular rhythm. Pulmonary: Effort: Pulmonary effort is nor (more content not included)... [facility] 06-30-2024 History of Presen t illness Narrative This note was created using [employer]. Subjective Leandra El is a 68 year old male. HPI 68-year-old male presents for congestion, fever, sinus pressure x 2 days. Patient states Sunday afternoon started getting a fever. He has had bodyaches, chills, sinus pressure. No cough. No vomiting or diarrhea. He has taken Tylenol/Motrin for fever. No other complaint. PAST MEDICAL HISTORY Diagnosis Date Benign neoplasm of colon 2009 HYPERPLASTIC Chronic serous otitis media of both ears 04/22/2024 Dr. Kylie Whitley, ENT DIABETES MELLITUS TYPE II-UNCOMPL 06/27/2006 Elevated prostate specific antigen (PSA) 07/24/2017 History of actinic keratosis 01/24/[address] Cathryn [facility]. HYPERLIPIDEMIA NEC/NOS 09/27/2005 HYPERTENSION NOS 09/27/2005 Impaired fasting glucose 09/27/2005 Internal hemorrhoids without mention of complication Paronychia of finger 02/01/2022 Prostate cancer (HCC) 10/22/2018 PSA elevation 07/24/2017 Type II or unspecified type diabetes mellitus without mention of complication, uncontrolled 12/04/2012 Ureterolithiasis 03/02/2024 Left UVJ 3-4 mm PAST SURGICAL HISTORY Procedure Laterality Date CATARACT EXTRACTION W/ INTRAOCULAR LENS IMPLANT HX 2014 COLONOSCOPY FLX DX W/COLLJ SPEC WHEN PFRMD 03/08/2015 Colonoscopy COLONOSCOPY FLX DX W/COLLJ SPEC WHEN PFRMD 04/19/2020 Colonoscopy repeat in 5 years COLONOSCOPY W/BIOPSY SINGLE/MULTIPLE 05/31/2009 PROSTATE BIOPSY W/TRANSRECTAL US 10/09/2018 PROSTATE BIOPSY WITH MR FUSION 07/19/2022 SKIN BIOPSY HX TONSILLECTOMY HX 1968 ALLERGIES Seasonal Allergies MEDICATIONS insulin glargine (LANTUS SOLOSTAR U-100 INSULIN) 100 unit/mL (3 mL) Inject 45 Units subcutaneously daily at bedtime. Note for next refill: Plan changed to AURYAGLLALO EISENBERG. amLODIPine (NORVASC) 2.5 mg tablet Take 1 tablet by mouth once daily. tamsulosin (FLOMAX) 0.4 mg Take 1 capsule by mouth once daily for 14 days. 30 minutes after the same meal each day. dapagliflozin propanediol (FARXIGA) 10 mg tablet Take 1 tablet by mouth daily with breakfast. clotrimazole (LOTRIMIN) 1 % cream Apply thin layer to rash on armpits twice a day. Continue for two weeks after rash has resolved metFORMIN (GLUCOPHAGE) 500 mg tablet Take 2 tablets by mouth two times a day with meals. atorvastatin (LIPITOR) 20 mg tablet Take 1 tablet by mouth once daily. insulin needles, DISPOSABLE, (PEN NEEDLE) 31 gauge x 5/16 Use 1 pen needle once daily for insulin injection. Dx: E11.65 glipiZIDE (GLUCOTROL) 5 mg tablet Take 1 tablet (5 mg) by mouth two times a day before meals. lisinopril (ZESTRIL) 40 mg tablet Take 1 tablet by mouth once daily. dulaglutide (TRULICITY) 3 mg/0.5 mL pen injector Inject 3 mg subcutaneously one time a week. Sodium Fluoride 1.1 % sildenafil (VIAGRA) 50 mg tablet Take 1 tablet by mouth as needed. Blood-Glucose Meter (FREESTYLE LITE METER) monitoring kit Freestyle LITE Meter Kit - Dx: Type 2 DM - uncontrolled E11.65. Insulin: Yes. blood sugar diagnostic test strip Test blood sugar(s) 3 times daily. Dx: Type 2 DM - unontrolled E11.65. Insulin: Yes. [employer]. ASPIRIN 81 MG TAB Take one(1) tablet daily. FAMILY HISTORY Problem Relation Age of Onset Diabetes Father Hypertension Father Prostate Cancer Father Blood Disease Father Immune thrombocytopenia, splenectomy Cervical Cancer Mother Vulvar SCCa with mets other (Obesity) Sister Gastric bypass Colon Cancer Paternal Uncle Macular Degen No Family History Glaucoma No Family History Social History Tobacco Use Smoking status: Some Days Types: Cigarettes Smokeless tobacco: Never Tobacco comments: periodic Vaping Use Vaping status: Never Used Substance Use Topics Alcohol use: Yes Alcohol/week: 2.0 standard drinks of alcohol Types: 2 Shots of liquor per week Comment: occasionally Drug use: No Review of Systems Constitutional: Positive for chills, fatigue and fever. HENT: Positive for congestion. Negative for sore throat. Respiratory: Negative for cough and shortness of breath. Gastrointestinal: Negative for diarrhea and vomiting. Objective BP 110/70 Pulse 103 Temp 37.6 C (99.6 F) Resp 21 Wt 94.4 kg (208 lb 1.8 oz) SpO2 98% BMI 31.64 kg/m Physical Exam Vitals and nursing note reviewed. Constitutional: General: He is not in acute distress. Appearance: Normal appearance. He is not toxic-appearing. HENT: Right Ear: Tympanic membrane and ear canal normal. Left Ear: Tympanic membrane and ear canal normal. Nose: Nose normal. Mouth/Throat: Mouth: Mucous membranes are moist. Eyes: Conjunctiva/sclera: Conjunctivae normal. Cardiovascular: Rate and Rhythm: Normal rate and regular rhythm. Pulmonary: Effort: Pulmonary effort is normal. Breath sounds: Normal breath sounds. No wheezing, rhonchi or rales. Skin: General: Skin is warm and dry. Neurological: Mental Status: He is alert. Assessment and Plan ASSESSMENT/PLAN: 1. URI, acute - ICD9: 465.9, ICD10: J06.9 - Discussed viral etiology and rationale for treatment. - Symptomatic treatment with prn analgesia - Supportive care with fluids and rest - The patient may also use OTC cough and cold meds as needed. - COVID & INFLUENZA A/B & RSV PCR, ROUTINE -Out of window for treatment with Tamiflu. Diagnosis and treatment plan were discussed and questions were answered to the patient's satisfaction. Pt acknowledged understanding of concepts and follow up plan. Specific signs and symptoms that would indicate the need for higher level of care were discussed in detail warranting prompt ER evaluation. SACHA Proctor documented in this encounter [facility] 05-27-2024 Instructions April Leon Jr., MD - 05/27/2024 12:55 PM EST Counseled patient on increasing fluids, avoiding salt, avoiding caffeine, avoiding large portions of animal fat/meats at one time and increasing citrates in diet. documented in this encounter [facility] 05-27-2024 Note HNO ID: [id number] Author: APRIL LEON JR, MD Service: ? Author Type: Physician Type: Progress Notes Filed: 05/27/2024 12:57 Note Text: ESTABLISHED PATIENT OFFICE VISIT HPI Leandra El is a 68 year old male who presents for follow up of prostate cancer. Patient had [place] 6 prostate cancer diagnosed in 2019. PSA has been stable on active surveillance. PSA most recently 5.68 on 01/23/24. Patient was diagnosed with a 4mm L UVJ calculus in 02/2024 in [place]. States that left flank pain has resolved. KUB performed on 04/16 revealed no large radio-opaque calculi. CT imaging on 04/18 at [facility] demonstrated a 3mm right distal ureteral stone. States that he had a temperature of 100.4F. Creatinine was 1.54. No fevers or chills since then. Patient states that pain resolved 4-5 days ago. Denies fevers and chills. 05/27/24 - since last seen no symptoms. Renal us no hydro. Has 4mm r renal calc remaining. No fever. No uti. Luts ok. Stone prevention discussed LAB: Creatinine Date Value Ref Range Status 05/19/2024 0.82 0.73 - 1.22 mg/dL Final PSA (ng/mL) Date Value 01/23/2024 5.68 07/16/2023 5.93 01/18/2023 5.74 03/30/2022 5.54 12/27/2021 4.70 06/30/2021 4.92 02/09/2021 4.12 11/27/2020 4.47 07/31/2020 3.92 05/18/2020 4.01 01/29/2020 4.22 10/22/2019 4.64 07/24/2019 3.65 01/03/2019 3.02 10/04/2018 3.36 PSA Screening (ng/mL) Date Value 07/14/2022 5.81 Glucose, Urine (mg/dL) Date Value 07/24/2017 >=500 Bilirubin, Urine (no units) Date Value 07/24/2017 Negative Ketones, Urine (no units) Date Value 07/24/2017 Negative Specific [place], Ur (no units) Date Value 07/24/2017 1.033 Hemoglobin/Blood,Ur ( ) Date Value 07/24/2017 Negative pH, Urine (no units) Date Value 07/24/2017 5.0 Protein, Urine (mg/dL) Date Value 07/24/2017 Negative Nitrites (no units) Date Value 07/24/2017 Negative WBC, Urine (/HPF) Date Value 07/24/2017 0-5 MEDICATIONS: insulin glargine (LANTUS SOLOSTAR U-100 INSULIN) 100 unit/mL (3 mL) Inject 45 Units subcutaneously daily at bedtime. Note for next refill: Plan changed to ANYI EISENBERG. amLODIPine (NORVASC) 2.5 mg tablet Take 1 tablet by mouth once daily. tamsulosin (FLOMAX) 0.4 mg Take 1 capsule by mouth once daily for 14 days. 30 minutes after the same meal each day. dapagliflozin propanediol (FARXIGA) 10 mg tablet Take 1 tablet by mouth daily with breakfast. clotrimazole (LOTRIMIN) 1 % cream Apply thin layer to rash on armpits twice a day. Continue for two weeks after rash has resolved metFORMIN (GLUCOPHAGE) 500 mg tablet Take 2 tablets by mouth two times a day with meals. atorvastatin (LIPITOR) 20 mg tablet Take 1 tablet by mouth once daily. insulin needles, DISPOSABLE, (PEN NEEDLE) 31 gauge x 5/16 Use 1 pen needle once daily for insulin injection. Dx: E11.65 glipiZIDE (GLUCOTROL) 5 mg tablet Take 1 tablet (5 mg) by mouth two times a day before meals. lisinopril (ZESTRIL) 40 mg tablet Take 1 tablet by mouth once daily. dulaglutide (TRULICITY) 3 mg/0.5 mL pen injector Inject 3 mg subcutaneously one time a week. Sodium Fluoride 1.1 % sildenafil (VIAGRA) 50 mg tablet Take 1 tablet by mouth as needed. Blood-Glucose Meter (FREESTYLE LITE METER) monitoring kit Freestyle LITE Meter Kit - Dx: Type 2 DM - uncontrolled E11.65. Insulin: Yes. blood sugar diagnostic test strip Test blood sugar(s) 3 times daily. Dx: Type 2 DM - unontrolled E11.65. Insulin: Yes. [employer]. ASPIRIN 81 MG TAB Take one(1) tablet daily. REVIEW OF SYSTEMS Review of Systems Constitutional: Negative. Respiratory: Negative. Cardiovascular: Negative. Gastrointestinal: Negative. Genitourinary: Negative. Skin: Negative. Neurological: Negative. Psychiatric/Behavioral: Negative. HISTORIES PAST MEDICAL HISTORY Diagnosis Date Benign neoplasm of colon 2009 HYPERPLASTIC Chronic serous otitis media of both ears 04/22/2024 Dr. Kylie Whitley, ENT DIABETES MELLITUS TYPE II-UNCOMPL 06/27/2006 Elevated prostate specific antigen (PSA) 07/24/2017 History of actinic keratosis 01/24/[address] Cathryn [facility]. HYPERLIPIDEMIA NEC/NOS 09/27/2005 HYPERTENSION NOS 09/27/2005 Impaired fasting glucose 09/27/2005 Internal hemorrhoids without mention of complication Paronychia of finger 02/01/2022 Prostate cancer (HCC) 10/22/2018 PSA elevation 07/24/2017 Type II or unspecified type diabetes mellitus without mention of complication, uncontrolled 12/04/2012 Ureterolithiasis 03/02/2024 Left UVJ 3-4 mm FAMILY HISTORY Problem Relation Age of Onset Diabetes Father Hypertension Father Prostate Cancer Father Blood Disease Father Immune thrombocytopenia, splenectomy Cervical Cancer Mother Vulvar SCCa with mets other (Obesity) Sister Gastric bypass Colon Cancer Paternal Uncle Macular Degen No Family History Glaucoma No Family Hist (more content not included)... [facility] 05-27-2024 History of Presen t illness Narrative ESTABLISHED PATIENT OFFICE VISIT HPI Leandra El is a 68 year old male who presents for follow up of prostate cancer. Patient had [place] 6 prostate cancer diagnosed in 2019. PSA has been stable on active surveillance. PSA most recently 5.68 on 01/23/24. Patient was diagnosed with a 4mm L UVJ calculus in 02/2024 in [place]. States that left flank pain has resolved. KUB performed on 04/16 revealed no large radio-opaque calculi. CT imaging on 04/18 at [facility] demonstrated a 3mm right distal ureteral stone. States that he had a temperature of 100.4F. Creatinine was 1.54. No fevers or chills since then. Patient states that pain resolved 4-5 days ago. Denies fevers and chills. 05/27/24 - since last seen no symptoms. Renal us no hydro. Has 4mm r renal calc remaining. No fever. No uti. Luts ok. Stone prevention discussed LAB: Creatinine Date Value Ref Range Status 05/19/2024 0.82 0.73 - 1.22 mg/dL Final PSA (ng/mL) Date Value 01/23/2024 5.68 07/16/2023 5.93 01/18/2023 5.74 03/30/2022 5.54 12/27/2021 4.70 06/30/2021 4.92 02/09/2021 4.12 11/27/2020 4.47 07/31/2020 3.92 05/18/2020 4.01 01/29/2020 4.22 10/22/2019 4.64 07/24/2019 3.65 01/03/2019 3.02 10/04/2018 3.36 PSA Screening (ng/mL) Date Value 07/14/2022 5.81 Glucose, Urine (mg/dL) Date Value 07/24/2017 >=500 Bilirubin, Urine (no units) Date Value 07/24/2017 Negative Ketones, Urine (no units) Date Value 07/24/2017 Negative Specific [place], Ur (no units) Date Value 07/24/2017 1.033 Hemoglobin/Blood,Ur ( ) Date Value 07/24/2017 Negative pH, Urine (no units) Date Value 07/24/2017 5.0 Protein, Urine (mg/dL) Date Value 07/24/2017 Negative Nitrites (no units) Date Value 07/24/2017 Negative WBC, Urine (/HPF) Date Value 07/24/2017 0-5 MEDICATIONS: insulin glargine (LANTUS SOLOSTAR U-100 INSULIN) 100 unit/mL (3 mL) Inject 45 Units subcutaneously daily at bedtime. Note for next refill: Plan changed to ANYI EISENBERG. amLODIPine (NORVASC) 2.5 mg tablet Take 1 tablet by mouth once daily. tamsulosin (FLOMAX) 0.4 mg Take 1 capsule by mouth once daily for 14 days. 30 minutes after the same meal each day. dapagliflozin propanediol (FARXIGA) 10 mg tablet Take 1 tablet by mouth daily with breakfast. clotrimazole (LOTRIMIN) 1 % cream Apply thin layer to rash on armpits twice a day. Continue for two weeks after rash has resolved metFORMIN (GLUCOPHAGE) 500 mg tablet Take 2 tablets by mouth two times a day with meals. atorvastatin (LIPITOR) 20 mg tablet Take 1 tablet by mouth once daily. insulin needles, DISPOSABLE, (PEN NEEDLE) 31 gauge x 5/16 Use 1 pen needle once daily for insulin injection. Dx: E11.65 glipiZIDE (GLUCOTROL) 5 mg tablet Take 1 tablet (5 mg) by mouth two times a day before meals. lisinopril (ZESTRIL) 40 mg tablet Take 1 tablet by mouth once daily. dulaglutide (TRULICITY) 3 mg/0.5 mL pen injector Inject 3 mg subcutaneously one time a week. Sodium Fluoride 1.1 % sildenafil (VIAGRA) 50 mg tablet Take 1 tablet by mouth as needed. Blood-Glucose Meter (FREESTYLE LITE METER) monitoring kit Freestyle LITE Meter Kit - Dx: Type 2 DM - uncontrolled E11.65. Insulin: Yes. blood sugar diagnostic test strip Test blood sugar(s) 3 times daily. Dx: Type 2 DM - unontrolled E11.65. Insulin: Yes. [employer]. ASPIRIN 81 MG TAB Take one(1) tablet daily. REVIEW OF SYSTEMS Review of Systems Constitutional: Negative. Respiratory: Negative. Cardiovascular: Negative. Gastrointestinal: Negative. Genitourinary: Negative. Skin: Negative. Neurological: Negative. Psychiatric/Behavioral: Negative. HISTORIES PAST MEDICAL HISTORY Diagnosis Date Benign neoplasm of colon 2009 HYPERPLASTIC Chronic serous otitis media of both ears 04/22/2024 Dr. Kylie Whitley, ENT DIABETES MELLITUS TYPE II-UNCOMPL 06/27/2006 Elevated prostate specific antigen (PSA) 07/24/2017 History of actinic keratosis 01/24/[address] Cathryn [facility]. HYPERLIPIDEMIA NEC/NOS 09/27/2005 HYPERTENSION NOS 09/27/2005 Impaired fasting glucose 09/27/2005 Internal hemorrhoids without mention of complication Paronychia of finger 02/01/2022 Prostate cancer (HCC) 10/22/2018 PSA elevation 07/24/2017 Type II or unspecified type diabetes mellitus without mention of complication, uncontrolled 12/04/2012 Ureterolithiasis 03/02/2024 Left UVJ 3-4 mm FAMILY HISTORY Problem Relation Age of Onset Diabetes Father Hypertension Father Prostate Cancer Father Blood Disease Father Immune thrombocytopenia, splenectomy Cervical Cancer Mother Vulvar SCCa with mets other (Obesity) Sister Gastric bypass Colon Cancer Paternal Uncle Macular Degen No Family History Glaucoma No Family History SOCIAL HISTORY Social History Tobacco Use Smoking status: Some Days Types: Cigarettes Smokeless tobacco: Never Tobacco comments: periodic Vaping Use Vaping status: Never Used Substance Use Topics Alcohol use: Yes Alcohol/week: 2.0 standard drinks of alcohol Types: 2 Shots of liquor per week Comment: occasionally Drug use: No PHYSICAL EXAMINATION General appearance: Well appearing, alert, in no acute distress, and well-hydrated, well nourished Skin: Skin color, texture, turgor normal, no suspicious rashes or lesions Respiratory:+ effort Cardiovascular: Not examined GI: Normal abdominal exam, Abdomen soft, non-tender. No masses, organomegaly Musculoskeletal: Negative Neuro: Negative Genitourinary: not examined Impression: (N20.0) Kidney stone (primary encounter diagnosis) (C61) Prostate cancer (HCC) Plan: 6 months Psa in 3 months April Leno Jr, MD 05/27/2024 documented in this encounter [facility] 05-27-2024 Note HNO ID: [id number] Author: MAYKEL BEE MD Service: ? Author Type: Physician Type: Progress Notes Filed: 05/27/2024 09:55 Note Text: This note was created using Next Generation Systemster. Subjective Leandra El is a 68 year old male. He had a history of kidney stones that have passed. He sees urology for follow up regularly for prostate cancer. He had hearing loss from eustachian tube dysfunction and bilateral serous otitis media that improved with tympanostomy tubes by Dr. Whitley. His hypertension, diabetes mellitus, and lipids were controlled. He was losing weight with lifestyle changes and medications. Insurance switched his Lantus to Basaglar few months ago. Review of Systems Constitutional: Negative for fatigue and fever. HENT: Negative for congestion. Respiratory: Negative for cough and shortness of breath. Cardiovascular: Negative for chest pain, palpitations and leg swelling. Gastrointestinal: Negative for diarrhea, nausea and vomiting. ACTIVE PROBLEM LIST Essential Hypertension Hyperlipemia Controlled Type 2 Diabetes Mellitus Without Complication, With Long-Term Current Use of Insulin (Hcc) History of Actinic Keratosis Erectile Dysfunction Prostate Cancer (Hcc) Seasonal Allergies Obesity, Class I, Bmi 30-34.9 Ureterolithiasis Chronic Serous Otitis Media of Both Ears Social History Tobacco Use Smoking status: Some Days Types: Cigarettes Smokeless tobacco: Never Tobacco comments: periodic Vaping Use Vaping status: Never Used Substance Use Topics Alcohol use: Yes Alcohol/week: 2.0 standard drinks of alcohol Types: 2 Shots of liquor per week Comment: occasionally Drug use: No Current Outpatient Medications Medication Sig amLODIPine (NORVASC) 2.5 mg tablet Take 1 tablet by mouth once daily. tamsulosin (FLOMAX) 0.4 mg Take 1 capsule by mouth once daily for 14 days. 30 minutes after the same meal each day. dapagliflozin propanediol (FARXIGA) 10 mg tablet Take 1 tablet by mouth daily with breakfast. insulin glargine (LANTUS SOLOSTAR U-100 INSULIN) 100 unit/mL (3 mL) Inject 45 Units subcutaneously daily at bedtime. clotrimazole (LOTRIMIN) 1 % cream Apply thin layer to rash on armpits twice a day. Continue for two weeks after rash has resolved metFORMIN (GLUCOPHAGE) 500 mg tablet Take 2 tablets by mouth two times a day with meals. atorvastatin (LIPITOR) 20 mg tablet Take 1 tablet by mouth once daily. insulin needles, DISPOSABLE, (PEN NEEDLE) 31 gauge x 5/16 Use 1 pen needle once daily for insulin injection. Dx: E11.65 glipiZIDE (GLUCOTROL) 5 mg tablet Take 1 tablet (5 mg) by mouth two times a day before meals. lisinopril (ZESTRIL) 40 mg tablet Take 1 tablet by mouth once daily. dulaglutide (TRULICITY) 3 mg/0.5 mL pen injector Inject 3 mg subcutaneously one time a week. sildenafil (VIAGRA) 50 mg tablet Take 1 tablet by mouth as needed. Blood-Glucose Meter (FREESTYLE LITE METER) monitoring kit Freestyle LITE Meter Kit - Dx: Type 2 DM - uncontrolled E11.65. Insulin: Yes. blood sugar diagnostic test strip Test blood sugar(s) 3 times daily. Dx: Type 2 DM - unontrolled E11.65. Insulin: Yes. [employer]. ASPIRIN 81 MG TAB Take one(1) tablet daily. Sodium Fluoride 1.1 % BRUSH once daily every evening (Patient not taking: Reported on 02/26/2024) No current facility-administered medications for this visit. Objective BP 128/74 (BP Site: Left Arm, BP Position: Sitting, BP Cuff Size: Large Adult) Pulse 92 Temp 36.4 ?C (97.5 ?F) (Temporal) Resp 18 Wt 90.9 kg (200 lb 6.4 oz) BMI 30.47 kg/m? Physical Exam Constitutional: General: He is not in acute distress. HENT: Right Ear: No drainage. Tympanic membrane is not erythematous. Left Ear: No drainage. Tympanic membrane is not erythematous. Ears: Comments: TM with tubes bilaterally. Cardiovascular: Rate and Rhythm: Normal rate and regular rhythm. Heart sounds: S1 normal and S2 normal. No murmur heard. No gallop. Pulmonary: Breath sounds: Normal breath sounds. Abdominal: Tenderness: There is no abdominal tenderness. Musculoskeletal: Right lower leg: No edema. Left lower leg: No edema. Neurological: Mental Status: He is alert. Feet:Shoes and socks removed, No deformities, ulcers, calluses, normal distal pulses, and sensitive to 10 gm monofilament Latest Ref Rng 05/19/2024 Glucose 74 - 99 mg/dL 70 (L) BUN 9 - 24 mg/dL 15 Creatinine 0.73 - 1.22 mg/dL 0.82 Sodium 136 - 144 mmol/L 140 Potassium 3.7 - 5.1 mmol/L 3.4 (L) Chloride 98 - 107 mmol/L 102 CO2 22 - 30 mmol/L 29 Anion Gap 8 - 15 mmol/L 9 Calcium 8.5 - 10.2 mg/dL 9.5 eGFR >=60 mL/min/1.73m? 96 Creatinine, Ur Random (UCRR) 20.0 - 300.0 mg/dL 134.4 Albumin, Urine Random mg/L 38.4 Albumin/Creat Ratio <30 mg/g 29 Hemoglobin A1C 4.3 - 5.6 % 5.9 (H) Estimated Average Glucose mg/dL 123 Legend: (L) Low (H) High Assessment and Plan 1. Need for influenza vaccination - ICD9: V0 (more content not included)... [facility] 05-27-2024 History of Presen t illness Narrative This note was created using NoteWriter. Subjective Leandra El is a 68 year old male. He had a history of kidney stones that have passed. He sees urology for follow up regularly for prostate cancer. He had hearing loss from eustachian tube dysfunction and bilateral serous otitis media that improved with tympanostomy tubes by Dr. Whitley. His hypertension, diabetes mellitus, and lipids were controlled. He was losing weight with lifestyle changes and medications. Insurance switched his Lantus to Basaglar few months ago. Review of Systems Constitutional: Negative for fatigue and fever. HENT: Negative for congestion. Respiratory: Negative for cough and shortness of breath. Cardiovascular: Negative for chest pain, palpitations and leg swelling. Gastrointestinal: Negative for diarrhea, nausea and vomiting. ACTIVE PROBLEM LIST Essential Hypertension Hyperlipemia Controlled Type 2 Diabetes Mellitus Without Complication, With Long-Term Current Use of Insulin (Hcc) History of Actinic Keratosis Erectile Dysfunction Prostate Cancer (Hcc) Seasonal Allergies Obesity, Class I, Bmi 30-34.9 Ureterolithiasis Chronic Serous Otitis Media of Both Ears Social History Tobacco Use Smoking status: Some Days Types: Cigarettes Smokeless tobacco: Never Tobacco comments: periodic Vaping Use Vaping status: Never Used Substance Use Topics Alcohol use: Yes Alcohol/week: 2.0 standard drinks of alcohol Types: 2 Shots of liquor per week Comment: occasionally Drug use: No Current Outpatient Medications Medication Sig amLODIPine (NORVASC) 2.5 mg tablet Take 1 tablet by mouth once daily. tamsulosin (FLOMAX) 0.4 mg Take 1 capsule by mouth once daily for 14 days. 30 minutes after the same meal each day. dapagliflozin propanediol (FARXIGA) 10 mg tablet Take 1 tablet by mouth daily with breakfast. insulin glargine (LANTUS SOLOSTAR U-100 INSULIN) 100 unit/mL (3 mL) Inject 45 Units subcutaneously daily at bedtime. clotrimazole (LOTRIMIN) 1 % cream Apply thin layer to rash on armpits twice a day. Continue for two weeks after rash has resolved metFORMIN (GLUCOPHAGE) 500 mg tablet Take 2 tablets by mouth two times a day with meals. atorvastatin (LIPITOR) 20 mg tablet Take 1 tablet by mouth once daily. insulin needles, DISPOSABLE, (PEN NEEDLE) 31 gauge x 5/16 Use 1 pen needle once daily for insulin injection. Dx: E11.65 glipiZIDE (GLUCOTROL) 5 mg tablet Take 1 tablet (5 mg) by mouth two times a day before meals. lisinopril (ZESTRIL) 40 mg tablet Take 1 tablet by mouth once daily. dulaglutide (TRULICITY) 3 mg/0.5 mL pen injector Inject 3 mg subcutaneously one time a week. sildenafil (VIAGRA) 50 mg tablet Take 1 tablet by mouth as needed. Blood-Glucose Meter (FREESTYLE LITE METER) monitoring kit Freestyle LITE Meter Kit - Dx: Type 2 DM - uncontrolled E11.65. Insulin: Yes. blood sugar diagnostic test strip Test blood sugar(s) 3 times daily. Dx: Type 2 DM - unontrolled E11.65. Insulin: Yes. [employer]. ASPIRIN 81 MG TAB Take one(1) tablet daily. Sodium Fluoride 1.1 % BRUSH once daily every evening (Patient not taking: Reported on 02/26/2024) No current facility-administered medications for this visit. Objective BP 128/74 (BP Site: Left Arm, BP Position: Sitting, BP Cuff Size: Large Adult) Pulse 92 Temp 36.4 C (97.5 F) (Temporal) Resp 18 Wt 90.9 kg (200 lb 6.4 oz) BMI 30.47 kg/m Physical Exam Constitutional: General: He is not in acute distress. HENT: Right Ear: No drainage. Tympanic membrane is not erythematous. Left Ear: No drainage. Tympanic membrane is not erythematous. Ears: Comments: TM with tubes bilaterally. Cardiovascular: Rate and Rhythm: Normal rate and regular rhythm. Heart sounds: S1 normal and S2 normal. No murmur heard. No gallop. Pulmonary: Breath sounds: Normal breath sounds. Abdominal: Tenderness: There is no abdominal tenderness. Musculoskeletal: Right lower leg: No edema. Left lower leg: No edema. Neurological: Mental Status: He is alert. Feet:Shoes and socks removed, No deformities, ulcers, calluses, normal distal pulses, and sensitive to 10 gm monofilament Latest Ref Rng 05/19/2024 Glucose 74 - 99 mg/dL 70 (L) BUN 9 - 24 mg/dL 15 Creatinine 0.73 - 1.22 mg/dL 0.82 Sodium 136 - 144 mmol/L 140 Potassium 3.7 - 5.1 mmol/L 3.4 (L) Chloride 98 - 107 mmol/L 102 CO2 22 - 30 mmol/L 29 Anion Gap 8 - 15 mmol/L 9 Calcium 8.5 - 10.2 mg/dL 9.5 eGFR >=60 mL/min/1.73m 96 Creatinine, Ur Random (UCRR) 20.0 - 300.0 mg/dL 134.4 Albumin, Urine Random mg/L 38.4 Albumin/Creat Ratio <30 mg/g 29 Hemoglobin A1C 4.3 - 5.6 % 5.9 (H) Estimated Average Glucose mg/dL 123 Legend: (L) Low (H) High Assessment and Plan 1. Need for influenza vaccination - ICD9: V04.81, ICD10: Z23 (primary diagnosis) - INFLUENZA VACCINE, PRSV FREE, AGE 65+ YR, HIGH DOSE, TRIVALENT (FLUZONE HIGH-DOSE) 2. Encounter for immunization - ICD9: V03.89, ICD10: Z23 - [employer] COVID-19 VACCINE AGE 12+ YR (COMIRNATY) - INFLUENZA VACCINE, PRSV FREE, AGE 65+ YR, HIGH DOSE, TRIVALENT (FLUZONE HIGH-DOSE) 3. Essential hypertension - ICD9: 401.9, ICD10: I10 - Controlled - Continue current medications - COMPLETE BLOOD COUNT 4. Controlled type 2 diabetes mellitus without complication, with long-term current use of insulin (HCC) - ICD9: 250.00, V58.67, ICD10: E11.9, Z79.4 - Controlled - Continue current medications - HEMOGLOBIN A1C - LANTUS SOLOSTAR U-100 INSULIN 100 UNIT/ML (3 ML) SUBCUTANEOUS PEN (Patient has been receiving BASAGLAR KWIKPEN) Note for next refill. 5. Hyperlipidemia, unspecified hyperlipidemia type - ICD9: 272.4, ICD10: E78.5 - Controlled - Continue current medications - Counseled on healthy diet and regular exercise - COMPREHENSIVE METABOLIC PANEL - LIPID PANEL BASIC 6. Chronic serous otitis media of both ears - ICD9: 381.10, ICD10: H65.23 - Controlled and followed by Dr. Kylie Whitley. Maykel Bee MD documented in this encounter [facility] 05-19-2024 History of Presen t illness Narrative Radiology Service Progress Note PATIENT NAME: Leandra El DATE OF SERVICE: May 19, 2024 TIME: 1:18 PM PATIENT IDENTITY VERIFICATION COMPLETED USING TWO (2) IDENTIFIERS: Name and Date of confirmed by patient verbally. FALL SCREENING: Has the patient had 2 falls in the last year or 1 fall with injury or currently using an Ambulatory Assistive Device (Walker, Cane, Wheelchair, Crutches, etc.)? No PATIENT GENDER DATA: Male PATIENT RELEVANT IMPLANT DATA REVIEWED: Not Applicable PATIENT PRESENTS WITH AN IMPLANTABLE OR ATTACHED SUPERVISOR ELEMENTARY EDUCATION: No RADIOLOGY DEPARTMENT: Ultrasound PERIPHERAL IV DATA: Not applicable SIGNED BY: Kiesha Bear RDMS [place] May 19, 2024 1:18 PM documented in this encounter [facility] 05-19-2024 Note HNO ID: [id number] Author: KIESHA BEAR RDMS Service: ? Author Type: Respiratory Scientist Type: Progress Notes Filed: 05/19/2024 13:19 Note Text: Radiology Service Progress Note PATIENT NAME: Leandra El DATE OF SERVICE: May 19, 2024 TIME: 1:18 PM PATIENT IDENTITY VERIFICATION COMPLETED USING TWO (2) IDENTIFIERS: Name and Date of confirmed by patient verbally. FALL SCREENING: Has the patient had 2 falls in the last year or 1 fall with injury or currently using an Ambulatory Assistive Device (Walker, Cane, Wheelchair, Crutches, etc.)? No PATIENT GENDER DATA: Male PATIENT RELEVANT IMPLANT DATA REVIEWED: Not Applicable PATIENT PRESENTS WITH AN IMPLANTABLE OR ATTACHED SUPERVISOR ELEMENTARY EDUCATION: No RADIOLOGY DEPARTMENT: Ultrasound PERIPHERAL IV DATA: Not applicable SIGNED BY: Kiesha Bear RDMS [place] May 19, 2024 1:18 PM [facility] 05-17-2024 Miscellaneous Notes Prescription Refill Information The patient has been identified by name and date of : Yes Caregiver verified no other encounters exist for this prescription request: Yes Caregiver confirmed with patient/requestor that no other refills are due, in the near future, with this provider at this time: Yes The last office visit in the department: 01/18/24 Does the patient have a future office visit with this provider/department: Yes 05/27/24 Requested Prescriptions Pending Prescriptions Disp Refills amLODIPine (NORVASC) 2.5 mg tablet 90 tablet 1 Sig: Take 1 tablet by mouth once daily. Dinorah Paz LPN May 17, 2024 10:31 AM documented in this encounter [facility] 05-17-2024 Telephone encounter Note Prescription Refill Information The patient has been identified by name and date of : Yes Caregiver verified no other encounters exist for this prescription request: Yes Caregiver confirmed with patient/requestor that no other refills are due, in the near future, with this provider at this time: Yes The last office visit in the department: 01/18/24 Does the patient have a future office visit with this provider/department: Yes 05/27/24 Requested Prescriptions Pending Prescriptions Disp Refills amLODIPine (NORVASC) 2.5 mg tablet 90 tablet 1 Sig: Take 1 tablet by mouth once daily. Dinorah Paz LPN May 17, 2024 10:31 AM [facility] 04-30-2024 Note HNO ID: [id number] Author: APRIL LEON JR, MD Service: ? Author Type: Physician Type: Progress Notes Filed: 04/30/2024 13:12 Note Text: ESTABLISHED PATIENT OFFICE VISIT HPI Leandra El is a 68 year old male who presents for follow up of prostate cancer. Patient had [place] 6 prostate cancer diagnosed in 2019. PSA has been stable on active surveillance. PSA most recently 5.68 on 01/23/24. Patient was diagnosed with a 4mm L UVJ calculus in 02/2024 in [place]. States that left flank pain has resolved. KUB performed on 04/16 revealed no large radio-opaque calculi. CT imaging on 04/18 at [facility] demonstrated a 3mm right distal ureteral stone. States that he had a temperature of 100.4F. Creatinine was 1.54. No fevers or chills since then. Patient states that pain resolved 4-5 days ago. Denies fevers and chills. MEDICATIONS: tamsulosin (FLOMAX) 0.4 mg take 1 capsule by mouth 30 MINUTES after THE SAME MEAL EACH DAY dapagliflozin propanediol (FARXIGA) 10 mg tablet Take 1 tablet by mouth daily with breakfast. insulin glargine (LANTUS SOLOSTAR U-100 INSULIN) 100 unit/mL (3 mL) Inject 45 Units subcutaneously daily at bedtime. metFORMIN (GLUCOPHAGE) 500 mg tablet Take 2 tablets by mouth two times a day with meals. amLODIPine (NORVASC) 2.5 mg tablet Take 1 tablet by mouth once daily. atorvastatin (LIPITOR) 20 mg tablet Take 1 tablet by mouth once daily. insulin needles, DISPOSABLE, (PEN NEEDLE) 31 gauge x 5/16 Use 1 pen needle once daily for insulin injection. Dx: E11.65 glipiZIDE (GLUCOTROL) 5 mg tablet Take 1 tablet (5 mg) by mouth two times a day before meals. lisinopril (ZESTRIL) 40 mg tablet Take 1 tablet by mouth once daily. dulaglutide (TRULICITY) 3 mg/0.5 mL pen injector Inject 3 mg subcutaneously one time a week. sildenafil (VIAGRA) 50 mg tablet Take 1 tablet by mouth as needed. Blood-Glucose Meter (FREESTYLE LITE METER) monitoring kit Freestyle LITE Meter Kit - Dx: Type 2 DM - uncontrolled E11.65. Insulin: Yes. blood sugar diagnostic test strip Test blood sugar(s) 3 times daily. Dx: Type 2 DM - unontrolled E11.65. Insulin: Yes. [employer]. ASPIRIN 81 MG TAB Take one(1) tablet daily. clotrimazole (LOTRIMIN) 1 % cream Apply thin layer to rash on armpits twice a day. Continue for two weeks after rash has resolved (Patient not taking: Reported on 02/26/2024) Sodium Fluoride 1.1 % BRUSH once daily every evening (Patient not taking: Reported on 02/26/2024) Review of Systems Constitutional: Negative. Respiratory: Negative. Cardiovascular: Negative. Gastrointestinal: Negative. Genitourinary: Negative. Skin: Negative. Neurological: Negative. Psychiatric/Behavioral: Negative. HISTORIES PAST MEDICAL HISTORY Diagnosis Date Benign neoplasm of colon 2009 HYPERPLASTIC DIABETES MELLITUS TYPE II-UNCOMPL 06/27/2006 Elevated prostate specific antigen (PSA) 07/24/2017 History of actinic keratosis 01/24/[address] [facility]. HYPERLIPIDEMIA NEC/NOS 09/27/2005 HYPERTENSION NOS 09/27/2005 Impaired fasting glucose 09/27/2005 Internal hemorrhoids without mention of complication Paronychia of finger 02/01/2022 Prostate cancer (HCC) 10/22/2018 PSA elevation 07/24/2017 Type II or unspecified type diabetes mellitus without mention of complication, uncontrolled 12/04/2012 Ureterolithiasis 03/02/2024 Left UVJ 3-4 mm FAMILY HISTORY Problem Relation Age of Onset Diabetes Father Hypertension Father Prostate Cancer Father Blood Disease Father Immune thrombocytopenia, splenectomy Cervical Cancer Mother Vulvar SCCa with mets other (Obesity) Sister Gastric bypass Colon Cancer Paternal Uncle Macular Degen No Family History Glaucoma No Family History SOCIAL HISTORY Social History Tobacco Use Smoking status: Some Days Types: Cigarettes Smokeless tobacco: Never Tobacco comments: periodic Vaping Use Vaping status: Never Used Substance Use Topics Alcohol use: Yes Alcohol/week: 2.0 standard drinks of alcohol Types: 2 Shots of liquor per week Comment: occasionally Drug use: No PHYSICAL EXAMINATION There were no vitals taken for this visit. General appearance: well appearing CV: no cyanosis Respiratory: no increased work of breathing : no flank TTP bilaterally Physical Exam ASSESSMENT 68 year old gentleman with prostate cancer on active surveillance who presents for follow up of 3mm distal right ureteral calculus. PLAN UA demonstrates trace blood. Recommend 2 weeks Flomax. Check SHOLA prior to follow up. Discussed repeat CT A/P and possible surgical intervention if SHOLA concerning for persistent ureteral calculus. PSA 5.68. Check in ~4 months. Zachariah Ackerman MD PGY-5, Urology April 30, 2024 I saw and evaluated the patient. Discussed with resident and agree with resident's findings and plan as documented in the resident's note. [place] (more content not included)... [facility] 04-30-2024 History of Presen t illness Narrative ESTABLISHED PATIENT OFFICE VISIT HPI Leandra El is a 68 year old male who presents for follow up of prostate cancer. Patient had [place] prostate cancer diagnosed in 2019. PSA has been stable on active surveillance. PSA most recently 5.68 on 01/23/24. Patient was diagnosed with a 4mm L UVJ calculus in 02/2024 in [place]. States that left flank pain has resolved. KUB performed on 04/16 revealed no large radio-opaque calculi. CT imaging on 04/18 at [facility] demonstrated a 3mm right distal ureteral stone. States that he had a temperature of 100.4F. Creatinine was 1.54. No fevers or chills since then. Patient states that pain resolved 4-5 days ago. Denies fevers and chills. MEDICATIONS: tamsulosin (FLOMAX) 0.4 mg take 1 capsule by mouth 30 MINUTES after THE SAME MEAL EACH DAY dapagliflozin propanediol (FARXIGA) 10 mg tablet Take 1 tablet by mouth daily with breakfast. insulin glargine (LANTUS SOLOSTAR U-100 INSULIN) 100 unit/mL (3 mL) Inject 45 Units subcutaneously daily at bedtime. metFORMIN (GLUCOPHAGE) 500 mg tablet Take 2 tablets by mouth two times a day with meals. amLODIPine (NORVASC) 2.5 mg tablet Take 1 tablet by mouth once daily. atorvastatin (LIPITOR) 20 mg tablet Take 1 tablet by mouth once daily. insulin needles, DISPOSABLE, (PEN NEEDLE) 31 gauge x 5/16 Use 1 pen needle once daily for insulin injection. Dx: E11.65 glipiZIDE (GLUCOTROL) 5 mg tablet Take 1 tablet (5 mg) by mouth two times a day before meals. lisinopril (ZESTRIL) 40 mg tablet Take 1 tablet by mouth once daily. dulaglutide (TRULICITY) 3 mg/0.5 mL pen injector Inject 3 mg subcutaneously one time a week. sildenafil (VIAGRA) 50 mg tablet Take 1 tablet by mouth as needed. Blood-Glucose Meter (FREESTYLE LITE METER) monitoring kit Freestyle LITE Meter Kit - Dx: Type 2 DM - uncontrolled E11.65. Insulin: Yes. blood sugar diagnostic test strip Test blood sugar(s) 3 times daily. Dx: Type 2 DM - unontrolled E11.65. Insulin: Yes. [employer]. ASPIRIN 81 MG TAB Take one(1) tablet daily. clotrimazole (LOTRIMIN) 1 % cream Apply thin layer to rash on armpits twice a day. Continue for two weeks after rash has resolved (Patient not taking: Reported on 02/26/2024) Sodium Fluoride 1.1 % BRUSH once daily every evening (Patient not taking: Reported on 02/26/2024) Review of Systems Constitutional: Negative. Respiratory: Negative. Cardiovascular: Negative. Gastrointestinal: Negative. Genitourinary: Negative. Skin: Negative. Neurological: Negative. Psychiatric/Behavioral: Negative. HISTORIES PAST MEDICAL HISTORY Diagnosis Date Benign neoplasm of colon 2009 HYPERPLASTIC DIABETES MELLITUS TYPE II-UNCOMPL 06/27/2006 Elevated prostate specific antigen (PSA) 07/24/2017 History of actinic keratosis 01/24/[address] [facility]ryn [facility]. HYPERLIPIDEMIA NEC/NOS 09/27/2005 HYPERTENSION NOS 09/27/2005 Impaired fasting glucose 09/27/2005 Internal hemorrhoids without mention of complication Paronychia of finger 02/01/2022 Prostate cancer (HCC) 10/22/2018 PSA elevation 07/24/2017 Type II or unspecified type diabetes mellitus without mention of complication, uncontrolled 12/04/2012 Ureterolithiasis 03/02/2024 Left UVJ 3-4 mm FAMILY HISTORY Problem Relation Age of Onset Diabetes Father Hypertension Father Prostate Cancer Father Blood Disease Father Immune thrombocytopenia, splenectomy Cervical Cancer Mother Vulvar SCCa with mets other (Obesity) Sister Gastric bypass Colon Cancer Paternal Uncle Macular Degen No Family History Glaucoma No Family History SOCIAL HISTORY Social History Tobacco Use Smoking status: Some Days Types: Cigarettes Smokeless tobacco: Never Tobacco comments: periodic Vaping Use Vaping status: Never Used Substance Use Topics Alcohol use: Yes Alcohol/week: 2.0 standard drinks of alcohol Types: 2 Shots of liquor per week Comment: occasionally Drug use: No PHYSICAL EXAMINATION There were no vitals taken for this visit. General appearance: well appearing CV: no cyanosis Respiratory: no increased work of breathing : no flank TTP bilaterally Physical Exam ASSESSMENT 68 year old gentleman with prostate cancer on active surveillance who presents for follow up of 3mm distal right ureteral calculus. PLAN UA demonstrates trace blood. Recommend 2 weeks Flomax. Check SHOLA prior to follow up. Discussed repeat CT A/P and possible surgical intervention if SHOLA concerning for persistent ureteral calculus. PSA 5.68. Check in ~4 months. Zachariah Ackerman MD PGY-5, Urology April 30, 2024 I saw and evaluated the patient. Discussed with resident and agree with resident's findings and plan as documented in the resident's note. April Leon Jr, MD documented in this encounter [facility] 04-03-2024 Note HNO ID: [id number] Author: KALEIGH KIMBALL PA Service: ? Author Type: Physician Curing Press Maintainer Type: Progress Notes Filed: 04/03/2024 15:53 Note Text: This note was created using NoteWriter. Subjective Leandra El is a 68 year old male. HPI 68-year-old male presents for bilateral ears feeling clogged. Patient states he has had cough and congestion a few weeks ago. He states that his ears feel clogged and he has muffled hearing. No pain in the ears. No fevers. Cough and congestion has improved. He has not taken anything for his ears. No other complaint. PAST MEDICAL HISTORY Diagnosis Date Benign neoplasm of colon 2009 HYPERPLASTIC DIABETES MELLITUS TYPE II-UNCOMPL 06/27/2006 Elevated prostate specific antigen (PSA) 07/24/2017 History of actinic keratosis 01/24/[address] Cath[facility]. HYPERLIPIDEMIA NEC/NOS 09/27/2005 HYPERTENSION NOS 09/27/2005 Impaired fasting glucose 09/27/2005 Internal hemorrhoids without mention of complication Paronychia of finger 02/01/2022 Prostate cancer (HCC) 10/22/2018 PSA elevation 07/24/2017 Type II or unspecified type diabetes mellitus without mention of complication, uncontrolled 12/04/2012 Ureterolithiasis 03/02/2024 Left UVJ 3-4 mm PAST SURGICAL HISTORY Procedure Laterality Date CATARACT EXTRACTION W/ INTRAOCULAR LENS IMPLANT HX 2014 COLONOSCOPY FLX DX W/COLLJ SPEC WHEN PFRMD 03/08/2015 Colonoscopy COLONOSCOPY FLX DX W/COLLJ SPEC WHEN PFRMD 04/19/2020 Colonoscopy repeat in 5 years COLONOSCOPY W/BIOPSY SINGLE/MULTIPLE 05/31/2009 PROSTATE BIOPSY W/TRANSRECTAL US 10/09/2018 PROSTATE BIOPSY WITH MR FUSION 07/19/2022 SKIN BIOPSY HX TONSILLECTOMY HX 1968 ALLERGIES Seasonal Allergies MEDICATIONS tamsulosin (FLOMAX) 0.4 mg take 1 capsule by mouth 30 MINUTES after THE SAME MEAL EACH DAY dapagliflozin propanediol (FARXIGA) 10 mg tablet Take 1 tablet by mouth daily with breakfast. insulin glargine (LANTUS SOLOSTAR U-100 INSULIN) 100 unit/mL (3 mL) Inject 45 Units subcutaneously daily at bedtime. metFORMIN (GLUCOPHAGE) 500 mg tablet Take 2 tablets by mouth two times a day with meals. amLODIPine (NORVASC) 2.5 mg tablet Take 1 tablet by mouth once daily. atorvastatin (LIPITOR) 20 mg tablet Take 1 tablet by mouth once daily. insulin needles, DISPOSABLE, (PEN NEEDLE) 31 gauge x 5/16 Use 1 pen needle once daily for insulin injection. Dx: E11.65 glipiZIDE (GLUCOTROL) 5 mg tablet Take 1 tablet (5 mg) by mouth two times a day before meals. lisinopril (ZESTRIL) 40 mg tablet Take 1 tablet by mouth once daily. dulaglutide (TRULICITY) 3 mg/0.5 mL pen injector Inject 3 mg subcutaneously one time a week. sildenafil (VIAGRA) 50 mg tablet Take 1 tablet by mouth as needed. Blood-Glucose Meter (FREESTYLE LITE METER) monitoring kit Freestyle LITE Meter Kit - Dx: Type 2 DM - uncontrolled E11.. Insulin: Yes. blood sugar diagnostic test strip Test blood sugar(s) 3 times daily. Dx: Type 2 DM - unontrolled E11.. Insulin: Yes. [employer]. ASPIRIN 81 MG TAB Take one(1) tablet daily. clotrimazole (LOTRIMIN) 1 % cream Apply thin layer to rash on armpits twice a day. Continue for two weeks after rash has resolved (Patient not taking: Reported on 02/26/2024) Sodium Fluoride 1.1 % BRUSH once daily every evening (Patient not taking: Reported on 02/26/2024) FAMILY HISTORY Problem Relation Age of Onset Diabetes Father Hypertension Father Prostate Cancer Father Blood Disease Father Immune thrombocytopenia, splenectomy Cervical Cancer Mother Vulvar SCCa with mets other (Obesity) Sister Gastric bypass Colon Cancer Paternal Uncle Macular Degen No Family History Glaucoma No Family History Social History Tobacco Use Smoking status: Some Days Types: Cigarettes Smokeless tobacco: Never Tobacco comments: periodic Vaping Use Vaping status: Never Used Substance Use Topics Alcohol use: Yes Alcohol/week: 2.0 standard drinks of alcohol Types: 2 Shots of liquor per week Comment: occasionally Drug use: No Review of Systems Constitutional: Negative for chills and fever. HENT: Positive for hearing loss. Negative for congestion, ear discharge, ear pain and sore throat. Respiratory: Negative for cough and shortness of breath. Gastrointestinal: Negative for diarrhea and vomiting. Objective BP 159/82 Pulse 101 Temp 36.7 ?C (98.1 ?F) Resp 18 Wt 94.9 kg (209 lb 3.5 oz) SpO2 98% BMI 31.81 kg/m? Physical Exam Vitals and nursing note reviewed. Constitutional: General: He is not in acute distress. Appearance: Normal appearance. He is not toxic-appearing. HENT: Right Ear: Tympanic membrane and ear canal normal. Left Ear: There is impacted cerumen. Ears: Comments: Left ear has impacted cerumen. Right ear TM visualized, mild amount of clear fluid behind right TM. Procedure: Ear lavage completed by BRYCE. Post procedure reveals no TM perforation. (more content not included)... [facility] 04-03-2024 History of Presen t illness Narrative This note was created using [employer]. Subjective Leandra El is a 68 year old male. HPI 68-year-old male presents for bilateral ears feeling clogged. Patient states he has had cough and congestion a few weeks ago. He states that his ears feel clogged and he has muffled hearing. No pain in the ears. No fevers. Cough and congestion has improved. He has not taken anything for his ears. No other complaint. PAST MEDICAL HISTORY Diagnosis Date Benign neoplasm of colon 2009 HYPERPLASTIC DIABETES MELLITUS TYPE II-UNCOMPL 06/27/2006 Elevated prostate specific antigen (PSA) 07/24/2017 History of actinic keratosis 01/24/[address] [facility]. HYPERLIPIDEMIA NEC/NOS 09/27/2005 HYPERTENSION NOS 09/27/2005 Impaired fasting glucose 09/27/2005 Internal hemorrhoids without mention of complication Paronychia of finger 02/01/2022 Prostate cancer (HCC) 10/22/2018 PSA elevation 07/24/2017 Type II or unspecified type diabetes mellitus without mention of complication, uncontrolled 12/04/2012 Ureterolithiasis 03/02/2024 Left UVJ 3-4 mm PAST SURGICAL HISTORY Procedure Laterality Date CATARACT EXTRACTION W/ INTRAOCULAR LENS IMPLANT HX 2014 COLONOSCOPY FLX DX W/COLLJ SPEC WHEN PFRMD 03/08/2015 Colonoscopy COLONOSCOPY FLX DX W/COLLJ SPEC WHEN PFRMD 04/19/2020 Colonoscopy repeat in 5 years COLONOSCOPY W/BIOPSY SINGLE/MULTIPLE 05/31/2009 PROSTATE BIOPSY W/TRANSRECTAL US 10/09/2018 PROSTATE BIOPSY WITH MR FUSION 07/19/2022 SKIN BIOPSY HX TONSILLECTOMY HX 1968 ALLERGIES Seasonal Allergies MEDICATIONS tamsulosin (FLOMAX) 0.4 mg take 1 capsule by mouth 30 MINUTES after THE SAME MEAL EACH DAY dapagliflozin propanediol (FARXIGA) 10 mg tablet Take 1 tablet by mouth daily with breakfast. insulin glargine (LANTUS SOLOSTAR U-100 INSULIN) 100 unit/mL (3 mL) Inject 45 Units subcutaneously daily at bedtime. metFORMIN (GLUCOPHAGE) 500 mg tablet Take 2 tablets by mouth two times a day with meals. amLODIPine (NORVASC) 2.5 mg tablet Take 1 tablet by mouth once daily. atorvastatin (LIPITOR) 20 mg tablet Take 1 tablet by mouth once daily. insulin needles, DISPOSABLE, (PEN NEEDLE) 31 gauge x 5/16 Use 1 pen needle once daily for insulin injection. Dx: E11.65 glipiZIDE (GLUCOTROL) 5 mg tablet Take 1 tablet (5 mg) by mouth two times a day before meals. lisinopril (ZESTRIL) 40 mg tablet Take 1 tablet by mouth once daily. dulaglutide (TRULICITY) 3 mg/0.5 mL pen injector Inject 3 mg subcutaneously one time a week. sildenafil (VIAGRA) 50 mg tablet Take 1 tablet by mouth as needed. Blood-Glucose Meter (FREESTYLE LITE METER) monitoring kit Freestyle LITE Meter Kit - Dx: Type 2 DM - uncontrolled E11.65. Insulin: Yes. blood sugar diagnostic test strip Test blood sugar(s) 3 times daily. Dx: Type 2 DM - unontrolled E11.65. Insulin: Yes. [employer]. ASPIRIN 81 MG TAB Take one(1) tablet daily. clotrimazole (LOTRIMIN) 1 % cream Apply thin layer to rash on armpits twice a day. Continue for two weeks after rash has resolved (Patient not taking: Reported on 02/26/2024) Sodium Fluoride 1.1 % BRUSH once daily every evening (Patient not taking: Reported on 02/26/2024) FAMILY HISTORY Problem Relation Age of Onset Diabetes Father Hypertension Father Prostate Cancer Father Blood Disease Father Immune thrombocytopenia, splenectomy Cervical Cancer Mother Vulvar SCCa with mets other (Obesity) Sister Gastric bypass Colon Cancer Paternal Uncle Macular Degen No Family History Glaucoma No Family History Social History Tobacco Use Smoking status: Some Days Types: Cigarettes Smokeless tobacco: Never Tobacco comments: periodic Vaping Use Vaping status: Never Used Substance Use Topics Alcohol use: Yes Alcohol/week: 2.0 standard drinks of alcohol Types: 2 Shots of liquor per week Comment: occasionally Drug use: No Review of Systems Constitutional: Negative for chills and fever. HENT: Positive for hearing loss. Negative for congestion, ear discharge, ear pain and sore throat. Respiratory: Negative for cough and shortness of breath. Gastrointestinal: Negative for diarrhea and vomiting. Objective BP 159/82 Pulse 101 Temp 36.7 C (98.1 F) Resp 18 Wt 94.9 kg (209 lb 3.5 oz) SpO2 98% BMI 31.81 kg/m Physical Exam Vitals and nursing note reviewed. Constitutional: General: He is not in acute distress. Appearance: Normal appearance. He is not toxic-appearing. HENT: Right Ear: Tympanic membrane and ear canal normal. Left Ear: There is impacted cerumen. Ears: Comments: Left ear has impacted cerumen. Right ear TM visualized, mild amount of clear fluid behind right TM. Procedure: Ear lavage completed by BRYCE. Post procedure reveals no TM perforation. No bleeding. No signs of infection. Nose: Nose normal. Mouth/Throat: Mouth: Mucous membranes are moist. Eyes: Conjunctiva/sclera: Conjunctivae normal. Cardiovascular: Rate and Rhythm: Normal rate and regular rhythm. Pulmonary: Effort: Pulmonary effort is normal. Breath sounds: Normal breath sounds. Skin: General: Skin is warm and dry. Neurological: Mental Status: He is alert. Assessment and Plan ASSESSMENT/PLAN: 1. Impacted cerumen of left ear - ICD9: 380.4, ICD10: H61.22 (primary diagnosis) - REMOVAL OF IMPACTED CERUMEN - INSTRUMENTATION -Ear lavage completed by BRYCE. Patient tolerated procedure well. Post procedure reveals TM normal. No perforation. No bleeding. No signs of infection. 2. Eustachian tube dysfunction, bilateral - ICD9: 381.81, ICD10: H69.93 -Small amount of clear fluid behind TMs bilaterally. -Recommend Flonase, Zyrtec. Diagnosis and treatment plan were discussed and questions were answered to the patient's satisfaction. Pt acknowledged understanding of concepts and follow up plan. Specific signs and symptoms that would indicate the need for higher level of care were discussed in detail warranting prompt ER evaluation. SACHA Proctor documented in this encounter [facility] 02-26-2024 History of Presen t illness Narrative Radiology Service Progress Note PATIENT NAME: Leandra El DATE OF SERVICE: February 26, 2024 TIME: 11:43 AM PATIENT IDENTITY VERIFICATION COMPLETED USING TWO (2) IDENTIFIERS: Name and Date of confirmed by patient verbally. FALL SCREENING: Has the patient had 2 falls in the last year or 1 fall with injury or currently using an Ambulatory Assistive Device (Walker, Cane, Wheelchair, Crutches, etc.)? No PATIENT GENDER DATA: Male PATIENT RELEVANT IMPLANT DATA REVIEWED: Yes PATIENT PRESENTS WITH AN IMPLANTABLE OR ATTACHED SUPERVISOR ELEMENTARY EDUCATION: No RADIOLOGY DEPARTMENT: General X-ray: Exam(s) Completed: Chest X-Ray PERIPHERAL IV DATA: Not applicable SIGNED BY: RT Carol(R) February 26, 2024 11:43 AM documented in this encounter [facility] 02-26-2024 History of Presen t illness Narrative Subjective HPI HPI Leandra lE is a 68 year old male who presents today for CC of cough, congestion. This started 1 month ago. Has tried otc medication for relief. Symptoms are worsened by nothing. Risk factors sick exposures at home. smoker. .Patient presents with: Chest Congestion: cough x 1 month PAST MEDICAL HISTORY Diagnosis Date Benign neoplasm of colon 2009 HYPERPLASTIC DIABETES MELLITUS TYPE II-UNCOMPL 06/27/2006 Elevated prostate specific antigen (PSA) 07/24/2017 History of actinic keratosis 01/24/[address] [facility]ryn [facility]. HYPERLIPIDEMIA NEC/NOS 09/27/2005 HYPERTENSION NOS 09/27/2005 Impaired fasting glucose 09/27/2005 Internal hemorrhoids without mention of complication Paronychia of finger 02/01/2022 Prostate cancer (HCC) 10/22/2018 PSA elevation 07/24/2017 Type II or unspecified type diabetes mellitus without mention of complication, uncontrolled 12/04/2012 PAST SURGICAL HISTORY Procedure Laterality Date CATARACT EXTRACTION W/ INTRAOCULAR LENS IMPLANT HX 2014 COLONOSCOPY FLX DX W/COLLJ SPEC WHEN PFRMD 03/08/2015 Colonoscopy COLONOSCOPY FLX DX W/COLLJ SPEC WHEN PFRMD 04/19/2020 Colonoscopy repeat in 5 years COLONOSCOPY W/BIOPSY SINGLE/MULTIPLE 05/31/2009 PROSTATE BIOPSY W/TRANSRECTAL US 10/09/2018 PROSTATE BIOPSY WITH MR FUSION 07/19/2022 SKIN BIOPSY HX TONSILLECTOMY HX 1968 ALLERGIES Seasonal Allergies MEDICATIONS dapagliflozin propanediol (FARXIGA) 10 mg tablet Take 1 tablet by mouth daily with breakfast. insulin glargine (LANTUS SOLOSTAR U-100 INSULIN) 100 unit/mL (3 mL) Inject 45 Units subcutaneously daily at bedtime. metFORMIN (GLUCOPHAGE) 500 mg tablet Take 2 tablets by mouth two times a day with meals. amLODIPine (NORVASC) 2.5 mg tablet Take 1 tablet by mouth once daily. atorvastatin (LIPITOR) 20 mg tablet Take 1 tablet by mouth once daily. insulin needles, DISPOSABLE, (PEN NEEDLE) 31 gauge x 5/16 Use 1 pen needle once daily for insulin injection. Dx: E11.65 glipiZIDE (GLUCOTROL) 5 mg tablet Take 1 tablet (5 mg) by mouth two times a day before meals. lisinopril (ZESTRIL) 40 mg tablet Take 1 tablet by mouth once daily. dulaglutide (TRULICITY) 3 mg/0.5 mL pen injector Inject 3 mg subcutaneously one time a week. sildenafil (VIAGRA) 50 mg tablet Take 1 tablet by mouth as needed. Blood-Glucose Meter (FREESTYLE LITE METER) monitoring kit Freestyle LITE Meter Kit - Dx: Type 2 DM - uncontrolled E11.65. Insulin: Yes. blood sugar diagnostic test strip Test blood sugar(s) 3 times daily. Dx: Type 2 DM - unontrolled E11.65. Insulin: Yes. [facility]. ASPIRIN 81 MG TAB Take one(1) tablet daily. clotrimazole (LOTRIMIN) 1 % cream Apply thin layer to rash on armpits twice a day. Continue for two weeks after rash has resolved (Patient not taking: Reported on 02/26/2024) Sodium Fluoride 1.1 % BRUSH once daily every evening (Patient not taking: Reported on 02/26/2024) FAMILY HISTORY Problem Relation Age of Onset Diabetes Father Hypertension Father Prostate Cancer Father Blood Disease Father Immune thrombocytopenia, splenectomy Cervical Cancer Mother Vulvar SCCa with mets other (Obesity) Sister Gastric bypass Colon Cancer Paternal Uncle Macular Degen No Family History Glaucoma No Family History Social History Tobacco Use Smoking status: Some Days Types: Cigarettes Smokeless tobacco: Never Tobacco comments: periodic Vaping Use Vaping status: Never Used Substance Use Topics Alcohol use: Yes Alcohol/week: 2.0 standard drinks of alcohol Types: 2 Shots of liquor per week Comment: occasionally Drug use: No Review of Systems Constitutional: Negative for fever. HENT: Positive for congestion. Negative for ear pain, nosebleeds and sore throat. Respiratory: Positive for cough. Negative for shortness of breath and wheezing. Musculoskeletal: Negative for neck pain. Objective Blood pressure 122/80, pulse 102, temperature 36.5 C (97.7 F), resp. rate 16, weight 95 kg (209 lb 7 oz), SpO2 97%. Latest Ref Rng 11/12/2023 Protein, Total 6.3 - 8.0 g/dL 6.8 Albumin 3.9 - 4.9 g/dL 4.5 Calcium 8.5 - 10.2 mg/dL 9.7 Bilirubin, Total 0.2 - 1.3 mg/dL 0.3 Alkaline Phosphatase 38 - 113 U/L 75 AST 14 - 40 U/L 12 (L) ALT 10 - 54 U/L 14 Glucose 74 - 99 mg/dL 118 (H) BUN 9 - 24 mg/dL 15 Creatinine 0.73 - 1.22 mg/dL 0.82 Sodium 136 - 144 mmol/L 138 Potassium 3.7 - 5.1 mmol/L 4.3 Chloride 98 - 107 mmol/L 103 CO2 22 - 30 mmol/L 25 Anion Gap 8 - 15 mmol/L 10 eGFR >=60 mL/min/1.73m 96 Physical Exam Constitutional: General: He is not in acute distress. Appearance: He is not toxic-appearing or diaphoretic. HENT: Head: Normocephalic and atraumatic. Cardiovascular: Rate and Rhythm: Normal rate and regular rhythm. Heart sounds: Normal heart sounds, S1 normal and S2 normal. Pulmonary: Effort: Pulmonary effort is normal. Breath sounds: Normal breath sounds. Lymphadenopathy: Cervical: No cervical adenopathy. Right cervical: No superficial cervical adenopathy. Left cervical: No superficial cervical adenopathy. Neurological: Mental Status: He is alert and oriented to person, place, and time. Gait: Gait is intact. ASSESSMENT/PLAN: 1. Lower resp. tract infection - ICD9: 519.8, ICD10: J22 (primary diagnosis) - Discussed supportive care - Limit exposure to smoke and other inhaled irritants - Discussed possible red flags and when to seek medical attention - Follow up in 3-5 days or sooner if no better or worse -If you experience chest pain/shortness of breath go to ER - DOXYCYCLINE MONOHYDRATE 100 MG TABLET 2. Subacute cough - ICD9: 786.2, ICD10: R05.2 - XR CHEST 2V FRONTAL/LAT IMPRESSION: Right infrahilar parenchymal changes suggestive of bronchitis. A follow-up exam is recommended. Will schedule f/u with pcp. Dictated by : PATRICE CANADA MD documented in this encounter [facility] 02-14-2024 Note Date of Procedure 02/14/2024. Route Agent Information Pump Installer: as. Start time: 8:14 AM. Stop time: 8:14 AM. Quality Right Eye Good. Left Eye Good. NFL Interpretation Right Eye Superior loss. Left Eye Superior loss. Ganglion Cell Layer Thickness Right Eye Normal. Left Eye Normal. Interval Change Right Eye Stable. Left Eye Stable. [facility] 02-14-2024 History of Presen t illness Narrative 1. Type 2 diabetes mellitus without retinopathy (HCC) Risk of diabetic changes and vision loss can be minimized by tight control of blood sugar, blood pressure, and cholesterol levels. Educated patient to continue care with primary care doctor and/or director fundraising to maintain optimum levels as they are important to avoid ocular complications. Encouraged patient to call the office immediately with any changes to vision or visual concerns. Advised to not wait until the next scheduled exam. 2. Ocular hypertension, bilateral IOP: 17 OCT: stable and normal (-) fam hx Continue to monitor 3. Pseudophakia Continue with OTC readers Mild pco OU 4. Dry eye syndrome of bilateral lacrimal glands Recommend OTC systane/refresh as needed Follow-up in 1 year for JAMIE and oct nerve or sooner as needed Jasvir Thurman, OD February 14, 2024 9:15 AM documented in this encounter [facility] 02-14-2024 Instructions Jasvir Thurman OD - 02/14/2024 8:44 AM EDT Use Systane Complete or Refresh Relieva as needed daily documented in this encounter [facility] 01-30-2024 Telephone encounter Note Patient has been identified by name and date of : Yes Patient phones for refill(s): Requested Prescriptions Pending Prescriptions Disp Refills dapagliflozin propanediol (FARXIGA) 10 mg tablet 90 tablet 3 Sig: Take 1 tablet by mouth daily with breakfast. Date of last office visit in primary care: 01/18/2024 Date of next office visit in primary care: 05/27/2024 Please advise. Thank you. Helen Hermosillo LPN. [facility] 01-30-2024 Miscellaneous Notes Patient has been identified by name and date of : Yes Patient phones for refill(s): Requested Prescriptions Pending Prescriptions Disp Refills dapagliflozin propanediol (FARXIGA) 10 mg tablet 90 tablet 3 Sig: Take 1 tablet by mouth daily with breakfast. Date of last office visit in primary care: 01/18/2024 Date of next office visit in primary care: 05/27/2024 Please advise. Thank you. Helen Hermosillo LPN. documented in this encounter [facility] 01-28-2024 Telephone encounter Note Prescription Refill Information The patient has been identified by name and date of : Yes Caregiver verified no other encounters exist for this prescription request: Yes Caregiver confirmed with patient/requestor that no other refills are due, in the near future, with this provider at this time: Yes The last office visit in the department: 01/18/24 Does the patient have a future office visit with this provider/department: Yes 05/27/24 Requested Prescriptions Pending Prescriptions Disp Refills insulin glargine (LANTUS SOLOSTAR U-100 INSULIN) 100 unit/mL (3 mL) 45 mL 0 Sig: Inject 45 Units subcutaneously daily at bedtime. Dinorah Paz LPN January 28, 2024 9:01 AM [facility] 01-28-2024 Miscellaneous Notes Prescription Refill Information The patient has been identified by name and date of : Yes Caregiver verified no other encounters exist for this prescription request: Yes Caregiver confirmed with patient/requestor that no other refills are due, in the near future, with this provider at this time: Yes The last office visit in the department: 01/18/24 Does the patient have a future office visit with this provider/department: Yes 05/27/24 Requested Prescriptions Pending Prescriptions Disp Refills insulin glargine (LANTUS SOLOSTAR U-100 INSULIN) 100 unit/mL (3 mL) 45 mL 0 Sig: Inject 45 Units subcutaneously daily at bedtime. Dinorah Paz LPN January 28, 2024 9:01 AM documented in this encounter [facility] 01-24-2024 Telephone encounter Note Phoned patient and notified of message below regarding results per provider. Patient acknowledged understanding of instructions and has no further questions. Ledy Yusuf MA Per April Loen Jr., MD Psa is 5.68 [facility] 01-24-2024 Miscellaneous Notes Phoned patient and notified of message below regarding results per provider. Patient acknowledged understanding of instructions and has no further questions. Ledy Yusuf MA Per April Leon Jr., MD Psa is 5.68 documented in this encounter [facility] 01-18-2024 History of Presen t illness Narrative CC Patient presents with: 2 month follow up - bp HPI Leandra El is a 68 year old male who presents to the office for blood pressure. His visit today is for follow-up. Patient was last seen for this approximately 2 months ago Medication changes: Yes he was started on Norvasc 2.5 mg daily Taking all medications as prescribed: Yes Side effects: No Home BP's: Yes 120's/60's Denies: headache, chest pain, palpitations, dyspnea, and peripheral edema. Last 4 Encounter BP Readings: Date: BP: 12/11/2023 164/86 12/06/2023 138/74 11/16/2023 142/77[BP true[ 05/10/2023 128/66 Last 3 Encounter Wt Readings: Date: Wt: 12/11/2023 96.2 kg (212 lb) 12/06/2023 97.6 kg (215 lb 2.7 oz) 11/16/2023 95.3 kg (210 lb) He was seen on 12/10 for candidal intertrigo of the axilla, right worse than left. He was using treatment prescribed in [facility] Nystatin powder and Diflucan once a week. Right axillary rash resolved but no improvement on the left. Nystatin powder was discontinued and he was started on Clotrimazole. Today he reprots rash has completely resolved. Review of Systems See HPI PAST MEDICAL HISTORY 2009: Benign neoplasm of colon Comment: HYPERPLASTIC 06/27/2006: DIABETES MELLITUS TYPE II-UNCOMPL 07/24/2017: Elevated prostate specific antigen (PSA) 01/24/2017: History of actinic keratosis Comment: Sees [facility]. 09/27/2005: HYPERLIPIDEMIA NEC/NOS 09/27/2005: HYPERTENSION NOS 09/27/2005: Impaired fasting glucose No date: Internal hemorrhoids without mention of complication 02/01/2022: Paronychia of finger 10/22/2018: Prostate cancer (HCC) 07/24/2017: PSA elevation 12/04/2012: Type II or unspecified type diabetes mellitus without mention of complication, uncontrolled PAST SURGICAL HISTORY 2015: CATARACT EXTRACTION W/ INTRAOCULAR LENS IMPLANT HX 03/08/2015: COLONOSCOPY FLX DX W/COLLJ SPEC WHEN PFRMD Comment: Colonoscopy 04/19/2020: COLONOSCOPY FLX DX W/COLLJ SPEC WHEN PFRMD Comment: Colonoscopy repeat in 5 years 05/31/2009: COLONOSCOPY W/BIOPSY SINGLE/MULTIPLE 10/09/2018: PROSTATE BIOPSY W/TRANSRECTAL US 07/19/2022: PROSTATE BIOPSY WITH MR FUSION No date: SKIN BIOPSY HX 1968: TONSILLECTOMY HX ALLERGIES Patient has no known allergies. MEDICATIONS clotrimazole (LOTRIMIN) 1 % cream Apply thin layer to rash on armpits twice a day. Continue for two weeks after rash has resolved metFORMIN (GLUCOPHAGE) 500 mg tablet Take 2 tablets by mouth two times a day with meals. amLODIPine (NORVASC) 2.5 mg tablet Take 1 tablet by mouth once daily. insulin glargine (LANTUS SOLOSTAR U-100 INSULIN) 100 unit/mL (3 mL) Inject 45 Units subcutaneously daily at bedtime. atorvastatin (LIPITOR) 20 mg tablet Take 1 tablet by mouth once daily. insulin needles, DISPOSABLE, (PEN NEEDLE) 31 gauge x 5/16 Use 1 pen needle once daily for insulin injection. Dx: E11.65 glipiZIDE (GLUCOTROL) 5 mg tablet Take 1 tablet (5 mg) by mouth two times a day before meals. lisinopril (ZESTRIL) 40 mg tablet Take 1 tablet by mouth once daily. dulaglutide (TRULICITY) 3 mg/0.5 mL pen injector Inject 3 mg subcutaneously one time a week. dapagliflozin propanediol (FARXIGA) 10 mg tablet Take 1 tablet by mouth daily with breakfast. Sodium Fluoride 1.1 % BRUSH once daily every evening sildenafil (VIAGRA) 50 mg tablet Take 1 tablet by mouth as needed. Blood-Glucose Meter (FREESTYLE LITE METER) monitoring kit Freestyle LITE Meter Kit - Dx: Type 2 DM - uncontrolled E11.65. Insulin: Yes. blood sugar diagnostic test strip Test blood sugar(s) 3 times daily. Dx: Type 2 DM - unontrolled E11.65. Insulin: Yes. [facility]. ASPIRIN 81 MG TAB Take one(1) tablet daily. FAMILY HISTORY Problem Relation Age of Onset Diabetes Father Hypertension Father Prostate Cancer Father Blood Disease Father Immune thrombocytopenia, splenectomy Cervical Cancer Mother Vulvar SCCa with mets other (Obesity) Sister Gastric bypass Colon Cancer Paternal Uncle Macular Degen No Family History Glaucoma No Family History Social History Tobacco Use Smoking status: Some Days Types: Cigarettes Smokeless tobacco: Never Tobacco comments: periodic Vaping Use Vaping status: Never Used Substance Use Topics Alcohol use: Yes Alcohol/week: 2.0 standard drinks of alcohol Types: 2 Shots of liquor per week Comment: occasionally Drug use: No BP 130/78 Pulse 80 Resp 18 Wt 95.3 kg (210 lb 1.6 oz) SpO2 97% BMI 31.95 kg/m Physical Exam Vitals reviewed. Constitutional: Appearance: Normal appearance. Neurological: Mental Status: He is alert. Psychiatric: Mood and Affect: Mood normal. ASSESSMENT/PLAN: 1. Essential hypertension - ICD9: 401.9, ICD10: I10 (primary diagnosis) - Controlled - Continue current medications - Recommend home blood pressure monitoring, to bring results to next visit - Encouraged sodium restriction, DASH or Mediterranean diet 2. Candidal intertrigo - ICD9: 112.3, ICD10: B37.2 resolved Prescription instructions reviewed with patient as applicable. Potential red flag symptoms discussed with the patient. Reviewed appropriate action plan to take if red flag symptoms occur. Patient agreeable to treatment plan Mindy Dean APRN.MACHINING MANAGER documented in this encounter [facility] 12-25-2023 Telephone encounter Note Prescription Refill Information The patient has been identified by name and date of : Yes Caregiver verified no other encounters exist for this prescription request: Yes Caregiver confirmed with patient/requestor that no other refills are due, in the near future, with this provider at this time: Yes The last office visit in the department: 12/11/23 Does the patient have a future office visit with this provider/department: Yes 01/18/24 Requested Prescriptions Pending Prescriptions Disp Refills clotrimazole (LOTRIMIN) 1 % cream 60 g 0 Sig: Apply thin layer to rash on armpits twice a day. Continue for two weeks after rash has resolved Dinorah Paz LPN December 25, 2023 11:18 AM [facility] 12-25-2023 Miscellaneous Notes Prescription Refill Information The patient has been identified by name and date of : Yes Caregiver verified no other encounters exist for this prescription request: Yes Caregiver confirmed with patient/requestor that no other refills are due, in the near future, with this provider at this time: Yes The last office visit in the department: 12/11/23 Does the patient have a future office visit with this provider/department: Yes 01/18/24 Requested Prescriptions Pending Prescriptions Disp Refills clotrimazole (LOTRIMIN) 1 % cream 60 g 0 Sig: Apply thin layer to rash on armpits twice a day. Continue for two weeks after rash has resolved Dinorah Paz LPN December 25, 2023 11:18 AM documented in this encounter [facility] 12-11-2023 Instructions Mindy Dean, YONIS.MACHINING MANAGER - 12/11/2023 12:26 PM EDT INTERTRIGO What is intertrigo and why does it develop? Intertrigo is inflammation of the skin caused by irritation in body folds - especially the armpits, groin, or under the breasts. In many people a yeast called Richa albicans aggravates the condition. This yeast does not normally live on the skin and will not survive on normal dry skin. However, in warm, moist body folds the yeast infection may develop. Intertrigo can occur at any age in both men and women. What are the symptoms? ? The rash is bright red and varies from dry and flaky to moist and oozing. ? Itching and burning are common. How is it treated? If the skin is weeping: ? Apply a cold water compress (use a clean washcloth soaked in cold tap water). ? Leave the compress on for 10-15 minutes. ? Use the compress twice daily until the rash is gone. ? Topical creams as prescribed: Apply a thin layer twice daily - if you are using a cold water compress, apply the creams after the compress; otherwise, just apply the creams to the rash area. ? The rash usually disappears after 2 to 3 weeks of treatment. What can I do to prevent intertrigo? Keeping your skin clean and dry can often prevent intertrigo. Follow the simple suggestions: ? Use a blow dryer on a low setting to dry the body-fold areas after bathing. ? Sprinkle a drying powder such as Zeasorb-AF on these areas. ? If possible, wear loose fitting clothes. ? Weight loss may be beneficial. documented in this encounter [facility] 12-11-2023 History of Presen t illness Narrative Images from the original note were not included. CC: Patient presents with: Follow Up: Yeast infection in right arm pit HPI Leandra El is a 68 year old male who presents today for above. Patient was seen in [facility] on 12/05 for bilateral axillary rash. Treated for possible fungal infection with Diflucan weekly x 4 weeks and nystatin powder. Today patient reports rash on left axilla has almost completely resolved but no improvement in the right axilla. Reports redness, swelling and itching with foul smell. No drainage, pain, fever, chills. Taking medications as prescribed. Scrubs at the rash before applying Nystatin. Never had symptoms like this before. He is diabetic, blood sugars are well controlled. Review of Systems See HPI PAST MEDICAL HISTORY Diagnosis Date Benign neoplasm of colon 2009 HYPERPLASTIC DIABETES MELLITUS TYPE II-UNCOMPL 06/27/2006 Elevated prostate specific antigen (PSA) 07/24/2017 History of actinic keratosis 01/24/[address] [facility]ryn [facility]. HYPERLIPIDEMIA NEC/NOS 09/27/2005 HYPERTENSION NOS 09/27/2005 Impaired fasting glucose 09/27/2005 Internal hemorrhoids without mention of complication Paronychia of finger 02/01/2022 Prostate cancer (HCC) 10/22/2018 PSA elevation 07/24/2017 Type II or unspecified type diabetes mellitus without mention of complication, uncontrolled 12/04/2012 PAST SURGICAL HISTORY Procedure Laterality Date CATARACT EXTRACTION W/ INTRAOCULAR LENS IMPLANT HX 2014 COLONOSCOPY FLX DX W/COLLJ SPEC WHEN PFRMD 03/08/2015 Colonoscopy COLONOSCOPY FLX DX W/COLLJ SPEC WHEN PFRMD 04/19/2020 Colonoscopy repeat in 5 years COLONOSCOPY W/BIOPSY SINGLE/MULTIPLE 05/31/2009 PROSTATE BIOPSY W/TRANSRECTAL US 10/09/2018 PROSTATE BIOPSY WITH MR FUSION 07/19/2022 SKIN BIOPSY HX TONSILLECTOMY HX 1968 ALLERGIES Patient has no known allergies. MEDICATIONS nystatin (MYCOSTATIN) powder Apply 1 application to affected area four times daily for 7 days. fluconazole (DIFLUCAN) 150 mg tablet Take 1 tablet by mouth one time a week for 4 doses. metFORMIN (GLUCOPHAGE) 500 mg tablet Take 2 tablets by mouth two times a day with meals. amLODIPine (NORVASC) 2.5 mg tablet Take 1 tablet by mouth once daily. insulin glargine (LANTUS SOLOSTAR U-100 INSULIN) 100 unit/mL (3 mL) Inject 45 Units subcutaneously daily at bedtime. atorvastatin (LIPITOR) 20 mg tablet Take 1 tablet by mouth once daily. insulin needles, DISPOSABLE, (PEN NEEDLE) 31 gauge x 5/16 Use 1 pen needle once daily for insulin injection. Dx: E11.65 glipiZIDE (GLUCOTROL) 5 mg tablet Take 1 tablet (5 mg) by mouth two times a day before meals. lisinopril (ZESTRIL) 40 mg tablet Take 1 tablet by mouth once daily. dulaglutide (TRULICITY) 3 mg/0.5 mL pen injector Inject 3 mg subcutaneously one time a week. dapagliflozin propanediol (FARXIGA) 10 mg tablet Take 1 tablet by mouth daily with breakfast. Sodium Fluoride 1.1 % BRUSH once daily every evening sildenafil (VIAGRA) 50 mg tablet Take 1 tablet by mouth as needed. Blood-Glucose Meter (FREESTYLE LITE METER) monitoring kit Freestyle LITE Meter Kit - Dx: Type 2 DM - uncontrolled E11.65. Insulin: Yes. blood sugar diagnostic test strip Test blood sugar(s) 3 times daily. Dx: Type 2 DM - unontrolled E11.65. Insulin: Yes. [facility]. ASPIRIN 81 MG TAB Take one(1) tablet daily. FAMILY HISTORY Problem Relation Age of Onset Diabetes Father Hypertension Father Prostate Cancer Father Blood Disease Father Immune thrombocytopenia, splenectomy Cervical Cancer Mother Vulvar SCCa with mets other (Obesity) Sister Gastric bypass Colon Cancer Paternal Uncle Macular Degen No Family History Glaucoma No Family History Social History Tobacco Use Smoking status: Some Days Years: 4 Types: Cigarettes Smokeless tobacco: Never Tobacco comments: periodic Vaping Use Vaping Use: Never used Substance Use Topics Alcohol use: Yes Alcohol/week: 2.0 standard drinks of alcohol Types: 2 Shots of liquor per week Comment: occasionally Drug use: No BP 164/86 Pulse 95 Resp 18 Wt 96.2 kg (212 lb) SpO2 96% BMI 32.23 kg/m Physical Exam Vitals reviewed. Constitutional: Appearance: Normal appearance. Musculoskeletal: Arms: Neurological: Mental Status: He is alert. ASSESSMENT/PLAN: 1. Candidal intertrigo - ICD9: 112.3, ICD10: B37.2 No improvement in left axilla. No evidence of secondary bacterial infection or abscess such as with hidradenitis suppurativa. Stop nystatin powder and start treatment with Clotrimazole cream BID, see orders Skin care discussed, see patient instructions Follow-up 2 weeks if no improvement or sooner if worsening Prescription instructions reviewed with patient as applicable. Potential red flag symptoms discussed with the patient. Reviewed appropriate action plan to take if red flag symptoms occur. Patient agreeable to treatment plan. Mindy Dean APRN.MACHINING MANAGER documented in this encounter [facility] 12-11-2023 Telephone encounter Note Patient scheduled today with Mindy Dean at 10:40. Patient aware of this. Brittany Farooq RN [facility] 12-11-2023 Miscellaneous Notes Patient scheduled today with Mindy Dean at 10:40. Patient aware of this. Brittany Farooq RN documented in this encounter [facility] 12-11-2023 Telephone encounter Note [facility] calling to refill Metformin. Patient had Metformin refilled on 12/05/2023 through [facility]. Called and and spoke with patient regarding refill. Patient prefers getting refills at [facility]. Patient scheduled with Mindy today for follow up on rash in right arm pit as requested through [employer]. Brittany Farooq RN [facility] 12-11-2023 Miscellaneous Notes [facility] calling to refill Metformin. Patient had Metformin refilled on 12/05/2023 through [facility]. Called and and spoke with patient regarding refill. Patient prefers getting refills at [facility]. Patient scheduled with Mindy today for follow up on rash in right arm pit as requested through [employer]. Brittany Farooq RN documented in this encounter [facility] 12-06-2023 History of Presen t illness Narrative This note was created using [employer]. Subjective Leandra El is a 68 year old male. HPI by patient: Usman El is a 68 year old presenting to the office with the complaint of bilateral rash in the axilla. Started approximately 4 days ago. Associated symptoms include itching, redness, and moisture. States there is an odor. Feels this is fungal. Is diabetic. Denies fever or colored drainage. States history of eczema but not fungal infections. OTC not helping. Steroid cream made a little worse. No antibiotic use in the last 60 days. ALLERGIES No Known Allergies Family History Reviewed Including Cardiac Diseases, Psychiatric Diseases, & Substance Abuse Problem: Diabetes Relation: Father Age of Onset: (Not Specified) Problem: Hypertension Relation: Father Age of Onset: (Not Specified) Problem: Prostate Cancer Relation: Father Age of Onset: (Not Specified) Problem: Blood Disease Relation: Father Age of Onset: (Not Specified) Comment: Immune thrombocytopenia, splenectomy Problem: Cervical Cancer Relation: Mother Age of Onset: (Not Specified) Comment: Vulvar SCCa with mets Problem: other (Obesity) Relation: Sister Age of Onset: (Not Specified) Comment: Gastric bypass Problem: Colon Cancer Relation: Paternal Uncle Age of Onset: (Not Specified) Problem: Macular Degen Relation: No Family History Age of Onset: (Not Specified) Problem: Glaucoma Relation: No Family History Age of Onset: (Not Specified) Social History Tobacco Use Smoking status: Some Days Years: 4 Types: Cigarettes Smokeless tobacco: Never Tobacco comments: periodic Vaping Use Vaping Use: Never used Alcohol use: Yes Alcohol/week: 2.0 standard drinks of alcohol Types: 2 Shots of liquor per week Comment: occasionally Drug use: No Active Ambulatory Problems Essential hypertension Date Noted: 09/27/2005 Hyperlipemia Date Noted: 09/27/2005 Controlled type 2 diabetes mellitus without complication, with long-term current use of insulin (HCC) Date Noted: 12/04/2012 History of actinic keratosis Date Noted: 01/24/2017 Erectile dysfunction Date Noted: 01/14/2018 Prostate cancer (HCC) Date Noted: 10/22/2018 Seasonal allergies Date Noted: 10/12/2020 Obesity, Class I, BMI 30-34.9 Date Noted: 07/25/2021 Resolved Ambulatory Problems Impaired fasting glucose Date Noted: 09/27/2005 Other affections of shoulder region, not elsewhere classified Date Noted: 12/06/2012 Elevated prostate specific antigen (PSA) Date Noted: 07/24/2017 Paronychia of finger Date Noted: 02/01/2022 Past Medical History: 2009: Benign neoplasm of colon 06/27/2006: DIABETES MELLITUS TYPE II-UNCOMPL 09/27/2005: HYPERLIPIDEMIA NEC/NOS 09/27/2005: HYPERTENSION NOS No date: Internal hemorrhoids without mention of complication 07/24/2017: PSA elevation 12/04/2012: Type II or unspecified type diabetes mellitus without mention of complication, uncontrolled Review of Systems Constitutional: Negative. HENT: Negative. Eyes: Negative. Respiratory: Negative. Cardiovascular: Negative. Gastrointestinal: Negative. Endocrine: Negative. Genitourinary: Negative. Musculoskeletal: Negative. Skin: Positive for rash. Neurological: Negative. Objective BP 138/74 Pulse 85 Temp 36.4 C (97.5 F) Resp 21 Wt 97.6 kg (215 lb 2.7 oz) SpO2 98% BMI 32.72 kg/m Physical Exam Vitals reviewed. Constitutional: General: He is not in acute distress. Appearance: He is not ill-appearing, toxic-appearing or diaphoretic. Pulmonary: Effort: Pulmonary effort is normal. Skin: Findings: Erythema (moist erythema with some cracking to the bilateral axilla, +odor) present. Neurological: Mental Status: He is alert. Psychiatric: Behavior: Behavior is cooperative. Assessment and Plan (L30.9) Dermatitis (primary encounter diagnosis) Plan: nystatin (MYCOSTATIN) powder, fluconazole (DIFLUCAN) 150 mg tablet Dermatitis to the bilateral axilla, appears fungal. Will treat with nystatin powder 4 times/day and diflucan 1 time/week for 4 doses. -Keep area clean and dry. Non scented antimicrobial soap and water. -If you have significant itching please avoid heat as this can make the itching worse. Cool compresses for comfort. -May use OTC antihistamines like Benadryl or loratadine for itching. -Do not pick at the site. This can lead to a secondary infection. -Signs of worsening infection: increased in size, streaking up or down the skin, fever of 101 F or higher, or copious drainage from the site. -If no improvement please follow up in with primary care or dermatology. -Be seen immediately with worsening symptoms. The patient will pursue further outpatient evaluation with the primary care physician or another Urgent Care/Express Care as outlined in the after visit summary. The patient is agreeable to this plan of care and follow-up instructions have been explained in detail. The patient has received these instructions in written format and have expressed an understanding of the after visit summary. Medical Decision Making: Level: 4 - Moderate I spent a total of 20 minutes on the date of the service which included preparing to see the patient, [id number] patient care, completing clinical documentation, obtaining and/or reviewing separately obtained history, performing a medically appropriate examination, counseling and educating the patient/family/caregiver, and ordering medications, tests, or procedures. documented in this encounter [facility] 12-06-2023 Instructions Magaly Sherman APRN.CNP - 12/06/2023 5:01 PM EDT (L30.9) Dermatitis (primary encounter diagnosis) Plan: nystatin (MYCOSTATIN) powder, fluconazole (DIFLUCAN) 150 mg tablet Dermatitis to the bilateral axilla, appears fungal. Will treat with nystatin powder 4 times/day and diflucan 1 time/week for 4 doses. -Keep area clean and dry. Non scented antimicrobial soap and water. -If you have significant itching please avoid heat as this can make the itching worse. Cool compresses for comfort. -May use OTC antihistamines like Benadryl or loratadine for itching. -Do not pick at the site. This can lead to a secondary infection. -Signs of worsening infection: increased in size, streaking up or down the skin, fever of 101 F or higher, or copious drainage from the site. -If no improvement please follow up in with primary care or dermatology. -Be seen immediately with worsening symptoms. documented in this encounter [facility] 12-05-2023 Telephone encounter Note Patient asking for refill to be sent to local pharmacy, Patient has been identified by name and date of : Yes Patient phones for refill(s): Requested Prescriptions Pending Prescriptions Disp Refills metFORMIN (GLUCOPHAGE) 500 mg tablet 360 tablet 3 Sig: Take 2 tablets by mouth two times a day with meals. Date of last office visit in primary care: 11/16/2023 Date of next office visit in primary care: 01/18/2024 Please advise. Thank you. Helen Hermosillo LPN. [facility] 12-05-2023 Miscellaneous Notes Patient asking for refill to be sent to local pharmacy, Patient has been identified by name and date of : Yes Patient phones for refill(s): Requested Prescriptions Pending Prescriptions Disp Refills metFORMIN (GLUCOPHAGE) 500 mg tablet 360 tablet 3 Sig: Take 2 tablets by mouth two times a day with meals. Date of last office visit in primary care: 11/16/2023 Date of next office visit in primary care: 01/18/2024 Please advise. Thank you. Helen Hermosillo LPN. documented in this encounter [facility] 11-16-2023 Instructions Maykel Bee MD - 11/16/2023 8:34 AM EDT At your pharmacy Shingrix Vaccine(1 of 2) Never done RSV Vaccine(1 - 1-dose 60+ series) Never done Advance Directive for your record. documented in this encounter [facility] 11-16-2023 History of Presen t illness Narrative This note was created using [employer]. Subjective Leandra El is a 68 year old male. He was doing reasonably well. His blood pressure has been elevating. DM and lipids were controlled. Review of Systems Constitutional: Negative for activity change and unexpected weight change. Respiratory: Negative for shortness of breath. Cardiovascular: Negative for chest pain, palpitations and leg swelling. Gastrointestinal: Negative. Genitourinary: Negative. Neurological: Negative for dizziness and headaches. ACTIVE PROBLEM LIST Essential Hypertension Hyperlipemia Controlled Type 2 Diabetes Mellitus Without Complication, With Long-Term Current Use of Insulin (Hcc) History of Actinic Keratosis Elevated Prostate Specific Antigen (Psa) Erectile Dysfunction Prostate Cancer (Hcc) Seasonal Allergies Obesity, Class I, Bmi 30-34.9 Social History Tobacco Use Smoking status: Some Days Years: 4 Types: Cigarettes Smokeless tobacco: Never Tobacco comments: periodic Vaping Use Vaping Use: Never used Substance Use Topics Alcohol use: Yes Alcohol/week: 2.0 standard drinks of alcohol Types: 2 Shots of liquor per week Comment: occasionally Drug use: No Current Outpatient Medications Medication Sig insulin glargine (LANTUS SOLOSTAR U-100 INSULIN) 100 unit/mL (3 mL) Inject 45 Units subcutaneously daily at bedtime. atorvastatin (LIPITOR) 20 mg tablet Take 1 tablet by mouth once daily. insulin needles, DISPOSABLE, (PEN NEEDLE) 31 gauge x 5/16 Use 1 pen needle once daily for insulin injection. Dx: E11.65 glipiZIDE (GLUCOTROL) 5 mg tablet Take 1 tablet (5 mg) by mouth two times a day before meals. lisinopril (ZESTRIL) 40 mg tablet Take 1 tablet by mouth once daily. dulaglutide (TRULICITY) 3 mg/0.5 mL pen injector Inject 3 mg subcutaneously one time a week. dapagliflozin propanediol (FARXIGA) 10 mg tablet Take 1 tablet by mouth daily with breakfast. Sodium Fluoride 1.1 % BRUSH once daily every evening metFORMIN (GLUCOPHAGE) 500 mg tablet Take 2 tablets by mouth twice daily with meals. sildenafil (VIAGRA) 50 mg tablet Take 1 tablet by mouth as needed. Blood-Glucose Meter (FREESTYLE LITE METER) monitoring kit Freestyle LITE Meter Kit - Dx: Type 2 DM - uncontrolled E11.65. Insulin: Yes. blood sugar diagnostic test strip Test blood sugar(s) 3 times daily. Dx: Type 2 DM - unontrolled E11.65. Insulin: Yes. [facility]. ASPIRIN 81 MG TAB Take one(1) tablet daily. triamcinolone acetonide (NASACORT) 55 mcg nasal inhaler Use 2 Sprays in the nose once daily. (Patient not taking: Reported on 07/24/2023) loratadine (CLARITIN) 10 mg tablet Take 1 tablet by mouth once daily. For allergies. (Patient not taking: Reported on 11/16/2023) No current facility-administered medications for this visit. Objective BP 142/77 (BP Site: Left Arm, BP Position: Sitting, BP Cuff Size: Large Adult) Pulse 62 Resp 16 Ht 172.7 cm (5' 8) Wt 95.3 kg (210 lb) BMI 31.93 kg/m Physical Exam Constitutional: General: He is not in acute distress. Cardiovascular: Rate and Rhythm: Normal rate. Rhythm irregular. Heart sounds: S1 normal and S2 normal. No murmur heard. No gallop. Pulmonary: Breath sounds: Normal breath sounds. Musculoskeletal: Right lower leg: No edema. Left lower leg: No edema. Neurological: Mental Status: He is alert. Gait: Gait normal. Latest Ref Rng 11/12/2023 Protein, Total 6.3 - 8.0 g/dL 6.8 Albumin 3.9 - 4.9 g/dL 4.5 Calcium 8.5 - 10.2 mg/dL 9.7 Bilirubin, Total 0.2 - 1.3 mg/dL 0.3 Alkaline Phosphatase 38 - 113 U/L 75 AST 14 - 40 U/L 12 (L) ALT 10 - 54 U/L 14 Glucose 74 - 99 mg/dL 118 (H) BUN 9 - 24 mg/dL 15 Creatinine 0.73 - 1.22 mg/dL 0.82 Sodium 136 - 144 mmol/L 138 Potassium 3.7 - 5.1 mmol/L 4.3 Chloride 98 - 107 mmol/L 103 CO2 22 - 30 mmol/L 25 Anion Gap 8 - 15 mmol/L 10 eGFR >=60 mL/min/1.73m 96 Cholesterol, Total <200 mg/dL 130 Triglyceride <150 mg/dL 117 HDL Cholesterol >39 mg/dL 35 (L) Non HDL Cholesterol <130 mg/dL 95 Fasting Time hrs 10 VLDL Cholesterol <30 mg/dL 23 TC:HDL Ratio <5.10 3.71 LDL Cholesterol <100 mg/dL 72 LDL:HDL Ratio <2.54 2.06 Hemoglobin A1C 4.3 - 5.6 % 6.8 (H) Estimated Average Glucose mg/dL 148 Legend: (L) Low (H) High Assessment and Plan 1. Medicare annual wellness visit, initial - ICD9: V70.0, ICD10: Z00.00 (primary diagnosis) See wellness note. 2. Essential hypertension - ICD9: 401.9, ICD10: I10 - Worsening control - Continue current medications - Start amlodipine - Encouraged sodium restriction, DASH or Mediterranean diet - Recommend regular aerobic exercise - Discussed need for and benefit of weight loss. BMI 31.93 kg/(m^2) - Smoking cessation encouraged; discussed risks to health and quitting strategies. Patient is not ready to quit - AMLODIPINE 2.5 MG TABLET 3. Controlled type 2 diabetes mellitus without complication, with long-term current use of insulin (HCC) - ICD9: 250.00, V58.67, ICD10: E11.9, Z79.4 - Controlled - Continue current medications - BASIC METABOLIC PANEL - HEMOGLOBIN A1C - ALBUMIN/CREATININE RATIO, URINE 4. Hyperlipidemia, unspecified hyperlipidemia type - ICD9: 272.4, ICD10: E78.5 - Controlled - Continue current medications - Counseled on healthy diet and regular exercise 5. Need for COVID-19 vaccine - ICD9: V04.89, ICD10: Z23 - [employer] COVID-19 VACCINE (2022- SEAS[place]) AGE 12+ YR Maykel Bee MD Images from the original note were not included. Leandra El is a 68 year old male here for a Medicare wellness visit. Medicare Health Risk Assessment General Health Very good Exercise: Minutes/Day 20 min Exercise: Days/Week 3 days Alcohol: Daily Use 2-4 times a month Alcohol: Drinks/Day 1 or 2 Alcohol: 6 or more drinks Never Feel off balance No Concerns: Teeth/Dentures No Concerns: Sexual function No Troubled by feelings None of the above Frequency: Eating healthy diet Nearly every day ADLs requiring help None of the above Safety precautions in home/vehicle Yes Smoke, vape, chews tobacco Yes, and I might quit Difficulty hearing No Difficulty seeing No Current Providers Specialists: I have reviewed specialist-related care of the patient in the medical record. Current care team: Patient Care Team: Maykel Bee MD as PCP - April Cardoso Jr. Urology. Reji Jackson MD, Ophthalmology. Medical/Family history review Reviewed and updated problem list, medical/surgical/family/social history, medications, and allergies. Opioid use review Opioid Medications (last 90 days) No data to display Anxiety/Depression screening Recommendation: no further intervention at this time Cognitive screening Mini Cog Score: 5 Cognitive screening reviewed and No further action needed (score 3-5). Functional Observation Was the patient's Timed Up & Go test unsteady or ? 12 seconds? No Advance Care Planning Patient did not wish or was not able to name a surrogate decision maker or provide an advance care plan Measurements BP 144/76 Pulse 72 Resp 16 Ht 5' 8 (1.73m) Wt 210 lb (95.3kg) BMI 31.94 kg/(m^2). Vision Screening: Follows with optometry/ophthalmology Assessment/Plan Medicare annual wellness visit, subsequent (Z00.00) - Counseled on healthy diet and regular exercise - Fall avoidance information provided - Personalized prevention plan provided - Discussed need for and benefit of weight loss. BMI 31.93 kg/(m^2) documented in this encounter [facility] 11-12-2023 Telephone encounter Note Patient has been identified by name and date of : Yes Patient phones for refill(s): Requested Prescriptions Pending Prescriptions Disp Refills insulin glargine (LANTUS SOLOSTAR U-100 INSULIN) 100 unit/mL (3 mL) 45 mL 0 Sig: Inject 45 Units subcutaneously daily at bedtime. Date of last office visit in primary care: 05/10/2023 Date of next office visit in primary care: 11/16/2023 Please advise. Thank you. Helen Hermosillo LPN. [facility] 11-12-2023 Miscellaneous Notes Patient has been identified by name and date of : Yes Patient phones for refill(s): Requested Prescriptions Pending Prescriptions Disp Refills insulin glargine (LANTUS SOLOSTAR U-100 INSULIN) 100 unit/mL (3 mL) 45 mL 0 Sig: Inject 45 Units subcutaneously daily at bedtime. Date of last office visit in primary care: 05/10/2023 Date of next office visit in primary care: 11/16/2023 Please advise. Thank you. Helen Hermosillo LPN. documented in this encounter [facility] 10-22-2023 Telephone encounter Note Patient has been identified by name and date of : Yes Patient phones for refill(s): Requested Prescriptions Pending Prescriptions Disp Refills atorvastatin (LIPITOR) 20 mg tablet 90 tablet 3 Sig: Take 1 tablet by mouth once daily. insulin needles, DISPOSABLE, (PEN NEEDLE) 31 gauge x 5/16 100 Each 3 Sig: Use 1 pen needle once daily for insulin injection. Dx: E11.65 Date of last office visit in primary care: 05/10/2023 Date of next office visit in primary care: 10/21/2023 Please advise. Thank you. Madelin Winters MA. [facility] 10-22-2023 Miscellaneous Notes Patient has been identified by name and date of : Yes Patient phones for refill(s): Requested Prescriptions Pending Prescriptions Disp Refills atorvastatin (LIPITOR) 20 mg tablet 90 tablet 3 Sig: Take 1 tablet by mouth once daily. insulin needles, DISPOSABLE, (PEN NEEDLE) 31 gauge x 5/16 100 Each 3 Sig: Use 1 pen needle once daily for insulin injection. Dx: E11.65 Date of last office visit in primary care: 05/10/2023 Date of next office visit in primary care: 10/21/2023 Please advise. Thank you. Madelin Winters MA. documented in this encounter [facility] 09-24-2023 Telephone encounter Note Patient has been identified by name and date of : Yes Patient phones for refill(s): Requested Prescriptions Pending Prescriptions Disp Refills glipiZIDE (GLUCOTROL) 5 mg tablet 180 tablet 3 Sig: Take 1 tablet (5 mg) by mouth two times a day before meals. lisinopril (ZESTRIL) 40 mg tablet 90 tablet 3 Sig: Take 1 tablet by mouth once daily. Date of last office visit in primary care: 05/10/2023 Date of next office visit in primary care: 11/16/2023 Please advise. Thank you. Madelin Winters MA. [facility] 09-24-2023 Miscellaneous Notes Patient has been identified by name and date of : Yes Patient phones for refill(s): Requested Prescriptions Pending Prescriptions Disp Refills glipiZIDE (GLUCOTROL) 5 mg tablet 180 tablet 3 Sig: Take 1 tablet (5 mg) by mouth two times a day before meals. lisinopril (ZESTRIL) 40 mg tablet 90 tablet 3 Sig: Take 1 tablet by mouth once daily. Date of last office visit in primary care: 05/10/2023 Date of next office visit in primary care: 11/16/2023 Please advise. Thank you. Madelin Winters MA. documented in this encounter [facility] 07-11-2023 Miscellaneous Notes Pt needs new rx to [facility] per new rx plan. documented in this encounter [facility] 03-05-2023 Miscellaneous Notes Patient has been identified by name and date of : Yes Patient phones for refill(s): Requested Prescriptions Pending Prescriptions Disp Refills dapagliflozin propanediol (FARXIGA) 10 mg tablet 90 tablet 3 Sig: Take 1 tablet by mouth daily with breakfast. Date of last office visit in primary care: 02/07/23 Date of next office visit in primary care: 05/10/23 Last 2 Encounter Wt Readings: Date: Wt: 01/16/2023 98 kg (216 lb) 11/08/2022 97.1 kg (214 lb) Please advise. Thank you. ANGELA Gutiérrez. documented in this encounter [facility] 02-07-2023 History of Presen t illness Narrative BP Bryan Serial, Digital BP Readings, Taken 2 Minutes Apart, Average Readings: 146/79 Pulse: 73 Readings from BP bryan: 148/79 Pulse: 76 130/80 75 146/78 85 Reason for blood pressure check - Last BP elevated Patient is: Taking medication as prescribed Yes Took medication today Yes If no, date medication last taken N/A Experiencing side effects Yes Recommendations Continue taking medications as prescribed Follow-up Yes Pt has been identified by name and birthdate: Yes Allergies reviewed: Yes Latex allergy: no. Medication - prescribed and OTC reviewed and updated: Yes Do you need any prescription refills prior to your next visit: Yes Health Maintenance: Reviewed and Patient getting flu vaccine. documented in this encounter [facility] 01-17-2023 History of Presen t illness Narrative ESTABLISHED PATIENT OFFICE VISIT HPI Leandra El is a 67 year old male who presents previous patient of dr. Holliday. 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 We have reviewed this pathology. He is interested in brachytherapy vs active surveillance. Will send decipher biopsy test. 01/16/23 - doing well. No change in symptoms. Decipher low risk at 0.36. psa now 5.81 in 07/13. No fever. No uti. No luts on no prostate meds. LAB: Creatinine Date Value Ref Range Status 10/31/2022 0.94 0.73 - 1.22 mg/dL Final PSA (ng/mL) Date Value 03/30/2022 5.54 12/27/2021 4.70 06/30/2021 4.92 02/09/2021 4.12 11/27/2020 4.47 07/31/2020 3.92 05/18/2020 4.01 01/29/2020 4.22 10/22/2019 4.64 07/24/2019 3.65 01/03/2019 3.02 10/04/2018 3.36 PSA Screening (ng/mL) Date Value 07/14/2022 5.81 Glucose, Urine (mg/dL) Date Value 07/24/2017 >=500 Bilirubin, Urine (no units) Date Value 07/24/2017 Negative Ketones, Urine (no units) Date Value 07/24/2017 Negative Specific [place], Ur (no units) Date Value 07/24/2017 1.033 Hemoglobin/Blood,Ur ( ) Date Value 07/24/2017 Negative pH, Urine (no units) Date Value 07/24/2017 5.0 Protein, Urine (mg/dL) Date Value 07/24/2017 Negative Nitrites (no units) Date Value 07/24/2017 Negative WBC, Urine (/HPF) Date Value 07/24/2017 0-5 MEDICATIONS: glipiZIDE (GLUCOTROL) 5 mg tablet Take 1 tablet by mouth twice daily before meals. lisinopril (ZESTRIL) 40 mg tablet Take 1 tablet by mouth once daily. dulaglutide (TRULICITY) 1.5 mg/0.5 mL pen injector Inject 1.5 mg subcutaneously one time a week. Inject once per week. Discard Pen After insulin needles, DISPOSABLE, (PEN NEEDLE) 31 gauge x 5/16 Use 1 pen needle once daily for insulin injection. Dx: E11.65 sildenafil (VIAGRA) 50 mg tablet Take 1 tablet by mouth as needed. atorvastatin (LIPITOR) 20 mg tablet Take 1 tablet by mouth once daily. insulin glargine (LANTUS SOLOSTAR U-100 INSULIN) 100 unit/mL (3 mL) Inject 45 Units subcutaneously daily at bedtime. dapagliflozin (FARXIGA) 10 mg tablet Take 1 tablet by mouth daily with breakfast. loratadine (CLARITIN) 10 mg tablet Take 1 tablet by mouth once daily. For allergies. Blood-Glucose Meter (FREESTYLE LITE METER) monitoring kit Freestyle LITE Meter Kit - Dx: Type 2 DM - uncontrolled E11.65. Insulin: Yes. blood sugar diagnostic test strip Test blood sugar(s) 3 times daily. Dx: Type 2 DM - unontrolled E11.65. Insulin: Yes. [facility] [employer]. ASPIRIN 81 MG TAB Take one(1) tablet daily. triamcinolone acetonide (NASACORT) 55 mcg nasal inhaler Use 2 Sprays in the nose once daily. metFORMIN (GLUCOPHAGE) 500 mg tablet Take 2 tablets by mouth twice daily with meals. mometasone (ELOCON) 0.1 % cream Apply to affected area once daily. For 2 weeks, as needed. Leg rash REVIEW OF SYSTEMS Review of Systems Constitutional: Negative. Respiratory: Negative. Cardiovascular: Negative. Gastrointestinal: Negative. Genitourinary: Negative. Skin: Negative. Neurological: Negative. Psychiatric/Behavioral: Negative. HISTORIES PAST MEDICAL HISTORY Diagnosis Date Benign neoplasm of colon 2009 HYPERPLASTIC DIABETES MELLITUS TYPE II-UNCOMPL 06/27/2006 History of actinic keratosis 01/24/[address] [facility]. HYPERLIPIDEMIA NEC/NOS 09/27/2005 HYPERTENSION NOS 09/27/2005 Impaired fasting glucose 09/27/2005 Internal hemorrhoids without mention of complication Paronychia of finger 02/01/2022 Prostate cancer (HCC) 10/22/2018 PSA elevation 07/24/2017 Type II or unspecified type diabetes mellitus without mention of complication, uncontrolled 12/04/2012 FAMILY HISTORY Problem Relation Age of Onset Diabetes Father Hypertension Father Prostate Cancer Father Blood Disease Father Immune thrombocytopenia, splenectomy Cervical Cancer Mother Vulvar SCCa with mets other (Obesity) Sister Gastric bypass Colon Cancer Paternal Uncle Macular Degen No Family History Glaucoma No Family History SOCIAL HISTORY Social History Tobacco Use Smoking status: Some Days Years: 4 Types: Cigarettes Smokeless tobacco: Never Tobacco comments: periodic Vaping Use Vaping Use: Never used Substance Use Topics Alcohol use: Yes Alcohol/week: 3.3 standard drinks of alcohol Types: 2 Shots of liquor per week Comment: occasionally Drug use: No PHYSICAL EXAMINATION General appearance: Well appearing, alert, in no acute distress, and well-hydrated, well nourished Skin: Skin color, texture, turgor normal, no suspicious rashes or lesions Respiratory:+ effort Cardiovascular: Not examined GI: Normal abdominal exam, Abdomen soft, non-tender. No masses, organomegaly Musculoskeletal: Negative Neuro: Negative Genitourinary: not examined Impression: (C61) Prostate cancer (HCC) (primary encounter diagnosis) Plan: Psa now Set for 6 months April Leon Jr, MD 01/17/2023 documented in this encounter [facility] 01-16-2023 Nurse Note Patient here to establish care. Prostate Biopsy in July and . documented in this encounter [facility] 12-29-2022 Miscellaneous Notes [place]: 12/27/2022 NOV: 02/07/2023 documented in this encounter [facility] 12-27-2022 Miscellaneous Notes Patient notified, verbalized understanding. Nurse visit scheduled. Increase Lisinopril to 40 mg daily, BP bryan in 6 weeks Mindy Walker APRN.CNP BP Bryan Serial, Digital BP Readings, Taken 2 Minutes Apart, Average Readings: 155/79 Pulse: 90 159/80 90 152/81 90 153/77 90 157/79 90 157/80 90 Reason for blood pressure check - Last BP elevated Patient is: Taking medication as prescribed Yes Took medication today Yes If no, date medication last taken n/a Experiencing side effects No Recommendations Continue taking medications as prescribed, Follow recommended diet instructions, Continue recommended activity, and Avoid excessive salt Follow-up Yes Pt has been identified by name and birthdate: Yes Allergies reviewed: Yes Latex allergy: no. Medication - prescribed and OTC reviewed and updated: Yes Do you need any prescription refills prior to your next visit: No Health Maintenance: Reviewed and up to date documented in this encounter [facility] 12-27-2022 History of Presen t illness Narrative BP Bryan Serial, Digital BP Readings, Taken 2 Minutes Apart, Average Readings: 155/79 Pulse: 90 159/80 90 152/81 90 153/77 90 157/79 90 157/80 90 Reason for blood pressure check - Last BP elevated Patient is: Taking medication as prescribed Yes Took medication today Yes If no, date medication last taken n/a Experiencing side effects No Recommendations Continue taking medications as prescribed, Follow recommended diet instructions, Continue recommended activity, and Avoid excessive salt Follow-up Yes Pt has been identified by name and birthdate: Yes Allergies reviewed: Yes Latex allergy: no. Medication - prescribed and OTC reviewed and updated: Yes Do you need any prescription refills prior to your next visit: No Health Maintenance: Reviewed and up to date documented in this encounter [facility] 11-08-2022 Instructions Maykel Bee MD - 11/08/2022 2:27 PM EDT Have you ever planned for future healthcare decisions with a power of still tender, living will, or advance directives? Yes. Have you shared those records with your doctor? No and No. Please bring a copy to your next appointment or email to [email or web address] Increase TRULICITY. Fasting blood work in 6 months. documented in this encounter [facility] 11-08-2022 History of Presen t illness Narrative This note was created using [employer]. Subjective Leandra El is a 67 year old male. He was doing well. He was unable to refill lisinopril and had been out of the medication for 5 days, resuming 2 days ago. Diabetes was controlled. No hypoglycemia was noted. Lipids were controlled. His glucose meter was not available for review but he recalled range of 108-200. Review of Systems Constitutional: Negative for fatigue and unexpected weight change. Respiratory: Negative for shortness of breath. Cardiovascular: Negative for chest pain, palpitations and leg swelling. Gastrointestinal: Negative for constipation, diarrhea, nausea and vomiting. Genitourinary: Negative for difficulty urinating. Neurological: Negative. ACTIVE PROBLEM LIST Essential Hypertension Hyperlipemia Controlled Type 2 Diabetes Mellitus Without Complication, With Long-Term Current Use of Insulin (Hcc) History of Actinic Keratosis Elevated Prostate Specific Antigen (Psa) Erectile Dysfunction Prostate Cancer (Hcc) Seasonal Allergies Obesity, Class I, Bmi 30-34.9 Current Outpatient Medications Medication Sig insulin needles, DISPOSABLE, (PEN NEEDLE) 31 gauge x 5/16 Use 1 pen needle once daily for insulin injection. Dx: E11.65 lisinopril (ZESTRIL) 20 mg tablet Take 1 tablet by mouth once daily. sildenafil (VIAGRA) 50 mg tablet Take 1 tablet by mouth as needed. atorvastatin (LIPITOR) 20 mg tablet Take 1 tablet by mouth once daily. dulaglutide (TRULICITY) 0.75 mg/0.5 mL pen injector Inject 0.75 mg subcutaneously one time a week. Inject dose once per week. Discard Pen After triamcinolone acetonide (NASACORT) 55 mcg nasal inhaler Use 2 Sprays in the nose once daily. insulin glargine (LANTUS SOLOSTAR U-100 INSULIN) 100 unit/mL (3 mL) Inject 45 Units subcutaneously daily at bedtime. metFORMIN (GLUCOPHAGE) 500 mg tablet Take 2 tablets by mouth twice daily with meals. glipiZIDE (GLUCOTROL) 5 mg tablet Take 1 tablet by mouth twice daily before meals. dapagliflozin (FARXIGA) 10 mg tablet Take 1 tablet by mouth daily with breakfast. mometasone (ELOCON) 0.1 % cream Apply to affected area once daily. For 2 weeks, as needed. Leg rash loratadine (CLARITIN) 10 mg tablet Take 1 tablet by mouth once daily. For allergies. Blood-Glucose Meter (FREESTYLE LITE METER) monitoring kit Freestyle LITE Meter Kit - Dx: Type 2 DM - uncontrolled E11.65. Insulin: Yes. blood sugar diagnostic test strip Test blood sugar(s) 3 times daily. Dx: Type 2 DM - unontrolled E11.65. Insulin: Yes. [facility]. ASPIRIN 81 MG TAB Take one(1) tablet daily. No current facility-administered medications for this visit. Objective BP 148/82 (BP Site: Left Arm, BP Position: Sitting, BP Cuff Size: Large Adult) Pulse 77 Resp 18 Ht 172.7 cm (5' 8) Wt 97.1 kg (214 lb) BMI 32.54 kg/m Physical Exam Constitutional: Appearance: He is not ill-appearing. Cardiovascular: Rate and Rhythm: Normal rate. Rhythm irregular. Heart sounds: S1 normal and S2 normal. No murmur heard. No gallop. Musculoskeletal: Right lower leg: No edema. Left lower leg: No edema. Neurological: Mental Status: He is alert. Gait: Gait normal. Component Latest Ref Rng & Units 10/31/2022 Protein, Total 6.3 - 8.0 g/dL 6.7 Albumin 3.9 - 4.9 g/dL 4.3 Calcium 8.5 - 10.2 mg/dL 9.8 Bilirubin, Total 0.2 - 1.3 mg/dL 0.3 Alkaline Phosphatase 38 - 113 U/L 62 AST 14 - 40 U/L 12 (L) ALT 10 - 54 U/L 17 Glucose 74 - 99 mg/dL 108 (H) BUN 9 - 24 mg/dL 21 Creatinine 0.73 - 1.22 mg/dL 0.94 Sodium 136 - 144 mmol/L 139 Potassium 3.7 - 5.1 mmol/L 4.5 Chloride 97 - 105 mmol/L 100 CO2 22 - 30 mmol/L 25 Anion Gap 9 - 18 mmol/L 14 eGFR >=60 mL/min/1.73m 89 Cholesterol, Total <200 mg/dL 145 Triglyceride <150 mg/dL 126 HDL Cholesterol >39 mg/dL 33 (L) Non HDL Cholesterol <130 mg/dL 112 Fasting Time hrs 9 VLDL Cholesterol <30 mg/dL 25 TC:HDL Ratio <5.10 4.39 LDL Cholesterol <100 mg/dL 87 LDL:HDL Ratio <2.54 2.64 (H) Hemoglobin A1C 4.3 - 5.6 % 6.5 (H) Estimated Average Glucose mg/dL 140 EKG RESULTS: normal sinus rhythm and sinus arrhythmia, non specific T abnormality. Assessment and Plan 1. Medicare annual wellness visit, initial - ICD9: V70.0, ICD10: Z00.00 (primary diagnosis) See wellness. 2. Controlled type 2 diabetes mellitus without complication, with long-term current use of insulin (HCC) - ICD9: 250.00, V58.67, ICD10: E11.9, Z79.4 - Controlled - Continue current medications - DULAGLUTIDE 1.5 MG/0.5 ML SUBCUTANEOUS PEN INJECTOR. Dose increased for metabolic benefit and weight loss. Discussed medication dosage, usage, goals of therapy, and side effects. - BASIC METABOLIC PNL - HGB A1C - ALBUMIN/CREAT RATIO RND UR 3. Essential hypertension - ICD9: 401.9, ICD10: I10 - Worsening control - Continue current medications - Recommend regular aerobic exercise - Discussed need for and benefit of weight loss. BMI 32.54 kg/(m^2) - Recheck in 6 weeks. 4. Hyperlipidemia, unspecified hyperlipidemia type - ICD9: 272.4, ICD10: E78.5 - Controlled - Continue current medications 5. Irregular heart beat - ICD9: 427.9, ICD10: I49.9 Benign sinus arrhythmia - ECG COMPLETE Maykel Bee MD Medicare Yearly Visit Medical B eligibilty date 06/22/2021 Date of last exam 10/26/2021 PAST MEDICAL HISTORY Diagnosis Date Benign neoplasm of colon 2009 HYPERPLASTIC DIABETES MELLITUS TYPE II-UNCOMPL 06/27/2006 History of actinic keratosis 01/24/[address] [facility]. HYPERLIPIDEMIA NEC/NOS 09/27/2005 HYPERTENSION NOS 09/27/2005 Impaired fasting glucose 09/27/2005 Internal hemorrhoids without mention of complication Paronychia of finger 02/01/2022 Prostate cancer (HCC) 10/22/2018 PSA elevation 07/24/2017 Type II or unspecified type diabetes mellitus without mention of complication, uncontrolled 12/04/2012 PAST SURGICAL HISTORY Procedure Laterality Date CATARACT EXTRACTION W/ INTRAOCULAR LENS IMPLANT HX 2014 COLONOSCOPY FLX DX W/COLLJ SPEC WHEN PFRMD 03/08/2015 Colonoscopy COLONOSCOPY FLX DX W/COLLJ SPEC WHEN PFRMD 04/19/2020 Colonoscopy repeat in 5 years COLONOSCOPY W/BIOPSY SINGLE/MULTIPLE 05/31/2009 PROSTATE BIOPSY W/TRANSRECTAL US 10/09/2018 PROSTATE BIOPSY WITH MR FUSION 07/19/2022 SKIN BIOPSY HX TONSILLECTOMY HX 1967 ALLERGIES: Enviromental [Other] Medications reviewed: Yes FAMILY HISTORY Problem Relation Age of Onset Diabetes Father Hypertension Father Prostate Cancer Father Blood Disease Father Immune thrombocytopenia, splenectomy Cervical Cancer Mother Vulvar SCCa with mets other (Obesity) Sister Gastric bypass Colon Cancer Paternal Uncle Macular Degen No Family History Glaucoma No Family History SOCIAL HISTORY: Social History Tobacco Use Smoking status: Some Days Years: 4.00 Types: Cigarettes Smokeless tobacco: Never Tobacco comments: periodic Vaping Use Vaping Use: Never used Substance Use Topics Alcohol use: Yes Alcohol/week: 3.3 standard drinks Types: 2 Shots of liquor per week Comment: occasionally Drug use: No Leandra works out regularly 3 times per week with walking. He watches his diet for sodium, low fat and low cholesterol most of the time. List of current specialists seen: Dr. David Leon, urology. Dr. Reji Jackson, ophthalmology. End of Live Planning discussed including patients advanced directive wishes: Yes I am willing to follow Leandra's advanced directives. None made. PHQ-2 / Depression screen He in the past two weeks denies having felt down, depressed, hopeless, or with little interest or pleasure in doing things. Functional Ability/Safety Screen 1. Was the patient's timed Up and Go test unsteady or longer than 30 seconds? No 2. Does the patient need help with the phone, transportation, shopping,preparing meals, housework, laundry, medications or managing money? No 3. Does your home have rugs in the hallway, lack of grab bars in the bathroom, lack of handrails on the stairs or have poor lighting? No Hearing Evaluation: normal PHYSICAL EXAM BP 148/82 (BP Site: Left Arm, BP Position: Sitting, BP Cuff Size: Large Adult) Pulse 77 Resp 18 Ht 172.7 cm (5' 8) Wt 97.1 kg (214 lb) BMI 32.54 kg/m Alert and oriented X 3: YES Body mass index is 32.54 kg/m . Visual acuity: OD: 20/30 OS: 20/ 30 OU: 20/30 Mini Cog 5/5 ASSESSMENT/PLAN: 67 year old male The following prevention plan was discussed during the office visit and provided to the patient: - Counseled on healthy diet and regular exercise - Discussed need for and benefit of weight loss. BMI 32.54 kg/(m^2) Maykel Bee MD documented in this encounter [facility] 11-03-2022 Miscellaneous Notes Patient has been identified by name and date of : Yes Last office visit in this department: 08/07/2022 RX INSTRUCTIONS: Patient aware RX will be sent to pharmacy. No need to notify patient. Patient phones requesting refills as follows: Requested Prescriptions Pending Prescriptions Disp Refills Insulin Zenda, Disposable, (BD ULTRA-FINE MARIS PEN NEEDLE) 32 gauge x 5/32 Sig: Use 1 pen needle once daily for insulin injection. Dx: E11.65 Please review and advise. Gena Doe documented in this encounter [facility] 10-20-2022 Miscellaneous Notes Patient has been identified by name and date of : Pharmacy phones for refill(s): Requested Prescriptions Pending Prescriptions Disp Refills atorvastatin (LIPITOR) 20 mg tablet 90 tablet 3 Sig: Take 1 tablet by mouth once daily. Date of last office visit in primary care: 08/07/2022, has appt 11/08/2022 Last 2 Encounter Wt Readings: Date: Wt: 08/07/2022 98.4 kg (217 lb) 08/02/2022 95.7 kg (211 lb) Previous labs/tests for medication: Cholesterol: HDL Cholesterol (mg/dL) Date Value 07/14/2022 32 07/31/2020 28 LDL Cholesterol (mg/dL) Date Value 07/14/2022 93 07/31/2020 80 ALT (U/L) Date Value 02/03/2022 18 07/31/2020 23 Non HDL Cholesterol, Nonfasting (mg/dL) Date Value 10/04/2018 90 Non HDL Cholesterol (mg/dL) Date Value 07/14/2022 138 07/31/2020 117 Please advise. Thank you. Kelly Knight LPN documented in this encounter [facility] 10-02-2022 Miscellaneous Notes PT scheduled LM to PT to call back to schedule follow up with Dr. Leon as Dr. GONZALES is leaving Thanks documented in this encounter [facility] 09-27-2022 Miscellaneous Notes See previous encounter documented in this encounter [facility] 09-19-2022 Miscellaneous Notes Please see if decipher is back thanks documented in this encounter [facility] 08-15-2022 Miscellaneous Notes Patient has been identified by name and date of : Pharmacy phones for refill(s): Requested Prescriptions Pending Prescriptions Disp Refills dulaglutide (TRULICITY) 0.75 mg/0.5 mL pen injector 12 Each 1 Sig: Inject 0.75 mg subcutaneously one time a week. Inject dose once per week. Discard Pen After Date of last office visit in primary care: 08/07/2022, has appt 11/08/2022 Last 2 Encounter Wt Readings: Date: Wt: 08/07/2022 98.4 kg (217 lb) 08/02/2022 95.7 kg (211 lb) Previous labs/tests for medication: Diabetes: Hemoglobin A1C (%) Date Value 07/14/2022 7.1 02/03/2022 6.7 02/09/2021 7.6 07/31/2020 7.6 Hemoglobin A1C (POCT) (%) Date Value 10/26/2021 7.1 10/12/2020 7.9 Please advise. Thank you. Kelly Knight LPN documented in this encounter [facility] 08-11-2022 Miscellaneous Notes Decipher test sent. Kelly Bravo Cma documented in this encounter [facility] 08-07-2022 History of Presen t illness Narrative This note was created using [employer]. Subjective Leandra El is a 67 year old male. He was doing well. Allergies were increasing and he had vague pressure of the right ear. His hypertension was historically controlled. Diabetes and lipids were trending up. He had prostate biopsy (MRI/US fusion guided) 07/19/22. Observation was current course of treatment. Review of Systems Constitutional: Negative for fever. HENT: Positive for congestion. Negative for ear discharge, ear pain, hearing loss and sinus pain. Respiratory: Negative. Cardiovascular: Negative. ACTIVE PROBLEM LIST Essential Hypertension Hyperlipemia Controlled Type 2 Diabetes Mellitus Without Complication, With Long-Term Current Use of Insulin (Hcc) History of Actinic Keratosis Elevated Prostate Specific Antigen (Psa) Erectile Dysfunction Prostate Cancer (Hcc) Seasonal Allergies Obesity, Class I, Bmi 30-34.9 Social History Tobacco Use Smoking status: Some Days Years: 4.00 Types: Cigarettes Smokeless tobacco: Never Tobacco comments: periodic Vaping Use Vaping Use: Never used Substance Use Topics Alcohol use: Yes Alcohol/week: 3.3 standard drinks Types: 2 Shots of liquor per week Comment: occasionally Drug use: No Current Outpatient Medications Medication Sig sildenafil (VIAGRA) 50 mg tablet Take 1 tablet by mouth as needed. dulaglutide (TRULICITY) 0.75 mg/0.5 mL pen injector Inject 0.75 mg subcutaneously one time a week. Inject dose once per week. Discard Pen After insulin glargine (LANTUS SOLOSTAR U-100 INSULIN) 100 unit/mL (3 mL) Inject 45 Units subcutaneously daily at bedtime. metFORMIN (GLUCOPHAGE) 500 mg tablet Take 2 tablets by mouth twice daily with meals. glipiZIDE (GLUCOTROL) 5 mg tablet Take 1 tablet by mouth twice daily before meals. dapagliflozin (FARXIGA) 10 mg tablet Take 1 tablet by mouth daily with breakfast. insulin needles, DISPOSABLE, (PEN NEEDLE) 31 gauge x 5/16 Use 1 pen needle once daily for insulin injection. Dx: E11.65 atorvastatin (LIPITOR) 20 mg tablet Take 1 tablet by mouth once daily. mometasone (ELOCON) 0.1 % cream Apply to affected area once daily. For 2 weeks, as needed. Leg rash lisinopril (ZESTRIL, PRINIVIL) 20 mg tablet Take 1 tablet by mouth once daily. loratadine (CLARITIN) 10 mg tablet Take 1 tablet by mouth once daily. For allergies. Blood-Glucose Meter (FREESTYLE LITE METER) monitoring kit Freestyle LITE Meter Kit - Dx: Type 2 DM - uncontrolled E11.65. Insulin: Yes. blood sugar diagnostic test strip Test blood sugar(s) 3 times daily. Dx: Type 2 DM - unontrolled E11.65. Insulin: Yes. [employer]. ASPIRIN 81 MG TAB Take one(1) tablet daily. No current facility-administered medications for this visit. Objective BP 133/79 (BP Site: Left Arm, BP Position: Sitting, BP Cuff Size: Large Adult) Pulse 97 Resp 16 Wt 98.4 kg (217 lb) BMI 32.99 kg/m Physical Exam Constitutional: General: He is not in acute distress. HENT: Right Ear: No drainage. No middle ear effusion. Tympanic membrane is injected. Left Ear: Tympanic membrane normal. Nose: Mucosal edema present. Right Turbinates: Swollen. Left Turbinates: Swollen. Right Sinus: No maxillary sinus tenderness or frontal sinus tenderness. Left Sinus: No maxillary sinus tenderness or frontal sinus tenderness. Cardiovascular: Rate and Rhythm: Normal rate and regular rhythm. Heart sounds: No murmur heard. No gallop. Pulmonary: Effort: Pulmonary effort is normal. Breath sounds: Normal breath sounds. Musculoskeletal: Right lower leg: No edema. Left lower leg: No edema. Neurological: Mental Status: He is alert. Test results pertinent to today's visit were reviewed and discussed with the patient. Assessment and Plan 1. Controlled type 2 diabetes mellitus without complication, with long-term current use of insulin (HCC) - ICD9: 250.00, V58.67, ICD10: E11.9, Z79.4 (primary diagnosis) - Controlled - Continue current medications - COMP METABOLIC PANEL - HGB A1C 2. Essential hypertension - ICD9: 401.9, ICD10: I10 - fair control - Continue current medication(s) - Recommended regular aerobic exercise. - Discussed need and benefit for weight loss. - Goal of BP <130/80 3. Hyperlipidemia, unspecified hyperlipidemia type - ICD9: 272.4, ICD10: E78.5 - good control - Continue current medication. - LIPID PANEL BASIC 4. Eustachian tube dysfunction, right - ICD9: 381.81, ICD10: H69.81 Discussed. - TRIAMCINOLONE ACETONIDE 55 MCG NASAL SPRAY AEROSOL 5. Seasonal allergies - ICD9: 477.9, ICD10: J30.2 - TRIAMCINOLONE ACETONIDE 55 MCG NASAL SPRAY AEROSOL Maykel Bee MD documented in this encounter [facility] 08-02-2022 History of Presen t illness Narrative Images from the original note were not included. [facility] [place] [facility] LOCATION: [address] [place] [address] ESTABLISHED PATIENT PATIENT INFO: Leandra El 66 year old Chief Complaint: Prostate Cancer on HPI Here after MRI fusion biopsy. No new complaints. No post biopsy issues. PREVIOUS HX: MRI prostate denied, two appeals performed. PSA stable. GPS 25 - very low risk slow increase in psa level. PSA from 01/2018 2.92 ng/ml. Recheck psa is 3.36 ng/ml 9% +family history of prostate cancer. PSA has been monitored closely. Today he denies any new LUTS, dysuria or gross hematuria. 1-Duration: 2021 2-Location: prostate 3-Severity: N/A 4-Quality: Not applicable 5-Context: N/A 6-Timing: N/A 7-Modifying factors: No treatment prior to referral 8-Associated signs & symptoms: no additional symptoms No question data found. PATHOLOGY: FINAL DIAGNOSIS A. Prostate, right lateral base, biopsy: - Prostatic adenocarcinoma, [place] score 3+3=6 (Grade group 1), involving 20% of one core (tumor span: 1.5 mm). B. Prostate, right lateral mid, biopsy: - Benign prostatic tissue. C. Prostate, right lateral apex, biopsy: - Atypical small acinar proliferation. D. Prostate, left lateral base, biopsy: - Benign prostatic tissue. E. Prostate, left lateral mid, biopsy: - Benign prostatic tissue. F. Prostate, left lateral apex, biopsy: - Benign prostatic tissue. G. Prostate, right lesion #1, biopsy: - Prostatic adenocarcinoma, Avril score 3+3=6 (Grade group 1), involving six of six cores (one fragmented), >95%, 75%, 64%, 62%, 44% and 38% (tumor spans: 8 mm, 4.5 mm, 7 mm, 8 mm, 3.5 mm, 1.5 mm, respectively). Prostate Cancer Biopsy Summary Number of cores examined: 12 Number of cores positive: 7 Highest Grade Group: 1 Highest % of core involvement: >95 % Cribriform pattern 4: Absent Intraductal carcinoma: Absent Department Specialist tumor block to use for additional studies: G1 LAB: WBC (k/uL) Date Value 07/14/2022 7.47 RBC (m/uL) Date Value 07/14/2022 5.07 Hemoglobin (g/dL) Date Value 07/14/2022 16.8 Hematocrit (%) Date Value 07/14/2022 48.6 MCV (fL) Date Value 07/14/2022 95.9 MCH (pg) Date Value 07/14/2022 33.1 MCHC (g/dL) Date Value 07/14/2022 34.6 RDW-CV (%) Date Value 07/14/2022 12.6 Platelet Count (k/uL) Date Value 07/14/2022 301 MPV (fL) Date Value 07/14/2022 8.4 (L) Creatinine Date Value Ref Range Status 02/03/2022 0.87 0.73 - 1.22 mg/dL Final 07/18/2021 0.85 0.73 - 1.22 mg/dL Final 02/09/2021 0.87 0.73 - 1.22 mg/dL Final 07/31/2020 0.94 0.73 - 1.22 mg/dL Final PSA (ng/mL) Date Value 03/30/2022 5.54 12/27/2021 4.70 06/30/2021 4.92 02/09/2021 4.12 11/27/2020 4.47 07/31/2020 3.92 PSA Screening (ng/mL) Date Value 07/14/2022 5.81 PSA, Percent Free (%) Date Value 10/04/2018 9 URINE POC GLUCOSE UA (POCT) 500 01/30/2019 BILIRUBIN UA (POCT) Negative 01/30/2019 KETONE UA (POCT) Negative 01/30/2019 SPECIFIC GRAVITY UA (POCT) 1.015 01/30/2019 HEMOGLOBIN/BLOOD UA (POCT) Trace-intact 01/30/2019 PH UA (POCT) 5.5 01/30/2019 PROTEIN UA (POCT) Negative 01/30/2019 UROBILINOGEN UA (POCT) 0.2 01/30/2019 NITRITE UA (POCT) Negative 01/30/2019 LEUKOCYTES UA (POCT) Negative 01/30/2019 COLOR UA (POCT) Yellow 01/30/2019 CLARITY UA (POCT) Clear 01/30/2019 IMAGING: None No imaging to review. ALLERGIES: ALLERGIES Allergen Reactions Enviromental [Other] MEDICATIONS: sildenafil (VIAGRA) 50 mg tablet Take 1 tablet by mouth as needed. dulaglutide (TRULICITY) 0.75 mg/0.5 mL pen injector Inject 0.75 mg subcutaneously one time a week. Inject dose once per week. Discard Pen After insulin glargine (LANTUS SOLOSTAR U-100 INSULIN) 100 unit/mL (3 mL) Inject 45 Units subcutaneously daily at bedtime. metFORMIN (GLUCOPHAGE) 500 mg tablet Take 2 tablets by mouth twice daily with meals. glipiZIDE (GLUCOTROL) 5 mg tablet Take 1 tablet by mouth twice daily before meals. dapagliflozin (FARXIGA) 10 mg tablet Take 1 tablet by mouth daily with breakfast. insulin needles, DISPOSABLE, (PEN NEEDLE) 31 gauge x 5/16 Use 1 pen needle once daily for insulin injection. Dx: E11.65 atorvastatin (LIPITOR) 20 mg tablet Take 1 tablet by mouth once daily. lisinopril (ZESTRIL, PRINIVIL) 20 mg tablet Take 1 tablet by mouth once daily. loratadine (CLARITIN) 10 mg tablet Take 1 tablet by mouth once daily. For allergies. Blood-Glucose Meter (FREESTYLE LITE METER) monitoring kit Freestyle LITE Meter Kit - Dx: Type 2 DM - uncontrolled E11.65. Insulin: Yes. blood sugar diagnostic test strip Test blood sugar(s) 3 times daily. Dx: Type 2 DM - unontrolled E11.65. Insulin: Yes. [employer]. ASPIRIN 81 MG TAB Take one(1) tablet daily. mometasone (ELOCON) 0.1 % cream Apply to affected area once daily. For 2 weeks, as needed. Leg rash Does the patient take any herbal medications?: No HISTORIES PAST MEDICAL HISTORY Diagnosis Date Benign neoplasm of colon 2009 HYPERPLASTIC DIABETES MELLITUS TYPE II-UNCOMPL 06/27/2006 History of actinic keratosis 01/24/[address] [facility]. HYPERLIPIDEMIA NEC/NOS 09/27/2005 HYPERTENSION NOS 09/27/2005 Impaired fasting glucose 09/27/2005 Internal hemorrhoids without mention of complication Paronychia of finger 02/01/2022 Prostate cancer (HCC) 10/22/2018 PSA elevation 07/24/2017 Type II or unspecified type diabetes mellitus without mention of complication, uncontrolled 12/04/2012 Smoking Status Reviewed: Yes REVIEW OF SYSTEMS GENERAL: No fever, chills, weight loss, or fatigue. HEAD & NECK: No blurred vision or Sjogren's syndrome CARDIOVASCULAR: NO CHEST PAIN, PALPITATIONS, ANKLE EDEMA RESPIRATORY: No chronic cough, wheezing, dyspnea, hemoptysis. MUSCULOSKELETAL: NO CHRONIC BACK PAIN, ARTHRITIS, CHRONIC NECK PAIN SKIN: NO VARICOSE VEINS, RASH, ABNORMAL ITCHING BLOOD/LYMPHATIC: No easy bleeding, easy bruising, transfusion Hx NEUROLOGICAL: NO HEADACHES, NUMBNESS, SEIZURES, STROKE PSYCHIATRIC: No depression or inordinate anxiety The remainder of the ROS was negative. PHYSICAL EXAMINATION BP 132/76 Ht 172.7 cm (5' 8) Wt 95.7 kg (211 lb) BMI 32.08 kg/m General appearance: Well appearing, alert, in no acute distress, and well-hydrated, well nourished Skin: Skin color, texture, turgor normal, no suspicious rashes or lesions Head: Normocephalic, no masses, lesions, tenderness or abnormalities Abdomen: Normal abdominal exam, Abdomen soft, non-tender. Bowel sounds normal. No masses, organomegaly Genitourinary: MALE EXAM: Exam NOT Indicated PVR: NA IMPRESSION/PLAN: Avril 6 Prostate Cancer in one core 10% - 2019 PSA 3.36 ng/ml 9%, +family history Oncotype DX - GPS 25 PSA has been stable for 3 years on Active surveillance MRI prostate with PIRADS lesion - s/p fusion biopsy [place] 6 found in the lesion. We have reviewed this pathology. He is interested in brachytherapy vs active surveillance. Will send decipher biopsy test. I spent 30 minutes in the visit, with more than 50% of the total bfwc-lh-tick time of the visit in counseling / coordination of care. Wilfrid Holliday DO MBA documented in this encounter [facility] 07-14-2022 Miscellaneous Notes Pt is scheduled for MRI Fusion Bx MAC with Dr Gutierrez at [facility] on 07/19/22 @ 11:20 (9:20 arrival). Follow up with Dr Holliday on 08/02/22 @ 4:00. Pt given date, time, prep and arrival instructions over the phone on 07/14/22. Pick a Student message sent also. Michelle ANDRADE documented in this encounter [facility] 07-12-2022 Miscellaneous Notes Patient notified lab order is in. Helen Hermosillo LPN Patient arrived at [facility] [place] [facility] today to have labs drawn. Lab was unable to locate any Active lab orders for the patient. The last panel of labs ordered in the chart were for 07-12-21. Past checklist of labs have been pended in encounter for provider to sign/approve if acceptable. Please notify patient when orders are approved or if they are not needed. Bria Regalado documented in this encounter [facility] 06-19-2022 Instructions Jeb Gutierrez MD - 06/19/2022 10:09 AM EST PATIENT INFORMATION: For prostate biopsy You may take Baby aspirin if you are on it Do not take high dose aspirin ,ibuprofen or other blood thinner type products for 1 week prior to the biopsy: Blood thinners can include also Advil, Motrin, Naprosyn, naproxen, Aleve, Plavix, Coumadin, etc. MEDICATION INFORMATION ASPIRIN and ADVIL can make you more prone to bleeding after surgery. Please STOP taking these medications at least (7) days before surgery or procedure. Medications can be resumed (1) days after the Prostate Biopsy procedure. NOTE: Please obtain approval to stop any prescribed medication from the prescribing doctor. Some common medications that contain ASPIRIN or act like Aspirin are to be avoided are as follows: This is a list of the medications you should avoid: Advil Clinoril (Sulindac) Naprosyn (Naproxen) Aggrenox Ecotrin NSAID (Non-Steroidal Agrylin Excedrin Anti-Inflammatory Drugs) Aleve (Naproxen) Fish Oil Pepto-Bismol [place] Gingko [place] Persantine (Dipyridamole) Anacin Glucosamine Chondroitin Plavix (Clopidogrel) Ascriptin Green Tea Plaquenil (Hydroxychloroquine) Aspergum Heparin Pletal (Cilostazol) Aspirin Herbals Ticlid (Ticlopidine) Killian Ibuprofen Trental (Pentoxyfylline) Bextra Indocin (Indomethacin) Vanquish Bufferin Midol Vitamin E (MVI) Coumadin (warfarin) Mobic/Meloxicam Multivitamin (MVI) MEDICATIONS you may SUBSTITUTE: Anacin 3 Plenadol Percocet* Datril Sine-Aide Excedrin PM Tylenol Fioricet* Tylenol with codeine* (*Denotes prescription needed to obtain these medications) documented in this encounter [facility] 06-19-2022 History of Presen t illness Narrative ESTABLISHED PATIENT OFFICE VISIT PATIENT INFO: Leandra El 66 year old HPI 06/19/2022 CC: bx Patient had MRI done at [facility] with 46 cc prostate showing lesion Biopsy in the office did okay for 6 biopsies but the final biopsies did hurt so wants twilight anesthesia for MRI fusion biopsy which we discussed in great detail He can stay on his baby aspirin Presents with his today He will follow-up with Dr. Holliday after Past Urology Hx: March 30, 2022-seen by Dr. Holliday- Here for 3 year follow up. No new complaints. PREVIOUS HX: MRI prostate denied, two appeals performed. PSA stable. GPS 25 - very low risk slow increase in psa level. PSA from 01/2018 2.92 ng/ml. Recheck psa is 3.36 ng/ml 9% +family history of prostate cancer. PSA has been monitored closely. Today he denies any new LUTS, dysuria or gross hematuria. IMPRESSION/PLAN: PSA 3.36 ng/ml 9%, +family history [place] 6 Prostate Cancer in one core 10% Oncotype DX - GPS 25 PSA has been stable for 3 years. MRI prostate denied, 2 appeals, now on medicare will reorder - may need MRI fusion biopsy of the prostate Wilfrid Holliday DO MBA Creatinine Date Value Ref Range Status 02/03/2022 0.87 0.73 - 1.22 mg/dL Final PSA (ng/mL) Date Value 03/30/2022 5.54 12/27/2021 4.70 06/30/2021 4.92 02/09/2021 4.12 11/27/2020 4.47 07/31/2020 3.92 05/18/2020 4.01 01/29/2020 4.22 10/22/2019 4.64 07/24/2019 3.65 01/03/2019 3.02 10/04/2018 3.36 Color (no units) Date Value 07/24/2017 Yellow Clarity (no units) Date Value 07/24/2017 Cloudy Glucose, Urine (mg/dL) Date Value 07/24/2017 >=500 Bilirubin, Urine (no units) Date Value 07/24/2017 Negative Ketones, Urine (no units) Date Value 07/24/2017 Negative Specific [place], Ur (no units) Date Value 07/24/2017 1.033 Hemoglobin/Blood,Ur ( ) Date Value 07/24/2017 Negative pH, Urine (no units) Date Value 07/24/2017 5.0 Protein, Urine (mg/dL) Date Value 07/24/2017 Negative Urobilinogen (no units) Date Value 07/24/2017 Normal Nitrites (no units) Date Value 07/24/2017 Negative Leukest (no units) Date Value 07/24/2017 Negative Review of Systems Constitutional: Negative. HENT: Negative. Eyes: Negative. Respiratory: Negative. Cardiovascular: Negative. Gastrointestinal: Negative. Endocrine: Negative. Genitourinary: See HPI Musculoskeletal: Negative. Skin: Negative. Allergic/Immunologic: Negative. Neurological: Negative. Hematological: Negative. Psychiatric/Behavioral: Negative. I reviewed and confirmed ROS obtained by MA HISTORIES PAST MEDICAL HISTORY Diagnosis Date Benign neoplasm of colon 2009 HYPERPLASTIC DIABETES MELLITUS TYPE II-UNCOMPL 06/27/2006 History of actinic keratosis 01/24/[address] [facility]. HYPERLIPIDEMIA NEC/NOS 09/27/2005 HYPERTENSION NOS 09/27/2005 Impaired fasting glucose 09/27/2005 Internal hemorrhoids without mention of complication Paronychia of finger 02/01/2022 Prostate cancer (HCC) 10/22/2018 PSA elevation 07/24/2017 Type II or unspecified type diabetes mellitus without mention of complication, uncontrolled 12/04/2012 FAMILY HISTORY Problem Relation Age of Onset Diabetes Father Hypertension Father Prostate Cancer Father Blood Disease Father Immune thrombocytopenia, splenectomy Cervical Cancer Mother Vulvar SCCa with mets other (Obesity) Sister Gastric bypass Colon Cancer Paternal Uncle Macular Degen No Family History Glaucoma No Family History SOCIAL HISTORY Social History Tobacco Use Smoking status: Some Days Years: 4.00 Types: Cigarettes Smokeless tobacco: Never Tobacco comments: periodic Vaping Use Vaping Use: Never used Substance Use Topics Alcohol use: Yes Alcohol/week: 3.3 standard drinks Types: 2 Shots of liquor per week Comment: occasionally Drug use: No MEDICATIONS: sildenafil (VIAGRA) 50 mg tablet Take 1 tablet by mouth as needed. dulaglutide (TRULICITY) 0.75 mg/0.5 mL pen injector Inject 0.75 mg subcutaneously one time a week. Inject dose once per week. Discard Pen After insulin glargine (LANTUS SOLOSTAR U-100 INSULIN) 100 unit/mL (3 mL) Inject 45 Units subcutaneously daily at bedtime. metFORMIN (GLUCOPHAGE) 500 mg tablet Take 2 tablets by mouth twice daily with meals. glipiZIDE (GLUCOTROL) 5 mg tablet Take 1 tablet by mouth twice daily before meals. dapagliflozin (FARXIGA) 10 mg tablet Take 1 tablet by mouth daily with breakfast. insulin needles, DISPOSABLE, (PEN NEEDLE) 31 gauge x 5/16 Use 1 pen needle once daily for insulin injection. Dx: E11.65 atorvastatin (LIPITOR) 20 mg tablet Take 1 tablet by mouth once daily. lisinopril (ZESTRIL, PRINIVIL) 20 mg tablet Take 1 tablet by mouth once daily. loratadine (CLARITIN) 10 mg tablet Take 1 tablet by mouth once daily. For allergies. Blood-Glucose Meter (FREESTYLE LITE METER) monitoring kit Freestyle LITE Meter Kit - Dx: Type 2 DM - uncontrolled E11.65. Insulin: Yes. blood sugar diagnostic test strip Test blood sugar(s) 3 times daily. Dx: Type 2 DM - unontrolled E11.65. Insulin: Yes. [employer]. ASPIRIN 81 MG TAB Take one(1) tablet daily. mometasone (ELOCON) 0.1 % cream Apply to affected area once daily. For 2 weeks, as needed. Leg rash Physical Exam HENT: Head: Normocephalic and atraumatic. Mouth/Throat: Pharynx: No oropharyngeal exudate. Pulmonary: Effort: Pulmonary effort is normal. Genitourinary: Prostate: Enlarged: 1.5+, no nodule. Rectum: Normal. Musculoskeletal: General: Normal range of motion. Cervical back: Normal range of motion. Skin: General: Skin is warm and dry. Neurological: Mental Status: He is alert and oriented to person, place, and time. Gait: Gait is intact. Psychiatric: Mood and Affect: Mood and affect normal. Cognition and Memory: Memory normal. Risk/Benefit Discussion: Prostate Ultrasound With Needle Biopsy Prostate Patient was instructed to stop all aspirin type products 7 days prior to the procedure. I explained the options concerning the findings of a prostatic nodule both with and without an elevated PSA, as well as an elevated PSA without a prostate nodule. I specifically explained the possible complications, and the fact that a negative prostate biopsy does not definitely indicate that there is no prostate cancer present, but only that there was no malignancy found in the biopsy specimens. I explained the possibility of impotency and some incontinence, blood in the urine, stool/possible severe and admition to hospital , and/or semen. He may also experience frequency, urgency, and dysuria after the procedure. I explained the remote possibility of blood loss and the possibility of infection of the prostate and rectum post operatively/sepsis risk. The patient expressed an understanding with regard to possible benefits, risks, complications and outcome. FOLLOW UP (1s&1w; 3s): Return if symptoms worsen or fail to improve. ASSESSMENT/PLAN: 1. Prostate cancer (HCC) - ICD9: 185, ICD10: C61 (primary diagnosis) Health and wellness-MRI fusion biopsy of prostate/MAC 2. Elevated prostate specific antigen (PSA) - ICD9: 790.93, ICD10: R97.20 Jeb Gutierrez Please note: This note has been produced using speech recognition software and may contain errors related to that system including grammar, punctuation, spelling, gender and words and phrases that may be inappropriate. documented in this encounter [facility] 06-01-2022 Miscellaneous Notes MRI prostate done, he needs MRI fusion biopsy with Dr Gutierrez There is a lesion that needs to be sampled to see if this is same or different from previous cancer. MRI PROSTATE WO/W IVCON (Order [id number]) Patient Info Patient Name Sex Leandra Arechiga Shaquille ([id number]) Male 1955 06/01/2022 11:10 AM - Radiology, [place] In Impression IMPRESSION: 1. Large lesion in the right anterior transition zone mid gland to base consistent with clinically significant prostate carcinoma. PIRADS 5. Localized for fusion biopsy. 2. Question extraprostatic extension with irregular contours to anterior capsule prostate. 3. Direct extension into the bladder is not clearly identified. Loss of fat plane between the bladder and lesion is of unclear etiology. 4. Presently no pelvic lymph nodes. 5. No obvious bony lesion noted within the pelvis. Number of targets created for MR/US fusion biopsy: Peripheral zone: 0 Transition zone: 1 Patient asking for results of MRI prostate biopsy. Kelly Bravo Cma documented in this encounter [facility] 05-31-2022 History of Presen t illness Narrative Radiology Service Progress Note DATE OF SERVICE: May 31, 2022 TIME: 8:46 AM PATIENT IDENTITY VERIFICATION COMPLETED USING TWO (2) STANDARD IDENTIFIERS: Name and Date of confirmed by patient verbally and Name and Date of confirmed by identification band. FALL SCREENING: Has the patient had 2 falls in the last year or 1 fall with injury or currently using an Ambulatory Assistive Device (Walker, Cane, Wheelchair, Crutches, etc.)? No PATIENT GENDER DATA: Male PATIENT RELEVANT IMPLANT DATA REVIEWED: Yes ALLERGIES: Reviewed and unchanged CONTRAST ALLERGY: NO. EXAM: MRI - CONTRAST TYPE: GROUP II PERIPHERAL IV DATA: Ambulatory: A peripheral IV was started in the Left antecubital site with a Angio cath: 22 gauge. RADIOLOGY DEPARTMENT: MR; Exam(s) Completed: Body: Prostate SIGNATURE: RT Rickey(R) PATIENT NAME: Leandra Mckeon DATE: May 31, 2022 TIME: 8:46 AM documented in this encounter [facility] 03-30-2022 Miscellaneous Notes Addended by: WILFRID HOLLIDAY on: 03/30/2022 02:05 PM Modules accepted: Orders documented in this encounter [facility] 03-30-2022 History of Presen t illness Narrative Images from the original note were not included. [facility] [place] [facility] LOCATION: [address] [place] [address] ESTABLISHED PATIENT PATIENT INFO: Leandra Kaur Sienna 66 year old Chief Complaint: Prostate Cancer on HPI Here for 3 year follow up. No new complaints. PREVIOUS HX: MRI prostate denied, two appeals performed. PSA stable. GPS 25 - very low risk slow increase in psa level. PSA from 01/2018 2.92 ng/ml. Recheck psa is 3.36 ng/ml 9% +family history of prostate cancer. PSA has been monitored closely. Today he denies any new LUTS, dysuria or gross hematuria. 1-Duration: 2021 2-Location: prostate 3-Severity: N/A 4-Quality: Not applicable 5-Context: N/A 6-Timing: N/A 7-Modifying factors: No treatment prior to referral 8-Associated signs & symptoms: no additional symptoms No question data found. PATHOLOGY: NONE LAB: WBC (k/uL) Date Value 07/18/2021 6.57 RBC (m/uL) Date Value 07/18/2021 5.12 Hemoglobin (g/dL) Date Value 07/18/2021 16.8 Hematocrit (%) Date Value 07/18/2021 50.5 MCV (fL) Date Value 07/18/2021 98.6 MCH (pg) Date Value 07/18/2021 32.8 MCHC (g/dL) Date Value 07/18/2021 33.3 RDW-CV (%) Date Value 07/18/2021 13.0 Platelet Count (k/uL) Date Value 07/18/2021 288 MPV (fL) Date Value 07/18/2021 8.7 (L) Creatinine Date Value Ref Range Status 02/03/2022 0.87 0.73 - 1.22 mg/dL Final 07/18/2021 0.85 0.73 - 1.22 mg/dL Final 02/09/2021 0.87 0.73 - 1.22 mg/dL Final 07/31/2020 0.94 0.73 - 1.22 mg/dL Final PSA (ng/mL) Date Value 12/27/2021 4.70 06/30/2021 4.92 02/09/2021 4.12 11/27/2020 4.47 07/31/2020 3.92 PSA, Percent Free (%) Date Value 10/04/2018 9 URINE POC GLUCOSE UA (POCT) 500 01/30/2019 BILIRUBIN UA (POCT) Negative 01/30/2019 KETONE UA (POCT) Negative 01/30/2019 SPECIFIC GRAVITY UA (POCT) 1.015 01/30/2019 HEMOGLOBIN/BLOOD UA (POCT) Trace-intact 01/30/2019 PH UA (POCT) 5.5 01/30/2019 PROTEIN UA (POCT) Negative 01/30/2019 UROBILINOGEN UA (POCT) 0.2 01/30/2019 NITRITE UA (POCT) Negative 01/30/2019 LEUKOCYTES UA (POCT) Negative 01/30/2019 COLOR UA (POCT) Yellow 01/30/2019 CLARITY UA (POCT) Clear 01/30/2019 IMAGING: None No imaging to review. ALLERGIES: ALLERGIES Allergen Reactions Enviromental [Other] MEDICATIONS: dulaglutide (TRULICITY) 0.75 mg/0.5 mL pen injector Inject 0.75 mg subcutaneously one time a week. Inject dose once per week. Discard Pen After insulin glargine (LANTUS SOLOSTAR U-100 INSULIN) 100 unit/mL (3 mL) Inject 45 Units subcutaneously daily at bedtime. metFORMIN (GLUCOPHAGE) 500 mg tablet Take 2 tablets by mouth twice daily with meals. glipiZIDE (GLUCOTROL) 5 mg tablet Take 1 tablet by mouth twice daily before meals. dapagliflozin (FARXIGA) 10 mg tablet Take 1 tablet by mouth daily with breakfast. insulin needles, DISPOSABLE, (PEN NEEDLE) 31 gauge x 5/16 Use 1 pen needle once daily for insulin injection. Dx: E11.65 atorvastatin (LIPITOR) 20 mg tablet Take 1 tablet by mouth once daily. sildenafil (VIAGRA) 50 mg tablet Take 1 tablet by mouth as needed. lisinopril (ZESTRIL, PRINIVIL) 20 mg tablet Take 1 tablet by mouth once daily. loratadine (CLARITIN) 10 mg tablet Take 1 tablet by mouth once daily. For allergies. Blood-Glucose Meter (FREESTYLE LITE METER) monitoring kit Freestyle LITE Meter Kit - Dx: Type 2 DM - uncontrolled E11.65. Insulin: Yes. blood sugar diagnostic test strip Test blood sugar(s) 3 times daily. Dx: Type 2 DM - unontrolled E11.65. Insulin: Yes. [employer]. ASPIRIN 81 MG TAB Take one(1) tablet daily. mometasone (ELOCON) 0.1 % cream Apply to affected area once daily. For 2 weeks, as needed. Leg rash Does the patient take any herbal medications?: No HISTORIES PAST MEDICAL HISTORY Diagnosis Date Benign neoplasm of colon 2009 HYPERPLASTIC DIABETES MELLITUS TYPE II-UNCOMPL 06/27/2006 History of actinic keratosis 01/24/[address] [facility]. HYPERLIPIDEMIA NEC/NOS 09/27/2005 HYPERTENSION NOS 09/27/2005 Impaired fasting glucose 09/27/2005 Internal hemorrhoids without mention of complication Paronychia of finger 02/01/2022 Prostate cancer (HCC) 10/22/2018 PSA elevation 07/24/2017 Type II or unspecified type diabetes mellitus without mention of complication, uncontrolled 12/04/2012 Smoking Status Reviewed: Yes REVIEW OF SYSTEMS GENERAL: No fever, chills, weight loss, or fatigue. HEAD & NECK: No blurred vision or Sjogren's syndrome CARDIOVASCULAR: NO CHEST PAIN, PALPITATIONS, ANKLE EDEMA RESPIRATORY: No chronic cough, wheezing, dyspnea, hemoptysis. MUSCULOSKELETAL: NO CHRONIC BACK PAIN, ARTHRITIS, CHRONIC NECK PAIN SKIN: NO VARICOSE VEINS, RASH, ABNORMAL ITCHING BLOOD/LYMPHATIC: No easy bleeding, easy bruising, transfusion Hx NEUROLOGICAL: NO HEADACHES, NUMBNESS, SEIZURES, STROKE PSYCHIATRIC: No depression or inordinate anxiety The remainder of the ROS was negative. PHYSICAL EXAMINATION Ht 172.7 cm (5' 8) Wt 99.8 kg (220 lb) BMI 33.45 kg/m General appearance: Well appearing, alert, in no acute distress, and well-hydrated, well nourished Skin: Skin color, texture, turgor normal, no suspicious rashes or lesions Head: Normocephalic, no masses, lesions, tenderness or abnormalities Abdomen: Normal abdominal exam, Abdomen soft, non-tender. Bowel sounds normal. No masses, organomegaly Genitourinary: MALE EXAM: Exam NOT Indicated PVR: NA IMPRESSION/PLAN: PSA 3.36 ng/ml 9%, +family history Avril 6 Prostate Cancer in one core 10% Oncotype DX - GPS 25 PSA has been stable for 3 years. MRI prostate denied, 2 appeals, now on medicare will reorder - may need MRI fusion biopsy of the prostate I spent 30 minutes in the visit, with more than 50% of the total sysn-hz-eayx time of the visit in counseling / coordination of care. Wilfrid Holliday DO MBA documented in this encounter [facility] 03-07-2022 Miscellaneous Notes [place]: 02/07/2022 Last refill: 07/25/2021 QTY: 12 Refills: 1 Patient's request for medication is as follows: Requested Prescriptions Pending Prescriptions Disp Refills dulaglutide (TRULICITY) 0.75 mg/0.5 mL pen injector 12 Each 1 Sig: Inject 0.75 mg subcutaneously one time a week. Inject dose once per week. Discard Pen After Please approve the above prescription(s) to electronically send to pharmacy. Tripp Menjivar Ma documented in this encounter [facility] 02-07-2022 Instructions Mindy Walker APRN.CNP - 02/07/2022 1:15 PM EDT Recombinant shingles vaccine (Shingrix) is recommended; 2 doses 2-6 months apart. Please read information, check with your insurance, and schedule vaccination at your local pharmacy. A prescription is not required. If you are certain you have coverage to receive this vaccine in the office, we can schedule this for you. documented in this encounter [facility] 02-07-2022 History of Presen t illness Narrative CC: Patient presents with: F/U 3 Month Immunizations: Flu vaccination HPI Leandra El is a 66 year old male who presents today for above. Diabetes: Home blood sugar readings: fasting average 120-140 Hypoglycemia: No He is compliant with medication(s) and is tolerating med(s) without any side effects. Denies increased thirst, urinary frequency, nocturia, fatigue, unintentional weight loss, blurred vision, numbness, tingling or pain in extremities, ulcers or sores on feet Last Ophthalmology exam was within the past 6 months Patient's last HgA1C was Hemoglobin A1C (%) Date Value 02/03/2022 6.7 07/18/2021 7.8 02/09/2021 7.6 07/31/2020 7.6 Hemoglobin A1C (POCT) (%) Date Value 10/26/2021 7.1 10/12/2020 7.9 HTN-Medication changes:No Taking all medications as prescribed: Yes Side effects: No Home BP's: No Denies: headache, chest pain, palpitations, and dyspnea. Last 3 Encounter BP Readings: Date: BP: 02/07/2022 130/78 01/30/2022 112/64 10/26/2021 130/76 REVIEW OF SYSTEMS General: no fevers, no chills, no night sweats, no change in energy, and no significant changes in weight Respiratory: no cough, no wheezing, no hemoptysis Cardiovascular: chronic mild edema bilateral ankles PAST MEDICAL HISTORY Diagnosis Date Benign neoplasm of colon 2009 HYPERPLASTIC DIABETES MELLITUS TYPE II-UNCOMPL 06/27/2006 History of actinic keratosis 01/24/[address] [facility]. HYPERLIPIDEMIA NEC/NOS 09/27/2005 HYPERTENSION NOS 09/27/2005 Impaired fasting glucose 09/27/2005 Internal hemorrhoids without mention of complication Prostate cancer (HCC) 10/22/2018 PSA elevation 07/24/2017 Type II or unspecified type diabetes mellitus without mention of complication, uncontrolled 12/04/2012 PAST SURGICAL HISTORY Procedure Laterality Date CATARACT EXTRACTION W/ INTRAOCULAR LENS IMPLANT HX 2014 COLONOSCOPY FLX DX W/COLLJ SPEC WHEN PFRMD 03/08/15 Colonoscopy COLONOSCOPY FLX DX W/COLLJ SPEC WHEN PFRMD 04/19/2020 Colonoscopy repeat in 5 years COLONOSCOPY W/BIOPSY SINGLE/MULTIPLE 05/31/09 PROSTATE BIOPSY W/TRANSRECTAL US 10/09/2018 SKIN BIOPSY HX TONSILLECTOMY HX TONSILLECTOMY PRIMARY/SECONDARY <AGE 12 1968 Tonsillectomy ALLERGIES Enviromental [Other] MEDICATIONS dapagliflozin (FARXIGA) 10 mg tablet Take 1 tablet by mouth daily with breakfast. insulin needles, DISPOSABLE, (PEN NEEDLE) 31 gauge x /16 Use 1 pen needle once daily for insulin injection. Dx: E11.65 atorvastatin (LIPITOR) 20 mg tablet Take 1 tablet by mouth once daily. sildenafil (VIAGRA) 50 mg tablet Take 1 tablet by mouth as needed. mometasone (ELOCON) 0.1 % cream Apply to affected area once daily. For 2 weeks, as needed. Leg rash lisinopril (ZESTRIL, PRINIVIL) 20 mg tablet Take 1 tablet by mouth once daily. dulaglutide (TRULICITY) 0.75 mg/0.5 mL pen injector Inject 0.75 mg subcutaneously one time a week. Inject dose once per week. Discard Pen After glipiZIDE (GLUCOTROL) 5 mg tablet Take 1 tablet by mouth twice daily before meals. metFORMIN (GLUCOPHAGE) 500 mg tablet Take 2 tablets by mouth twice daily with meals. loratadine (CLARITIN) 10 mg tablet Take 1 tablet by mouth once daily. For allergies. insulin glargine (LANTUS SOLOSTAR U-100 INSULIN) 100 unit/mL (3 mL) Inject 45 Units subcutaneously daily at bedtime. Blood-Glucose Meter (FREESTYLE LITE METER) monitoring kit Freestyle LITE Meter Kit - Dx: Type 2 DM - uncontrolled .. Insulin: Yes. blood sugar diagnostic test strip Test blood sugar(s) 3 times daily. Dx: Type 2 DM - unontrolled .. Insulin: Yes. [employer]. ASPIRIN 81 MG TAB Take one(1) tablet daily. FAMILY HISTORY Problem Relation Age of Onset Diabetes Father Hypertension Father Prostate Cancer Father Blood Disease Father Immune thrombocytopenia, splenectomy Cervical Cancer Mother Vulvar SCCa with mets other (Obesity) Sister Gastric bypass Colon Cancer Paternal Uncle Macular Degen No Family History Glaucoma No Family History Social History Tobacco Use Smoking status: Some Days Years: 4.00 Types: Cigarettes Smokeless tobacco: Never Tobacco comments: periodic Substance Use Topics Alcohol use: Yes Alcohol/week: 3.3 standard drinks Types: 2 Shots of liquor per week Comment: occasionally Drug use: No PHYSICAL EXAM BP 130/78 (BP Site: Left Arm, BP Position: Sitting, BP Cuff Size: Large Adult) Pulse 96 Temp 36.2 C (97.1 F) (Temporal) Resp 16 Wt 99.8 kg (220 lb) BMI 33.70 kg/m General Appearance: well appearing, in no acute distress, alert Lungs: Lungs clear to auscultation. No wheezing, rhonchi, rales. Heart: RRR without murmur, gallop, or rubs. No ectopy Feet:Shoes and socks removed, No deformities, ulcers, calluses, normal distal pulses, sensitive to 10 gm monofilament, vibratory perception normal, and trace nonpitting edema bilateral ankles Health maintenance reviewed with patient: SHINGRIX VACCINE(1 of 2) Never done PNEUMOCOCCAL: 65+(3 - PPSV23 or PCV20) due on 12/13/2021 INFLUENZA(1) due on 01/19/2022 DIABETIC FOOT EXAM due on 02/21/2022 URINE ALBUMIN:CREATININE RATIO due on 07/18/2022 HBA1C due on 08/03/2022 ANNUAL PCP TEAM CHRONIC DISEASE VISIT due on 10/26/2022 DEPRESSION SCREENING due on 10/26/2022 BP CONTROLLED (<130/80) due on 01/30/2023 DILATED RETINAL EXAM due on 02/01/2023 LDL CHOLESTEROL due on 02/03/2023 COLORECTAL CANCER SCREENING due on 04/19/2025 PROSTATE CANCER SCREENING DISCUSSION due on 12/27/2026 DTAP,TDAP,TD(3 - Td or Tdap) due on 01/31/2029 ABDOMINAL AORTIC ANEURYSM SCREENING Completed ADVANCE DIRECTIVE DISCUSSION Completed HIV SCREENING Completed COVID-19 VACCINE Completed HEPATITIS C SCREENING Addressed DATA REVIEWED: Most recent labs ASSESSMENT/PLAN: 1. Controlled type 2 diabetes mellitus without complication, with long-term current use of insulin (HCC) - ICD9: 250.00, V58.67, ICD10: E11.9, Z79.4 (primary diagnosis) Controlled. - Continue current medications - INSULIN GLARGINE (U-100) 100 UNIT/ML (3 ML) SUBCUTANEOUS PEN - METFORMIN 500 MG TABLET - GLIPIZIDE 5 MG TABLET 2. Essential hypertension - ICD9: 401.9, ICD10: I10 - good control - Continue current medication(s) - Recommended regular aerobic exercise. - Recommend home blood pressure monitoring, to bring results in on next visit - Goal of BP <130/80 3. Need for influenza vaccination - ICD9: V04.81, ICD10: Z23 - INFLUENZA SEASONAL QUADRIVALENT HIGH DOSE AGE 65+ 4. Hyperlipidemia, unspecified hyperlipidemia type - ICD9: 272.4, ICD10: E78.5 - good control - Continue current medication. 5. Obesity, Class I, BMI 30-34.9 - ICD9: 278.00, ICD10: E66.9 Stable Prescription instructions reviewed with patient as applicable. Potential red flag symptoms discussed with the patient. Reviewed appropriate action plan to take if red flag symptoms occur. Patient agreeable to treatment plan. Mindy Walker APRN.CNP documented in this encounter [facility] 02-01-2022 History of Past i llness Narrative Problem Noted Date Resolved Date Paronychia of finger 02/01/2022 02/07/2022 PSA elevation 07/24/2017 01/31/2019 Other affections of shoulder region, not elsewhere classified 12/06/2012 12/03/2014 Impaired fasting glucose 09/27/2005 007 documented as of this encounter (statuses as of 02/07/2022) [facility] History of Past illness Narrative* Problem Noted Date Resolved Date Paronychia of finger 02/01/2022 02/07/2022 PSA elevation 07/24/2017 01/31/2019 Other affections of shoulder region, not elsewhere classified 12/06/2012 12/03/2014 Impaired fasting glucose 09/27/2005 007 documented as of this encounter (statuses as of 03/07/2022) [facility] History of Past illness Narrative* Problem Noted Date Resolved Date Paronychia of finger 02/01/2022 02/07/2022 PSA elevation 07/24/2017 01/31/2019 Other affections of shoulder region, not elsewhere classified 12/06/2012 12/03/2014 Impaired fasting glucose 09/27/2005 007 documented as of this encounter (statuses as of 03/15/2022) [facility] History of Past illness Narrative* Problem Noted Date Resolved Date Paronychia of finger 02/01/2022 02/07/2022 PSA elevation 07/24/2017 01/31/2019 Other affections of shoulder region, not elsewhere classified 12/06/2012 12/03/2014 Impaired fasting glucose 09/27/2005 007 documented as of this encounter (statuses as of 03/30/2022) [facility] History of Past illness Narrative* Problem Noted Date Resolved Date Paronychia of finger 02/01/2022 02/07/2022 PSA elevation 07/24/2017 01/31/2019 Other affections of shoulder region, not elsewhere classified 12/06/2012 12/03/2014 Impaired fasting glucose 09/27/2005 007 documented as of this encounter (statuses as of 06/01/2022) [facility] History of Past illness Narrative* Problem Noted Date Resolved Date Paronychia of finger 02/01/2022 02/07/2022 PSA elevation 07/24/2017 01/31/2019 Other affections of shoulder region, not elsewhere classified 12/06/2012 12/03/2014 Impaired fasting glucose 09/27/2005 007 documented as of this encounter (statuses as of 06/01/2022) [address]-2022 History of Past illness Narrative* Problem Noted Date Resolved Date Paronychia of finger 02/01/2022 02/07/2022 Other affections of shoulder region, not elsewhere classified 12/06/2012 12/03/2014 Impaired fasting glucose 09/27/2005 007 documented as of this encounter (statuses as of 06/19/2022) [address]-2022 History of Past illness Narrative* Problem Noted Date Resolved Date Paronychia of finger 02/01/2022 02/07/2022 Other affections of shoulder region, not elsewhere classified 12/06/2012 12/03/2014 Impaired fasting glucose 09/27/2005 007 documented as of this encounter (statuses as of 2022) [address]-2022 History of Past illness Narrative* Problem Noted Date Resolved Date Paronychia of finger 02/01/2022 02/07/2022 Other affections of shoulder region, not elsewhere classified 12/06/2012 12/03/2014 Impaired fasting glucose 09/27/2005 007 documented as of this encounter (statuses as of 07/14/2022) [address]-2022 History of Past illness Narrative* Problem Noted Date Resolved Date Paronychia of finger 02/01/2022 02/07/2022 Other affections of shoulder region, not elsewhere classified 12/06/2012 12/03/2014 Impaired fasting glucose 09/27/2005 007 documented as of this encounter (statuses as of 08/03/2022) [address]-2022 History of Past illness Narrative* Problem Noted Date Resolved Date Paronychia of finger 02/01/2022 02/07/2022 Other affections of shoulder region, not elsewhere classified 12/06/2012 12/03/2014 Impaired fasting glucose 09/27/2005 007 documented as of this encounter (statuses as of 08/07/2022) [address]22 History of Past illness Narrative* Problem Noted Date Resolved Date Paronychia of finger 02/01/2022 02/07/2022 Other affections of shoulder region, not elsewhere classified 12/06/2012 12/03/2014 Impaired fasting glucose 09/27/2005 007 documented as of this encounter (statuses as of 08/11/2022) [address]-2022 History of Past illness Narrative* Problem Noted Date Resolved Date Paronychia of finger 02/01/2022 02/07/2022 Other affections of shoulder region, not elsewhere classified 12/06/2012 12/03/2014 Impaired fasting glucose 09/27/2005 007 documented as of this encounter (statuses as of 08/15/2022) [address]22 History of Past illness Narrative* Problem Noted Date Resolved Date Paronychia of finger 02/01/2022 02/07/2022 Other affections of shoulder region, not elsewhere classified 12/06/2012 12/03/2014 Impaired fasting glucose 09/27/2005 007 documented as of this encounter (statuses as of 09/20/2022) [address]22 History of Past illness Narrative* Problem Noted Date Resolved Date Paronychia of finger 02/01/2022 02/07/2022 Other affections of shoulder region, not elsewhere classified 12/06/2012 12/03/2014 Impaired fasting glucose 09/27/2005 007 documented as of this encounter (statuses as of 09/27/2022) [address]22 History of Past illness Narrative* Problem Noted Date Resolved Date Paronychia of finger 02/01/2022 02/07/2022 Other affections of shoulder region, not elsewhere classified 12/06/2012 12/03/2014 Impaired fasting glucose 09/27/2005 007 documented as of this encounter (statuses as of 10/02/2022) [address]22 History of Past illness Narrative* Problem Noted Date Resolved Date Paronychia of finger 02/01/2022 02/07/2022 Other affections of shoulder region, not elsewhere classified 12/06/2012 12/03/2014 Impaired fasting glucose 09/27/2005 007 documented as of this encounter (statuses as of 10/23/2022) [address]22 History of Past illness Narrative* Problem Noted Date Resolved Date Paronychia of finger 02/01/2022 02/07/2022 Other affections of shoulder region, not elsewhere classified 12/06/2012 12/03/2014 Impaired fasting glucose 09/27/2005 007 documented as of this encounter (statuses as of 11/03/2022) [address]22 History of Past illness Narrative* Problem Noted Date Resolved Date Paronychia of finger 02/01/2022 02/07/2022 Other affections of shoulder region, not elsewhere classified 12/06/2012 12/03/2014 Impaired fasting glucose 09/27/2005 007 documented as of this encounter (statuses as of 11/08/2022) [address]22 History of Past illness Narrative* Problem Noted Date Diagnosed Date Resolved Date Paronychia of finger 02/01/2022 Other affections of shoulder region, not elsewhere classified 12/06/2012 12/03/2014 Impaired fasting glucose 09/27/200501/2007 documented as of this encounter (statuses as of 12/28/2022) [address]22 History of Past illness Narrative* Problem Noted Date Diagnosed Date Resolved Date Paronychia of finger 02/01/2022 022 Other affections of shoulder region, not elsewhere classified 12/06/2012 12/03/2014 Impaired fasting glucose 09/27/200501/2007 documented as of this encounter (statuses as of 12/28/2022) [address]22 History of Past illness Narrative* Problem Noted Date Diagnosed Date Resolved Date Paronychia of finger 02/01/2022 022 Other affections of shoulder region, not elsewhere classified 12/06/2012 12/03/2014 Impaired fasting glucose 09/27/200501/2007 documented as of this encounter (statuses as of 01/02/2023) [address]22 History of Past illness Narrative* Problem Noted Date Diagnosed Date Resolved Date Paronychia of finger 02/01/2022 022 Other affections of shoulder region, not elsewhere classified 12/06/2012 12/03/2014 Impaired fasting glucose 09/27/200501/2007 documented as of this encounter (statuses as of 01/17/2023) [address]22 History of Past illness Narrative* Problem Noted Date Diagnosed Date Resolved Date Paronychia of finger 02/01/2022 022 Other affections of shoulder region, not elsewhere classified 12/06/2012 12/03/2014 Impaired fasting glucose 09/27/200501/2007 documented as of this encounter (statuses as of 02/07/2023) [address]22 History of Past illness Narrative* Problem Noted Date Diagnosed Date Resolved Date Paronychia of finger 02/01/2022 022 Other affections of shoulder region, not elsewhere classified 12/06/2012 12/03/2014 Impaired fasting glucose 09/27/200501/2007 documented as of this encounter (statuses as of 03/06/2023) [facility] History of Past illness Narrative* Problem Noted Date Diagnosed Date Resolved Date Paronychia of finger 02/01/2022 022 Other affections of shoulder region, not elsewhere classified 12/06/2012 12/03/2014 Impaired fasting glucose 09/27/200501/2007 documented as of this encounter (statuses as of 07/09/2023) [facility] History of Past illness Narrative* Problem Noted Date Diagnosed Date Resolved Date Paronychia of finger 02/01/2022 022 Other affections of shoulder region, not elsewhere classified 12/06/2012 12/03/2014 Impaired fasting glucose 09/27/200501/2007 documented as of this encounter (statuses as of 07/11/2023) [facility] History of Present illness Narrative* Norm Jackson MD - 02/01/2022 9:28 AM EDT Assessment and Plan 1. Type 2 diabetes mellitus without retinopathy (HCC) 2. Controlled type 2 diabetes mellitus without complication, with long-term current use of insulin (HCC) -no diabetic retinopathy both eyes 3. Ocular hypertension, bilateral -denies history of glaucoma -good cup to disc ratio on exam -OCT with some changes 4. Pseudophakia -with early posterior capsular opacity (PCO) both eyes Plan: -Continue blood sugar and blood pressure control -follow-up [address] Thurman / me as needed. To consider OCT nerve next visit for monitoring of any changes I have confirmed and edited as necessary the relevant ophthalmic history, ROS, and the neuro exam findings as obtained by others. I have seen and examined Leandra El. I have discussed the case and the management of this patient's care with the Resident/Fellow, if applicable. I also have reviewed and agree with the assessment and plan as stated above and agree withall of its relevant components. Norm Jackson MD February 01, 2022 9:28 AM [facility] of Present illness Narrative* Bobby Enriquez APRN.MACHINING MANAGER - 01/30/2022 4:15 PM EDT Subjective HPI Nontoxic-appearing male presents urgent care chief plaint right ear pain 2 to 3 days. Associated symptoms right ear pain nasal congestion nasal congestion has been ongoing for a week or 2. Patient states history of ear infections but not for quite some time. Has not used any OTC medications. Statespain is worse at night. States pain is deeper in ear. Denies any ear trauma. Denies any hearing difficulties. States hearing is muffled at times. Denies any otorrhea. Denies known sick contacts. Denies any fever body aches chills productive cough chest pain shortness of breath pleuritic pain hemoptysis nausea vomiting abdominal pain or change in bowel or bladder habits. Past medical history prescription medication use allergies reviewed. .Patient presents with: Ear Pain: right x 2-3 days PAST MEDICAL HISTORY Diagnosis Date Benign neoplasm of colon 2009 HYPERPLASTIC DIABETES MELLITUS TYPE II-UNCOMPL 06/27/2006 History of actinic keratosis 01/24/[address] Cathryn [facility]. HYPERLIPIDEMIA NEC/NOS 09/27/2005 HYPERTENSION NOS 09/27/2005 Impaired fasting glucose 09/27/2005 Internal hemorrhoids without mention of complication Prostate cancer (HCC) 10/22/2018 PSA elevation 07/24/2017 Type II or unspecified type diabetes mellitus without mention of complication, uncontrolled 12/04/2012 PAST SURGICAL HISTORY Procedure Laterality Date CATARACT EXTRACTION W/ INTRAOCULAR LENS IMPLANT HX 2014 COLONOSCOPY FLX DX W/COLLJ SPEC WHEN PFRMD 03/08/15 Colonoscopy COLONOSCOPY FLX DX W/COLLJ SPEC WHEN PFRMD 04/19/2020 Colonoscopy repeat in 5 years COLONOSCOPY W/BIOPSY SINGLE/MULTIPLE 05/31/09 PROSTATE BIOPSY W/TRANSRECTAL US 10/09/2018 SKIN BIOPSY HX TONSILLECTOMY HX TONSILLECTOMY PRIMARY/SECONDARY <AGE 12 1968 Tonsillectomy ALLERGIES Enviromental [Other] MEDICATIONS dapagliflozin (FARXIGA) 10 mg tablet Take 1 tablet by mouth daily with breakfast. insulin needles, DISPOSABLE, (PEN NEEDLE) 31 gauge x /16 Use 1 pen needle once daily for insulin injection. Dx: E11.65 atorvastatin (LIPITOR) 20 mg tablet Take 1 tablet by mouth once daily. sildenafil (VIAGRA) 50 mg tablet Take 1 tablet by mouth as needed. mometasone (ELOCON) 0.1 % cream Apply to affected area once daily. For 2 weeks, as needed. Leg rash lisinopril (ZESTRIL, PRINIVIL) 20 mg tablet Take 1 tablet by mouth once daily. dulaglutide (TRULICITY) 0.75 mg/0.5 mL pen injector Inject 0.75 mg subcutaneously one time a week. Inject dose once per week. Discard Pen After glipiZIDE (GLUCOTROL) 5 mg tablet Take 1 tablet by mouth twice daily before meals. metFORMIN (GLUCOPHAGE) 500 mg tablet Take 2 tablets by mouth twice daily with meals. loratadine (CLARITIN) 10 mg tablet Take 1 tablet by mouth once daily. For allergies. insulin glargine (LANTUS SOLOSTAR U-100 INSULIN) 100 unit/mL (3 mL) Inject 45 Units subcutaneously daily at bedtime. Blood-Glucose Meter (FREESTYLE LITE METER) monitoring kit Freestyle LITE Meter Kit - Dx: Type 2 DM - uncontrolled E11.65. Insulin: Yes. blood sugar diagnostic test strip Test blood sugar(s) 3 times daily. Dx: Type 2 DM - unontrolled E11.65. Insulin: Yes. [employer]. ASPIRIN 81 MG TAB Take one(1) tablet daily. FAMILY HISTORY Problem Relation Age of Onset Cervical Cancer Mother Vulvar SCCa with mets Diabetes Father Hypertension Father Prostate Cancer Father Blood Disease Father Immune thrombocytopenia, splenectomy other (Obesity) Sister Gastric bypass Colon Cancer Paternal Uncle Social History Tobacco Use Smoking status: Some Days Years: 4.00 Types: Cigarettes Smokeless tobacco: Never Tobacco comments: periodic Substance Use Topics Alcohol use: Yes Alcohol/week: 3.3 standard drinks Types: 2 Shots of liquor per week Comment: occasionally Drug use: No BP 112/64 Pulse 102 Temp 36.8 C (98.2 F) Resp 16 Wt 100.2 kg (221 lb) SpO2 98% BMI 33.85 kg/m Hr 82 Review of Systems Constitutional: Negative for chills, fever and malaise/fatigue. HENT: Positive for congestion and ear pain. Negative for ear discharge, sinus pain and sore throat. Eyes: Negative for blurred vision, pain, discharge and redness. Respiratory: Negative for cough, hemoptysis, sputum production, shortness of breath, wheezing and stridor. Cardiovascular: Negative for chest pain. Gastrointestinal: Negative for abdominal pain, diarrhea, nausea and vomiting. Musculoskeletal: Negative for myalgias. Skin: Negative for itching and rash. Neurological: Negative for dizziness and headaches. Objective Physical Exam Constitutional: General: He is not in acute distress. Appearance: He is not diaphoretic. HENT: Head: Normocephalic. Jaw: No trismus or tenderness. Right Ear: No drainage, swelling or tenderness. No mastoid tenderness. Tympanic membrane is erythematous and bulging. Left Ear: Hearing, tympanic membrane, ear canal and external ear normal. No drainage, swelling or tenderness. There is impacted cerumen. No mastoid tenderness. Ears: Comments: Cerumen impaction noted left auditory canal. Ear was irrigated by MA. Moderate amount of cerumen retrieved. TM pearly singh and intact bilaterally post irrigation. Erythematous bulging TM noted right. TM intact. Nose: Congestion present. Mouth/Throat: Mouth: Mucous membranes are moist. Pharynx: Oropharynx is clear. No oropharyngeal exudate or posterior oropharyngeal erythema. Eyes: Conjunctiva/sclera: Conjunctivae normal. Pupils: Pupils are equal, round, and reactive to light. Cardiovascular: Rate and Rhythm: Normal rate and regular rhythm. Heart sounds: Normal heart sounds. Pulmonary: Effort: Pulmonary effort is normal. No tachypnea, accessory muscle usage or respiratory distress. Breath sounds: Normal breath sounds. No stridor. No wheezing, rhonchi or rales. Abdominal: Palpations: Abdomen is soft. Tenderness: There is no abdominal tenderness. Musculoskeletal: Cervical back: Normal range of motion and neck supple. No rigidity or tenderness. Lymphadenopathy: Cervical: No cervical adenopathy. Skin: General: Skin is warm and dry. Neurological: Mental Status: He is alert and oriented to person, place, and time. ASSESSMENT/PLAN: 1. Acute otitis media, right - ICD9: 382.9, ICD10: H66.91 (primary diagnosis) 2. Hearing loss due to cerumen impaction, left - ICD9: 389.8, 380.4, ICD10: H61.22 Patient diagnosed with otitis media right ear. Patient will be placed on amoxicillin. Ear successfully irrigated by MA. Spontaneous improvement of hearing. No pain. Diagnosed with cerumen impaction. Patient was educated on supportive therapies. Patient will follow up with primary care provider as ne eded. Patient was instructed to immediately proceed to emergency room for any new, worsening, or symptoms lasting longer than anticipated. The patient's clinical presentation is otherwise unremarkable at this time. Based on exam and clinical finding, the patient is stable for discharge. Plan of care was discussed with patient. Patient verbalizes understanding and agrees to plan of care. This notewas generated using Memvu software. It may contain errors in wording, punctuation, or spelling. Bobby Enriquez APRN.LUKE documented in this encounterBrecksville [facility] History of Present illness Narrative* Amalia Wu Pss - 01/19/2022 9:23 AM EDT POPULATION HEALTH NAVIGATION OUTREACH Action/FYI: Kamaljit Care Gaps 01/19/22 Discuss/Due: ~Dilated Retinal Exam ~Flu vaccine Outcome: ~Spoke with patient, scheduled FELIPE for 02/01/22. ~Patient declined Flu vaccine, states he will wait and get it at his PCP appointment on 02/07/22. Pt identified by name and : YES, via phone Outreach Outcome/Action Spoke to patient or caregiver: Patient scheduled Patient declined Did you use a PCP flex slot to schedule this appointment? N/A Reason for Outreach Care Gap or Scheduling/Wellness visits Payer: Payor: KAMALJIT MEDICARE / Plan: [employer] MEDICARE PPO / Product Type: PPO / Care Gap Reviewed:: Diabetic Eye Exam Flu vaccine Reminder: Reminder note to check Health Maintenance for items below Health Maintenance items due: SHINGRIX VACCINE(1 of 2) Never done BP CONTROLLED (<130/80) due on 10/23/2019 PNEUMOCOCCAL: 66+(3 - PPSV23 or PCV20) due on 12/13/2021 DILATED RETINAL EXAM due on 01/19/2022 INFLUENZA(1) due on 01/19/2022 Message Sent to Practice: No Navigation Signature: Amalia Wu Population Health Navigator January 19, 2022 9:23 AM documented in this encounterBrecksville [facility]08-25-2022 Miscellaneous Notes* Telephone Encounter - Cindy Knox LPN - 01/12/2022 11:13 AM EDT Patient has been identified by name and date of : Yes Requested Prescriptions Pending Prescriptions Disp Refills dapagliflozin (FARXIGA) 10 mg tablet 90 tablet 3 Sig: Take 1 tablet by mouth daily with breakfast. RX INSTRUCTIONS: Pharmacy initiated this request. No need to notify patient. [place] 10/26/21 Scheduled 02/07/22 Cindy Knox LPN documented in this encounterBrecksville [facility]08-22-2022 Miscellaneous Notes* Telephone Encounter - Darnell Chan Ma - 01/09/2022 8:26 AM EDT Patient informed Via [employer]. Darnell Chan Ma * Telephone Encounter - Darnell Chan Ma - 01/09/2022 8:26 AM EDT ----- Message from Wilfrid Holliday DO sent at 01/09/2022 12:43 AM EDT ----- PSA stable documented in this encounterBrecksville [facility]08-15-2022 History of Present illness Narrative* Kiesha Bear RDMS - 01/02/2022 7:00 AM EDT Radiology Service Progress Note PATIENT NAME: Leandra El DATE OF SERVICE: January 02, 2022 TIME: 7:42 AM PATIENT IDENTITY VERIFICATION COMPLETED USING TWO (2) IDENTIFIERS: Name and Date of confirmedby patient verbally. FALL SCREENING: Has the patient had 2 falls in the last year or 1 fall with injury or currently using an Ambulatory Assistive Device (Walker, Cane, Wheelchair, Crutches, etc.)? No PATIENT GENDER DATA: Male PATIENT RELEVANT IMPLANT DATA REVIEWED: Not Applicable RADIOLOGY DEPARTMENT: Ultrasound PERIPHERAL IV DATA: Not applicable SIGNED BY: Kiesha Bear RDMS RVT January 02, 2022 7:42 AM documented in this encounterBrecksville [facility]07-05-2022 Miscellaneous Notes* Telephone Encounter - Helen Hermosillo LPN - 11/22/2021 8:11 AM EDT Report printed for Dr. Bee to review. Helen Hermosillo LPN documented in this encounterBrecksville [facility]06-09-2022 Miscellaneous Notes* Telephone Encounter - Helen Hermosillo LPN - 10/27/2021 8:51 AM EDT Printed order faxed to [facility] Scheduling. Helen Hermosillo LPN * Telephone Encounter - Maykel Bee MD - 10/26/2021 4:03 PM EDT ASSESSMENT/PLAN: 1. Abnormal electrocardiogram - ICD9: 794.31, ICD10: R94.31 - [place] CARDIAC PERF STRESS/EXERCISE Maykel Bee MD * Telephone Encounter - Saumya Centeno RN - 10/26/2021 3:46 PM EDT [place] @ [facility] Scheduling calling to request new order for NM Stress Test that does not show the word Exercise on the order. She states Exercise is written for a treadmill stress test. Saumya Centeno RN documented in this encounterBrecksville [facility]06-08-2022 History of Present illness Narrative* Maykel Bee MD - 10/26/2021 2:49 PM EDT This note was created using Next Generation Systemster. Subjective Leandra El is a 66 year old male. He felt well. His EKG today had changed. He denied any symptom of cardiovascular awareness. Review of Systems Constitutional: Negative for fatigue and unexpected weight change. Respiratory: Negative for chest tightness and shortness of breath. Cardiovascular: Negative for chest pain, palpitations and leg swelling. Gastrointestinal: Negative. ACTIVE PROBLEM LIST Essential Hypertension Hyperlipemia Controlled Type 2 Diabetes Mellitus Without Complication, With Long-Term Current Use of Insulin (Hcc) History of Actinic Keratosis Erectile Dysfunction Prostate Cancer (Hcc) Seasonal Allergies Obesity, Class I, Bmi 30-34.9 Current Outpatient Medications Medication Sig insulin needles, DISPOSABLE, (PEN NEEDLE) 31 gauge x 5/16 Use 1 pen needle once daily for insulin injection. Dx: E11.65 atorvastatin (LIPITOR) 20 mg tablet Take 1 tablet by mouth once daily. sildenafil (VIAGRA) 50 mg tablet Take 1 tablet by mouth as needed. mometasone (ELOCON) 0.1 % cream Apply to affected area once daily. For 2 weeks, as needed. Leg rash lisinopril (ZESTRIL, PRINIVIL) 20 mg tablet Take 1 tablet by mouth once daily. dulaglutide (TRULICITY) 0.75 mg/0.5 mL pen injector Inject 0.75 mg subcutaneously one time a week. Inject dose once per week. Discard Pen After glipiZIDE (GLUCOTROL) 5 mg tablet Take 1 tablet by mouth twice daily before meals. metFORMIN (GLUCOPHAGE) 500 mg tablet Take 2 tablets by mouth twice daily with meals. loratadine (CLARITIN) 10 mg tablet Take 1 tablet by mouth once daily. For allergies. dapagliflozin (FARXIGA) 10 mg tablet Take 1 tablet by mouth daily with breakfast. insulin glargine (LANTUS SOLOSTAR U-100 INSULIN) 100 unit/mL (3 mL) Inject 45 Units subcutaneously daily at bedtime. Blood-Glucose Meter (FREESTYLE LITE METER) monitoring kit Freestyle LITE Meter Kit - Dx: Type 2 DM - uncontrolled E11.65. Insulin: Yes. blood sugar diagnostic (FREESTYLE LITE STRIPS) test strip Test blood sugar(s) 3 times daily. Dx: Type 2 DM - unontrolled E11.65. Insulin: Yes. [employer]. ASPIRIN 81 MG TAB Take one(1) tablet daily. No current facility-administered medications for this visit. Objective BP 130/76 (BP Site: Left Arm, BP Position: Sitting, BP Cuff Size: Large Adult) Pulse 101 Temp 36.3 C (97.4 F) (Temporal Artery) Resp 18 Ht 172.1 cm (5' 7.75) Wt 97.1 kg (214 lb) BMI 32.78 kg/m Physical Exam Constitutional: Appearance: He is obese. He is not ill-appearing or diaphoretic. Cardiovascular: Rate and Rhythm: Normal rate and regular rhythm. Pulses: Normal pulses. Heart sounds: No murmur heard. No gallop. Pulmonary: Breath sounds: No wheezing or rales. Musculoskeletal: Right lower leg: No edema. Left lower leg: No edema. Neurological: Gait: Gait normal. EKG RESULTS: normal sinus rhythm and STT changes inferior and lateral leads. Assessment and Plan 1. Welcome to Medicare preventive visit - ICD9: V70.0, ICD10: Z00.00 (primary diagnosis) See other note. - ADVANCE CARE PLAN DISCUSSION - ECG COMPLETE 2. Controlled type 2 diabetes mellitus without complication, with long-term current use of insulin (HCC) - ICD9: 250.00, V58.67, ICD10: E11.9, Z79.4 improved control - Continue current medications - PEN NEEDLE, DIABETIC 31 GAUGE X 16 - HEMOGLOBIN A1C (POC) - COMP METABOLIC PANEL - LIPID PANEL BASIC - HGB A1C 3. Screening for AAA (abdominal aortic aneurysm) - ICD9: V81.2, ICD10: Z13.6 - US SCREENING FOR AAA 4. Abnormal EKG - ICD9: 794.31, ICD10: R94.31 See #6. 5. Essential hypertension - ICD9: 401.9, ICD10: I10 - fair control 6. Encounter for screening for cardiovascular disorders - ICD9: V81.2, ICD10: Z13.6 - [place] CARDIAC PERF STRESS/EXERCISE Patient indicated understanding and willingness to follow recommendations. Maykel Bee MD * Maykel Bee MD - 10/26/2021 1:55 PM EDT Welcome To Medicare Visit Medical B eligibility date 06/22/2021 Date of last exam NA PAST MEDICAL HISTORY Diagnosis Date Benign neoplasm of colon 2009 HYPERPLASTIC DIABETES MELLITUS TYPE II-UNCOMPL 06/27/2006 History of actinic keratosis 01/24/[address] [facility]ryn [facility]. HYPERLIPIDEMIA NEC/NOS 09/27/2005 HYPERTENSION NOS 09/27/2005 Impaired fasting glucose 09/27/2005 Internal hemorrhoids without mention of complication Prostate cancer (HCC) 10/22/2018 PSA elevation 07/24/2017 Type II or unspecified type diabetes mellitus without mention of complication, uncontrolled 12/04/2012 PAST SURGICAL HISTORY Procedure Laterality Date CATARACT EXTRACTION W/ INTRAOCULAR LENS IMPLANT HX 2014 COLONOSCOPY FLX DX W/COLLJ SPEC WHEN PFRMD 03/08/15 Colonoscopy COLONOSCOPY FLX DX W/COLLJ SPEC WHEN PFRMD 04/19/2020 Colonoscopy repeat in 5 years COLONOSCOPY W/BIOPSY SINGLE/MULTIPLE 05/31/09 PROSTATE BIOPSY W/TRANSRECTAL US 10/09/2018 SKIN BIOPSY HX TONSILLECTOMY HX TONSILLECTOMY PRIMARY/SECONDARY <AGE 12 1968 Tonsillectomy Enviromental [Other] Medications reviewed: Yes Current Outpatient Medications Medication Sig insulin needles, DISPOSABLE, (PEN NEEDLE) 31 gauge x 5/16 Use 1 pen needle once daily for insulin injection. Dx: E11.65 atorvastatin (LIPITOR) 20 mg tablet Take 1 tablet by mouth once daily. sildenafil (VIAGRA) 50 mg tablet Take 1 tablet by mouth as needed. mometasone (ELOCON) 0.1 % cream Apply to affected area once daily. For 2 weeks, as needed. Leg rash lisinopril (ZESTRIL, PRINIVIL) 20 mg tablet Take 1 tablet by mouth once daily. dulaglutide (TRULICITY) 0.75 mg/0.5 mL pen injector Inject 0.75 mg subcutaneously one time a week. Inject dose once per week. Discard Pen After glipiZIDE (GLUCOTROL) 5 mg tablet Take 1 tablet by mouth twice daily before meals. metFORMIN (GLUCOPHAGE) 500 mg tablet Take 2 tablets by mouth twice daily with meals. loratadine (CLARITIN) 10 mg tablet Take 1 tablet by mouth once daily. For allergies. dapagliflozin (FARXIGA) 10 mg tablet Take 1 tablet by mouth daily with breakfast. insulin glargine (LANTUS SOLOSTAR U-100 INSULIN) 100 unit/mL (3 mL) Inject 45 Units subcutaneously daily at bedtime. Blood-Glucose Meter (FREESTYLE LITE METER) monitoring kit Freestyle LITE Meter Kit - Dx: Type 2 DM - uncontrolled E11.65. Insulin: Yes. blood sugar diagnostic (FREESTYLE LITE STRIPS) test strip Test blood sugar(s) 3 times daily. Dx: Type 2 DM - unontrolled E11.65. Insulin: Yes. [employer]. ASPIRIN 81 MG TAB Take one(1) tablet daily. No current facility-administered medications for this visit. FAMILY HISTORY Problem Relation Age of Onset Cervical Cancer Mother Vulvar SCCa with mets Diabetes Father Hypertension Father Prostate Cancer Father Blood Disease Father Immune thrombocytopenia, splenectomy other (Obesity) Sister Gastric bypass Colon Cancer Paternal Uncle SOCIAL HISTORY: Social History Tobacco Use Smoking status: Current Some Day Smoker Years: 4.00 Types: Cigarettes Smokeless tobacco: Never Used Tobacco comment: periodic Substance Use Topics Alcohol use: Yes Alcohol/week: 3.3 standard drinks Types: 2 Shots of liquor per week Comment: occasionally Drug use: No Leandra likes to exercise by walking and golt. He watches his diet for sodium, low fat and low cholesterol most of the time. List of current specialists seen: Dr. Kayli Holliday, urology. Dr. Daley, ophthalmology. End of Live Planning discussed including patients advanced directive wishes: Yes I am willing to follow Leandra's advanced directives. None made yet. PHQ-2 / Depression screen He in the past two weeks denies having felt down, depressed, hopeless or with little interest or pleasure in doing things. PHQ-2 Score: 0 PHQ-9 Score: 0 Functional Ability/Safety Screen 1. Was the patient's timed Up and Go test unsteady or longer than 30 seconds? No 2. Does the patient need help with the phone, transportation, shopping,preparing meals, housework, laundry, medications or managing money? No 3. Does your home have rugs in the hallway, lack of grab bars in the bathroom, lack of handrails onthe stairs or have poor lighting? No Hearing Evaluation: normal PHYSICAL EXAM BP 130/76 (BP Site: Left Arm, BP Position: Sitting, BP Cuff Size: Large Adult) Pulse 101 Temp 36.3 C (97.4 F) (Temporal Artery) Resp 18 Ht 172.1 cm (5' 7.75) Wt 97.1 kg (214 lb) BMI 32.78 kg/m Alert and oriented X 3: YES There is no height or weight on file to calculate BMI. Visual acuity: OD: 20/30 OS: 20/ 20 OU: 20/20 Screening ECG performed today: ASSESSMENT/PLAN: 66 year old male The following prevention plan was discussed during the office visit and provided to the patient: - Weight Loss - Vaccines recommended Shingrix at pharmacy - Counseling for Weight Loss and Exercise - ADVANCE CARE PLAN DISCUSSION - ECG COMPLETE Screening for AAA (abdominal aortic aneurysm) - ICD9: V81.2, ICD10: Z13.6 - US SCREENING FOR AAA Maykel Bee MD documented in this encounterBrecksville [facility]06-08-2022 Instructions* Patient Instructions* Maykel Bee MD - 10/26/2021 2:25 PM EDT Advance Directive Forms Advanced Directives Forms (Cambodian) o FORMS: [email or web address] o INFORMATIONAL BROCHURE: [email or web address]/-/scassets/files/[email or web address]/patients-[email or web address]/info rmation/advance-directives.ashx?la=en Advance Directives (non-Cambodian) o FORMS: [email or web address]-[email or web address]/adva nce-directives#forms-tab Please bring completed forms to your next appointment or email them to [email or web address]. Patient Resources How to Get Started Talking with Loved Ones about your Wishes at the End of Life [email or web address]/wp-content/uploads//ConversationProjec u-SyxepElwcdszYaq-Cjueexh.pdf How to Navigate Conversations with your Care Team around your Preferences [email or web address] Recombinant shingles vaccine (Shingrix) is recommended; 2 doses 2-6 months apart. Please read information, check with your insurance, and schedule vaccination at your local pharmacy. A prescription is not required. If you are certain you have coverage to receive this vaccine in the office, we can schedule this for you. documented in this encounterBrecksville [facility]06-02-2022 Miscellaneous Notes* Telephone Encounter - Dorota Padilla LPN - 10/20/2021 10:38 AM EDT Patient has been identified by name and date of : Yes Pharmacy phones for refill(s): Pending Prescriptions Disp Refills ATORVASTATIN 20 MG TABLET 90 tablet 3 Sig: Take 1 tablet by mouth once daily. ANTHONY: No Date of last office visit in primary care: 07/25/21 next apt 10/26/21 Last 2 Encounter Wt Readings: Date: Wt: 07/25/2021 101 kg (222 lb 9.6 oz) 02/21/2021 99.3 kg (219 lb) Previous labs/tests for medication: Cholesterol: HDL Cholesterol (mg/dL) Date Value 07/18/2021 38 07/31/2020 28 LDL Cholesterol (mg/dL) Date Value 07/18/2021 89 07/31/2020 80 ALT (U/L) Date Value 07/31/2020 23 Non HDL Cholesterol, Nonfasting (mg/dL) Date Value 10/04/2018 90 Non HDL Cholesterol (mg/dL) Date Value 07/18/2021 120 07/31/2020 117 Please advise. Thank you. Dorota Padilla LPN documented in this encounterBrecksville [facility]04-11-2022 Miscellaneous Notes* Telephone Encounter - Helen Hermosillo LPN - 08/29/2021 8:08 PM EDT Sha[place], our office did get your refill request for insulin needles, Disposable (Pen Needle) 31 gauge x5/16. Dr. Bee did write a new prescription 05/04/2021, 100 each, 3 refills, sent to [facility]. Our records show that you are testing one daily. Please check with your pharmacy, you should have refills. Helen Hermosillo LPN documented in this encounterBrecksville Va [facility]03-06-2018 History of Past illness Narrative* Problem Noted Date Resolved Date PSA elevation 07/24/2017 01/31/2019 Other affections of shoulder region, not elsewhere classified 12/06/2012 12/03/2014 Impaired fasting glucose 09/27/2005 007 documented as of this encounter (statuses as of 08/30/2021) [facility] History of Past illness Narrative* Problem Noted Date Resolved Date PSA elevation 07/24/2017 01/31/2019 Other affections of shoulder region, not elsewhere classified 12/06/2012 12/03/2014 Impaired fasting glucose 09/27/2005 007 documented as of this encounter (statuses as of 09/06/2021) [facility] History of Past illness Narrative* Problem Noted Date Resolved Date PSA elevation 07/24/2017 01/31/2019 Other affections of shoulder region, not elsewhere classified 12/06/2012 12/03/2014 Impaired fasting glucose 09/27/2005 007 documented as of this encounter (statuses as of 10/21/2021) [facility] of Past illness Narrative* Problem Noted Date Resolved Date PSA elevation 07/24/2017 01/31/2019 Other affections of shoulder region, not elsewhere classified 12/06/2012 12/03/2014 Impaired fasting glucose 09/27/2005 007 documented as of this encounter (statuses as of 10/26/2021) [place] [id number] History of Past illness Narrative* Problem Noted Date Resolved Date PSA elevation 07/24/2017 01/31/2019 Other affections of shoulder region, not elsewhere classified 12/06/2012 12/03/2014 Impaired fasting glucose 09/27/2005 02/09/2 007 documented as of this encounter (statuses as of 10/27/2021) [facility] of Past illness Narrative* Problem Noted Date Resolved Date PSA elevation 07/24/2017 01/31/2019 Other affections of shoulder region, not elsewhere classified 12/06/2012 12/03/2014 Impaired fasting glucose 09/27/2005 007 documented as of this encounter (statuses as of 10/27/2021) [facility] of [facility] illness Narrative* Problem Noted Date Resolved Date PSA elevation 07/24/2017 01/31/2019 Other affections of shoulder region, not elsewhere classified 12/06/2012 12/03/2014 Impaired fasting glucose 09/27/2005 007 documented as of this encounter (statuses as of 11/22/2021) [facility] of Past illness Narrative* Problem Noted Date Resolved Date PSA elevation 07/24/2017 01/31/2019 Other affections of shoulder region, not elsewhere classified 12/06/2012 12/03/2014 Impaired fasting glucose 09/27/2005 007 documented as of this encounter (statuses as of 01/03/2022) [facility] of [facility] illness Narrative* Problem Noted Date Resolved Date PSA elevation 07/24/2017 01/31/2019 Other affections of shoulder region, not elsewhere classified 12/06/2012 12/03/2014 Impaired fasting glucose 09/27/2005 007 documented as of this encounter (statuses as of 01/09/2022) [facility] of [facility] illness Narrative* Problem Noted Date Resolved Date PSA elevation 07/24/2017 01/31/2019 Other affections of shoulder region, not elsewhere classified 12/06/2012 12/03/2014 Impaired fasting glucose 09/27/2005 007 documented as of this encounter (statuses as of 01/13/2022) [facility] of [facility] illness Narrative* Problem Noted Date Resolved Date PSA elevation 07/24/2017 01/31/2019 Other affections of shoulder region, not elsewhere classified 12/06/2012 12/03/2014 Impaired fasting glucose 09/27/2005 007 documented as of this encounter (statuses as of 01/19/2022) [facility] of [facility] illness Narrative* Problem Noted Date Resolved Date PSA elevation 07/24/2017 01/31/2019 Other affections of shoulder region, not elsewhere classified 12/06/2012 12/03/2014 Impaired fasting glucose 09/27/2005 007 documented as of this encounter (statuses as of 01/30/2022) [facility] of Past illness Narrative* Problem Noted Date Resolved Date PSA elevation 07/24/2017 01/31/2019 Other affections of shoulder region, not elsewhere classified 12/06/2012 12/03/2014 Impaired fasting glucose 09/27/2005 007 documented as of this encounter (statuses as of 02/01/2022) [facility] note* Diagnosis Erectile dysfunction, unspecified erectile dysfunction type documented in this encounter [facility]* Diagnosis Hyperlipidemia, unspecified hyperlipidemia type documented in this encounter [facility]* Diagnosis Welcome to Medicare preventive visit- Primary Routine general medical examination at a health care facility Controlled type 2 diabetes mellitus without complication, with long-term current use of insulin ([facility]) Screening for AAA (abdominal aortic aneurysm) Screening for other and unspecified cardiovascular conditions Abnormal EKG Nonspecific abnormal electrocardiogram (ECG) (EKG) Essential hypertension Unspecified essential hypertension Encounter for screening for cardiovascular disorders Screening for other and unspecified cardiovascular conditions documented in this encounter [facility]* Diagnosis Abnormal electrocardiogram Nonspecific abnormal electrocardiogram (ECG) (EKG) documented in this encounter [facility]* Diagnosis Screening for AAA (abdominal aortic aneurysm) Screening for other and unspecified cardiovascular conditions documented in this encounter [facility]* Diagnosis Controlled type 2 diabetes mellitus without complication, with long-term current use of insulin ([facility]) documented in this encounter [facility]* Diagnosis Acute otitis media, right- Primary Unspecified otitis media Hearing loss due to cerumen impaction, left documented in this encounter [facility]* Diagnosis Type 2 diabetes mellitus without retinopathy (HCC)- Primary Type II or unspecified type diabetes mellitus without mention of complication, not stated as uncontrolled Controlled type 2 diabetes mellitus without complication, with long-term current use of insulin (HCC) Ocular hypertension, bilateral Borderline glaucoma with ocular hypertension Pseudophakia Lens replaced by other means Bilateral posterior capsular opacification After-cataract, unspecified [facility] Diagnosis Controlled type 2 diabetes mellitus without complication, with long-term current use of insulin (HCC)- Primary Essential hypertension Unspecified essential hypertension Need for influenza vaccination Need for prophylactic vaccination and inoculation against influenza Hyperlipidemia, unspecified hyperlipidemia type Obesity, Class I, BMI 30-34.9 Obesity, unspecified [facility] Diagnosis Controlled type 2 diabetes mellitus without complication, with long-term current use of insulin (HCC) [facility]* Diagnosis Erectile dysfunction, unspecified erectile dysfunction type [facility]* Diagnosis Prostate cancer (HCC)- Primary Malignant neoplasm of prostate Erectile dysfunction, unspecified erectile dysfunction type [facility]* Diagnosis Erectile dysfunction, unspecified erectile dysfunction type Prostate cancer (HCC) Malignant neoplasm of prostate [facility] Diagnosis Prostate cancer (HCC)- Primary Malignant neoplasm of prostate Elevated prostate specific antigen (PSA) [facility] Diagnosis Controlled type 2 diabetes mellitus without complication, with long-term current use of insulin (HCC)- Primary Hyperlipidemia, unspecified hyperlipidemia type Prostate cancer (HCC) Malignant neoplasm of [facility] Diagnosis Prostate cancer (HCC)- Primary Malignant neoplasm of prostate [facility] Diagnosis Controlled type 2 diabetes mellitus without complication, with long-term current use of insulin (HCC)- Primary Essential hypertension Unspecified essential hypertension Hyperlipidemia, unspecified hyperlipidemia type Eustachian tube dysfunction, right Seasonal allergies Allergic rhinitis, cause unspecified [facility] Diagnosis Controlled type 2 diabetes mellitus without complication, with long-term current use of insulin (HCC) [facility]* Diagnosis Hyperlipidemia, unspecified hyperlipidemia type [facility]* Diagnosis Controlled type 2 diabetes mellitus without complication, with long-term current use of insulin (HCC) [facility]* Diagnosis Medicare annual wellness visit, initial- Primary Routine general medical examination at a [facility] care facility Controlled type 2 diabetes mellitus without complication, with long-term current use of insulin (HCC) Essential hypertension Unspecified essential hypertension Hyperlipidemia, unspecified hyperlipidemia type Irregular heart beat Cardiac dysrhythmia, unspecified [facility] Essential hypertension- Primary Unspecified essential hypertension [facility] Diagnosis Essential hypertension Unspecified essential hypertension [facility] Diagnosis Controlled type 2 diabetes mellitus without complication, with long-term current use of insulin (HCC) Essential hypertension Unspecified essential hypertension [facility] Diagnosis Prostate cancer (HCC)- Primary Malignant neoplasm of prostate [facility] Diagnosis Need for influenza vaccination- Primary Need for prophylactic vaccination and inoculation against influenza [facility] Diagnosis Controlled type 2 diabetes mellitus without complication, with long-term current use of insulin (HCC) [facility] Diagnosis Essential hypertension Unspecified essential hypertension [facility] Diagnosis Hyperlipidemia, unspecified hyperlipidemia type Controlled type 2 diabetes mellitus without complication, with long-term current use of insulin (HCC) [facility] Diagnosis Controlled type 2 diabetes mellitus without complication, with long-term current use of insulin (HCC) [facility] Medicare annual wellness visit, initial- Primary Routine general medical examination at a health care facility Essential hypertension Unspecified essential hypertension Controlled type 2 diabetes mellitus without complication, with long-term current use of insulin (HCC) Hyperlipidemia, unspecified hyperlipidemia type Need for COVID-19 vaccine [facility] Diagnosis Dermatitis- Primary Contact dermatitis and other eczema, due to unspecified cause [facility] Diagnosis Controlled type 2 diabetes mellitus without complication, with long-term current use of insulin (HCC) [facility] Diagnosis Candidal intertrigo- Primary Candidiasis of skin and nails [facility] Diagnosis Type II or unspecified type diabetes mellitus without mention of complication, uncontrolled- Primary Other and unspecified hyperlipidemia Unspecified essential hypertension Need for prophylactic vaccination against Streptococcus pneumoniae (pneumococcus) Need for prophylactic vaccination against streptococcus pneumoniae (pneumococcus) Essential hypertension- Primary Unspecified essential hypertension Candidal intertrigo Candidiasis of skin and nails [facility] Diagnosis Type II or unspecified type diabetes mellitus without mention of complication, uncontrolled- Primary Other and unspecified hyperlipidemia Unspecified essential hypertension Need for prophylactic vaccination against Streptococcus pneumoniae (pneumococcus) Need for prophylactic vaccination against streptococcus pneumoniae (pneumococcus) Controlled type 2 diabetes mellitus without complication, with long-term current use of insulin (HCC) documented in this encounter [facility]* Diagnosis Type II or unspecified type diabetes mellitus without mention of complication, uncontrolled- Primary Other and unspecified hyperlipidemia Unspecified essential hypertension Need for prophylactic vaccination against Streptococcus pneumoniae (pneumococcus) Need for prophylactic vaccination against streptococcus pneumoniae (pneumococcus) Type 2 diabetes mellitus without retinopathy (HCC)- Primary Type II or unspecified type diabetes mellitus without mention of complication, not stated as uncontrolled Ocular hypertension, bilateral Borderline glaucoma with ocular hypertension Pseudophakia Lens replaced by other means Dry eye syndrome of bilateral lacrimal glands Tear film insufficiency, unspecified documented in this encounter [facility]* Diagnosis Type II or unspecified type diabetes mellitus without mention of complication, uncontrolled- Primary Other and unspecified hyperlipidemia Unspecified essential hypertension Need for prophylactic vaccination against Streptococcus pneumoniae (pneumococcus) Need for prophylactic vaccination against streptococcus pneumoniae (pneumococcus) Lower resp. tract infection- Primary Other diseases of respiratory system, not elsewhere classified Subacute cough Cough [facility] Diagnosis Type II or unspecified type diabetes mellitus without mention of complication, uncontrolled- Primary Other and unspecified hyperlipidemia Unspecified essential hypertension Need for prophylactic vaccination against Streptococcus pneumoniae (pneumococcus) Need for prophylactic vaccination against streptococcus pneumoniae (pneumococcus) Impacted cerumen of left ear- Primary Impacted cerumen Eustachian tube dysfunction, bilateral [facility] Diagnosis Type II or unspecified type diabetes mellitus without mention of complication, uncontrolled- Primary Other and unspecified hyperlipidemia Unspecified essential hypertension Need for prophylactic vaccination against Streptococcus pneumoniae (pneumococcus) Need for prophylactic vaccination against streptococcus pneumoniae (pneumococcus) Kidney stone- Primary Calculus of kidney Prostate cancer (HCC) Malignant neoplasm of prostate [facility] Diagnosis Type II or unspecified type diabetes mellitus without mention of complication, uncontrolled- Primary Other and unspecified hyperlipidemia Unspecified essential hypertension Need for prophylactic vaccination against Streptococcus pneumoniae (pneumococcus) Need for prophylactic vaccination against streptococcus pneumoniae (pneumococcus) Essential hypertension Unspecified essential hypertension [facility] Diagnosis Type II or unspecified type diabetes mellitus without mention of complication, uncontrolled- Primary Other and unspecified hyperlipidemia Unspecified essential hypertension Need for prophylactic vaccination against Streptococcus pneumoniae (pneumococcus) Need for prophylactic vaccination against streptococcus pneumoniae (pneumococcus) Kidney stone Calculus of kidney [facility] Diagnosis Type II or unspecified type diabetes mellitus without mention of complication, uncontrolled- Primary Other and unspecified hyperlipidemia Unspecified essential hypertension Need for prophylactic vaccination against Streptococcus pneumoniae (pneumococcus) Need for prophylactic vaccination against streptococcus pneumoniae (pneumococcus) Need for influenza vaccination- Primary Need for prophylactic vaccination and inoculation against influenza Encounter for immunization Need for other specified prophylactic vaccination against single bacterial disease Essential hypertension Unspecified essential hypertension Controlled type 2 diabetes mellitus without complication, with long-term current use of insulin (HCC) Hyperlipidemia, unspecified hyperlipidemia type Chronic serous otitis media of both ears Simple or unspecified chronic serous otitis media [facility] Diagnosis Type II or unspecified type diabetes mellitus without mention of complication, uncontrolled- Primary Other and unspecified hyperlipidemia Unspecified essential hypertension Need for prophylactic vaccination against Streptococcus pneumoniae (pneumococcus) Need for prophylactic vaccination against streptococcus pneumoniae (pneumococcus) Kidney stone- Primary Calculus of kidney Prostate cancer (HCC) Malignant neoplasm of prostate [facility] Diagnosis Type II or unspecified type diabetes mellitus without mention of complication, uncontrolled- Primary Other and unspecified hyperlipidemia Unspecified essential hypertension Need for prophylactic vaccination against Streptococcus pneumoniae (pneumococcus) Need for prophylactic vaccination against streptococcus pneumoniae (pneumococcus) URI, acute- Primary Acute upper respiratory infections of unspecified site [facility] Diagnosis Type II or unspecified type diabetes mellitus without mention of complication, uncontrolled- Primary Other and unspecified hyperlipidemia Unspecified essential hypertension Need for prophylactic vaccination against Streptococcus pneumoniae (pneumococcus) Need for prophylactic vaccination against streptococcus pneumoniae (pneumococcus) Urinary frequency- Primary Fever, unspecified fever cause [facility] Diagnosis Type II or unspecified type diabetes mellitus without mention of complication, uncontrolled- Primary Other and unspecified hyperlipidemia Unspecified essential hypertension Need for prophylactic vaccination against Streptococcus pneumoniae (pneumococcus) Need for prophylactic vaccination against streptococcus pneumoniae (pneumococcus) Prostate cancer screening- Primary Special screening for malignant neoplasm of prostate documented in this encounter [facility]* Diagnosis Type II or unspecified type diabetes mellitus without mention of complication, uncontrolled- Primary Other and unspecified hyperlipidemia Unspecified essential hypertension Need for prophylactic vaccination against Streptococcus pneumoniae (pneumococcus) Need for prophylactic vaccination against streptococcus pneumoniae (pneumococcus) Prostate cancer (HCC)- Primary Malignant neoplasm of prostate documented in this encounter [facility]* Diagnosis Type II or unspecified type diabetes mellitus without mention of complication, uncontrolled- Primary Other and unspecified hyperlipidemia Unspecified essential hypertension Need for prophylactic vaccination against Streptococcus pneumoniae (pneumococcus) Need for prophylactic vaccination against streptococcus pneumoniae (pneumococcus) Prostate cancer (HCC)- Primary Malignant neoplasm of prostate documented in this encounter [facility]* Diagnosis Type II or unspecified type diabetes mellitus without mention of complication, uncontrolled- Primary Other and unspecified hyperlipidemia Unspecified essential hypertension Need for prophylactic vaccination against Streptococcus pneumoniae (pneumococcus) Need for prophylactic vaccination against streptococcus pneumoniae (pneumococcus) Controlled type 2 diabetes mellitus without complication, with long-term current use of insulin ([facility]) documented in this encounter [facility]* Diagnosis Type II or unspecified type diabetes mellitus without mention of complication, uncontrolled- Primary Other and unspecified hyperlipidemia Unspecified essential hypertension Need for prophylactic vaccination against Streptococcus pneumoniae (pneumococcus) Need for prophylactic vaccination against streptococcus pneumoniae (pneumococcus) Controlled type 2 diabetes mellitus without complication, with long-term current use of insulin ([facility]) [facility] Diagnosis Type II or unspecified type diabetes mellitus without mention of complication, uncontrolled- Primary Other and unspecified hyperlipidemia Unspecified essential hypertension Need for prophylactic vaccination against Streptococcus pneumoniae (pneumococcus) Need for prophylactic vaccination against streptococcus pneumoniae (pneumococcus) Essential hypertension Unspecified essential hypertension documented in this encounter [facility]* Diagnosis Type II or unspecified type diabetes mellitus without mention of complication, uncontrolled- Primary Other and unspecified hyperlipidemia Unspecified essential hypertension Need for prophylactic vaccination against Streptococcus pneumoniae (pneumococcus) Need for prophylactic vaccination against streptococcus pneumoniae (pneumococcus) Controlled type 2 diabetes mellitus without complication, with long-term current use of insulin (HCC) documented in this encounter [facility]* Diagnosis Type II or unspecified type diabetes mellitus without mention of complication, uncontrolled- Primary Other and unspecified hyperlipidemia Unspecified essential hypertension Need for prophylactic vaccination against Streptococcus pneumoniae (pneumococcus) Need for prophylactic vaccination against streptococcus pneumoniae (pneumococcus) Controlled type 2 diabetes mellitus without complication, with long-term current use of insulin (HCC) [facility] Diagnosis Type II or unspecified type diabetes mellitus without mention of complication, uncontrolled- Primary Other and unspecified hyperlipidemia Unspecified essential hypertension Need for prophylactic vaccination against Streptococcus pneumoniae (pneumococcus) Need for prophylactic vaccination against streptococcus pneumoniae (pneumococcus) Hyperlipidemia, unspecified hyperlipidemia type [facility]* Diagnosis Type II or unspecified type diabetes mellitus without mention of complication, uncontrolled- Primary Other and unspecified hyperlipidemia Unspecified essential hypertension Need for prophylactic vaccination against Streptococcus pneumoniae (pneumococcus) Need for prophylactic vaccination against streptococcus pneumoniae (pneumococcus) Essential hypertension Unspecified essential hypertension [facility]* Diagnosis Type II or unspecified type diabetes mellitus without mention of complication, uncontrolled- Primary Other and unspecified hyperlipidemia Unspecified essential hypertension Need for prophylactic vaccination against Streptococcus pneumoniae (pneumococcus) Need for prophylactic vaccination against streptococcus pneumoniae (pneumococcus) Medicare annual wellness visit, initial- Primary Routine general medical examination at a health care facility Encounter for immunization Need for other specified prophylactic vaccination against single bacterial disease Encounter for screening examination for other mental health and behavioral disorders Screening for depression Controlled type 2 diabetes mellitus without complication, with long-term current use of insulin (HCC) Essential hypertension Unspecified essential hypertension Hyperlipidemia, unspecified hyperlipidemia type Obesity, Class I, BMI 30-34.9 Obesity, unspecified Heart murmur Undiagnosed cardiac murmurs [facility]* Diagnosis Type II or unspecified type diabetes mellitus without mention of complication, uncontrolled- Primary Other and unspecified hyperlipidemia Unspecified essential hypertension Need for prophylactic vaccination against Streptococcus pneumoniae (pneumococcus) Need for prophylactic vaccination against streptococcus pneumoniae (pneumococcus) Prostate cancer (HCC)- Primary Malignant neoplasm of prostate BPH with obstruction/lower urinary tract symptoms Hypertrophy of prostate with urinary obstruction and other lower urinary tract symptoms (LUTS) [facility]* Diagnosis Type II or unspecified type diabetes mellitus without mention of complication, uncontrolled- Primary Other and unspecified hyperlipidemia Unspecified essential hypertension Need for prophylactic vaccination against Streptococcus pneumoniae (pneumococcus) Need for prophylactic vaccination against streptococcus pneumoniae (pneumococcus) BPH with obstruction/lower urinary tract symptoms- Primary Hypertrophy of prostate with urinary obstruction and other lower urinary tract symptoms (LUTS) documented in this encounter [facility] (narrative)* Diagnostic Procedure Only (Routine) - Pending Review Specialty Diagnoses / Procedures Referred By Senia maxwell Referred To Contact [facility] Diagnoses Encounter for screening for cardiovascular disorders Procedures NM CARDIAC PERF STRESS/EXERCISE MYOCARDIAL SPECT MULTIPLE STUDIES Maykel Bee MD [address] [place] [address] [facility] [address] [place] [address] Referral ID Status Reason Start Date Expiration Date Visits Requested Visits Authorized [id number] Pending Review Auto-Generat ed Referral 11/02/2021 11/25/2022 1 1 * Diagnostic Procedure Only (Routine) - Authorized Specialty Diagnoses / Procedures Referred By Senia maxwell Referred To Contact [facility] Diagnoses Screening for AAA (abdominal aortic aneurysm) Procedures US SCREENING FOR AAA (2017) US ABDOMINAL AORTA REAL TIME SCREEN STUDY AAA Maykel Bee MD [address] [place] [address] [facility] Referral ID Status Reason Start Date Expiration Date Visits Requested Visits Authorized [id number] Authorized Auto-Generat ed Referral 10/26/2021 11/25/2022 1 1 * Outpatient Procedure (Routine) - Closed Specialty Diagnoses / Procedures Referred By Senia maxwell Referred To [facility] Diagnoses Welcome to Medicare preventive visit Procedures ECG COMPLETE ECG ROUTINE ECG W/LEAST 12 LDS W/I&R Maykel Bee MD [address] [place] [address] [facility] [place] [address] [place] [address] Referral ID Status Reason Start Date Expiration Date V isits Requested Visits Authorized [id number] Closed Auto-Generate d Referral 10/26/2021 10/26/2022 1 1 [facility] for referral (narrative)* Diagnostic Procedure Only (Routine) - Pending Review Specialty Diagnoses / Procedures [facility] To [facility] Diagnoses Abnormal electrocardiogram Procedures NM CARDIAC PERF STRESS/EXERCISE MYOCARDIAL SPECT MULTIPLE STUDIES Maykel Bee MD [address] [place] [address] [facility] [address] [place] [address] Referral ID Status Reason Start Date Expiration Date Visits Requested Visits Authorized [id number] Pending Review Auto-Generat ed Referral 11/02/2021 11/25/2022 1 1 [facility] for referral (narrative)* Diagnostic Procedure Only (Routine) - Closed Specialty Diagnoses / Procedures Referred By [facility] Referred To Contact [facility] Diagnoses Screening for AAA (abdominal aortic aneurysm) Procedures US SCREENING FOR AAA (2017) US ABDOMINAL AORTA REAL TIME SCREEN STUDY AAA Maykel Bee MD [address] [place] [address] [facility] Referral ID Status Reason Start Date Expiration Date V isits Requested Visits Authorized [id number] Closed Auto-Generate d Referral 10/26/2021 11/25/2022 1 1 [facility] for referral (narrative)* Outpatient Procedure (Routine) - Closed Specialty Diagnoses / Procedures [facility] Diagnoses Irregular heart beat Procedures ECG COMPLETE ECG ROUTINE ECG W/LEAST 12 LDS W/I&R Maykel Bee MD [address] [place] [address] [facility] [place] [address] [place] [address] Referral ID Status Reason Start Date Expiration Date V isits Requested Visits Authorized [id number] Closed Auto-Generate d Referral 11/08/2022 11/08/2023 1 1 [facility] Diagnostic Procedure Only (Routine) - Authorized Specialty Diagnoses / Procedures Referred By Senia maxwell Referred To Contact [facility] Diagnoses Kidney stone Procedures US KIDNEY/BLADDER US RETROPERITONEAL REAL TIME W/IMAGE COMPLETE April Leon Jr., MD [address] [place] [address] [place] [address] Referral ID Status Reason Start Date Expiration Date Visits Requested Visits Authorized [id number] Authorized Auto-Generat ed Referral 4 05/30/2025 1 1 [facility] Summary Purpose Family History No Family History Records FoundNo Family History Records FoundNo Family History Records FoundNo Family History Records Found Advance Directives No Advanced Directives Records FoundDocuments on File Type Date Recorded Patient Department Specialist Expl anation Advance Directive(s) 04/19/2020 8:00 AM Advance Directive(s) 04/07/2020 9:17 AM Documents on File Type Date Recorded Patient Department Specialist Expl anation Advance Directive(s) 04/19/2020 8:00 AM Advance Directive(s) 04/07/2020 9:17 AM Medications Administered Section Active Administered Medications - up to 3 most recent administrations Medication Order MAR Action Action Date Dose Rate Site fluorescein-benoxinate 0.25-0.4 % 1 Drop (FLURESS) 1 Drop, BOTH EYES, DIRECTED, Starting on Sun02/01/22 at 0900, Until Sun02/01/22 at 2058, Administer for applanation tonometry. In the event of a Fluress shortage, administer Chester-Fluor 1 drop into both eyes as directed for applanation tonometry Given 02/01/2022 9:00 AM EDT 1 Drop PHENYLephrine 2.5 % 1 Drop (AK-DILATE, VÍCTOR-SYNEPHRINE) 1 Drop, BOTH EYES, DIRECTED, Starting on Sun02/01/22 at 0900, Until Sun02/01/22 at 2058, Administer for dilation PROTECT FROM LIGHT Given 02/01/2022 9:00 AM EDT 1 Drop proparacaine 0.5 % 1 Drop (ALCAINE) 1 Drop, BOTH EYES, DIRECTED, Starting on Sun02/01/22 at 0900, Until Sun02/01/22 at 2058, Administer for pneumo tonometry, tonopen tonometry, or pachymetry. In the event of a proparacaine shortage, administer tetracaine 0.5% ophthalmic drops 1 drop in the left eye as directed for pneumo tonometry, tonopen tonometry, or pachymetry Given 02/01/2022 9:00 AM EDT 1 Drop tropicamide 1 % 1 Drop (MYDRIACYL) 1 Drop, BOTH EYES, DIRECTED, Starting on Sun02/01/22 at 0900, Until Sun02/01/22 at 2058, Administer for dilation Given 02/01/2022 9:00 AM EDT 1 Drop Reason for Referral Specialty Diagnoses / Procedures Referred By Senia maxwell Referred To Contact MR IMAGING Diagnoses Erectile dysfunction, unspecified erectile dysfunction type Prostate cancer (HCC) Procedures MRI PROSTATE WO/W IVCON MRI PELVIS W/O & W/CONTRAST MATERIAL Wilfrid Holliday DO [address] [place] [address] Mr Imaging Referral ID Status Reason Start Date Expiration Date Visits Requested Visits Authorized [id number] Authorized Auto-Generat ed Referral 04/29/2023 1 1 Referral ID Status Reason Start Date Expiration Date V isits Requested Visits Authorized [id number] Closed Auto-Generate d Referral 03/30/2022 04/29/2023 1 1 Additional Source Comments (unrecognized sect ion and content) No Status Records FoundNo Status Records FoundNo Status Records FoundNo Status Records Found INFORMATION SOURCE (unrecogn ized section and content) DATE CREATED AUTHOR 11/01/2018 [facility] DATE CREATED AUTHOR AUTHOR'S ORGANIZ ATION 05/03/2024 [facility] DATE CREATED AUTHOR AUTHOR'S ORGANIZ ATION 07/19/2024 [facility] DATE CREATED AUTHOR AUTHOR'S ORGANIZ ATION 03/29/2025 [facility] Source Comments (unrecognize d section and content) In the event this informatio n is protected by the Federal Confidentiality of Alcohol and Drug Abuse Patient Records regulations: The Federal rules restrict any use of the information to criminally investigate or prosecute any alcohol or drug abuse patient.[facility] the event this information is protected by the Federal Confidentiality of Alcohol and Drug Abuse Patient Records regulations: The Federal rules restrict any use of the information to criminally investigate or prosecute any alcohol or drug abuse patient.[facility] the event this information is protected by the Federal Confidentiality of Alcohol and Drug Abuse Patient Records regulations: The Federal rules restrict any use of the information to criminally investigate or prosecute any alcohol or drug abuse patient.[facility] the event this information is protected by the Federal Confidentiality of Alcohol and Drug Abuse Patient Records regulations: The Federal rules restrict any use of the information to criminally investigate or prosecute any alcohol or drug abuse patient.[facility]In the event this information is protected by the Federal Confidentiality of Alcohol and Drug Abuse Patient Records regulations: The Federal rules restrict any use of the information to criminally investigate or prosecute any alcohol or drug abuse patient.[facility] the event this information is protected by the Federal Confidentiality of Alcohol and Drug Abuse Patient Records regulations: The Federal rules restrict any use of the information to criminally investigate or prosecute any alcohol or drug abuse patient.[facility] the event this information is protected by the Federal Confidentiality of Alcohol and Drug Abuse Patient Records regulations: The Federal rules restrict any use of the information to criminally investigate or prosecute any alcohol or drug abuse patient.[facility]In the event this information is protected by the Federal Confidentiality of Alcohol and Drug Abuse Patient Records regulations: The Federal rules restrict any use of the information to criminally investigate or prosecute any alcohol or drug abuse patient.[facility]In the event this information is protected by the Federal Confidentiality of Alcohol and Drug Abuse Patient Records regulations: The Federal rules restrict any use of the information to criminally investigate or prosecute any alcohol or drug abuse patient.[facility]In the event this information is protected by the Federal Confidentiality of Alcohol and Drug Abuse Patient Records regulations: The Federal rules restrict any use of the information to criminally investigate or prosecute any alcohol or drug abuse patient.[facility]In the event this information is protected by the Federal Confidentiality of Alcohol and Drug Abuse Patient Records regulations: The Federal rules restrict any use of the information to criminally investigate or prosecute any alcohol or drug abuse patient.[facility]In the event this information is protected by the Federal Confidentiality of Alcohol and Drug Abuse Patient Records regulations: The Federal rules restrict any use of the information to criminally investigate or prosecute any alcohol or drug abuse patient.[facility]In the event this information is protected by the Federal Confidentiality of Alcohol and Drug Abuse Patient Records regulations: The Federal rules restrict any use of the information to criminally investigate or prosecute any alcohol or drug abuse patient.[facility]In the event this information is protected by the Federal Confidentiality of Alcohol and Drug Abuse Patient Records regulations: The Federal rules restrict any use of the information to criminally investigate or prosecute any alcohol or drug abuse patient.[facility]In the event this information is protected by the Federal Confidentiality of Alcohol and Drug Abuse Patient Records regulations: The Federal rules restrict any use of the information to criminally investigate or prosecute any alcohol or drug abuse patient.[facility]In the event this information is protected by the Federal Confidentiality of Alcohol and Drug Abuse Patient Records regulations: The Federal rules restrict any use of the information to criminally investigate or prosecute any alcohol or drug abuse patient.[facility]In the event this information is protected by the Federal Confidentiality of Alcohol and Drug Abuse Patient Records regulations: The Federal rules restrict any use of the information to criminally investigate or prosecute any alcohol or drug abuse patient.[facility]In the event this information is protected by the Federal Confidentiality of Alcohol and Drug Abuse Patient Records regulations: The Federal rules restrict any use of the information to criminally investigate or prosecute any alcohol or drug abuse patient.[facility] HospitalIn the event this information is protected by the Federal Confidentiality of Alcohol and Drug Abuse Patient Records regulations: The Federal rules restrict any use of the information to criminally investigate or prosecute any alcohol or drug abuse patient.[facility] HospitalIn the event this information is protected by the Federal Confidentiality of Alcohol and Drug Abuse Patient Records regulations: The Federal rules restrict any use of the information to criminally investigate or prosecute any alcohol or drug abuse patient.[facility] HospitalIn the event this information is protected by the Federal Confidentiality of Alcohol and Drug Abuse Patient Records regulations: The Federal rules restrict any use of the information to criminally investigate or prosecute any alcohol or drug abuse patient.[facility]In the event this information is protected by the Federal Confidentiality of Alcohol and Drug Abuse Patient Records regulations: The Federal rules restrict any use of the information to criminally investigate or prosecute any alcohol or drug abuse patient.[facility]In the event this information is protected by the Federal Confidentiality of Alcohol and Drug Abuse Patient Records regulations: The Federal rules restrict any use of the information to criminally investigate or prosecute any alcohol or drug abuse patient.[facility]In the event this information is protected by the Federal Confidentiality of Alcohol and Drug Abuse Patient Records regulations: The Federal rules restrict any use of the information to criminally investigate or prosecute any alcohol or drug abuse patient.[facility]In the event this information is protected by the Federal Confidentiality of Alcohol and Drug Abuse Patient Records regulations: The Federal rules restrict any use of the information to criminally investigate or prosecute any alcohol or drug abuse patient.[facility] HospitalIn the event this information is protected by the Federal Confidentiality of Alcohol and Drug Abuse Patient Records regulations: The Federal rules restrict any use of the information to criminally investigate or prosecute any alcohol or drug abuse patient.[facility]In the event this information is protected by the Federal Confidentiality of Alcohol and Drug Abuse Patient Records regulations: The Federal rules restrict any use of the information to criminally investigate or prosecute any alcohol or drug abuse patient.[facility]In the event this information is protected by the Federal Confidentiality of Alcohol and Drug Abuse Patient Records regulations: The Federal rules restrict any use of the information to criminally investigate or prosecute any alcohol or drug abuse patient.[facility] HospitalIn the event this information is protected by the Federal Confidentiality of Alcohol and Drug Abuse Patient Records regulations: The Federal rules restrict any use of the information to criminally investigate or prosecute any alcohol or drug abuse patient.[facility]In the event this information is protected by the Federal Confidentiality of Alcohol and Drug Abuse Patient Records regulations: The Federal rules restrict any use of the information to criminally investigate or prosecute any alcohol or drug abuse patient.[facility]In the event this information is protected by the Federal Confidentiality of Alcohol and Drug Abuse Patient Records regulations: The Federal rules restrict any use of the information to criminally investigate or prosecute any alcohol or drug abuse patient.[facility]In the event this information is protected by the Federal Confidentiality of Alcohol and Drug Abuse Patient Records regulations: The Federal rules restrict any use of the information to criminally investigate or prosecute any alcohol or drug abuse patient.[facility]In the event this information is protected by the Federal Confidentiality of Alcohol and Drug Abuse Patient Records regulations: The Federal rules restrict any use of the information to criminally investigate or prosecute any alcohol or drug abuse patient.[facility]In the event this information is protected by the Federal Confidentiality of Alcohol and Drug Abuse Patient Records regulations: The Federal rules restrict any use of the information to criminally investigate or prosecute any alcohol or drug abuse patient.[facility]In the event this information is protected by the Federal Confidentiality of Alcohol and Drug Abuse Patient Records regulations: The Federal rules restrict any use of the information to criminally investigate or prosecute any alcohol or drug abuse patient.[facility]In the event this information is protected by the Federal Confidentiality of Alcohol and Drug Abuse Patient Records regulations: The Federal rules restrict any use of the information to criminally investigate or prosecute any alcohol or drug abuse patient.[facility]In the event this information is protected by the Federal Confidentiality of Alcohol and Drug Abuse Patient Records regulations: The Federal rules restrict any use of the information to criminally investigate or prosecute any alcohol or drug abuse patient.[facility]In the event this information is protected by the Federal Confidentiality of Alcohol and Drug Abuse Patient Records regulations: The Federal rules restrict any use of the information to criminally investigate or prosecute any alcohol or drug abuse patient.[facility]In the event this information is protected by the Federal Confidentiality of Alcohol and Drug Abuse Patient Records regulations: The Federal rules restrict any use of the information to criminally investigate or prosecute any alcohol or drug abuse patient.[facility]In the event this information is protected by the Federal Confidentiality of Alcohol and Drug Abuse Patient Records regulations: The Federal rules restrict any use of the information to criminally investigate or prosecute any alcohol or drug abuse patient.[facility]In the event this information is protected by the Federal Confidentiality of Alcohol and Drug Abuse Patient Records regulations: The Federal rules restrict any use of the information to criminally investigate or prosecute any alcohol or drug abuse patient.[facility]In the event this information is protected by the Federal Confidentiality of Alcohol and Drug Abuse Patient Records regulations: The Federal rules restrict any use of the information to criminally investigate or prosecute any alcohol or drug abuse patient.[facility]In the event this information is protected by the Federal Confidentiality of Alcohol and Drug Abuse Patient Records regulations: The Federal rules restrict any use of the information to criminally investigate or prosecute any alcohol or drug abuse patient.[facility] HospitalIn the event this information is protected by the Federal Confidentiality of Alcohol and Drug Abuse Patient Records regulations: The Federal rules restrict any use of the information to criminally investigate or prosecute any alcohol or drug abuse patient.[facility] HospitalIn the event this information is protected by the Federal Confidentiality of Alcohol and Drug Abuse Patient Records regulations: The Federal rules restrict any use of the information to criminally investigate or prosecute any alcohol or drug abuse patient.[facility]In the event this information is protected by the Federal Confidentiality of Alcohol and Drug Abuse Patient Records regulations: The Federal rules restrict any use of the information to criminally investigate or prosecute any alcohol or drug abuse patient.[facility]In the event this information is protected by the Federal Confidentiality of Alcohol and Drug Abuse Patient Records regulations: The Federal rules restrict any use of the information to criminally investigate or prosecute any alcohol or drug abuse patient.[facility]In the event this information is protected by the Federal Confidentiality of Alcohol and Drug Abuse Patient Records regulations: The Federal rules restrict any use of the information to criminally investigate or prosecute any alcohol or drug abuse patient.[facility]In the event this information is protected by the Federal Confidentiality of Alcohol and Drug Abuse Patient Records regulations: The Federal rules restrict any use of the information to criminally investigate or prosecute any alcohol or drug abuse patient.[facility]In the event this information is protected by the Federal Confidentiality of Alcohol and Drug Abuse Patient Records regulations: The Federal rules restrict any use of the information to criminally investigate or prosecute any alcohol or drug abuse patient.[facility]In the event this information is protected by the Federal Confidentiality of Alcohol and Drug Abuse Patient Records regulations: The Federal rules restrict any use of the information to criminally investigate or prosecute any alcohol or drug abuse patient.[facility]In the event this information is protected by the Federal Confidentiality of Alcohol and Drug Abuse Patient Records regulations: The Federal rules restrict any use of the information to criminally investigate or prosecute any alcohol or drug abuse patient.[facility]In the event this information is protected by the Federal Confidentiality of Alcohol and Drug Abuse Patient Records regulations: The Federal rules restrict any use of the information to criminally investigate or prosecute any alcohol or drug abuse patient.[facility]In the event this information is protected by the Federal Confidentiality of Alcohol and Drug Abuse Patient Records regulations: The Federal rules restrict any use of the information to criminally investigate or prosecute any alcohol or drug abuse patient.[facility]In the event this information is protected by the Federal Confidentiality of Alcohol and Drug Abuse Patient Records regulations: The Federal rules restrict any use of the information to criminally investigate or prosecute any alcohol or drug abuse patient.[facility]In the event this information is protected by the Federal Confidentiality of Alcohol and Drug Abuse Patient Records regulations: The Federal rules restrict any use of the information to criminally investigate or prosecute any alcohol or drug abuse patient.[facility]In the event this information is protected by the Federal Confidentiality of Alcohol and Drug Abuse Patient Records regulations: The Federal rules restrict any use of the information to criminally investigate or prosecute any alcohol or drug abuse patient.[facility]In the event this information is protected by the Federal Confidentiality of Alcohol and Drug Abuse Patient Records regulations: The Federal rules restrict any use of the information to criminally investigate or prosecute any alcohol or drug abuse patient.[facility]In the event this information is protected by the Federal Confidentiality of Alcohol and Drug Abuse Patient Records regulations: The Federal rules restrict any use of the information to criminally investigate or prosecute any alcohol or drug abuse patient.[facility]In the event this information is protected by the Federal Confidentiality of Alcohol and Drug Abuse Patient Records regulations: The Federal rules restrict any use of the information to criminally investigate or prosecute any alcohol or drug abuse patient.[facility]In the event this information is protected by the Federal Confidentiality of Alcohol and Drug Abuse Patient Records regulations: The Federal rules restrict any use of the information to criminally investigate or prosecute any alcohol or drug abuse patient.[facility]In the event this information is protected by the Federal Confidentiality of Alcohol and Drug Abuse Patient Records regulations: The Federal rules restrict any use of the information to criminally investigate or prosecute any alcohol or drug abuse patient.[facility]In the event this information is protected by the Federal Confidentiality of Alcohol and Drug Abuse Patient Records regulations: The Federal rules restrict any use of the information to criminally investigate or prosecute any alcohol or drug abuse patient.[facility]In the event this information is protected by the Federal Confidentiality of Alcohol and Drug Abuse Patient Records regulations: The Federal rules restrict any use of the information to criminally investigate or prosecute any alcohol or drug abuse patient.[facility]In the event this information is protected by the Federal Confidentiality of Alcohol and Drug Abuse Patient Records regulations: The Federal rules restrict any use of the information to criminally investigate or prosecute any alcohol or drug abuse patient.[facility]In the event this information is protected by the Federal Confidentiality of Alcohol and Drug Abuse Patient Records regulations: The Federal rules restrict any use of the information to criminally investigate or prosecute any alcohol or drug abuse patient.[facility]In the event this information is protected by the Federal Confidentiality of Alcohol and Drug Abuse Patient Records regulations: The Federal rules restrict any use of the information to criminally investigate or prosecute any alcohol or drug abuse patient.[facility]In the event this information is protected by the Federal Confidentiality of Alcohol and Drug Abuse Patient Records regulations: The Federal rules restrict any use of the information to criminally investigate or prosecute any alcohol or drug abuse patient.[facility]In the event this information is protected by the Federal Confidentiality of Alcohol and Drug Abuse Patient Records regulations: The Federal rules restrict any use of the information to criminally investigate or prosecute any alcohol or drug abuse patient.[facility]In the event this information is protected by the Federal Confidentiality of Alcohol and Drug Abuse Patient Records regulations: The Federal rules restrict any use of the information to criminally investigate or prosecute any alcohol or drug abuse patient.[facility]In the event this information is protected by the Federal Confidentiality of Alcohol and Drug Abuse Patient Records regulations: The Federal rules restrict any use of the information to criminally investigate or prosecute any alcohol or drug abuse patient.[facility]In the event this information is protected by the Federal Confidentiality of Alcohol and Drug Abuse Patient Records regulations: The Federal rules restrict any use of the information to criminally investigate or prosecute any alcohol or drug abuse patient.[facility]In the event this information is protected by the Federal Confidentiality of Alcohol and Drug Abuse Patient Records regulations: The Federal rules restrict any use of the information to criminally investigate or prosecute any alcohol or drug abuse patient.[facility]In the event this information is protected by the Federal Confidentiality of Alcohol and Drug Abuse Patient Records regulations: The Federal rules restrict any use of the information to criminally investigate or prosecute any alcohol or drug abuse patient.[facility]In the event this information is protected by the Federal Confidentiality of Alcohol and Drug Abuse Patient Records regulations: The Federal rules restrict any use of the information to criminally investigate or prosecute any alcohol or drug abuse patient.[facility]In the event this information is protected by the Federal Confidentiality of Alcohol and Drug Abuse Patient Records regulations: The Federal rules restrict any use of the information to criminally investigate or prosecute any alcohol or drug abuse patient.[facility]In the event this information is protected by the Federal Confidentiality of Alcohol and Drug Abuse Patient Records regulations: The Federal rules restrict any use of the information to criminally investigate or prosecute any alcohol or drug abuse patient.[facility] the event this information is protected by the Federal Confidentiality of Alcohol and Drug Abuse Patient Records regulations: The Federal rules restrict any use of the information to criminally investigate or prosecute any alcohol or drug abuse patient.[facility] the event this information is protected by the Federal Confidentiality of Alcohol and Drug Abuse Patient Records regulations: The Federal rules restrict any use of the information to criminally investigate or prosecute any alcohol or drug abuse patient.[facility] the event this information is protected by the Federal Confidentiality of Alcohol and Drug Abuse Patient Records regulations: The Federal rules restrict any use of the information to criminally investigate or prosecute any alcohol or drug abuse patient.[facility] the event this information is protected by the Federal Confidentiality of Alcohol and Drug Abuse Patient Records regulations: The Federal rules restrict any use of the information to criminally investigate or prosecute any alcohol or drug abuse patient.[facility] the event this information is protected by the Federal Confidentiality of Alcohol and Drug Abuse Patient Records regulations: The Federal rules restrict any use of the information to criminally investigate or prosecute any alcohol or drug abuse patient.[facility] the event this information is protected by the Federal Confidentiality of Alcohol and Drug Abuse Patient Records regulations: The Federal rules restrict any use of the information to criminally investigate or prosecute any alcohol or drug abuse patient.[facility] Reason for Visit (unrecogniz ed section and content) Reason Onset Date Comments Refill Request 08/29/2021 Reason Onset Date Comments Refill Request 09/05/2021 Reason Onset Date Comments Refill Request 10/20/2021 Reason Comments Welcome to Medicare Reason Comments Order for Stress Test Reason Comments Radiology US Specialty Diagnoses / Procedures Referred By Contac t Referred To Contact US IMAGING Diagnoses Screening for AAA (abdominal aortic aneurysm) Procedures US SCREENING FOR AAA (2017) US ABDOMINAL AORTA REAL TIME SCREEN STUDY AAA Maykel Bee MD [address] [place] [address] Us Imaging Referral ID Status Reason Start Date Expiration Date V isits Requested Visits Authorized [id number] Closed Auto-Generate d Referral 10/26/2021 11/25/2022 1 1 Reason Comments Results Reason Onset Date Comments Refill Request 01/12/2022 Reason Onset Date Comments Population Health Navigation Outreach 01/19/2022 [employer] Care Gaps Reason Comments Ear Pain right x 2-3 days Reason Comments New Patient Dilated exam type 2 diabetic Blood sugar: 140A1c: 6.7 Reason Onset Date Comments F/U 3 Month Immunizations 02/07/2022 Flu vaccination Reason Onset Date Comments Refill Request 03/06/2022 Reason Comments Refill Request Reason Comments Established Patient Prostate Cancer ella ent/PSA Specialty Diagnoses / Procedures Referred By Senia maxwell Referred To Contact MR IMAGING Diagnoses Erectile dysfunction, unspecified erectile dysfunction type Prostate cancer (HCC) Procedures MRI PROSTATE WO/W IVCON MRI PELVIS W/O & W/CONTRAST MATERIAL Wilfrid Holliday, [address] [place] [address] Mr Imaging Referral ID Status Reason Start Date Expiration Date V isits Requested Visits Authorized [id number] Closed Auto-Generate d Referral 03/30/2022 04/29/2023 1 1 Reason Comments PSA Reason Comments Update lab orders Reason Comments Surgery Scheduled Reason Comments Prostate Cancer Reason Comments F/U 6 months Reason Comments Orders Reason Onset Date Comments Refill Request 08/15/2022 Reason Comments Appointment Reason Onset Date Comments Refill Request 10/20/2022 Reason Comments Annual Medicare F/U 3 Month Reason Comments bp bryan Reason Comments BP Check Reason Onset Date Comments Refill Request 12/29/2022 Reason Onset Date Comments Blood Pressure Immunizations 02/07/2023 Flu vaccination Reason Onset Date Comments Refill Request 03/03/2023 Reason Onset Date Comments Refill Request 07/11/2023 Reason Onset Date Comments Refill Request 07/10/2023 opened in error Reason Onset Date Comments Refill Request 09/23/2023 Reason Onset Date Comments Refill Request 10/21/2023 Reason Onset Date Comments Refill Request 11/12/2023 Reason Comments Medicare Wellness Exam Reason Onset Date Comments Refill Request 12/04/2023 Reason Comments Infection Possible infection i n bilateral armpits x 4 days Reason Onset Date Comments Refill Request 12/11/2023 Reason Comments Follow Up Yeast infection in r ight arm pit Reason Onset Date Comments Refill Request 12/25/2023 Reason Comments 2 month follow up - bp Reason Onset Date Comments Refill Request 01/26/2024 Reason Onset Date Comments Refill Request 01/30/2024 Reason Comments Diabetes Reason Comments Chest Congestion cough x 1 month Reason Comments Ear Problem Bilateral ears clogg ed, muffled sound x2 weeks Reason Comments Kidney Stones Reason Onset Date Comments Refill Request 05/12/2024 Reason Comments Radiology US Specialty Diagnoses / Procedures Referred By Senia maxwell Referred To Contact US IMAGING Diagnoses Kidney stone Procedures US KIDNEY/BLADDER US RETROPERITONEAL REAL TIME W/IMAGE COMPLETE April Leon Jr., MD [address] [place] [address] Us Imaging [place] [address] Referral ID Status Reason Start Date Expiration Date V isits Requested Visits Authorized [id number] Closed Auto-Generate d Referral 05/14/2024 05/30/2025 1 1 Reason Onset Date Comments F/U 6 months Immunizations 05/27/2024 Flu vaccination Reason Comments Established Patient Follow up/renal US Reason Comments Head Congestion Fever, sinus pressur e x 3 days Reason Comments Kidney Stones Prostate Cancer Benign Prostatic Hypertrophy Reason Onset Date Comments Refill Request 08/31/2024 Reason Onset Date Comments Refill Request 09/01/2024 Reason Onset Date Comments Refill Request 09/22/2024 Reason Onset Date Comments Refill Request 10/31/2024 Reason Onset Date Comments Refill Request 11/15/2024 Reason Comments Follow Up Prostate Cancer Reason Onset Date Comments Refill Request 01/31/2025 Care Teams (unrecognized sec tion and content) Control Clerk Repairs Relationship Specialty Start Date End Date Maykel Bee MD [address] [place] [address] PCP - General 03/13/02 Control Clerk Repairs Relationship Specialty Start Date End Date Maykel Bee MD [address] [place] [address] PCP - General 03/13/02 Control Clerk Repairs Relationship Specialty Start Date End Date Maykel Bee MD [address] [place] [address] PCP - General 03/13/02 Control Clerk Repairs Relationship Specialty Start Date End Date Maykel Bee MD [facility] [place] [address] PCP - General 03/13/02 Control Clerk Repairs Relationship Specialty Start Date End Date Maykel Bee MD [address] [place] [address] PCP - General 03/13/02 Control Clerk Repairs Relationship Specialty Start Date End Date Maykel Bee MD [address] [place] [address] PCP - General 03/13/02 Control Clerk Repairs Relationship Specialty Start Date End Date Maykel Bee MD [address] [place] [address] PCP - General 03/13/02 Control Clerk Repairs Relationship Specialty Start Date End Date Maykel Bee MD [address] [place] [address] PCP - General 03/13/02 Control Clerk Repairs Relationship Specialty Start Date End Date Maykel Bee MD [address] [place] [address] PCP - General 03/13/02 Control Clerk Repairs Relationship Specialty Start Date End Date Maykel Bee MD [address] [place] [address] PCP - General 03/13/02 Control Clerk Repairs Relationship Specialty Start Date End Date Maykel Bee MD [address] [place] [address] PCP - General 03/13/02 Control Clerk Repairs Relationship Specialty Start Date End Date Maykel Bee MD [address] [place] [address] PCP - General 03/13/02 Control Clerk Repairs Relationship Specialty Start Date End Date Maykel Bee MD [address] [place] [address] PCP - General 03/13/02 Control Clerk Repairs Relationship Specialty Start Date End Date Maykel Bee MD [address] [place] [address] PCP - General 03/13/02 Control Clerk Repairs Relationship Specialty Start Date End Date Maykel Bee MD [address] [place] [address] PCP - General 03/13/02 Control Clerk Repairs Relationship Specialty Start Date End Date Maykel Bee MD [address] [place] [address] PCP - General 03/13/02 Control Clerk Repairs Relationship Specialty Start Date End Date Maykel Bee MD [address] [place] [address] PCP - General 03/13/02 Control Clerk Repairs Relationship Specialty Start Date End Date Maykel Bee MD [address] [place] [address] PCP - General 03/13/02 Control Clerk Repairs Relationship Specialty Start Date End Date Maykel Bee MD [address] [place] [address] PCP - General 03/13/02 Control Clerk Repairs Relationship Specialty Start Date End Date Maykel Bee MD [address] [place] [address] PCP - General 03/13/02 Control Clerk Repairs Relationship Specialty Start Date End Date Maykel Bee MD [address] [place] [address] PCP - General 03/13/02 Control Clerk Repairs Relationship Specialty Start Date End Date Maykel Bee MD [address] [place] [address] PCP - General 03/13/02 Control Clerk Repairs Relationship Specialty Start Date End Date Maykel Bee MD [address] [place] [address] PCP - General 03/13/02 Control Clerk Repairs Relationship Specialty Start Date End Date Maykel Bee MD [address] [place] [address] PCP - General 03/13/02 Control Clerk Repairs Relationship Specialty Start Date End Date Maykel Bee MD [address] [place] [address] PCP - General 03/13/02 Control Clerk Repairs Relationship Specialty Start Date End Date Maykel Bee MD [address] [place] [address] PCP - General 03/13/02 Control Clerk Repairs Relationship Specialty Start Date End Date Maykel Bee MD [address] [place] [address] PCP - General 03/13/02 Control Clerk Repairs Relationship Specialty Start Date End Date Maykel Bee MD [address] [place] [address] PCP - General 03/13/02 Control Clerk Repairs Relationship Specialty Start Date End Date Maykel Bee MD [address] [place] [address] PCP - General 03/13/02 Control Clerk Repairs Relationship Specialty Start Date End Date Maykel Bee MD [address] [place] [address] PCP - General 03/13/02 Mindy Dean, TEAM FACILITATOR.MACHINING MANAGER [address] [place] [address] Medical Oncologist Internal Medicine 04/28/24 Control Clerk Repairs Relationship Specialty Start Date End Date Maykel Bee MD [address] [place] [address] PCP - General 03/13/02 Mindy Dean, TEAM FACILITATOR.MACHINING MANAGER [address] [place] [address] Medical Oncologist Internal Medicine 04/28/24 Control Clerk Repairs Relationship Specialty Start Date End Date Maykel Bee MD [address] [facility] [place] [address] PCP - General 03/13/02 Mindy Dean, TEAM FACILITATOR.MACHINING MANAGER [address] [place] [address] Medical Oncologist Internal Medicine 04/28/24 Control Clerk Repairs Relationship Specialty Start Date End Date Maykel Bee MD [address] [place] [address] PCP - General 03/13/02 Mindy Dean, TEAM FACILITATOR.MACHINING MANAGER [address] [place] [address] Medical Oncologist Internal Medicine 04/28/24 Control Clerk Repairs Relationship Specialty Start Date End Date Maykel Bee MD [address] [place] [address] PCP - General 03/13/02 Mindy Dean, TEAM FACILITATOR.MACHINING MANAGER [address] [facility] [place] [address] Medical Oncologist Internal Medicine 04/28/24 Control Clerk Repairs Relationship Specialty Start Date End Date Maykel Bee MD [address] [place] [address] PCP - General 03/13/02 Mindy Dean, TEAM FACILITATOR.MACHINING MANAGER [address] [facility] [place] [address] Medical Oncologist Internal Medicine 04/28/24 Control Clerk Repairs Relationship Specialty Start Date End Date Maykel Bee MD [address] [place] [address] PCP - General 03/13/02 Mindy Dean, TEAM FACILITATOR.MACHINING MANAGER [address] [facility] [place] [address] [facility] Internal Medicine 04/28/24 Control Clerk Repairs Relationship Specialty Start Date End Date Maykel Bee MD [address] [facility] [place] [address] PCP - General 03/13/02 Mindy Dean, TEAM FACILITATOR.MACHINING MANAGER [address] [place] [address] [facility] Internal Medicine 04/28/24 Control Clerk Repairs Relationship Specialty Start Date End Date Maykel Bee MD [address] [place] [address] PCP - General 03/13/02 Mindy Dean, TEAM FACILITATOR.MACHINING MANAGER [address] [place] [address] [facility] Internal Medicine 04/28/24 Control Clerk Repairs Relationship Specialty Start Date End Date Maykel Bee MD [address] [place] [address] PCP - General 03/13/02 Mindy Dean, TEAM FACILITATOR.MACHINING MANAGER [address] [place] [address] [facility] Internal Medicine 04/28/24 Control Clerk Repairs Relationship Specialty Start Date End Date Maykel Bee MD [address] [place] [address] PCP - General 03/13/02 Mindy Dean, TEAM FACILITATOR.MACHINING MANAGER [address] [place] [address] [facility] Internal [facility] 04/28/24 Control Clerk Repairs Relationship Specialty Start Date End Date Maykel Bee MD [address] [place] [address] PCP - General 03/13/02 iMndy Dean, TEAM FACILITATOR.MACHINING MANAGER [address] [place] [address] Medical Oncologist Internal Medicine 04/28/24 FOR RECORDS PERTAINING TO PATIENTS WHO ARE OR HAVE BEEN ENROLLED IN A CHEMICAL DEPENDENCY/SUBSTANCEABUSE PROGRAM, SOME INFORMATION MAY BE OMITTED. This clinical summary was aggregated from multiple sources. Caution should be exercised in using it in the provision of clinical care. This summary normalizes information from multiple sources, and as a consequence, information in this document may materially change the coding, format and clinical context of patient data. In addition, data may be omitted in some cases. CLINICAL DECISIONS SHOULD BE BASED ON THE PRIMARY CLINICAL RECORDS. [facility]. provides no warranty or guarantee of the accuracy or completeness of information in this document.
--- NOTE | 2025-05-16 02:30 | EX.ED.UPPERE ---
HPI History of Present Illness HPI Narrative: Patient was seen and examined after presenting to ED for left shoulder pain near his upper portion of his left shoulder blade occasionally shoots down into his left arm states has been ongoing since the worse whenever he tries to sleep. Chief Complaint: Upper Extremity Injury PFSH PFS Medical History Hyperlipidemia Hypertension Type 2 diabetes mellitus Prostate cancer Home Medications ?Medication ?Instructions ?Recorded ?Last Taken ?Type aspirin 81 mg chewable tablet 81 mg PO DAILY@0800 09/08/13 Unknown History atorvastatin 40 mg tablet 40 mg PO QHS 09/08/13 Unknown History metformin 500 mg tablet,extended 1,000 mg PO BID 09/08/13 Unknown History release 24 hr dulaglutide 3 mg/0.5 mL 3 mg subcut NIELSEN 04/17/24 Unknown History subcutaneous pen injector (Trulicity) glipizide 5 mg tablet 5 mg PO BID 04/17/24 Unknown History insulin glargine 100 unit/mL (3 45 unit subcut QHS 04/17/24 Unknown History mL) subcutaneous pen (Basaglar KwikPen U-100 Insulin) lisinopril 40 mg tablet 40 mg PO DAILY 04/17/24 Unknown History tamsulosin 0.4 mg capsule 0.4 mg PO DAILY 04/17/24 Unknown History cyclobenzaprine 5 mg tablet 5 mg PO TID PRN muscle spasm #21 05/16/25 Unknown Rx tabs Allergy/AdvReac Type Severity Reaction Status Date / Time No Known Allergies Allergy Verified 05/16/25 01:38 Social History Smoking Status: Light Smoker (<10/day) ROS ROS ED ROS Narrative Pertinent Positives: Left shoulder pain as described above Pertinent Negatives: Fevers chills rash redness numbness tingling weakness The remainder of review of systems negative unless otherwise stated in the HPI above. Systems reviewed including constitutional, psychiatric, cardiovascular, respiratory, integument, HENT, gastrointestinal. EXAM Physical Exam Narrative Exam Narrative: Afebrile hemodynamically stable does not appear toxic or in distress she is normocephalic and atraumatic no cervical thoracic or lumbar spine involvement no overlying skin changes nothing especially over his back such as vesicular lesions erythema crepitus or other skin discoloration or hemorrhagic bullae. He has appropriate strength in all movements however he will have reproducible pain on palpation of his upper trapezius muscles he has intact MSPs. Const Vital Signs: 05/16/25 01:35 Temperature 97.8 F Temperature Source Oral Pulse Rate 89 Respiratory Rate 16 Blood Pressure 170/66 H Blood Pressure Mean 100 Pulse Ox 99 Oxygen Delivery Method Room Air MDM MDM MDM Narrative Medical decision making narrative: Nursing notes, triage notes, available previous documentation, and vital signs were reviewed. Any discrepancies noted were addressed. Differential Diagnoses: Not a spinal epidural abscess or meningitis or necrotizing process no evidence of shingles this is not cellulitic low suspicion for fracture or dislocation could have some rotator cuff involvement but this is more consistent with shoulder impingement syndrome Interventions: Valium and Toradol Previous Documentation Reviewed: None available or applicable at this time. ED Course: Patient presenting with symptoms as described above labs and imaging not clinically indicated. Patient was given medications for his symptoms prescription for muscle relaxers was also prescribed return precautions follow-up recommendations provided he is stable for discharge. This note was made utilizing voice recognition software. All attempts were made to correct spelling or other errors prior to note completion. However, due to the fast-paced nature of emergency medicine, some errors may still be present. Discharge Plan Triage Chief Complaint: Upper Extremity Injury ED Provider: Baron Calvert Dx/Rx/DC Orders Clinical Impression: Impingement syndrome of left shoulder region Instructions: ED Shoulder Impingement Syndrome Prescriptions: New cyclobenzaprine 5 mg tablet 5 mg PO TID PRN (Reason: muscle spasm) Qty: 21 0RF No Action atorvastatin 40 MG tablet 40 mg PO QHS aspirin 81 MG tablet,chewable 81 mg PO DAILY@0800 metformin 500 MG tablet 1,000 mg PO BID tamsulosin 0.4 mg capsule 0.4 mg PO DAILY glipizide 5 mg tablet 5 mg PO BID insulin glargine [Basaglar KwikPen U-100 Insulin] 100 unit/mL (3 mL) insulin pen 45 unit subcut QHS Trulicity 3 mg/0.5 mL pen injector 3 mg subcut NIELSEN lisinopril 40 mg tablet 40 mg PO DAILY Primary Care Provider: Maykel Bee Referrals: Maykel Bee MD [Primary Care Provider, Internal Medicine] Activity Restrictions/Additional Instructions: Please do not drive or operate heavy machinery or climb heights while on the muscle relaxer follow-up with your doctor otherwise return if getting worse Print Language: [place] Disposition Disposition: Home, Self Care
[2025-05-16 02:39] VITALS: BP 134/55; PULSE 79; RESP 17; O2SAT 97
[2025-05-16 02:40] VITALS: BP 134/55; PULSE 79; RESP 17; TEMP 36.6; O2SAT 97
== END 2025-05-16 02:41 | disposition home or self-care (01) ==
PROVIDERS: Emergency Provider Specialist/Technologist Athletic Trainer; PCP Internal Medicine; Visit Provider Specialist/Technologist Athletic Trainer
DX: M25.512 Pain in left shoulder (principal); E11.9 Type 2 diabetes mellitus without complications; Z79.4 Long term (current) use of insulin; M75.42 Impingement syndrome of left shoulder; I10 Essential (primary) hypertension; E78.5 Hyperlipidemia, unspecified; Z85.46 Personal history of malignant neoplasm of prostate; Z79.82 Long term (current) use of aspirin; Z79.899 Other long term (current) drug therapy; Z79.84 Long term (current) use of oral hypoglycemic drugs; Z79.85 Long-term (current) use of injectable non-insulin antidiabetic drugs; F17.200 Nicotine dependence, unspecified, uncomplicated
CPT/HCPCS: 96372; 99283